=== PATIENT | male | born 1980 | race Caucasian/White ===

== ENCOUNTER → 2016-06-30 | Outpatient (CLI) | payer OTHER ==
[2016-06-30 11:12] LABS: Bilirubin, Delta 0.2 mg/dL (0.0-0.2); Total Bilirubin 0.3 mg/dL (0.2-1.3); Total Protein 7.2 g/dL (6.3-8.2)
[2016-06-30 13:58] LABS: Hemoglobin A1C 5.4 % (4.2-6.1)
== END | disposition home or self-care (01) ==
LOC: LABWHC1 07:50
PROVIDERS: ATTEND Psychiatry & Neurology Psychiatry
DX: Z51.81 Encounter for therapeutic drug level monitoring (principal); Z79.899 Other long term (current) drug therapy
CPT/HCPCS: 36415; 80061; 80076; 80164; 82947; 83036; 84439; 84443

== ENCOUNTER → 2016-09-11 | Outpatient (CLI) | payer OTHER ==
--- NOTE | 2016-09-11 20:09 | MR ---
EXAMINATION TYPE: MR lumbar spine wo con DATE OF EXAM: 09/11/2016 7:48 PM COMPARISON: NONE HISTORY: Back pain, BLE radic Multiplanar, MultiSpin echo imaging of the lumbar spine was performed. T11-12: Severe disc desiccation. Suspect right paracentral disc herniation. Consider dedicated MRI of the thoracic spine. T12-L1: Mild disc desiccation. Left paracentral disc protrusion effaces the ventral thecal sac and re sults in mild left foraminal encroachment. Further evaluation with dedicated MRI of the thoracic spin e is advised. L1-L2: There is moderate disc desiccation. Extruded left paracentral disc herniation results in effac ement of the ventral thecal sac and mild central stenosis. There is left lateral recess stenosis and left foraminal encroachment. L2-L3: Normal disc appearance without desiccation. No herniation, protrusion or disc bulging. No ca nal stenosis is present. Foramina are patent bilaterally. L3-L4: Normal disc appearance without desiccation. No herniation, protrusion or disc bulging. No ca nal stenosis is present. Foramina are patent bilaterally. L4-L5: Moderate disc desiccation. Circumferential disc bulge greatest posterior centrally where I radha pect a small right paracentral disc protrusion. Mild effacement ventral thecal sac. No central stenos is. Mild right-sided foraminal encroachment. L5-S1: Normal disc appearance without desiccation. No herniation, protrusion or disc bulging. No ca nal stenosis is present. Foramina are patent bilaterally. Lumbar segments are intact. No paraspinal masses are identified. Conus medullaris has a normal appe arance. IMPRESSION: 1. Extruded disc herniation paracentrally and to the left at L1-2 with associated central stenosis. 2. Additional I herniations at T11-T12 and T12-L1. Dedicated MRI thoracic spine advised. 3 small disc protrusion at L4-5 as noted.
== END | disposition home or self-care (01) ==
LOC: RADMRIMAIN 19:19
PROVIDERS: ATTEND Family Medicine
DX: M51.26 Other intervertebral disc displacement, lumbar region (principal); M48.06 Spinal stenosis, lumbar region; M51.24 Other intervertebral disc displacement, thoracic region
CPT/HCPCS: 72148

== ENCOUNTER 2016-10-31 11:31 | Emergency (ER) | payer OTHER ==
[2016-10-31 11:44] VITALS: RESP 18
--- NOTE | 2016-10-31 11:51 | ED ---
General Adult HPI - General Chief complaint: Chest Pain Stated complaint: Chest Pain Time Seen by Provider: 10/31/16 11:33 Source: patient, RN notes reviewed, old records reviewed Mode of arrival: ambulatory - History of Present Illness Initial comments: This is a 36-year-old male here for evaluation of chest pain chest pain epigastric bowel pain. Patient has significant cardiac risk factors, patient does continue to smoke. Patient has history of stent placement. Patient coming in for just been today he really started off as his family doctor's offices and was sent here for further evaluation. Patient denies fever cough or congestion, denies travel history, denies known sick contacts. - Related Data Home Medications Medication Instructions Recorded Confirmed Metoprolol Tartrate [Lopressor] 50 mg PO AC-BID 10/26/15 10/31/16 hydrALAZINE HCL [Apresoline] 50 mg PO AC-BID 10/26/15 10/31/16 Aspirin [Adult Low Dose Aspirin EC] 81 mg PO DAILY 10/31/16 10/31/16 Lurasidone HCl [Latuda] 60 mg PO HS 10/31/16 10/31/16 lamoTRIgine [LaMICtal] 200 mg PO HS 10/31/16 10/31/16 Previous Rx's Medication Instructions Recorded Atorvastatin [Lipitor] 40 mg PO DAILY #30 tab 02/26/15 amLODIPine [Norvasc] 10 mg PO HS #30 tab 04/07/15 cloNIDine HCL [Catapres] 0.1 mg PO TID #90 tab 04/07/15 Isosorbide Mononitrate ER [Imdur] 30 mg PO DAILY #60 tab.er.24h 12/03/15 Allergies Allergy/AdvReac Type Severity Reaction Status Date / Time No Known Allergies Allergy Verified 10/31/16 11:52 Review of Systems ROS Statement: Those systems with pertinent positive or pertinent negative responses have been documented in the HPI. ROS Other: All systems not noted in ROS Statement are negative. Past Medical History Past Medical History: Coronary Artery Disease (CAD), COPD, Hypertension, Myocardial Infarction ([place]) Additional Past Medical History / Comment(s): 09/17/14 Pt presented to [facility] ER thinking he is God and his son's spirit sent him here. He is here to save the world. Other HX: [place] in 2008, asthma, stress test Last Myocardial Infarction Date:: 2008 History of Any Multi-Drug Resistant Organisms: None Reported Past Surgical History: Heart Catheterization With Stent Past Anesthesia/Blood Transfusion Reactions: No Reported Reaction Date of Last Stent Placement:: 2008 Past Psychological History: Bipolar Smoking Status: Current every day smoker - Past Family History Father Family Medical History: CVA/TIA, Myocardial Infarction ([place]) Additional Family Medical History / Comment(s): Father had a [place] at age 29yrs. at age 38 after open heart Mother Family Medical History: No Reported History Additional Family Medical History / Comment(s): Mother is healthy General Exam General appearance: alert, in no apparent distress Head exam: Present: atraumatic, normocephalic, normal inspection Eye exam: Present: normal appearance, PERRL, EOMI. Absent: scleral icterus, conjunctival injection, periorbital swelling ENT exam: Present: normal exam, mucous membranes moist Neck exam: Present: normal inspection. Absent: tenderness, meningismus, lymphadenopathy Respiratory exam: Present: normal lung sounds bilaterally. Absent: respiratory distress, wheezes, rales, rhonchi, stridor Cardiovascular Exam: Present: regular rate, normal rhythm, normal heart sounds. Absent: systolic murmur, diastolic murmur, rubs, gallop, clicks GI/Abdominal exam: Present: soft, normal bowel sounds. Absent: distended, tenderness, guarding, rebound, rigid Extremities exam: Present: normal inspection, full ROM, normal capillary refill. Absent: tenderness, pedal edema, joint swelling, calf tenderness Back exam: Present: normal inspection Neurological exam: Present: alert, oriented X3, CN II-XII intact Psychiatric exam: Present: normal affect, normal mood Skin exam: Present: warm, dry, intact, normal color. Absent: rash Course Vital Signs 10/31/16 11:39 Temperature 97.8 F Pulse Rate 63 Respiratory 18 Rate Blood Pressure 126/81 O2 Sat by Pulse 98 Oximetry - Reevaluation(s) Reevaluation #1: 10/31/16 13:04 The patient still has substernal and epigastric chest pain at this time EKG Findings - EKG Comments: EKG Findings:: EKG shows normal sinus rhythm rate of 61, [place] 182, QRS 106, QTC 448 Medical Decision Making - Medical Decision Making 36 LDF for evaluation of chest pain and epigastric of bowel pain. Different from prior history of heart attacks the patient does have history of heart disease. Nonspecific the elevated troponin, patient will be admitted for telemetry, anticoagulation, and cardiac observation - Lab Data Result diagrams: 10/31/16 11:54 10/31/16 11:54 Lab Results 10/31/16 10/31/16 10/31/16 Range/Units 11:54 11:54 11:54 WBC 9.4 (3.8-10.6) k/uL RBC 4.87 (4.30-5.90) m/uL Hgb 14.0 (13.0-17.5) gm/dL Hct 43.7 (39.0-53.0) % MCV 89.6 (80.0-100.0) fL MCH 28.7 (25.0-35.0) pg MCHC 32.1 (31.0-37.0) g/dL RDW 14.0 (11.5-15.5) % Plt Count 335 (150-450) k/uL Neutrophils % 63 % Lymphocytes % 21 % Monocytes % 6 % Eosinophils % 7 % Basophils % 1 % Neutrophils # 5.9 (1.3-7.7) k/uL Lymphocytes # 1.9 (1.0-4.8) k/uL Monocytes # 0.6 (0-1.0) k/uL Eosinophils # 0.7 (0-0.7) k/uL Basophils # 0.1 (0-0.2) k/uL PT (9.0-12.0) sec INR (<1.1) APTT (22.0-30.0) sec Sodium 143 (137-145) mmol/L Potassium 4.7 (3.5-5.1) mmol/L Chloride 106 (98-107) mmol/L Carbon Dioxide 27 (22-30) mmol/L Anion Gap 10 mmol/L BUN 12 (9-20) mg/dL Creatinine 1.24 (0.66-1.25) mg/dL Est GFR (MDRD) Af Amer >60 (>60 ml/min/1.73 sqM) Est GFR (MDRD) Non-Af >60 (>60 ml/min/1.73 sqM) Glucose 90 (74-99) mg/dL Calcium 9.4 (8.4-10.2) mg/dL Magnesium 2.1 (1.6-2.3) mg/dL Total Bilirubin 0.4 (0.2-1.3) mg/dL AST 24 (17-59) U/L ALT 43 (21-72) U/L Alkaline Phosphatase 93 (38-126) U/L Total Creatine Kinase 90 (55-170) U/L CK-MB (CK-2) 0.6 (0.0-2.4) ng/mL CK-MB (CK-2) Rel Index 0.7 Troponin I 0.018 (0.000-0.034) ng/mL Total Protein 7.1 (6.3-8.2) g/dL Albumin 4.0 (3.5-5.0) g/dL 10/31/16 Range/Units 11:54 WBC (3.8-10.6) k/uL RBC (4.30-5.90) m/uL Hgb (13.0-17.5) gm/dL Hct (39.0-53.0) % MCV (80.0-100.0) fL MCH (25.0-35.0) pg MCHC (31.0-37.0) g/dL RDW (11.5-15.5) % Plt Count (150-450) k/uL Neutrophils % % Lymphocytes % % Monocytes % % Eosinophils % % Basophils % % Neutrophils # (1.3-7.7) k/uL Lymphocytes # (1.0-4.8) k/uL Monocytes # (0-1.0) k/uL Eosinophils # (0-0.7) k/uL Basophils # (0-0.2) k/uL PT 9.8 (9.0-12.0) sec INR 1.0 (<1.1) APTT 23.3 (22.0-30.0) sec Sodium (137-145) mmol/L Potassium (3.5-5.1) mmol/L Chloride (98-107) mmol/L Carbon Dioxide (22-30) mmol/L Anion Gap mmol/L BUN (9-20) mg/dL Creatinine (0.66-1.25) mg/dL Est GFR (MDRD) Af Amer (>60 ml/min/1.73 sqM) Est GFR (MDRD) Non-Af (>60 ml/min/1.73 sqM) Glucose (74-99) mg/dL Calcium (8.4-10.2) mg/dL Magnesium (1.6-2.3) mg/dL Total Bilirubin (0.2-1.3) mg/dL AST (17-59) U/L ALT (21-72) U/L Alkaline Phosphatase (38-126) U/L Total Creatine Kinase (55-170) U/L CK-MB (CK-2) (0.0-2.4) ng/mL CK-MB (CK-2) Rel Index Troponin I (0.000-0.034) ng/mL Total Protein (6.3-8.2) g/dL Albumin (3.5-5.0) g/dL - Radiology Data Radiology results: report reviewed (Chest x-ray is negative for acute disease), image reviewed Critical Care Time Critical Care Time: Yes Total Critical Care Time: 31 Disposition Clinical Impression: Chest pain Disposition: ADMITTED IP TO THIS HOSP Condition: Undetermined Instructions: Chest Pain (ED) Referrals: Mohini Uribe MD [Primary Care Provider] - 1-2 days
[2016-10-31 12:07] LABS: Basophils # (A) 0.1 k/uL (0-0.2); Basophils % (A) 1 %; CH 29.1; CHCM 32.6; Eosinophils # (A) 0.7 k/uL (0-0.7); Eosinophils % (A) 7 %; HCT 43.7 % (39.0-53.0); HDW 2.43; Luc # (Auto) 0.22; Luc % (Auto) 2; Lymphocytes # (A) 1.9 k/uL (1.0-4.8); Lymphocytes % (A) 21 %; MCH 28.7 pg (25.0-35.0); MCHC 32.1 g/dL (31.0-37.0); MCV 89.6 fL (80.0-100.0); Mean Platelet Volume 6.6; Monocytes # (A) 0.6 k/uL (0-1.0); Monocytes % (A) 6 %; Neutrophils # (A) 5.9 k/uL (1.3-7.7); Neutrophils % (A) 63 %; RBC 4.87 m/uL (4.30-5.90); WBC 9.4 k/uL (3.8-10.6); WBC (Perox) 9.18
[2016-10-31 12:13] LABS: Partial Thromboplastin Time 23.3 sec (22.0-30.0); Prothrombin Time 9.8 sec (9.0-12.0)
[2016-10-31 12:14] LABS: ALT 43 U/L (21-72); AST 24 U/L (17-59); Alkaline Phosphatase 93 U/L (38-126); Anion Gap 10 mmol/L; Blood Urea Nitrogen 12 mg/dL (9-20); Calcium 9.4 mg/dL (8.4-10.2); Carbon Dioxide 27 mmol/L (22-30); Chloride 106 mmol/L (98-107); Glucose 90 mg/dL (74-99); Magnesium 2.1 mg/dL (1.6-2.3); Non-African American GFR(MDRD) >60 (>60 ml/min/1.73 sqM); Potassium 4.7 mmol/L (3.5-5.1); Sodium 143 mmol/L (137-145); Total Bilirubin 0.4 mg/dL (0.2-1.3); Total Protein 7.1 g/dL (6.3-8.2)
--- NOTE | 2016-10-31 12:21 | XR ---
EXAMINATION TYPE: XR chest 2V DATE OF EXAM: 10/31/2016 HISTORY: Chest Pain. REFERENCE: Previous study dated 04/27/2016. FINDINGS: The lungs are clear. Pleural spaces are clear. Heart size is upper limits of normal. IMPRESSION: BORDERLINE CARDIOMEGALY.
[2016-10-31 12:38] LABS: Creatine Kinase MB 0.6 ng/mL (0.0-2.4); Troponin I 0.018 ng/mL (0.000-0.034)
[2016-10-31] MEDS ORDERED: HEPARIN SODIUM,PORCINE 5,000 UNIT/ML 1 ML VIAL IV PRN (13:02)
[2016-10-31] MEDS ORDERED: NITROGLYCERIN SL TABS 0.4 MG TAB SUBLINGUAL PRN (13:02)
[2016-10-31] MEDS ORDERED: HEPARIN SODIUM,PORCINE 5,000 UNIT/ML 1 ML VIAL IV ONE (13:02)
[2016-10-31] MEDS ORDERED: ASPIRIN 81 MG CHEW PO STA (13:02)
[2016-10-31] MEDS ORDERED: HEPARIN SODIUM,PORCINE/D5W PMX 25,000 UNIT in DEXTROSE/WATER 1 500ML.BAG IV SCH (13:15)
[2016-10-31 13:32] VITALS: BP 119/82
[2016-10-31 13:51] VITALS: PULSE 53; TEMP 98.5
[2016-11-01] MEDS ORDERED: ASPIRIN 325 MG TAB PO SCH (09:00)
[2016-11-01] MEDS ORDERED: ATORVASTATIN 80 MG TAB PO SCH (09:00)
== END 2016-10-31 13:51 | disposition other institution (70) ==
LOC: EC 11:31 → UNDOADMOB 13:02 → 3OBS 13:02 → EC 13:51
DX: R07.9 Chest pain, unspecified (principal); R10.13 Epigastric pain; R79.89 Other specified abnormal findings of blood chemistry; I25.10 Atherosclerotic heart disease of native coronary artery without angina pectoris; I25.2 Old myocardial infarction; I10 Essential (primary) hypertension; F31.9 Bipolar disorder, unspecified; F17.200 Nicotine dependence, unspecified, uncomplicated; Z79.82 Long term (current) use of aspirin; Z79.899 Other long term (current) drug therapy; Z95.5 Presence of coronary angioplasty implant and graft; Z82.49 Family history of ischemic heart disease and other diseases of the circulatory system
CPT/HCPCS: 36415; 71020; 80053; 82550; 82553; 83735; 84484; 85025; 85610; 85730; 93005; 99285

== ENCOUNTER → 2016-11-29 | Outpatient (CLI) | payer OTHER ==
--- NOTE | 2016-11-30 09:09 | MR ---
EXAMINATION TYPE: MR thoracic spine wo con DATE OF EXAM: 11/29/2016 COMPARISON: NONE HISTORY: Mid back pain, Injury at work x 3 weeks Standard multiplanar, multisequence MRI departmental protocol Multiplanar, multisequence images of the thoracic spine were acquired. Diffusion weighted imaging was performed. FINDINGS: At T5-T6 there is a focal central disc herniation which results in mild anterior compression of the s osmar cord. No definite intrinsic signal within the spinal cord. Neural foramina patent. At T6-T7 there is a central disc tiny protrusion. No spinal cord contact or foraminal encroachment. At T7-T8 there is left paracentral disc protrusion, canal stenosis or foraminal encroachment. There i s a very minimal left paracentral thecal sac impression. At T8-T9 there is a central and right paracentral small disc herniation which abuts the anterior taylor in the spinal cord results in AP canal stenosis. Neural foramina are patent. At T11-T12 there is a right paracentral and lateral disc herniation with mild right-sided foraminal encroachment. No spinal cord contact. There is effacement of thecal sac At T12-L1 there is a focal left paracentral disc herniation which does result in distortion of the an terolateral left thecal sac. Left-sided foraminal encroachment seen. Remaining levels demonstrate no definite disc herniation, canal stenosis, or foraminal encroachment. Loss of disc signal seen at levels T5-T12 compatible with degenerative disc disease. Scoliotic curvat ure noted. No abnormal signal the visualized paraspinal soft tissues or spinal cord. IMPRESSION: 1. Multilevel degenerative disc disease with multilevel disc herniation or protrusions as discussed a sondra with thecal sac impression and spinal cord compression at T5-T6. See above.
== END | disposition home or self-care (01) ==
LOC: RADMRIMAIN 18:48
PROVIDERS: ATTEND Family Medicine
DX: M51.34 Other intervertebral disc degeneration, thoracic region (principal)
CPT/HCPCS: 72146

== ENCOUNTER → 2018-04-16 | Outpatient (CLI) | payer OTHER ==
--- NOTE | 2018-04-16 13:08 | XR ---
EXAMINATION TYPE: XR chest 2V DATE OF EXAM: 04/16/2018 COMPARISON: Prior chest x-ray 10/31/2016 HISTORY: TECHNIQUE: Frontal and lateral views of the chest are obtained. FINDINGS: There is no focal air space opacity, pleural effusion, or pneumothorax seen. The cardiac silhouette size is within normal limits. There is a spinal curvature. The osseous structures are in tact. IMPRESSION: No acute cardiopulmonary process.
== END | disposition home or self-care (01) ==
LOC: RADXRMAIN 12:40
PROVIDERS: ATTEND Family Medicine
DX: R05 Cough (principal); R06.2 Wheezing; J01.00 Acute maxillary sinusitis, unspecified; Z72.0 Tobacco use
CPT/HCPCS: 71046; 87502

== ENCOUNTER 2018-04-22 09:29 | Emergency (ER) | payer OTHER ==
[2018-04-22 09:36] VITALS: TEMP 98.3
[2018-04-22] MEDS ORDERED: methylPREDNISolone SOD SUCCI 125 MG/2 ML VIAL IV STA (10:29)
[2018-04-22] MEDS ORDERED: ONDANSETRON 4 MG/2 ML VIAL IVP STA (10:29)
[2018-04-22] MEDS ORDERED: HYDROmorphone 1 MG/ML 1 ML SYRINGE IVP STA (10:29)
[2018-04-22] MEDS ORDERED: IPRATROPIUM-ALBUTEROL 3 ML NEB INHALATION STA (10:29)
[2018-04-22 11:52] LABS: Anisocytosis Slight; Basophils % (A) 0 %; Eosinophils # (A) 0.3 k/uL (0-0.7); Eosinophils % (A) 3 %; HCT 44.6 % (39.0-53.0); HGB 14.2 gm/dL (13.0-17.5); Lymphocytes % (A) 15 %; MCH 25.4 pg (25.0-35.0); MCHC 31.8 g/dL (31.0-37.0); MCV 79.9 fL (80.0-100.0); Mean Platelet Volume 6.5; Microcytosis Slight; Monocytes # (A) 0.7 k/uL (0-1.0); Monocytes % (A) 5 %; Neutrophils # (A) 9.8 k/uL (1.3-7.7); Neutrophils % (A) 75 %; Platelet Count 466 k/uL (150-450); RBC 5.58 m/uL (4.30-5.90); RDW 17.5 % (11.5-15.5)
[2018-04-22 12:00] LABS: ALT 42 U/L (21-72); AST 29 U/L (17-59); Albumin 3.9 g/dL (3.5-5.0); Alkaline Phosphatase 101 U/L (38-126); Anion Gap 11 mmol/L; Blood Urea Nitrogen 18 mg/dL (9-20); Calcium 9.4 mg/dL (8.4-10.2); Carbon Dioxide 27 mmol/L (22-30); Chloride 104 mmol/L (98-107); Glucose 93 mg/dL (74-99); Magnesium 2.2 mg/dL (1.6-2.3); Potassium 4.3 mmol/L (3.5-5.1); Sodium 142 mmol/L (137-145); Total Bilirubin 0.4 mg/dL (0.2-1.3); Total Protein 7.2 g/dL (6.3-8.2)
--- NOTE | 2018-04-22 12:42 | ED ---
URI HPI - General Chief Complaint: Upper Respiratory Infection Stated Complaint: rt sided abd pain Time Seen by Provider: 04/22/18 09:44 Source: patient, RN notes reviewed Mode of arrival: ambulatory Limitations: no limitations - History of Present Illness Initial Comments: 37-year-old male present emergency from chief complaint of right-sided rib pain. Patient states she's been sick for last 2 months he does have a history asthma and prior cardiac disease. Patient states that he felt a pop in his ribs and states that severe pain. Patient states she's having trouble breathing at this time also movement makes it worse. Patient states when he doesn't updraft he does help for short period time but still feels short of breath. Patient is currently on steroids. Patient reported fever but no fever today. Patient admits of sinus congestion, sore throat, cough. - Related Data Home Medications Medication Instructions Recorded Confirmed Metoprolol Tartrate [Lopressor] 50 mg PO AC-BID 10/26/15 04/22/18 Lurasidone HCl [Latuda] 60 mg PO HS 10/31/16 04/22/18 lamoTRIgine [LaMICtal] 200 mg PO HS 10/31/16 04/22/18 Albuterol Inhaler [Ventolin Hfa 2 puff INHALATION RT-Q6H PRN 04/22/18 04/22/18 Inhaler] Amoxic-Pot Clav 875-125Mg 1 tab PO Q12HR 04/22/18 04/22/18 [Augmentin 875-125] Ipratropium-Albuterol Nebulize 3 ml INHALATION RT-Q6H PRN 04/22/18 04/22/18 [Duoneb 0.5 mg-3 mg/3 ml Soln] Omeprazole 20 mg PO HS 04/22/18 04/22/18 amLODIPine [Norvasc] 10 mg PO DAILY 04/22/18 04/22/18 predniSONE See Taper PO DIRECTED 04/22/18 04/22/18 Previous Rx's Medication Instructions Recorded Atorvastatin [Lipitor] 40 mg PO DAILY #30 tab 02/26/15 Allergies Allergy/AdvReac Type Severity Reaction Status Date / Time No Known Allergies Allergy Verified 04/22/18 09:56 Review of Systems ROS Statement: Those systems with pertinent positive or pertinent negative responses have been documented in the HPI. ROS Other: All systems not noted in ROS Statement are negative. Past Medical History Past Medical History: Coronary Artery Disease (CAD), COPD, Hypertension, Myocardial Infarction ([place]) Additional Past Medical History / Comment(s): 09/17/14 Pt presented to [facility] ER thinking he is God and his son's spirit sent him here. He is here to save the world. Other HX: [place] in 2008, asthma, stress test Last Myocardial Infarction Date:: 2008 History of Any Multi-Drug Resistant Organisms: None Reported Past Surgical History: Heart Catheterization With Stent Past Anesthesia/Blood Transfusion Reactions: No Reported Reaction Date of Last Stent Placement:: 2008 Past Psychological History: Bipolar Smoking Status: Current every day smoker Past Alcohol Use History: Occasional Past Drug Use History: Marijuana - Past Family History Father Family Medical History: CVA/TIA, Myocardial Infarction ([place]) Additional Family Medical History / Comment(s): Father had a [place] at age 29yrs. at age 38 after open heart Mother Family Medical History: No Reported History Additional Family Medical History / Comment(s): Mother is healthy General Exam Limitations: no limitations General appearance: alert, in no apparent distress Head exam: Present: atraumatic, normocephalic, normal inspection Eye exam: Present: normal appearance, PERRL, EOMI. Absent: scleral icterus, conjunctival injection, periorbital swelling ENT exam: Present: normal exam, mucous membranes moist Neck exam: Present: normal inspection, full ROM. Absent: tenderness, meningismus, lymphadenopathy Respiratory exam: Present: wheezes, chest wall tenderness (Right anterior lateral). Absent: normal lung sounds bilaterally, respiratory distress, rales, rhonchi, stridor Cardiovascular Exam: Present: normal rhythm, tachycardia, normal heart sounds. Absent: systolic murmur, diastolic murmur, rubs, gallop, clicks GI/Abdominal exam: Present: soft, normal bowel sounds. Absent: distended, tenderness, guarding, rebound, rigid Course Vital Signs 04/22/18 04/22/18 04/22/18 09:33 11:00 11:04 Temperature 98.3 F Pulse Rate 101 H 88 84 Respiratory 18 17 Rate Blood Pressure 161/100 180/121 O2 Sat by Pulse 95 95 Oximetry 04/22/18 04/22/18 04/22/18 11:13 11:18 11:30 Temperature Pulse Rate 88 88 Respiratory 26 H 13 Rate Blood Pressure 174/108 O2 Sat by Pulse Oximetry 04/22/18 04/22/18 04/22/18 12:00 12:30 13:00 Temperature Pulse Rate 87 87 98 Respiratory 20 20 17 Rate Blood Pressure 172/108 147/100 139/100 O2 Sat by Pulse 92 L 91 L 85 L Oximetry 04/22/18 04/22/18 13:30 14:30 Temperature Pulse Rate 90 90 Respiratory 21 14 Rate Blood Pressure 155/104 155/103 O2 Sat by Pulse 92 L 93 L Oximetry Medical Decision Making - Medical Decision Making 29-year-old male presented for right-sided rib pain. Patient did have notable wheezing was given DuoNeb treatment which has helped. Patient has mild asthma exacerbation currently on steroids. Patient did have elevated d-dimer CT was obtained negative for acute PE, pneumothorax or evidence of pneumonia. Patient will continue on his steroids, albuterol treatment will be given pain medication for rib injury. Return parameters were discussed. - Lab Data Result diagrams: 04/22/18 11:00 04/22/18 11:00 Lab Results 04/22/18 04/22/18 04/22/18 Range/Units 11:00 11:00 11:00 WBC 13.0 H (3.8-10.6) k/uL RBC 5.58 (4.30-5.90) m/uL Hgb 14.2 (13.0-17.5) gm/dL Hct 44.6 (39.0-53.0) % MCV 79.9 L (80.0-100.0) fL MCH 25.4 (25.0-35.0) pg MCHC 31.8 (31.0-37.0) g/dL RDW 17.5 H (11.5-15.5) % Plt Count 466 H (150-450) k/uL Neutrophils % 75 % Lymphocytes % 15 % Monocytes % 5 % Eosinophils % 3 % Basophils % 0 % Neutrophils # 9.8 H (1.3-7.7) k/uL Lymphocytes # 2.0 (1.0-4.8) k/uL Monocytes # 0.7 (0-1.0) k/uL Eosinophils # 0.3 (0-0.7) k/uL Basophils # 0.0 (0-0.2) k/uL Anisocytosis Slight Microcytosis Slight D-Dimer (<0.60) mg/L FEU Sodium 142 (137-145) mmol/L Potassium 4.3 (3.5-5.1) mmol/L Chloride 104 (98-107) mmol/L Carbon Dioxide 27 (22-30) mmol/L Anion Gap 11 mmol/L BUN 18 (9-20) mg/dL Creatinine 1.14 (0.66-1.25) mg/dL Est GFR (CKD-EPI)AfAm >90 (>60 ml/min/1.73 sqM) Est GFR (CKD-EPI)NonAf 82 (>60 ml/min/1.73 sqM) Glucose 93 (74-99) mg/dL Plasma Lactic Acid Bryan (0.7-2.0) mmol/L Calcium 9.4 (8.4-10.2) mg/dL Magnesium 2.2 (1.6-2.3) mg/dL Total Bilirubin 0.4 (0.2-1.3) mg/dL AST 29 (17-59) U/L ALT 42 (21-72) U/L Alkaline Phosphatase 101 (38-126) U/L Troponin I 0.020 (0.000-0.034) ng/mL NT-Pro-B Natriuret Pep pg/mL Total Protein 7.2 (6.3-8.2) g/dL Albumin 3.9 (3.5-5.0) g/dL Influenza Type A RNA (Not Detectd) Influenza Type B (PCR) (Not Detectd) 04/22/18 04/22/18 04/22/18 Range/Units 11:00 11:00 11:00 WBC (3.8-10.6) k/uL RBC (4.30-5.90) m/uL Hgb (13.0-17.5) gm/dL Hct (39.0-53.0) % MCV (80.0-100.0) fL MCH (25.0-35.0) pg MCHC (31.0-37.0) g/dL RDW (11.5-15.5) % Plt Count (150-450) k/uL Neutrophils % % Lymphocytes % % Monocytes % % Eosinophils % % Basophils % % Neutrophils # (1.3-7.7) k/uL Lymphocytes # (1.0-4.8) k/uL Monocytes # (0-1.0) k/uL Eosinophils # (0-0.7) k/uL Basophils # (0-0.2) k/uL Anisocytosis Microcytosis D-Dimer (<0.60) mg/L FEU Sodium (137-145) mmol/L Potassium (3.5-5.1) mmol/L Chloride (98-107) mmol/L Carbon Dioxide (22-30) mmol/L Anion Gap mmol/L BUN (9-20) mg/dL Creatinine (0.66-1.25) mg/dL Est GFR (CKD-EPI)AfAm (>60 ml/min/1.73 sqM) Est GFR (CKD-EPI)NonAf (>60 ml/min/1.73 sqM) Glucose (74-99) mg/dL Plasma Lactic Acid Bryan 1.2 (0.7-2.0) mmol/L Calcium (8.4-10.2) mg/dL Magnesium (1.6-2.3) mg/dL Total Bilirubin (0.2-1.3) mg/dL AST (17-59) U/L ALT (21-72) U/L Alkaline Phosphatase (38-126) U/L Troponin I (0.000-0.034) ng/mL NT-Pro-B Natriuret Pep 70 pg/mL Total Protein (6.3-8.2) g/dL Albumin (3.5-5.0) g/dL Influenza Type A RNA Not Detected (Not Detectd) Influenza Type B (PCR) Not Detected (Not Detectd) 04/22/18 Range/Units 11:00 WBC (3.8-10.6) k/uL RBC (4.30-5.90) m/uL Hgb (13.0-17.5) gm/dL Hct (39.0-53.0) % MCV (80.0-100.0) fL MCH (25.0-35.0) pg MCHC (31.0-37.0) g/dL RDW (11.5-15.5) % Plt Count (150-450) k/uL Neutrophils % % Lymphocytes % % Monocytes % % Eosinophils % % Basophils % % Neutrophils # (1.3-7.7) k/uL Lymphocytes # (1.0-4.8) k/uL Monocytes # (0-1.0) k/uL Eosinophils # (0-0.7) k/uL Basophils # (0-0.2) k/uL Anisocytosis Microcytosis D-Dimer 0.82 H (<0.60) mg/L FEU Sodium (137-145) mmol/L Potassium (3.5-5.1) mmol/L Chloride (98-107) mmol/L Carbon Dioxide (22-30) mmol/L Anion Gap mmol/L BUN (9-20) mg/dL Creatinine (0.66-1.25) mg/dL Est GFR (CKD-EPI)AfAm (>60 ml/min/1.73 sqM) Est GFR (CKD-EPI)NonAf (>60 ml/min/1.73 sqM) Glucose (74-99) mg/dL Plasma Lactic Acid Bryan (0.7-2.0) mmol/L Calcium (8.4-10.2) mg/dL Magnesium (1.6-2.3) mg/dL Total Bilirubin (0.2-1.3) mg/dL AST (17-59) U/L ALT (21-72) U/L Alkaline Phosphatase (38-126) U/L Troponin I (0.000-0.034) ng/mL NT-Pro-B Natriuret Pep pg/mL Total Protein (6.3-8.2) g/dL Albumin (3.5-5.0) g/dL Influenza Type A RNA (Not Detectd) Influenza Type B (PCR) (Not Detectd) 04/22/18 14:35 EKG performed at 10:47 normal sinus rhythm with a prolonged QT rate of 86 UT 174 QRS 104 QT/QTC/488 Disposition Clinical Impression: Mild asthma exacerbation, Costochondritis, Rib pain on right side Disposition: HOME SELF-CARE Condition: Stable Instructions: Costochondritis (ED) Additional Instructions: Please return to the Emergency Department if symptoms worsen or any other concerns. Continue steroids as directed. Is patient prescribed a controlled substance at d/c from ED?: Yes When asked, does pt state using other controlled substances?: No If prescribed controlled substance>3 days was MAPS reviewed?: Prescribed <3 Days If opioid is for acute pain is fill amount 7 days or less?: Yes If Rx opioid, was Start Talking consent form obtained?: Yes Referrals: Mohini Uribe MD [Primary Care Provider] - 1-2 days Time of Disposition: 14:36
--- NOTE | 2018-04-22 12:44 | XR ---
EXAMINATION TYPE: XR chest 2V DATE OF EXAM: 04/22/2018 COMPARISON: 04/16/2018 INDICATION: Difficulty breathing, right mid rib pain TECHNIQUE: Frontal and lateral views of the chest are obtained. FINDINGS: The heart size is normal. The pulmonary vasculature is normal. The lungs are clear. No displaced rib fractures are identified. No pneumothorax is evident. IMPRESSION: 1. No acute pulmonary process.
[2018-04-22] MEDS ORDERED: DIAZEPAM 5 MG/ML 2 ML INJ IVP STA (12:49)
[2018-04-22 13:52] VITALS: PULSE 90
--- NOTE | 2018-04-22 14:31 | CT ---
EXAMINATION TYPE: CT chest angio for PE DATE OF EXAM: 04/22/2018 COMPARISON: Chest x-ray same date and prior CT chest 12/02/2015 HISTORY: Pain CT DLP: 630.2 mGycm Automated exposure control for dose reduction was used. CONTRAST: CT Chest for pulmonary embolism performed with with IV Contrast, patient injected with 75 mL of Isovu e 370. FINDINGS: Suspect a small hiatal hernia is present. LUNGS: There is a small right pleural effusion and associated atelectasis. MEDIASTINUM: There is satisfactory enhancement of the pulmonary artery and its branches, there is no CT evidence for pulmonary embolism. There are no greater than 1 cm hilar or mediastinal lymph nodes. No pericardial effusion is seen. Coronary artery calcifications are present. AORTA: No additional significant abnormality is seen. OTHER: No additional significant abnormality is seen. IMPRESSION: No evident pulmonary embolism. Coronary artery calcifications. Small right pleural effusion and minimal associated atelectasis.
[2018-04-22 14:34] VITALS: BP 155/103; RESP 14
== END 2018-04-22 14:45 | disposition home or self-care (01) ==
LOC: EC 09:29
DX: J45.901 Unspecified asthma with (acute) exacerbation (principal); M94.0 Chondrocostal junction syndrome [Tietze]; R10.9 Unspecified abdominal pain; I25.10 Atherosclerotic heart disease of native coronary artery without angina pectoris; I11.9 Hypertensive heart disease without heart failure; I25.2 Old myocardial infarction; F31.9 Bipolar disorder, unspecified; F17.200 Nicotine dependence, unspecified, uncomplicated; Z95.5 Presence of coronary angioplasty implant and graft; Z79.52 Long term (current) use of systemic steroids; Z82.49 Family history of ischemic heart disease and other diseases of the circulatory system; Z79.899 Other long term (current) drug therapy
CPT/HCPCS: 36415; 94640; 93005; 85379; 83880; 80053; 83605; 83735; 84484; 85025; 87040; 87502; 71046; 71275; 99284; 96374; 96375 ×3; J2930; J3360; J2405; J1170; Q9967

== ENCOUNTER 2018-04-27 17:12 | Inpatient (IN) | payer OTHER ==
[2018-04-27] MEDS ORDERED: IPRATROPIUM-ALBUTEROL 3 ML NEB INHALATION STA (17:52)
[2018-04-27] MEDS ORDERED: SODIUM CHLORIDE 0.9% 1,000 ML IV STA (17:52)
[2018-04-27 19:20] LABS: Appearance,Urine Clear (Clear); Bilirubin,Urine Negative (Negative); Blood,Urine Negative (Negative); Color,Urine Yellow; Glucose,Urine (UA) Negative (Negative); Ketones,Urine Negative (Negative); Leukocyte Esterase,Urine Negative (Negative); Nitrite,Urine Negative (Negative); Protein,Urine Negative (Negative); Specific Gravity,Urine 1.015 (1.001-1.035); Urobilinogen,Urine <2.0 mg/dL (<2.0)
[2018-04-27 19:20] LABS: Anisocytosis Slight; Basophils % (A) 0 %; Eosinophils # (A) 0.5 k/uL (0-0.7); Eosinophils % (A) 3 %; HCT 41.2 % (39.0-53.0); HGB 13.1 gm/dL (13.0-17.5); Lymphocytes % (A) 14 %; MCH 26.1 pg (25.0-35.0); MCHC 31.8 g/dL (31.0-37.0); MCV 81.9 fL (80.0-100.0); Mean Platelet Volume 7.1; Microcytosis Slight; Monocytes # (A) 0.9 k/uL (0-1.0); Monocytes % (A) 6 %; Neutrophils # (A) 10.9 k/uL (1.3-7.7); Neutrophils % (A) 75 %; Platelet Count 407 k/uL (150-450); RBC 5.03 m/uL (4.30-5.90); RDW 17.3 % (11.5-15.5); WBC 14.5 k/uL (3.8-10.6)
[2018-04-27 19:29] LABS: Cocaine Screen,Urine Not Detected (NotDetected); Opiate Screen,Urine Detected (NotDetected); Phencyclidine Screen,Urine Not Detected (NotDetected); Urn Cannabinoid Scrn Detected (NotDetected)
--- NOTE | 2018-04-27 19:29 | ED ---
General Adult HPI - General Source: patient, RN notes reviewed Mode of arrival: ambulatory Limitations: no limitations <Raza Musa - Last Filed: 04/27/18 20:00> <Elliot Stone - Last Filed: 04/27/18 20:11> - General Chief complaint: Recheck/Abnormal Lab/Rx Stated complaint: rib pain/always tired Time Seen by Provider: 04/27/18 17:46 - History of Present Illness Initial comments: Patient's a 37-year-old male significant past medical history for COPD, presenting to the emergency room today with a chief complaint of increased cough congestion over the last 2 weeks. States cough has been dry. Does admit that he was seen here in the emergency room and diagnosed with a bronchitis. Has Been on amoxicillin for the past week and a half. States that symptoms have not improved. Patient front as at bedside stating that it's been more confused over the last week. States sleeping more. States he didn't follow-up the family doctor 2 days ago and were advised coming here to emergency room for admission. States that she couldn't get him to come to the hospital. Patient denies any recent shortness of breath, chest pain, back pain, abdominal pain, nausea or vomiting, numbness or tingling, headaches or visual changes, or any other complaints. (Raza Musa) - Related Data Home Medications Medication Instructions Recorded Confirmed Metoprolol Tartrate [Lopressor] 50 mg PO AC-BID 10/26/15 04/22/18 Lurasidone HCl [Latuda] 60 mg PO HS 10/31/16 04/22/18 lamoTRIgine [LaMICtal] 200 mg PO HS 10/31/16 04/22/18 Albuterol Inhaler [Ventolin Hfa 2 puff INHALATION RT-Q6H PRN 04/22/18 04/22/18 Inhaler] Amoxic-Pot Clav 875-125Mg 1 tab PO Q12HR 04/22/18 04/22/18 [Augmentin 875-125] Ipratropium-Albuterol Nebulize 3 ml INHALATION RT-Q6H PRN 04/22/18 04/22/18 [Duoneb 0.5 mg-3 mg/3 ml Soln] Omeprazole 20 mg PO HS 04/22/18 04/22/18 amLODIPine [Norvasc] 10 mg PO DAILY 04/22/18 04/22/18 predniSONE See Taper PO DIRECTED 04/22/18 04/22/18 Previous Rx's Medication Instructions Recorded Atorvastatin [Lipitor] 40 mg PO DAILY #30 tab 02/26/15 Hydrocodone/Acetaminophen [Gwynn 1 tab PO Q6HR PRN #12 tab 04/22/18 5-325] predniSONE 50 mg PO DAILY #5 tab 04/22/18 Allergies Allergy/AdvReac Type Severity Reaction Status Date / Time No Known Allergies Allergy Verified 04/27/18 17:38 Review of Systems ROS Other: All systems not noted in ROS Statement are negative. <Raza Musa - Last Filed: 04/27/18 20:00> ROS Other: All systems not noted in ROS Statement are negative. <Elliot Stone - Last Filed: 04/27/18 20:11> ROS Statement: Those systems with pertinent positive or pertinent negative responses have been documented in the HPI. Past Medical History Past Medical History: Coronary Artery Disease (CAD), COPD, Hypertension, Myocardial Infarction ([place]) Additional Past Medical History / Comment(s): 09/17/14 Pt presented to [facility] ER thinking he is God and his son's spirit sent him here. He is here to save the world. Other HX: [place] in 2008, asthma, stress test Last Myocardial Infarction Date:: 2008 History of Any Multi-Drug Resistant Organisms: None Reported Past Surgical History: Heart Catheterization With Stent Past Anesthesia/Blood Transfusion Reactions: No Reported Reaction Date of Last Stent Placement:: 2008 Past Psychological History: Bipolar Smoking Status: Current every day smoker Past Alcohol Use History: Occasional Past Drug Use History: Marijuana - Past Family History Father Family Medical History: CVA/TIA, Myocardial Infarction ([place]) Additional Family Medical History / Comment(s): Father had a [place] at age 29yrs. at age 38 after open heart Mother Family Medical History: No Reported History Additional Family Medical History / Comment(s): Mother is healthy <Raza Musa - Last Filed: 04/27/18 20:00> General Exam Limitations: no limitations <Raza Musa - Last Filed: 04/27/18 20:00> <Elliot Stone - Last Filed: 04/27/18 20:11> - General Exam Comments Initial Comments: General: The patient is awake and alert, in no distress, and does not appear acutely ill. Eye: Pupils are equal, round and reactive to light, extra-ocular movements are intact. No nystagmus. There is normal conjunctiva bilaterally. No signs of icterus. Ears, nose, mouth and throat: There are moist mucous membranes and no oral lesions. Neck: The neck is supple, there is no tenderness or JVD. Cardiovascular: There is a regular rate and rhythm. No murmur, rub or gallop is appreciated. Respiratory: Lungs are clear to auscultation, respirations are non-labored, breath sounds are equal. No wheezes, stridor, rales, or rhonchi. Gastrointestinal: Soft, non-distended, non-tender abdomen without masses or organomegaly noted. Musculoskeletal: Normal ROM, no tenderness. Strength 5/5. Sensation intact. Pulses equal bilaterally 2+. Neurological: A&O x 3. CN II-XII intact, There are no obvious motor or sensory deficits. Coordination appears grossly intact. Speech is normal. Skin: Skin is warm and dry and no rashes or lesions are noted. Psychiatric: Cooperative, appropriate mood & affect, normal judgment. (Raza Musa) Course <Raza Musa - Last Filed: 04/27/18 20:00> <Elliot Stone - Last Filed: 04/27/18 20:11> Vital Signs 04/27/18 04/27/18 04/27/18 17:30 19:03 19:11 Temperature 98.2 F 97.6 F Pulse Rate 78 78 Respiratory 18 15 16 Rate Blood Pressure 154/100 152/87 O2 Sat by Pulse 98 97 Oximetry 04/27/18 04/27/18 19:40 19:48 Temperature Pulse Rate 83 88 Respiratory Rate Blood Pressure O2 Sat by Pulse Oximetry - Reevaluation(s) Reevaluation #1: 04/27/18 20:11 PA supervision: I proceeded [id number] evaluation the patient is been having nonproductive cough with diagnosis of bronchitis about antibiotics to see his doctor recently and was told to come the hospital 3 days ago for admission he is back tonight he does have elevated troponin. I did discuss the case with the admitting service she will be admitted for evaluation by cardiology. (Elliot Stone) Medical Decision Making - Lab Data Result diagrams: 04/27/18 18:35 04/27/18 18:35 <Raza Musa - Last Filed: 04/27/18 20:00> - Lab Data Result diagrams: 04/27/18 18:35 04/27/18 18:35 <Elliot Stone - Last Filed: 04/27/18 20:11> - Medical Decision Making Patient's labs been reviewed does show 14,000 white count. Chest x-rays negative for any acute abnormality. Patient was seen here earlier in the week had a CT of the chest which was negative for PE and did show evidence of a pleural effusion. Patient's was negative for influenza earlier. He still had cough congestion over this last week denies chest pain. EKG showing no acute changes. His troponin was elevated at 0.070. Patient will be admitted to the hospital with consult cardiology and serial cardiac enzymes. (Raza Musa) - Lab Data Lab Results 04/27/18 04/27/18 04/27/18 Range/Units 18:30 18:35 18:35 WBC 14.5 H (3.8-10.6) k/uL RBC 5.03 (4.30-5.90) m/uL Hgb 13.1 (13.0-17.5) gm/dL Hct 41.2 (39.0-53.0) % MCV 81.9 (80.0-100.0) fL MCH 26.1 (25.0-35.0) pg MCHC 31.8 (31.0-37.0) g/dL RDW 17.3 H (11.5-15.5) % Plt Count 407 (150-450) k/uL Neutrophils % 75 % Lymphocytes % 14 % Monocytes % 6 % Eosinophils % 3 % Basophils % 0 % Neutrophils # 10.9 H (1.3-7.7) k/uL Lymphocytes # 2.0 (1.0-4.8) k/uL Monocytes # 0.9 (0-1.0) k/uL Eosinophils # 0.5 (0-0.7) k/uL Basophils # 0.0 (0-0.2) k/uL Anisocytosis Slight Microcytosis Slight PT (9.0-12.0) sec INR (<1.2) APTT (22.0-30.0) sec Sodium 139 (137-145) mmol/L Potassium 4.7 (3.5-5.1) mmol/L Chloride 104 (98-107) mmol/L Carbon Dioxide 32 H (22-30) mmol/L Anion Gap 3 mmol/L BUN 22 H (9-20) mg/dL Creatinine 1.13 (0.66-1.25) mg/dL Est GFR (CKD-EPI)AfAm >90 (>60 ml/min/1.73 sqM) Est GFR (CKD-EPI)NonAf 82 (>60 ml/min/1.73 sqM) Glucose 73 L (74-99) mg/dL Plasma Lactic Acid Bryan (0.7-2.0) mmol/L Calcium 8.6 (8.4-10.2) mg/dL Total Bilirubin 0.4 (0.2-1.3) mg/dL AST 25 (17-59) U/L ALT 37 (21-72) U/L Alkaline Phosphatase 88 (38-126) U/L Troponin I (0.000-0.034) ng/mL Total Protein 5.9 L (6.3-8.2) g/dL Albumin 3.2 L (3.5-5.0) g/dL Amylase 49 (30-110) U/L Lipase 54 (23-300) U/L Urine Color Yellow Urine Appearance Clear (Clear) Urine pH 6.0 (5.0-8.0) Ur Specific Laurel 1.015 (1.001-1.035) Urine Protein Negative (Negative) Urine Glucose (UA) Negative (Negative) Urine Ketones Negative (Negative) Urine Blood Negative (Negative) Urine Nitrite Negative (Negative) Urine Bilirubin Negative (Negative) Urine Urobilinogen <2.0 (<2.0) mg/dL Ur Leukocyte Esterase Negative (Negative) Urine Opiates Screen Detected H (NotDetected) Ur Oxycodone Screen Not Detected (NotDetected) Urine Methadone Screen Not Detected (NotDetected) Ur Propoxyphene Screen Not Detected (NotDetected) Ur Barbiturates Screen Not Detected (NotDetected) U Tricyclic Antidepress Not Detected (NotDetected) Ur Phencyclidine Scrn Not Detected (NotDetected) Ur Amphetamines Screen Not Detected (NotDetected) U Methamphetamines Scrn Not Detected (NotDetected) U Benzodiazepines Scrn Detected H (NotDetected) Urine Cocaine Screen Not Detected (NotDetected) U Marijuana (THC) Screen Detected H (NotDetected) 04/27/18 04/27/18 04/27/18 Range/Units 18:35 18:35 18:35 WBC (3.8-10.6) k/uL RBC (4.30-5.90) m/uL Hgb (13.0-17.5) gm/dL Hct (39.0-53.0) % MCV (80.0-100.0) fL MCH (25.0-35.0) pg MCHC (31.0-37.0) g/dL RDW (11.5-15.5) % Plt Count (150-450) k/uL Neutrophils % % Lymphocytes % % Monocytes % % Eosinophils % % Basophils % % Neutrophils # (1.3-7.7) k/uL Lymphocytes # (1.0-4.8) k/uL Monocytes # (0-1.0) k/uL Eosinophils # (0-0.7) k/uL Basophils # (0-0.2) k/uL Anisocytosis Microcytosis PT 9.5 (9.0-12.0) sec INR 0.9 (<1.2) APTT 21.8 L (22.0-30.0) sec Sodium (137-145) mmol/L Potassium (3.5-5.1) mmol/L Chloride (98-107) mmol/L Carbon Dioxide (22-30) mmol/L Anion Gap mmol/L BUN (9-20) mg/dL Creatinine (0.66-1.25) mg/dL Est GFR (CKD-EPI)AfAm (>60 ml/min/1.73 sqM) Est GFR (CKD-EPI)NonAf (>60 ml/min/1.73 sqM) Glucose (74-99) mg/dL Plasma Lactic Acid Bryan 0.9 (0.7-2.0) mmol/L Calcium (8.4-10.2) mg/dL Total Bilirubin (0.2-1.3) mg/dL AST (17-59) U/L ALT (21-72) U/L Alkaline Phosphatase (38-126) U/L Troponin I 0.070 H* (0.000-0.034) ng/mL Total Protein (6.3-8.2) g/dL Albumin (3.5-5.0) g/dL Amylase (30-110) U/L Lipase (23-300) U/L Urine Color Urine Appearance (Clear) Urine pH (5.0-8.0) Ur Specific Laurel (1.001-1.035) Urine Protein (Negative) Urine Glucose (UA) (Negative) Urine Ketones (Negative) Urine Blood (Negative) Urine Nitrite (Negative) Urine Bilirubin (Negative) Urine Urobilinogen (<2.0) mg/dL Ur Leukocyte Esterase (Negative) Urine Opiates Screen (NotDetected) Ur Oxycodone Screen (NotDetected) Urine Methadone Screen (NotDetected) Ur Propoxyphene Screen (NotDetected) Ur Barbiturates Screen (NotDetected) U Tricyclic Antidepress (NotDetected) Ur Phencyclidine Scrn (NotDetected) Ur Amphetamines Screen (NotDetected) U Methamphetamines Scrn (NotDetected) U Benzodiazepines Scrn (NotDetected) Urine Cocaine Screen (NotDetected) U Marijuana (THC) Screen (NotDetected) Disposition Is patient prescribed a controlled substance at d/c from ED?: No Time of Disposition: 20:01 <Raza Musa - Last Filed: 04/27/18 20:00> <Elliot Stone - Last Filed: 04/27/18 20:11> Clinical Impression: Elevated troponin, Bronchitis Disposition: ADMITTED IP TO THIS HOSP Condition: Stable Referrals: Mohini Uribe MD [Primary Care Provider] - 1-2 days Addendum entered and electronically signed by Raza Musa PA-C 04/27/18 20: 03: EKG performed at 1919: Shows normal sinus rhythm at 76 bpm. MN interval 176. QRS 112. QT/QTc 406/456. No acute ST change. Compared to EKG on 04/22/2018.
[2018-04-27 19:30] LABS: Amphetamine Screen,Urine Not Detected (NotDetected); Barbiturate Screen,Urine Not Detected (NotDetected); Benzodiazepines Screen,Urine Detected (NotDetected); Methadone Screen, Urine Not Detected (NotDetected); Oxycodone Screen, Urine Not Detected (NotDetected); Tricyclic Antidepressant,Urine Not Detected (NotDetected)
[2018-04-27 19:31] LABS: ALT 37 U/L (21-72); AST 25 U/L (17-59); Albumin 3.2 g/dL (3.5-5.0); Alkaline Phosphatase 88 U/L (38-126); Amylase 49 U/L (30-110); Anion Gap 3 mmol/L; Blood Urea Nitrogen 22 mg/dL (9-20); Calcium 8.6 mg/dL (8.4-10.2); Carbon Dioxide 32 mmol/L (22-30); Chloride 104 mmol/L (98-107); Glucose 73 mg/dL (74-99); Lipase 54 U/L (23-300); Potassium 4.7 mmol/L (3.5-5.1); Sodium 139 mmol/L (137-145); Total Bilirubin 0.4 mg/dL (0.2-1.3); Total Protein 5.9 g/dL (6.3-8.2)
--- NOTE | 2018-04-27 19:34 | XR ---
EXAMINATION TYPE: XR chest 2V DATE OF EXAM: 04/27/2018 COMPARISON: 04/22/2018 HISTORY: Cough and congestion TECHNIQUE: Frontal and lateral views of the chest are obtained. FINDINGS: Heart and mediastinum are normal. Lungs are clear. Diaphragm is normal. There are chest le ads. Bony thorax is intact. IMPRESSION: Normal chest. No change.
[2018-04-27 19:42] LABS: INR 0.9 (<1.2); Prothrombin Time 9.5 sec (9.0-12.0)
[2018-04-27 19:51] LABS: Partial Thromboplastin Time 21.8 sec (22.0-30.0)
[2018-04-27] MEDS ORDERED: NITROGLYCERIN SL TABS 0.4 MG TAB SUBLINGUAL PRN (20:01)
[2018-04-27] MEDS ORDERED: ASPIRIN 81 MG PO STA (20:01)
[2018-04-27] MEDS: SODIUM CHLORIDE 0.9% 1,000 ML IV ONE (20:14)
[2018-04-27] MEDS ORDERED: IPRATROPIUM-ALBUTEROL 3 ML NEB INHALATION PRN (20:58)
[2018-04-27] MEDS: LURASIDONE HCL 60 MG PO SCH (21:07)
[2018-04-27] MEDS: lamoTRIgine 100 MG TAB PO SCH (21:07)
[2018-04-27] MEDS: ATORVASTATIN 40 MG TAB PO SCH (21:17)
[2018-04-27] MEDS: PANTOPRAZOLE 40 MG TABLET PO SCH (21:17)
[2018-04-27] MEDS: amLODIPine 10 MG TAB PO SCH (21:17)
[2018-04-27] MEDS: cloNIDine HCL 0.1 MG TAB PO SCH (21:17)
[2018-04-27] MEDS: METOPROLOL TARTRATE 50 MG TAB PO SCH (21:17)
[2018-04-27 21:22] VITALS: BMI 48.8
[2018-04-28] MEDS: IPRATROPIUM-ALBUTEROL 3 ML NEB INHALATION SCH ×6 (00:26→19:31)
[2018-04-28 00:56] LABS: Creatine Kinase MB 2.7 ng/mL (0.0-2.4)
[2018-04-28 01:04] LABS: Troponin I 0.081 ng/mL (0.000-0.034)
[2018-04-28] MEDS: METOPROLOL TARTRATE 50 MG TAB PO SCH ×2 (06:42→17:37)
[2018-04-28 07:17] LABS: Cholesterol 149 mg/dL (<200); HDL Cholesterol 57 mg/dL (40-60); LDL Cholesterol,Calculated 70 mg/dL (0-99); Triglycerides 112 mg/dL (<150)
[2018-04-28] MEDS: cloNIDine HCL 0.1 MG TAB PO SCH ×2 (07:57→20:41)
[2018-04-28] MEDS: PANTOPRAZOLE 40 MG TABLET PO SCH (07:57)
[2018-04-28 07:59] VITALS: RESP 16; TEMP 98
[2018-04-28 08:05] LABS: Creatine Kinase MB 3.2 ng/mL (0.0-2.4)
[2018-04-28 08:13] LABS: Troponin I 0.102 ng/mL (0.000-0.034)
[2018-04-28] MEDS ORDERED: ASPIRIN 325 MG TAB PO SCH (09:00)
[2018-04-28] MEDS ORDERED: guaiFENesin SYRUP 100MG/5ML 200 MG/10 ML CUP PO PRN (11:54)
--- NOTE | 2018-04-28 12:21 | P.CRDCN ---
History of Present Illness History of present illness: This is a pleasant 37-year-old male past medical history significant for coronary artery disease status post stenting of the LAD 2008, hypertension, dyslipidemia, chronic nicotine dependence and morbid obesity. He follows with Dr. Srinviasan in the office. We have been asked to see him in consultation secondary to elevated troponin. He states for the previous 2 weeks he has been having cough, generalized weakness and fevers at home. He presented to the hospital for further evaluation. This is his third time coming to the hospital for these symptoms in the previous 2 weeks. He has undergone a CT angios of his chest on a prior ED evaluation which was negative for PE. Chest x-ray on this admission negative for an acute cardiopulmonary process. He states he has been feeling a pain in the right thoracic region every time he coughs. He is requesting cough suppressant. He denies ever having symptoms of precordial chest discomfort, dizziness, palpitations, nausea, vomiting or shortness of breath. EKG reveals sinus mechanism with no acute ST or T wave abnormalities noted. Laboratory data reviewed, WBC 14.5, hgb 13.1, plt 407, sodium 139, potassium 4.7 , creatinine 1.13, troponin 0.07, 0.081 and 0.102. LDL 70, HDL 57. Current cardiac medications include clonidine 0.1 mg BID, amlodipine 10 mg daily , lopressor 50 mg BID and atorvastatin 40 mg daily. Most recent echo performed 2016 reveals preserved LV systolic function with EF 50-55%. Most recent stress test 2016 dobutamine was negative for stress induced ischemia. At the time of my exam: CONSTITUTIONAL: Denies fever. Denies chills. EYES: Denies blurred vision. Denies vision changes. Denies eye pain. EARS, NOSE, MOUTH & THROAT: Denies headache. Denies sore throat. Denies ear pain. CARDIOVASCULAR: Denies chest pain. Denies shortness of breath. Denies orthopnea. Denies PND. Denies palpitations. RESPIRATORY: Denies cough. GASTROINTESTINAL: Denies abdominal pain. Denies diarrhea. Denies constipation. Denies nausea. Denies vomiting. MUSCULOSKELETAL: Denies myalgias. INTEGUMENTARY: Denies pruitis. Denies rash. NEUROLOGIC: Denies numbness. Denies tingling. Denies weakness. PSYCHIATRIC: Denies anxiety. Denies depression. ENDOCRINE: Denies fatigue. Denies weight change. Denies polydipsia. Denies polyurina. GENITOURINARY: Denies burning, hematuria or urgency with micturation. HEMATOLOGIC: Denies history of anemia. Denies bleeding. Blood [id number] heart rate76 afebrile maintaining oxygen saturation on nasal cannula GENERAL: This is a 37-year-old male in no apparent distress at the time of my examination. HEENT: Head is atraumatic, normocephalic. Pupils are equal, round. Sclerae anicteric. Conjunctivae are clear. Mucous membranes of the mouth are moist. Neck is supple. There is no jugular venous distention. No carotid bruit is heard. LUNGS: Clear to auscultation no wheezes, rales or rhonchi. No chest wall tenderness is noted on palpation or with deep breathing. Diminished bilaterally. HEART: Regular rate and rhythm without murmurs, rubs or gallops. S1 and S2 heard. ABDOMEN: Soft, nontender. Bowel sounds are heard. No organomegaly noted. EXTREMITIES: No evidence of peripheral edema and no calf tenderness noted. VASCULAR: Radial and dorsalis pedis pulses palpated, no evidence of clubbing. NEUROLOGIC: Patient is awake, alert and oriented x3. ASSESSMENT Bronchitis Pleuritic right thoracic pain Mild troponin elevation of unclear etiology. No EKG abnormalities, no anginal type chest pain. Hypertension Dyslipidemia History of coronary artery disease s/p stenting to LAD 2008 Chronic nicotine dependence Morbid obesity, BMI 48 PLAN Obtain tropnin stat now to evaluate the trend. Obtain 2D echocardiogram and doppler study to assess cardiac structure and function. Give him tessalon pearles for cough. Check NTproBNP. Medications have been reviewed and resumed appropriately. Recommend he take aspirin 81 mg daily. Smoking cessation and lifestyle modifications recommended. Further recommendations to follow based on clinical course. Thank you kindly for this consultation. Nurse Practitioner note has been reviewed, I agree with a documented findings and plan of care. Patient was seen and examined. Past Medical History Past Medical History: Coronary Artery Disease (CAD), COPD, Hypertension, Myocardial Infarction ([place]) Additional Past Medical History / Comment(s): 09/17/14 Pt presented to [facility] ER thinking he is God and his son's spirit sent him here. He is here to save the world. Other HX: [place] in 2008, asthma, stress test Last Myocardial Infarction Date:: 2008 History of Any Multi-Drug Resistant Organisms: None Reported Past Surgical History: Heart Catheterization With Stent Past Anesthesia/Blood Transfusion Reactions: No Reported Reaction Date of Last Stent Placement:: 2008 Past Psychological History: Bipolar Additional Psychological History / Comment(s): AT TIME OF ADMIT ASKED IF HE HAD ANY HX OF psychological illnesses, HE STATED NO, IT WAS PREVIOUSLY CHARTED HE HAS BIPOLAR.. He lives in a home with his MOM He is independent. He drives a car.works in a [employer] Smoking Status: Current every day smoker Past Alcohol Use History: Occasional Additional Past Alcohol Use History / Comment(s): Pt started smoking in 1994 and smokes about 1/2 ppd. Past Drug Use History: Marijuana Additional Drug Use History / Comment(s): denies current use of marijana - Past Family History Father Family Medical History: CVA/TIA, Myocardial Infarction ([place]) Additional Family Medical History / Comment(s): Father had a [place] at age 29yrs. at age 38 after open heart Mother Family Medical History: No Reported History Additional Family Medical History / Comment(s): Mother is healthy Medications and Allergies Home Medications Medication Instructions Recorded Confirmed Type Atorvastatin [Lipitor] 40 mg PO DAILY #30 tab 02/26/15 04/27/18 Rx Metoprolol Tartrate [Lopressor] 50 mg PO AC-BID 10/26/15 04/27/18 History Lurasidone HCl [Latuda] 60 mg PO HS 10/31/16 04/27/18 History lamoTRIgine [LaMICtal] 200 mg PO HS 10/31/16 04/27/18 History Albuterol Inhaler [Ventolin Hfa 2 puff INHALATION RT-Q6H PRN 04/22/18 04/22/18 History Inhaler] Omeprazole 20 mg PO DAILY 04/22/18 04/27/18 History amLODIPine [Norvasc] 10 mg PO HS 04/22/18 04/27/18 History cloNIDine HCL [Catapres] 0.1 mg PO BID 04/27/18 04/27/18 History Allergies Allergy/AdvReac Type Severity Reaction Status Date / Time No Known Allergies Allergy Verified 04/27/18 20:44 Physical Exam Vitals: Vital Signs Temp Pulse Pulse Resp BP BP Pulse Ox 04/28/18 11:41 76 04/28/18 11:30 80 04/28/18 10:43 16 04/28/18 09:21 78 04/28/18 09:07 76 04/28/18 08:00 16 04/28/18 07:58 98 F 72 16 134/79 91 L 04/28/18 06:37 77 20 148/90 95 04/28/18 04:03 78 04/28/18 04:00 98.4 F 97 22 138/88 98 04/28/18 03:49 73 04/28/18 00:37 76 04/28/18 00:31 94 L 04/28/18 00:27 75 04/28/18 00:00 97.9 F 87 20 138/86 98 04/27/18 20:43 72 18 161/107 95 04/27/18 20:32 97.9 F 84 18 142/100 100 04/27/18 20:20 78 18 148/100 96 04/27/18 19:48 88 04/27/18 19:40 83 04/27/18 19:11 16 04/27/18 19:03 97.6 F 78 15 152/87 97 04/27/18 17:30 98.2 F 78 18 154/100 98 Intake and Output 04/27/18 04/28/18 04/28/18 22:59 06:59 14:59 Intake Total 2960 222 Balance 2960 222 Intake: Intake, IV Titration 2000 Amount Sodium Chloride 0.9% 1, 1000 000 ml @ 100 mls/hr IV . Q10H ONE Rx#:[id number] Sodium Chloride 0.9% 1, 1000 000 ml @ 999 mls/hr IV . Q1H1M STA Rx#:[id number] Oral 960 222 Other: Voiding Method Urinal Urinal # Voids 2 Weight 158.757 kg 158.75 kg Results 04/27/18 18:35 04/27/18 18:35 Cardiac Enzymes 04/27/18 04/27/18 04/28/18 Range/Units 18:35 18:35 00:02 AST 25 (17-59) U/L CK-MB (CK-2) 2.7 H (0.0-2.4) ng/mL Troponin I 0.070 H* 0.081 H* (0.000-0.034) ng/mL 04/28/18 Range/Units 06:27 AST (17-59) U/L CK-MB (CK-2) 3.2 H (0.0-2.4) ng/mL Troponin I 0.102 H* (0.000-0.034) ng/mL Coagulation 04/27/18 Range/Units 18:35 PT 9.5 (9.0-12.0) sec APTT 21.8 L (22.0-30.0) sec Lipids 04/28/18 Range/Units 06:27 Triglycerides 112 (<150) mg/dL Cholesterol 149 (<200) mg/dL HDL Cholesterol 57 (40-60) mg/dL CBC 04/27/18 Range/Units 18:35 WBC 14.5 H (3.8-10.6) k/uL RBC 5.03 (4.30-5.90) m/uL Hgb 13.1 (13.0-17.5) gm/dL Hct 41.2 (39.0-53.0) % Plt Count 407 (150-450) k/uL Comprehensive Metabolic Panel 04/27/18 Range/Units 18:35 Sodium 139 (137-145) mmol/L Potassium 4.7 (3.5-5.1) mmol/L Chloride 104 (98-107) mmol/L Carbon Dioxide 32 H (22-30) mmol/L BUN 22 H (9-20) mg/dL Creatinine 1.13 (0.66-1.25) mg/dL Glucose 73 L (74-99) mg/dL Calcium 8.6 (8.4-10.2) mg/dL AST 25 (17-59) U/L ALT 37 (21-72) U/L Alkaline Phosphatase 88 (38-126) U/L Total Protein 5.9 L (6.3-8.2) g/dL Albumin 3.2 L (3.5-5.0) g/dL Current Medications Generic Name Dose Route Start Last Admin Trade Name Freq PRN Reason Stop Dose Admin Albuterol/Ipratropium 3 ml 04/28/18 00:00 04/28/18 11:51 Duoneb 0.5 Mg-3 Mg/3 Ml Soln INHALATION Not Given RT-Q4H MELBA Albuterol/Ipratropium 3 ml 04/27/18 20:58 12/16/18 11:30 Duoneb 0.5 Mg-3 Mg/3 Ml Soln INHALATION 3 ml RT-Q2H PRN Administration Shortness Of Breath Or Wheezing Amlodipine Besylate 10 mg 04/27/18 21:00 04/27/18 21:17 Norvasc PO 10 mg HS MELBA Administration Aspirin 81 mg 04/29/18 09:00 Aspirin PO DAILY MELBA Atorvastatin Calcium 40 mg 04/27/18 21:00 04/27/18 21:17 Lipitor PO 40 mg DAILY@2100 MELBA Administration Clonidine 0.1 mg 04/27/18 21:00 04/28/18 07:57 Catapres PO 0.1 mg BID MELBA Administration Lamotrigine 200 mg 04/27/18 21:00 04/27/18 21:07 Lamictal PO Not Given HS [facility] Metoprolol Tartrate 50 mg 04/27/18 21:00 04/28/18 06:42 Lopressor PO 50 mg AC-BID MELBA Administration Nitroglycerin 0.4 mg 04/27/18 20:01 Nitrostat SUBLINGUAL Q5M PRN Chest Pain Non-Formulary Medication 60 mg 04/27/18 21:00 04/27/18 21:07 Lurasidone Hcl [Latuda] PO Not Given HS [facility] Pantoprazole Sodium 40 mg 04/27/18 21:00 04/28/18 07:57 Protonix PO 40 mg DAILY MELBA Administration Intake and Output 04/27/18 04/28/18 04/28/18 22:59 06:59 14:59 Intake Total 2960 222 Balance 2960 222 Intake: Intake, IV Titration 2000 Amount Sodium Chloride 0.9% 1, 1000 000 ml @ 100 mls/hr IV . Q10H ONE Rx#:[id number] Sodium Chloride 0.9% 1, 1000 000 ml @ 999 mls/hr IV . Q1H1M STA Rx#:[id number] Oral 960 222 Other: Voiding Method Urinal Urinal # Voids 2 Weight 158.757 kg 158.75 kg 04/27/18 18:35 04/27/18 18:35
[2018-04-28] MEDS: BENZONATATE 100 MG CAP PO PRN ×2 (13:40→20:41)
--- NOTE | 2018-04-28 14:38 | P.HPIM ---
History of Present Illness This is a pleasant 67 years old male with past medical history of coronary artery disease, COPD, hypertension, obesity and bipolar, presents because of and fell and went for 2 weeks, where he was complaining of cough with nausea vomiting about 6-7 times with no blood in it associated with some dyspnea and right lower lateral chest pain for more than week, severe 8-9/10 in severity radiating sometimes old way around to the back felt like stabbing increase with movement and associated with tenderness. As per girlfriend at bedside patient had fever for about the first week, but they didn't check her temperature. Patient came to the emergency room where he found to have elevated troponin 0.07 , up to 0.10, coming down to 0.06. [employer] already evaluated the patient and they recommended aspirin, check an echo and proBNP and follow-up. Vital signs admission looks stable with oxygen saturation 92% on room air. No fever detected. Labs reviewed showing mild leukocytosis of 14.5 K. INR 0.9. Electrolytes within normal creatinine at 1.13. Urinalysis is negative and urine toxic screen is positive for opioids, benzodiazepines and marijuana. Review of Systems CONSTITUTIONAL: No fever, no malaise, no fatigue. HEENT: No recent visual problems or hearing problems. Denied any sore throat. CARDIOVASCULAR: No orthopnea, PND, no palpitations, no syncope. PULMONARY: No shortness of breath, no cough, no hemoptysis. GASTROINTESTINAL: No diarrhea, no nausea, no vomiting, no abdominal pain. Normoactive bowel sounds. NEUROLOGICAL: No headaches, no weakness, no numbness. HEMATOLOGICAL: Denies any bleeding or petechiae. GENITOURINARY: Denies any burning micturition, frequency, or urgency. MUSCULOSKELETAL/RHEUMATOLOGICAL: Denies any joint pain, swelling, or any muscle pain. ENDOCRINE: Denies any polyuria or polydipsia. Past Medical History Past Medical History: Coronary Artery Disease (CAD), COPD, Hypertension, Myocardial Infarction ([place]) Additional Past Medical History / Comment(s): 09/17/14 Pt presented to [facility] ER thinking he is God and his son's spirit sent him here. He is here to save the world. Other HX: [place] in 2008, asthma, stress test Last Myocardial Infarction Date:: 2008 History of Any Multi-Drug Resistant Organisms: None Reported Past Surgical History: Heart Catheterization With Stent Past Anesthesia/Blood Transfusion Reactions: No Reported Reaction Date of Last Stent Placement:: 2008 Past Psychological History: Bipolar Additional Psychological History / Comment(s): AT TIME OF ADMIT ASKED IF HE HAD ANY HX OF psychological illnesses, HE STATED NO, IT WAS PREVIOUSLY CHARTED HE HAS BIPOLAR.. He lives in a home with his MOM He is independent. He drives a car.works in a [employer] and [employer] Smoking Status: Current every day smoker Past Alcohol Use History: Occasional Additional Past Alcohol Use History / Comment(s): Pt started smoking in 1994 and smokes about 1/2 ppd. Past Drug Use History: Marijuana Additional Drug Use History / Comment(s): denies current use of marijana - Past Family History Father Family Medical History: CVA/TIA, Myocardial Infarction ([place]) Additional Family Medical History / Comment(s): Father had a [place] at age 29yrs. at age 38 after open heart Mother Family Medical History: No Reported History Additional Family Medical History / Comment(s): Mother is healthy Medications and Allergies Home Medications Medication Instructions Recorded Confirmed Type Atorvastatin [Lipitor] 40 mg PO DAILY #30 tab 02/26/15 04/27/18 Rx Metoprolol Tartrate [Lopressor] 50 mg PO AC-BID 10/26/15 04/27/18 History Lurasidone HCl [Latuda] 60 mg PO HS 10/31/16 04/27/18 History lamoTRIgine [LaMICtal] 200 mg PO HS 10/31/16 04/27/18 History Albuterol Inhaler [Ventolin Hfa 2 puff INHALATION RT-Q6H PRN 04/22/18 04/22/18 History Inhaler] Omeprazole 20 mg PO DAILY 04/22/18 04/27/18 History amLODIPine [Norvasc] 10 mg PO HS 04/22/18 04/27/18 History cloNIDine HCL [Catapres] 0.1 mg PO BID 04/27/18 04/27/18 History Allergies Allergy/AdvReac Type Severity Reaction Status Date / Time No Known Allergies Allergy Verified 04/27/18 20:44 Physical Exam Vitals: Vital Signs Temp Pulse Pulse Resp BP BP Pulse Ox 04/28/18 11:41 76 04/28/18 11:30 80 04/28/18 10:43 16 04/28/18 09:21 78 04/28/18 09:07 76 04/28/18 08:00 16 04/28/18 07:58 98 F 72 16 134/79 91 L 04/28/18 06:37 77 20 148/90 95 04/28/18 04:03 78 04/28/18 04:00 98.4 F 97 22 138/88 98 04/28/18 03:49 73 04/28/18 00:37 76 04/28/18 00:31 94 L 04/28/18 00:27 75 04/28/18 00:00 97.9 F 87 20 138/86 98 04/27/18 20:43 72 18 161/107 95 04/27/18 20:32 97.9 F 84 18 142/100 100 04/27/18 20:20 78 18 148/100 96 04/27/18 19:48 88 04/27/18 19:40 83 04/27/18 19:11 16 04/27/18 19:03 97.6 F 78 15 152/87 97 04/27/18 17:30 98.2 F 78 18 154/100 98 Intake and Output 04/27/18 04/28/18 04/28/18 22:59 06:59 14:59 Intake Total 2960 222 Balance 2960 222 Intake: Intake, IV Titration 2000 Amount Sodium Chloride 0.9% 1, 1000 000 ml @ 100 mls/hr IV . Q10H ONE Rx#:[id number] Sodium Chloride 0.9% 1, 1000 000 ml @ 999 mls/hr IV . Q1H1M STA Rx#:[id number] Oral 960 222 Other: Voiding Method Urinal Urinal # Voids 2 Weight 158.757 kg 158.75 kg GENERAL: The patient is alert and oriented x3, not in any acute distress. Well developed, well nourished. HEENT: Pupils are round and equally reacting to light. EOMI. No scleral icterus. No conjunctival pallor. Normocephalic, atraumatic. No pharyngeal erythema. No thyromegaly. CARDIOVASCULAR: S1 and S2 present. No murmurs, rubs, or gallops. PULMONARY: Chest is clear to auscultation, no wheezing or crackles. ABDOMEN: Soft, nontender, nondistended, normoactive bowel sounds. No palpable organomegaly. MUSCULOSKELETAL: No joint swelling or deformity. EXTREMITIES: No cyanosis, clubbing, or pedal edema. NEUROLOGICAL: Gross neurological examination did not reveal any focal deficits. SKIN: No rashes. Results CBC & Chem 7: 04/27/18 18:35 04/27/18 18:35 Labs: Abnormal Lab Results - Last 24 Hours (Table) 04/27/18 04/27/18 04/27/18 Range/Units 18:30 18:35 18:35 WBC 14.5 H (3.8-10.6) k/uL RDW 17.3 H (11.5-15.5) % Neutrophils # 10.9 H (1.3-7.7) k/uL APTT (22.0-30.0) sec Carbon Dioxide 32 H (22-30) mmol/L BUN 22 H (9-20) mg/dL Glucose 73 L (74-99) mg/dL CK-MB (CK-2) (0.0-2.4) ng/mL Troponin I (0.000-0.034) ng/mL Total Protein 5.9 L (6.3-8.2) g/dL Albumin 3.2 L (3.5-5.0) g/dL Urine Opiates Screen Detected H (NotDetected) U Benzodiazepines Scrn Detected H (NotDetected) U Marijuana (THC) Screen Detected H (NotDetected) 04/27/18 04/27/18 04/28/18 Range/Units 18:35 18:35 00:02 WBC (3.8-10.6) k/uL RDW (11.5-15.5) % Neutrophils # (1.3-7.7) k/uL APTT 21.8 L (22.0-30.0) sec Carbon Dioxide (22-30) mmol/L BUN (9-20) mg/dL Glucose (74-99) mg/dL CK-MB (CK-2) 2.7 H (0.0-2.4) ng/mL Troponin I 0.070 H* 0.081 H* (0.000-0.034) ng/mL Total Protein (6.3-8.2) g/dL Albumin (3.5-5.0) g/dL Urine Opiates Screen (NotDetected) U Benzodiazepines Scrn (NotDetected) U Marijuana (THC) Screen (NotDetected) 04/28/18 Range/Units 06:27 WBC (3.8-10.6) k/uL RDW (11.5-15.5) % Neutrophils # (1.3-7.7) k/uL APTT (22.0-30.0) sec Carbon Dioxide (22-30) mmol/L BUN (9-20) mg/dL Glucose (74-99) mg/dL CK-MB (CK-2) 3.2 H (0.0-2.4) ng/mL Troponin I 0.102 H* (0.000-0.034) ng/mL Total Protein (6.3-8.2) g/dL Albumin (3.5-5.0) g/dL Urine Opiates Screen (NotDetected) U Benzodiazepines Scrn (NotDetected) U Marijuana (THC) Screen (NotDetected) Thrombosis Risk Factor Assmnt - Choose All That Apply Any of the Below Risk Factors Present?: Yes Each Factor Represents 1 point: Abnormal pulmonary function (COPD) Thrombosis Risk Factor Assessment Total Risk Factor Score: 1 Thrombosis Risk Factor Assessment Level: Low Risk Assessment and Plan Assessment: Elevated troponin, rule out acute coronary syndrome as per cardiology team which are following the patient. Possible tracheobronchitis Leukocytosis History of coronary artery disease History of essential hypertension History of bipolar disorder History of COPD, does not look in acute exacerbation. Plan: This is a pleasant 37 years old male who presents with signs symptoms of bronchitis and elevated troponins. Cardiology are following the patient. Echocardiogram. Serial troponins. Antibiotics. Encourage oral hydration. Check influenza virus Labs and medication were reviewed.. Continue same treatment. Continue with symptomatic treatment. Resume home medication. Monitor lytes and vitals. DVT and GI prophylaxis. Further recommendations of the clinical course of the patient DVT prophylaxis: Subcutaneous heparin GI Prophylaxis: Pepcid Prognosis is guarded
[2018-04-28] MEDS: SODIUM CHLORIDE 0.9% 1,000 ML IV ONE (17:37)
[2018-04-28 20:24] VITALS: BP 125/71; PULSE 75
[2018-04-28] MEDS: lamoTRIgine 100 MG TAB PO SCH (20:41)
[2018-04-28] MEDS: amLODIPine 10 MG TAB PO SCH (20:41)
[2018-04-28] MEDS: ATORVASTATIN 40 MG TAB PO SCH (20:41)
[2018-04-28] MEDS: LURASIDONE HCL 60 MG PO SCH (20:42)
[2018-04-28] MEDS ORDERED: AMOXIC-POT CLAV 875-125MG 1 EACH TAB PO SCH (21:00)
[2018-04-29] MEDS ORDERED: ASPIRIN 81 MG PO SCH (09:00)
--- NOTE | 2018-04-29 09:54 | CDI ---
Documentation Clarification Form Date: 04/29/2018 9:43:34 AM From: Lizzie Posadas Phone: If you have a question about this query, please contact Nubia Murillo Washing Machine Installer at [phone] between 8am and 5pm. Admit Date: 04/27/2018 8:10:00 PM Patient Name: Bharat Reich Visit Number: [id number] Discharge Date: 04/28/2018 9:30:00 PM ATTENTION: The Clinical Documentation Specialists (CDI) and [facility] Coding Staff appreciate your assistance in clarifying documentation. Please respond to the clarification below the line at the bottom and electronically sign. The CDI & [facility] Coding staff will review the response and follow-up if needed. Please note: Queries are made part of the Legal Health Record. If you have any questions, please contact the author of this message via ITS. Dr. Martinez Sellers Patient presents with symtoms of bronchitis, H and P documents possible tracheobronchitis. Patient history/Risk Factors: smoker, COPD, leukocytosis Clinical Indicators: WBC's 14.5 Treatment: antibiotics In your professional opinion, can you please specify the acuity of the tracheobronchitis. Acute tracheobronchitis Chronic tracheobronchitis Other, please specify Unable to Determine (Last Revision: February 2017) unable to determine MTDD
--- NOTE | 2018-05-03 07:58 | P.DS ---
Providers Date of admission: 04/27/18 20:10 Attending physician: Daniel Walter Consults: 04/27/18 20:01 Consult Physician Stat Consulting Provider: [facility] Consult Reason/Comments: Elevated troponin Do you want consulting provider notified?: Yes Primary care physician: Mohini Uribe Hospital Course: "Please note this is not a discharge note , because pt was not discharge but he left AMA" diagnoses: Elevated troponin, rule out acute coronary syndrome as per cardiology team who were following the patient. Possible acute tracheobronchitis Leukocytosis, mostly secondary to above History of coronary artery disease History of essential hypertension History of bipolar disorder History of COPD, does not look in acute exacerbation. hospital course: This is a pleasant 37 years old male who presents with signs symptoms of acute bronchitis and elevated troponins. when i saw the pt he was sitting in bed and family of his girlfriend and parents were at bed side upon pt request. pt stated to me he was improving already. Cardiology were following the patient. work up was in progress however later on I knew pt has already left AMA as per staff , before I have a chance to see the pt or talk to him on follow up. I did not know about the pt at the time of his leaving but when i saw him earlier pt had capacity to make medical decision based upon my evaluation. Patient Condition at Discharge: Stable Plan - Discharge Summary Discharge Rx Participant: No New Discharge Prescriptions: No Action Atorvastatin [Lipitor] 40 mg PO DAILY #30 tab Metoprolol Tartrate [Lopressor] 50 mg PO AC-BID lamoTRIgine [LaMICtal] 200 mg PO HS Lurasidone HCl [Latuda] 60 mg PO HS amLODIPine [Norvasc] 10 mg PO HS Omeprazole 20 mg PO DAILY Albuterol Inhaler [Ventolin Hfa Inhaler] 2 puff INHALATION RT-Q6H PRN PRN Reason: Shortness Of Breath cloNIDine HCL [Catapres] 0.1 mg PO BID Discharge Medication List Atorvastatin [Lipitor] 40 mg PO DAILY #30 tab 02/26/15 [Rx] Metoprolol Tartrate [Lopressor] 50 mg PO AC-BID 10/26/15 [History] Lurasidone HCl [Latuda] 60 mg PO HS 10/31/16 [History] lamoTRIgine [LaMICtal] 200 mg PO HS 10/31/16 [History] Albuterol Inhaler [Ventolin Hfa Inhaler] 2 puff INHALATION RT-Q6H PRN 04/22/18 [ History] Omeprazole 20 mg PO DAILY 04/22/18 [History] amLODIPine [Norvasc] 10 mg PO HS 04/22/18 [History] cloNIDine HCL [Catapres] 0.1 mg PO BID 04/27/18 [History] Follow up Appointment(s)/Referral(s): Mohini Uribe MD [Primary Care Provider] - 1-2 days Discharge Disposition: Left Against Medical Advice
== END 2018-04-28 21:30 | disposition left against medical advice (07) | DRG 191 ==
LOC: EC 17:12 → 3SCARD 20:10
PROVIDERS: ADMIT Hospitalist; ATTEND Hospitalist
DX: J44.0 Chronic obstructive pulmonary disease with (acute) lower respiratory infection (principal); J90 Pleural effusion, not elsewhere classified; Z68.42 Body mass index [BMI] 45.0-49.9, adult; J20.9 Acute bronchitis, unspecified; F17.210 Nicotine dependence, cigarettes, uncomplicated; D72.829 Elevated white blood cell count, unspecified; E66.01 Morbid (severe) obesity due to excess calories; E78.5 Hyperlipidemia, unspecified; F31.9 Bipolar disorder, unspecified; I10 Essential (primary) hypertension; I25.10 Atherosclerotic heart disease of native coronary artery without angina pectoris; I25.2 Old myocardial infarction; Z79.899 Other long term (current) drug therapy; Z82.49 Family history of ischemic heart disease and other diseases of the circulatory system; Z95.5 Presence of coronary angioplasty implant and graft; Z82.3 Family history of stroke; R74.8 Abnormal levels of other serum enzymes
CPT/HCPCS: 36415; 71046; 80053; 80061; 80306; 81003; 82150; 82550; 82553; 83605; 83690; 83880; 84484; 85025; 85610; 85730; 87040; 87502; 93005; 94640; 94760; 96360; 96361; 99285

== ENCOUNTER 2018-12-29 17:57 | Inpatient (IN) | payer MEDICAID, OTHER ==
--- NOTE | 2018-12-29 18:25 | ED ---
General Adult HPI - General Source: patient, family, RN notes reviewed Mode of arrival: ambulatory Limitations: no limitations <Ganga Guy - Last Filed: 12/29/18 18:29> <Elliot Stone - Last Filed: 12/30/18 15:03> - General Chief complaint: Psychiatric Symptoms Stated complaint: mental health, off meds for 1 month Time Seen by Provider: 12/29/18 18:01 - History of Present Illness Initial comments: Patient is a 38-year-old male presenting to the emergency Department with mother for mental health reasons. Patient states he feels fine and has no complaints. Patient denies hallucinations. Patient denies suicidal or homicidal thoughts. Patient denies any physical complaints. Patient denies alcohol use. Patient occasionally smokes marijuana otherwise no other drugs. Mother adds that patient has been off his medication for the past one month. When questioned about it patient becomes aggressive and hyper latter-day. Mother also states the patient has not been taking his blood pressure medication. Patient requests that I wash his feet for him. Patient states other people have a difficult time understanding him. Patient denies having racing thoughts however mother feels that he does have racing thoughts. When she states that she becomes angry at her and yells at her for "lying." (Ganga Guy) - Related Data Home Medications Medication Instructions Recorded Confirmed Metoprolol Tartrate [Lopressor] 50 mg PO BID 10/26/15 12/29/18 Lurasidone HCl [Latuda] 60 mg PO HS 10/31/16 12/29/18 lamoTRIgine [LaMICtal] 200 mg PO HS 10/31/16 12/29/18 amLODIPine [Norvasc] 10 mg PO DAILY 04/22/18 12/29/18 cloNIDine HCL [Catapres] 0.1 mg PO TID 04/27/18 12/29/18 Previous Rx's Medication Instructions Recorded Atorvastatin [Lipitor] 40 mg PO DAILY #30 tab 02/26/15 Allergies Allergy/AdvReac Type Severity Reaction Status Date / Time No Known Allergies Allergy Verified 12/29/18 18:54 Review of Systems ROS Other: All systems not noted in ROS Statement are negative. Constitutional: Denies: fever Eyes: Denies: eye pain ENT: Denies: ear pain Respiratory: Denies: cough, dyspnea Cardiovascular: Denies: chest pain Endocrine: Denies: fatigue Gastrointestinal: Denies: abdominal pain Genitourinary: Denies: dysuria Musculoskeletal: Denies: back pain Skin: Denies: rash Neurological: Denies: headache Psychiatric: Denies: homicidal thoughts, suicidal thoughts <Ganga Guy - Last Filed: 12/29/18 18:29> ROS Other: All systems not noted in ROS Statement are negative. <Elliot Stone - Last Filed: 12/30/18 15:03> ROS Statement: Those systems with pertinent positive or pertinent negative responses have been documented in the HPI. Past Medical History Past Medical History: Coronary Artery Disease (CAD), COPD, Hypertension, Myocardial Infarction ([place]) Additional Past Medical History / Comment(s): 09/17/14 Pt presented to [facility] ER thinking he is God and his son's spirit sent him here. He is here to save the world. Other HX: [place] in 2008, asthma, stress test Last Myocardial Infarction Date:: 2008 History of Any Multi-Drug Resistant Organisms: None Reported Past Surgical History: Heart Catheterization With Stent Past Anesthesia/Blood Transfusion Reactions: No Reported Reaction Date of Last Stent Placement:: 2008 Past Psychological History: Bipolar Smoking Status: Current every day smoker Past Alcohol Use History: Occasional Past Drug Use History: Marijuana - Past Family History Father Family Medical History: CVA/TIA, Myocardial Infarction ([place]) Additional Family Medical History / Comment(s): Father had a [place] at age 29yrs. at age 38 after open heart Mother Family Medical History: No Reported History Additional Family Medical History / Comment(s): Mother is healthy <Ganga Guy - Last Filed: 12/29/18 18:29> General Exam Limitations: no limitations General appearance: alert, in no apparent distress, other (Poor hygiene) Head exam: Present: atraumatic Eye exam: Present: normal appearance Neck exam: Present: normal inspection Respiratory exam: Present: normal lung sounds bilaterally Cardiovascular Exam: Present: regular rate, normal rhythm GI/Abdominal exam: Present: soft. Absent: tenderness Extremities exam: Present: normal inspection Neurological exam: Present: alert Psychiatric exam: Present: agitated Skin exam: Present: normal color <Ganga Guy - Last Filed: 12/29/18 18:29> Course Vital Signs 12/29/18 12/29/18 12/29/18 18:05 18:44 19:40 Temperature 98.9 F Pulse Rate 110 H 109 H Respiratory 20 18 Rate Blood Pressure 260/143 195/142 218/146 O2 Sat by Pulse 96 95 Oximetry 12/29/18 12/29/18 12/29/18 19:54 20:28 21:02 Temperature Pulse Rate 84 75 Respiratory 17 17 Rate Blood Pressure 187/130 190/127 154/106 O2 Sat by Pulse 99 Oximetry 12/29/18 12/30/18 12/30/18 21:30 04:00 05:38 Temperature 98 F Pulse Rate 70 71 71 Respiratory 18 18 18 Rate Blood Pressure 144/97 143/98 145/99 O2 Sat by Pulse 95 95 96 Oximetry 12/30/18 12/30/18 10:51 11:20 Temperature Pulse Rate 81 76 Respiratory 16 16 Rate Blood Pressure 163/107 126/77 O2 Sat by Pulse 99 100 Oximetry Medical Decision Making - Lab Data Result diagrams: 12/29/18 21:07 12/29/18 21:07 <Elliot Stone - Last Filed: 12/30/18 15:03> - Lab Data Lab Results 12/29/18 12/29/18 12/30/18 Range/Units 21:07 21:07 07:14 WBC 11.4 H (3.8-10.6) k/uL RBC 6.22 H (4.30-5.90) m/uL Hgb 15.2 (13.0-17.5) gm/dL Hct 47.3 (39.0-53.0) % MCV 76.2 L (80.0-100.0) fL MCH 24.4 L (25.0-35.0) pg MCHC 32.0 (31.0-37.0) g/dL RDW 18.2 H (11.5-15.5) % Plt Count 312 (150-450) k/uL Neutrophils % 71 % Lymphocytes % 19 % Monocytes % 5 % Eosinophils % 4 % Basophils % 1 % Neutrophils # 8.1 H (1.3-7.7) k/uL Lymphocytes # 2.1 (1.0-4.8) k/uL Monocytes # 0.5 (0-1.0) k/uL Eosinophils # 0.5 (0-0.7) k/uL Basophils # 0.1 (0-0.2) k/uL Anisocytosis Slight Microcytosis Moderate Sodium 138 (137-145) mmol/L Potassium 3.6 (3.5-5.1) mmol/L Chloride 98 (98-107) mmol/L Carbon Dioxide 31 H (22-30) mmol/L Anion Gap 9 mmol/L BUN 14 (9-20) mg/dL Creatinine 1.56 H (0.66-1.25) mg/dL Est GFR (CKD-EPI)AfAm 64 (>60 ml/min/1.73 sqM) Est GFR (CKD-EPI)NonAf 55 (>60 ml/min/1.73 sqM) Glucose 106 H (74-99) mg/dL Calcium 9.7 (8.4-10.2) mg/dL Total Bilirubin 0.6 (0.2-1.3) mg/dL AST 78 H (17-59) U/L ALT 65 (21-72) U/L Alkaline Phosphatase 100 (38-126) U/L Total Protein 7.7 (6.3-8.2) g/dL Albumin 4.4 (3.5-5.0) g/dL Urine Color Yellow Urine Appearance Clear (Clear) Urine pH 5.5 (5.0-8.0) Ur Specific [place] 1.026 (1.001-1.035) Urine Protein 2+ H (Negative) Urine Glucose (UA) Negative (Negative) Urine Ketones Negative (Negative) Urine Blood Negative (Negative) Urine Nitrite Negative (Negative) Urine Bilirubin Negative (Negative) Urine Urobilinogen 2.0 (<2.0) mg/dL Ur Leukocyte Esterase Negative (Negative) Urine RBC 7 H (0-5) /hpf Urine WBC 5 (0-5) /hpf Ur Squamous Epith Cells 1 (0-4) /hpf Urine Bacteria Rare H (None) /hpf Hyaline Casts 45 H (0-2) /lpf Urine Mucus Many H (None) /hpf Urine Opiates Screen Not Detected (NotDetected) Ur Oxycodone Screen Not Detected (NotDetected) Urine Methadone Screen Not Detected (NotDetected) Ur Propoxyphene Screen Not Detected (NotDetected) Ur Barbiturates Screen Not Detected (NotDetected) U Tricyclic Antidepress Not Detected (NotDetected) Ur Phencyclidine Scrn Not Detected (NotDetected) Ur Amphetamines Screen Not Detected (NotDetected) U Methamphetamines Scrn Not Detected (NotDetected) U Benzodiazepines Scrn Detected H (NotDetected) Urine Cocaine Screen Not Detected (NotDetected) U Marijuana (THC) Screen Detected H (NotDetected) Disposition <Ganga Guy - Last Filed: 12/29/18 18:29> <Elliot Stone - Last Filed: 12/30/18 15:03> Clinical Impression: Bipolar 1 disorder, Acute psychosis Disposition: TRANSFER TO PSYCH HOSP/UNIT Condition: Stable Referrals: Mohini Uribe MD [Primary Care Provider] - 1-2 days
[2018-12-29] MEDS ORDERED: METOPROLOL TARTRATE 50 MG TAB PO STA (18:44)
[2018-12-29] MEDS ORDERED: amLODIPine 10 MG TAB PO STA (18:44)
[2018-12-29] MEDS ORDERED: cloNIDine HCL 0.1 MG TAB PO STA ×2 (18:44→20:28)
[2018-12-29] MEDS ORDERED: LORazepam 1 MG TAB PO STA ×2 (19:59→20:28)
[2018-12-29] MEDS ORDERED: lamoTRIgine 100 MG TAB PO SCH (21:00)
[2018-12-29 21:32] LABS: Anisocytosis Slight; Basophils # (A) 0.1 k/uL (0-0.2); Basophils % (A) 1 %; Eosinophils # (A) 0.5 k/uL (0-0.7); Eosinophils % (A) 4 %; HCT 47.3 % (39.0-53.0); HGB 15.2 gm/dL (13.0-17.5); Lymphocytes # (A) 2.1 k/uL (1.0-4.8); Lymphocytes % (A) 19 %; MCH 24.4 pg (25.0-35.0); MCV 76.2 fL (80.0-100.0); Mean Platelet Volume 6.7; Microcytosis Moderate; Monocytes # (A) 0.5 k/uL (0-1.0); Monocytes % (A) 5 %; Neutrophils # (A) 8.1 k/uL (1.3-7.7); Neutrophils % (A) 71 %; Platelet Count 312 k/uL (150-450); RBC 6.22 m/uL (4.30-5.90); RDW 18.2 % (11.5-15.5); WBC 11.4 k/uL (3.8-10.6)
[2018-12-29 21:41] LABS: Potassium 3.6 mmol/L (3.5-5.1)
[2018-12-29 21:42] LABS: Albumin 4.4 g/dL (3.5-5.0); Calcium 9.7 mg/dL (8.4-10.2); Total Bilirubin 0.6 mg/dL (0.2-1.3); Total Protein 7.7 g/dL (6.3-8.2)
[2018-12-29] MEDS: LURASIDONE 20 MG TAB PO SCH (22:24)
[2018-12-30 07:32] LABS: Appearance,Urine Clear (Clear); Bacteria,Urine Rare /hpf; Bilirubin,Urine Negative (Negative); Blood,Urine Negative (Negative); Color,Urine Yellow; Glucose,Urine (UA) Negative (Negative); Hyaline Casts,Urine 45 /lpf (0-2); Ketones,Urine Negative (Negative); Leukocyte Esterase,Urine Negative (Negative); Mucus,Urine Many /hpf; Nitrite,Urine Negative (Negative); PH, Urine 5.5 (5.0-8.0); Protein,Urine 2+ (Negative); RBC,Urine 7 /hpf (0-5); Specific Gravity,Urine 1.026 (1.001-1.035); Squamous Epithelial Cell,Urine 1 /hpf (0-4); WBC,Urine 5 /hpf (0-5)
[2018-12-30 07:40] LABS: Amphetamine Screen,Urine Not Detected (NotDetected); Barbiturate Screen,Urine Not Detected (NotDetected); Benzodiazepines Screen,Urine Detected (NotDetected); Cocaine Screen,Urine Not Detected (NotDetected); Methadone Screen, Urine Not Detected (NotDetected); Opiate Screen,Urine Not Detected (NotDetected); Oxycodone Screen, Urine Not Detected (NotDetected); Phencyclidine Screen,Urine Not Detected (NotDetected); Tricyclic Antidepressant,Urine Not Detected (NotDetected); Urn Cannabinoid Scrn Detected (NotDetected)
[2018-12-30] MEDS ORDERED: LORazepam 2 MG/ML INJ IM STA (09:37)
[2018-12-30] MEDS ORDERED: ZIPRASIDONE 20 MG VIAL IM PRN (15:52)
[2018-12-30] MEDS ORDERED: MAG HYDROX/AL HYDROX/SIMETH 30 ML CUP PO PRN (15:52)
[2018-12-30] MEDS ORDERED: ACETAMINOPHEN TAB 325 MG TAB PO PRN (15:52)
[2018-12-30] MEDS ORDERED: MAGNESIUM HYDROXIDE 2,400 MG/10 ML CUP PO PRN (15:52)
[2018-12-30] MEDS ORDERED: LORazepam 2 MG/ML INJ IM PRN (15:55)
[2018-12-30] MEDS: cloNIDine HCL 0.1 MG TAB PO SCH ×2 (16:43→19:38)
[2018-12-30] MEDS: NICOTINE 14MG/24HR PATCH TRANSDERM SCH (16:43)
[2018-12-30 16:50] VITALS: BMI 41.9
[2018-12-30] MEDS ORDERED: HALOPERIDOL 1 MG TAB PO PRN (17:36)
[2018-12-30] MEDS: METOPROLOL TARTRATE 50 MG TAB PO SCH (19:38)
[2018-12-30] MEDS ORDERED: NITROGLYCERIN SL TABS 0.4 MG TAB SUBLINGUAL PRN (21:07)
[2018-12-30] MEDS: NITROGLYCERIN SL TABS 0.4 MG TAB SUBLINGUAL PRN ×3 (21:07→21:18)
[2018-12-30] MEDS ORDERED: cloNIDine HCL 0.1 MG TAB PO STA (21:54)
[2018-12-30] MEDS: LURASIDONE 20 MG TAB PO SCH (21:55)
[2018-12-30] MEDS: LORazepam 1 MG TAB PO PRN (23:50)
[2018-12-31] MEDS: METOPROLOL TARTRATE 50 MG TAB PO SCH ×2 (07:42→22:15)
[2018-12-31] MEDS: amLODIPine 10 MG TAB PO SCH (07:42)
[2018-12-31] MEDS: NICOTINE 14MG/24HR PATCH TRANSDERM SCH (07:42)
[2018-12-31] MEDS: ATORVASTATIN 40 MG TAB PO SCH (07:42)
[2018-12-31] MEDS: LORazepam 1 MG TAB PO PRN (07:43)
[2018-12-31] MEDS: cloNIDine 0.2 MG/24HR PATCH TRANSDERM SCH (11:52)
--- NOTE | 2018-12-31 15:12 | P.HP ---
Psychiatric H&P - . H&P Date: 12/31/18 History & Physical: Allergies Allergy/AdvReac Type Severity Reaction Status Date / Time No Known Allergies Allergy Verified 12/30/18 16:51 Vital Signs Temp 97.7 F 12/31/18 06:44 Pulse 76 12/31/18 13:37 Resp 16 12/31/18 11:09 BP 138/89 12/31/18 13:37 Pulse Ox 98 12/30/18 16:00 Laboratory Last Values WBC 11.4 k/uL (3.8-10.6) H 12/29/18 21:07 RBC 6.22 m/uL (4.30-5.90) H 12/29/18 21:07 Hgb 15.2 gm/dL (13.0-17.5) 12/29/18 21:07 Hct 47.3 % (39.0-53.0) 12/29/18 21:07 MCV 76.2 fL (80.0-100.0) L 12/29/18 21:07 MCH 24.4 pg (25.0-35.0) L 12/29/18 21:07 MCHC 32.0 g/dL (31.0-37.0) 12/29/18 21:07 RDW 18.2 % (11.5-15.5) H 12/29/18 21:07 Plt Count 312 k/uL (150-450) 12/29/18 21:07 Neutrophils % 71 % 12/29/18 21:07 Lymphocytes % 19 % 12/29/18 21:07 Monocytes % 5 % 12/29/18 21:07 Eosinophils % 4 % 12/29/18 21:07 Basophils % 1 % 12/29/18 21:07 Neutrophils # 8.1 k/uL (1.3-7.7) H 12/29/18 21:07 Lymphocytes # 2.1 k/uL (1.0-4.8) 12/29/18 21:07 Monocytes # 0.5 k/uL (0-1.0) 12/29/18 21:07 Eosinophils # 0.5 k/uL (0-0.7) 12/29/18 21:07 Basophils # 0.1 k/uL (0-0.2) 12/29/18 21:07 Anisocytosis Slight 12/29/18 21:07 Microcytosis Moderate 12/29/18 21:07 Sodium 138 mmol/L (137-145) 12/29/18 21:07 Potassium 3.6 mmol/L (3.5-5.1) 12/29/18 21:07 Chloride 98 mmol/L (98-107) 12/29/18 21:07 Carbon Dioxide 31 mmol/L (22-30) H 12/29/18 21:07 Anion Gap 9 mmol/L 12/29/18 21:07 BUN 14 mg/dL (9-20) 12/29/18 21:07 Creatinine 1.56 mg/dL (0.66-1.25) H 12/29/18 21:07 Est GFR (CKD-EPI)AfAm 64 (>60 ml/min/1.73 sqM) 12/29/18 21:07 Est GFR (CKD-EPI)NonAf 55 (>60 ml/min/1.73 sqM) 12/29/18 21:07 Glucose 106 mg/dL (74-99) H 12/29/18 21:07 Calcium 9.7 mg/dL (8.4-10.2) 12/29/18 21:07 Total Bilirubin 0.6 mg/dL (0.2-1.3) 12/29/18 21:07 AST 78 U/L (17-59) H 12/29/18 21:07 ALT 65 U/L (21-72) 12/29/18 21:07 Alkaline Phosphatase 100 U/L (38-126) 12/29/18 21:07 Total Protein 7.7 g/dL (6.3-8.2) 12/29/18 21:07 Albumin 4.4 g/dL (3.5-5.0) 12/29/18 21:07 Triglycerides 127 mg/dL (<150) 12/31/18 07:42 Cholesterol 208 mg/dL (<200) H 12/31/18 07:42 LDL Cholesterol, Calc 146 mg/dL (0-99) H 12/31/18 07:42 HDL Cholesterol 37 mg/dL (40-60) L 12/31/18 07:42 TSH 1.060 mIU/L (0.465-4.680) 12/31/18 07:42 Urine Color Yellow 12/30/18 07:14 Urine Appearance Clear (Clear) 12/30/18 07:14 Urine pH 5.5 (5.0-8.0) 12/30/18 07:14 Ur Specific Odin 1.026 (1.001-1.035) 12/30/18 07:14 Urine Protein 2+ (Negative) H 12/30/18 07:14 Urine Glucose (UA) Negative (Negative) 12/30/18 07:14 Urine Ketones Negative (Negative) 12/30/18 07:14 Urine Blood Negative (Negative) 12/30/18 07:14 Urine Nitrite Negative (Negative) 12/30/18 07:14 Urine Bilirubin Negative (Negative) 12/30/18 07:14 Urine Urobilinogen 2.0 mg/dL (<2.0) 12/30/18 07:14 Ur Leukocyte Esterase Negative (Negative) 12/30/18 07:14 Urine RBC 7 /hpf (0-5) H 12/30/18 07:14 Urine WBC 5 /hpf (0-5) 12/30/18 07:14 Ur Squamous Epith Cells 1 /hpf (0-4) 12/30/18 07:14 Urine Bacteria Rare /hpf (None) H 12/30/18 07:14 Hyaline Casts 45 /lpf (0-2) H 12/30/18 07:14 Urine Mucus Many /hpf (None) H 12/30/18 07:14 Urine Opiates Screen Not Detected (NotDetected) 12/30/18 07:14 Ur Oxycodone Screen Not Detected (NotDetected) 12/30/18 07:14 Urine Methadone Screen Not Detected (NotDetected) 12/30/18 07:14 Ur Propoxyphene Screen Not Detected (NotDetected) 12/30/18 07:14 Ur Barbiturates Screen Not Detected (NotDetected) 12/30/18 07:14 U Tricyclic Antidepress Not Detected (NotDetected) 12/30/18 07:14 Ur Phencyclidine Scrn Not Detected (NotDetected) 12/30/18 07:14 Ur Amphetamines Screen Not Detected (NotDetected) 12/30/18 07:14 U Methamphetamines Scrn Not Detected (NotDetected) 12/30/18 07:14 U Benzodiazepines Scrn Detected (NotDetected) H 12/30/18 07:14 Urine Cocaine Screen Not Detected (NotDetected) 12/30/18 07:14 U Marijuana (THC) Screen Detected (NotDetected) H 12/30/18 07:14 12/31/18 15:00 IDENTIFYING DATA: Patient is a 38-year-old male with history of bipolar disorder who currently lives with his mother is and has 2 kids. HPI: Patient presented to the hospital on a petition by the mother states that the patient has been delusional and is currently a danger of self-harm and not taking his medications at home. Patient was seen this afternoon in his room and was agreeable to speak to lyric writer in the office. Patient was initially cooperative however begin to be confrontational/aggressive to lyric writer at times. Patient was delusional and grandiose throughout the interview. He was stating that he was working really hard to establish a "foundation" in the community. 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 Patient claims that he believes other people around him think he is "crazy" however states that at times he has racing thoughts and stays up night studying and reading about history politics amongst other things. Patient claims to be noncompliant with his medications and when asked more about his psych history patient became more hostile with the lyric writer. Patient has flight of ideas howeve r nonpressured speech. He states that the medications in the past have "stifle the spirit in me". He states that he is having poor sleep lately and poor energy. Patient denies any suicidal or homicidal ideations intent or plan. At this time patient denies any auditory or visual hallucinations. Patient admits to using cannabis recreationally one to 2 joints per week. He also states that he drinks 1-2 beers a day. Patient claims that he smokes cigarettes half a pack a day. Patient's UDS was positive for benzodiazepines and when confronted about this patient denies using them PAST PSYCHIATRIC HISTORY: Bipolar disorder and is being treated by Dr. Tamayo at [facility]. Patient was previously on Lamictal 200 mg at night and look to address 60 mg at night. Patient denies any previous suicidal attempts. She does not know when his previous admission was. PMH: Hypertension, HLP and morbid obesity. ALLERGIES: [NKDA] CHEMICAL DEPENDENCY HISTORY: As per HPI FAMILY PSYCHIATRIC/SUBSTANCE USE HISTORY: Denies SOCIAL HISTORY: Patient claims he was born and raised in [facility] and claimed to be kicked out of school in the ninth grade. He states that he worked many different jobs in the past. Patient claims to be with 2 kids and lives with his mother at home. MENTAL STATUS EXAM: General Appearance: Patient appears to be stated age is alert, hostile at times however directable. Patient is morbidly obese with poor hygiene and grooming. Behavior: [Patient is calmly seated without any agitated behavior.] Confrontational and hostile at times. Speech: Patient's speech is fluent and nonpressured however hyperverbal Mood/Affect: Patient reports their mood is "fine", affect is congruent and constricted Suicidality/Homicidality: Patient denies having any suicidal or homicidal ideation intent or plan. Perceptions: Patient denies any auditory or visual hallucinations. Though content/process: Multiple delusions and grandiosity. Patient is hyper verbal and tangential yet logical. Memory and concentration: AOX3, grossly intact for the purposes of this session. Can spell "WORLD" backwards Judgment and insight: Poor STRENGTHS/WEAKNESSES: Good family support, poor coping skills and poor insight. INTELLECT: Below Average IMPRESSIONS: Bipolar disorder, currently in a manic episode. Cannabis use disorder Benzodiazepine use disorder Nicotine use disorder PLAN: -Patient is admitted under [voluntary] status to [facility]HU for stabilization of psychiatric symptoms and safety. Patient signed adult voluntary form and medication consent and is placed in patient's chart. -Will start patient on Abilify 2 mg daily for mood stabilization/psychosis. When will be to titrate up to therapeutic dose. 1 mg of Ativan daily at bedtime for sleep. We'll be looked out to titrate off. -Ativan PRN for agitation/aggression -Patient was counselled on substance abuse and patient had no desire or insight to cut back on substance use. -Patient was informed of the risks, benefits and side effects of the medication and patient verbally consented to taking the medications. Patient signed med consent form and was placed in chart. -NRT was offered and patient accepted, ordered nicotine patch -UDS was positive for benzodiazepines and cannabis on admission -SW on board for discharge planning. Patient will be following up with [facility] upon discharge. 12/31/18 15:07
[2018-12-31] MEDS: ARIPiprazole 2 MG TAB PO SCH (16:29)
[2018-12-31 19:06] LABS: Hemoglobin A1C 5.6 % (4.0-6.0)
[2018-12-31] MEDS ORDERED: IPRATROPIUM-ALBUTEROL 3 ML NEB INHALATION PRN (21:51)
--- NOTE | 2018-12-31 21:56 | P.MDCNMH ---
History of Present Illness H&P Date: 12/31/18 Chief Complaint: Psychosis Patient is a 38-year-old male with a known history of hypertension, COPD, coronary artery disease with history of stent placement, history of WA and bipolar disorder, nicotine addiction and marijuana use was brought to the hospital ER by his mother. Patient apparently has been more aggressive and hyper sikh for the past 1 month. Patient has not been taking his medications and also using marijuana. Patient has not been taking his blood p ressure medications. Patient has been having racing thoughts as per his mother and milligrams angry at her and yells at her for lying. patient currently denied any complaints of chest pain or shortness of breath. Denied any issues at this time. Patient says that he feels very good and does not need any treatment. Patient's blood pressure is elevated while in the hospital. He does take Norvas c, metoprolol and Catapres at home. EKG showed normal sinus rhythm. Laboratory data showed creatinine 1.56 Review of Systems Constitutional: Patient denies any fever or chills . No generalized weakness or weight loss. Abdomen: Patient denied nausea vomiting and diarrhea and abdominal pain. Cardiovascular: Patient denies any chest pain or short of breath no palpitations. Respiratory: patient denied any cough is from production. No shortness of breath Neurologic: Patient denied any numbness or tingling headache. Musculoskeletal: Patient denies any complaints of joint swelling or deformity. Skin: Negative Psychiatric: Denied any depression also S[place] history. Endocrine: No heat or cold intolerance. No recent weight gain. Genitourinary: No dysuria or hematuria. All other 14 point ROS negative except the above Past Medical History Past Medical History: Coronary Artery Disease (CAD), COPD, Hypertension, Myocardial Infarction (WA) Additional Past Medical History / Comment(s): 09/17/[address] [facility] ER thinking he is God and his son's spirit sent him here. He is here to save the world. Other HX: WA in 2008, asthma, stress test Last Myocardial Infarction Date:: 2008 History of Any Multi-Drug Resistant Organisms: None Reported Past Surgical History: Heart Catheterization With Stent Past Anesthesia/Blood Transfusion Reactions: No Reported Reaction Date of Last Stent Placement:: 2008 Past Psychological History: Bipolar Additional Psychological History / Comment(s): AT TIME OF ADMIT ASKED IF HE HAD ANY HX OF psychological illnesses, HE STATED NO, IT WAS PREVIOUSLY CHARTED HE HAS BIPOLAR.. He lives in a home with his MOM He is independent. 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 Past Drug Use History: Marijuana Additional Drug Use History / Comment(s): denies current use of marijana - Past Family History Father Family Medical History: CVA/TIA, Myocardial Infarction (WA) Additional Family Medical History / Comment(s): Father had a WA at age 29yrs. at age 38 after open heart Mother Family Medical History: No Reported History Additional Family Medical History / Comment(s): Mother is healthy Medications and Allergies Home Medications Medication Instructions Recorded Confirmed Type Atorvastatin [Lipitor] 40 mg PO DAILY #30 tab 02/26/15 12/29/18 Rx Metoprolol Tartrate [Lopressor] 50 mg PO BID 10/26/15 12/29/18 History Lurasidone HCl [Latuda] 60 mg PO HS 10/31/16 12/29/18 History lamoTRIgine [LaMICtal] 200 mg PO HS 10/31/16 12/29/18 History amLODIPine [Norvasc] 10 mg PO DAILY 04/22/18 12/29/18 History cloNIDine HCL [Catapres] 0.1 mg PO TID 04/27/18 12/29/18 History Allergies Allergy/AdvReac Type Severity Reaction Status Date / Time No Known Allergies Allergy Verified 12/30/18 16:51 Physical Exam Vitals: Vital Signs Temp Pulse Pulse Pulse Resp BP BP 12/31/18 13:37 76 138/89 12/31/18 11:09 70 16 180/120 12/31/18 08:44 71 166/93 12/31/18 07:30 80 191/108 12/31/18 06:44 97.7 F 77 83 20 219/108 12/31/18 01:05 72 146/87 12/30/18 23:55 75 165/90 12/30/18 22:51 75 18 137/92 12/30/18 21:35 84 172/105 12/30/18 21:24 78 155/102 12/30/18 21:13 82 177/109 08/19/19 21:05 208/126 12/30/18 19:33 191 H 18 12/30/18 16:46 103 H 18 180/119 12/30/18 16:39 97.8 F 84 20 12/30/18 16:00 98.3 F 81 20 168/90 BP Pulse Ox 12/31/18 13:37 12/31/18 11:09 12/31/18 08:44 12/31/18 07:30 12/31/18 06:44 202/139 12/31/18 01:05 12/30/18 23:55 12/30/18 22:51 12/30/18 21:35 12/30/18 21:24 12/30/18 21:13 12/30/18 21:05 12/30/18 19:33 191/115 12/30/18 16:46 12/30/18 16:39 189/128 12/30/18 16:00 98 PHYSICAL EXAMINATION: Patient is lying in the bed comfortably, no acute distress, awake alert and or iented.. HEENT: Normocephalic. Neck is supple. Pupils reactive. Nostrils clear. Oral cavity is moist. Ears reveal no drainage. Neck reveals no JVD, carotid bruits, or thyromegaly. CHEST EXAMINATION: Trachea is central. Symmetrical expansion. Mild expiratory wheeze otherwise Lung brennan clear to auscultation and percussion. CARDIAC: Normal S1, S2 with no gallops. No murmurs ABDOMEN: Soft. Bowel sounds normal. No organomegaly. No abdominal bruits. Extremities: reveal no edema. No clubbing or cyanosis Neurologically awake, alert, oriented x3 with well-coordinated movements. No focal deficits noted Skin: No rash or skin lesions. Psychiatric: Coperative. Patient does have flight of ideas and maniac features. Musculoskeletal: No joint swelling or deformity. Normal range of motion. Cranial Nerve Examination - Cranial Nerves Cranial Nerve I- Olfactory: Intact Cranial Nerve II- Optic: Intact Cranial Nerve III- Oculomotor: Intact Cranial Nerve IV- Trochlear: Intact Cranial Nerve V- Trigeminal: Intact Cranial Nerve - Abducens: Intact Cranial Nerve VII- Facial: Intact Cranial Nerve VIII- Auditory: Intact Cranial Nerve IX- Glossopharyngeal: Intact Cranial Nerve X- Vagus: Intact Cranial Nerve XI- Accessory: Intact Cranial Nerve XII- Hypoglossal: Intact Results CBC & Chem 7: 12/29/18 21:07 12/29/18 21:07 Labs: Abnormal Lab Results - Last 24 Hours (Table) 12/31/18 Range/Units 07:42 Cholesterol 208 H (<200) mg/dL LDL Cholesterol, Calc 146 H (0-99) mg/dL HDL Cholesterol 37 L (40-60) mg/dL Assessment and Plan Assessment: Bipolar disorder with heriberto features Uncontrolled hypertension. Acute kidney injury. Follow-up creatinine level Hyperlipidemia with LDL 146 Microcytic anemia rule out iron deficiency.. Coronary artery disease with history of stent placement COPD Nicotine addiction Marijuana use History of WA Coronary artery disease history of stent placement DVT prophylaxis with early ambulation Plan: Patient will be continued on blood pressure medications in the form of Norvasc, metoprolol and Catapres patch will be added. Titrate blood pressure medications as needed. Patient be started on DuoNeb's when necessary for wheezing. Otherwise continue the current management and will follow up closely. Patient was counseled for smoking cigarettes and marijuana use. Further recommendations based on the clinical course. Thank you for your consult. Time with Patient: Greater than 30
[2018-12-31] MEDS: LORazepam 1 MG TAB PO SCH (22:15)
[2019-01-01 08:09] LABS: Anisocytosis Slight; Basophils # (A) 0.1 k/uL (0-0.2); Basophils % (A) 1 %; Eosinophils # (A) 0.6 k/uL (0-0.7); Eosinophils % (A) 6 %; HCT 47.8 % (39.0-53.0); HGB 15.2 gm/dL (13.0-17.5); Lymphocytes # (A) 2.4 k/uL (1.0-4.8); Lymphocytes % (A) 26 %; MCH 25.1 pg (25.0-35.0); MCHC 31.7 g/dL (31.0-37.0); MCV 79.1 fL (80.0-100.0); Mean Platelet Volume 6.8; Microcytosis Slight; Monocytes # (A) 0.5 k/uL (0-1.0); Monocytes % (A) 5 %; Neutrophils # (A) 5.7 k/uL (1.3-7.7); Neutrophils % (A) 60 %; Platelet Count 375 k/uL (150-450); RBC 6.05 m/uL (4.30-5.90); RDW 18.4 % (11.5-15.5); WBC 9.4 k/uL (3.8-10.6)
[2019-01-01 08:26] LABS: Calcium 9.2 mg/dL (8.4-10.2); Potassium 4.3 mmol/L (3.5-5.1)
[2019-01-01] MEDS: ARIPiprazole 2 MG TAB PO SCH (08:41)
[2019-01-01] MEDS: ATORVASTATIN 40 MG TAB PO SCH (08:41)
[2019-01-01] MEDS: amLODIPine 10 MG TAB PO SCH (08:41)
[2019-01-01] MEDS: METOPROLOL TARTRATE 50 MG TAB PO SCH ×2 (08:41→21:52)
[2019-01-01] MEDS: NICOTINE 14MG/24HR PATCH TRANSDERM SCH (08:41)
--- NOTE | 2019-01-01 10:35 | P.PN ---
Progress Note - Text Progress Note Date: 01/01/19 Interval History: Patient was seen in group this morning and was agreeable to speak to principal technical writer in the office. Patient states that he is feeling "good" and appears to be more calmer and directable today. Patient continues to have poor insight and judgment when asked why he is in the hospital several times. Patient continues to be delusional and have some flight of ideas. Patient claims that he has taken the medication Abilify however states that it may be causing him to feel sleepy. Patient also claims that he spoke with his mother yesterday who dropped candy offer him which he gave out to other patients. He states that he slept well last night and has a fair appetite. At this time patient denies any suicidal or homicidal ideations, intent or plan. Patient denies any auditory, visual hallucinations. Patient has been compliant with meds. Mental Status Exam: General Appearance: Patient appears to be stated age, is alert cooperative somewhat directable. Patient is obese has marginal hygiene and grooming. Behavior: Patient is calmly seated without any agitated behavior. Speech: Patient's speech is fluent and nonpressured. Less hyperverbal today Mood/Affect: Mood is improving, affect is congruent and constricted. Suicidality/Homicidality: Patient denies having any suicidal or homicidal ideation intent or plan. Perceptions: Patient denies any auditory or visual hallucinations. Though content/process: There is a decrease in delusional thought content and thought process is linear and goal-directed. Memory and concentration: AOX3, grossly intact for the purposes of this session Judgment and insight: Poor Assessment Bipolar disorder, currently in a manic episode. Cannabis use disorder Benzodiazepine use disorder Nicotine use disorder PLAN: -Patient continues to meet inpatient psychiatric criteria for stabilization of psychiatric symptoms and safety. Patient signed adult voluntary form and medication consent and is placed in patient's chart. -Medications : Will increase Abilify to 5 mg daily for mood stabilization/psychosis. We'll plan on giving WOOD prior to discharge. Plan will be to titrate up to therapeutic dose. 1 mg of Ativan daily at bedtime for sleep. -Ativan PRN for agitation/aggression -NRT - nicotine patch -Patient was encouraged to continue attending groups and participating in xiao milieu - on board for discharge planning. Patient will be following up with [facility] upon discharge.
[2019-01-01] MEDS: LORazepam 1 MG TAB PO SCH (21:52)
[2019-01-02] MEDS ORDERED: ARIPiprazole 5 MG TAB PO SCH (09:00)
[2019-01-02] MEDS: NICOTINE 14MG/24HR PATCH TRANSDERM SCH (09:20)
[2019-01-02] MEDS: METOPROLOL TARTRATE 50 MG TAB PO SCH ×2 (09:21→21:09)
[2019-01-02] MEDS: ATORVASTATIN 40 MG TAB PO SCH (09:21)
[2019-01-02] MEDS: amLODIPine 10 MG TAB PO SCH (09:21)
--- NOTE | 2019-01-02 12:49 | P.PN ---
Progress Note - Text Progress Note Date: 01/02/19 Interval History: Patient was seen in the hallway this morning was agreeable to speak to keno writer in the office. Patient's vital signs continued to show an increase in his blood pressure with normal pulse. Patient states that he is doing "fine". Patient answers questions appropriately however does not elaborate on his responses. Patient does state that he is been cooperative with other patients has been attending groups. He states that he is not getting much out of the groups however is listening to other people. Patient states that he did have his mother, to see him yesterday however does not elaborate much on their conversation and states that "it went well". Patient claims his appetite and energy level are good. Patient claims that he does not have any depression at this time. Patient is not exhibiting racing thoughts or flight of ideas. Patient states that he is sleeping throughout the night. At this time patient denies any suicidal or homical ideations, intent or plan. Patient denies any auditory, visual hallucinations and denies any paranoia or delusions. Patient de nies any side effects from the medications and has been compliant with meds. Mental Status Exam: General Appearance: Patient appears to be stated age, is alert cooperative somewhat directable. Patient is obese has marginal hygiene and grooming. Behavior: Patient is calmly seated without any agitated behavior. Speech: Patient's speech is fluent and nonpressured. Less hyperverbal today Mood/Affect: Mood is improving, affect is congruent and constricted. Suicidality/Homicidality: Patient denies having any suicidal or homicidal ideation intent or plan. Perceptions: Patient denies any auditory or visual hallucinations. Though content/process: There is a decrease in delusional thought content and thought process is linear and goal-directed. Memory and concentration: AOX3, grossly intact for the purposes of this session Judgment and insight: Poor mildly improving Assessment Bipolar disorder, currently in a manic episode. Cannabis use disorder Benzodiazepine use disorder Nicotine use disorder PLAN: -Patient continues to meet inpatient psychiatric criteria for stabilization of psychiatric symptoms and safety. Is currently admitted under voluntary status. -Medications : Will increase Abilify to 7 mg daily for mood stabilization/psychosis. We'll plan on giving WOOD prior to discharge. Plan will be to titrate up to therapeutic dose. 1 mg of Ativan daily at bedtime for sleep. -Blood pressure still not under control with amlodipine, clonidine & metoprolol at current dose. Ordered 5 mg of lisinopril, will continue monitoring blood pressure. -Ativan PRN for agitation/aggression -NRT - nicotine patch -Patient was encouraged to continue attending groups and participating in xiao milieu - on board for discharge planning. Patient will be following up with [facility] upon discharge.
[2019-01-02] MEDS: LISINOPRIL 5 MG TAB PO SCH (14:42)
[2019-01-02] MEDS: LORazepam 1 MG TAB PO SCH (21:09)
[2019-01-03] MEDS: amLODIPine 10 MG TAB PO SCH (06:11)
[2019-01-03] MEDS: NICOTINE 14MG/24HR PATCH TRANSDERM SCH (08:37)
[2019-01-03] MEDS: ATORVASTATIN 40 MG TAB PO SCH (08:38)
[2019-01-03] MEDS: LISINOPRIL 5 MG TAB PO SCH (08:38)
[2019-01-03] MEDS: METOPROLOL TARTRATE 50 MG TAB PO SCH ×2 (08:38→21:14)
[2019-01-03] MEDS ORDERED: ARIPiprazole 5 MG TAB PO SCH (09:00)
[2019-01-03] MEDS ORDERED: ARIPiprazole 2 MG TAB PO SCH (09:00)
--- NOTE | 2019-01-03 15:17 | P.PN ---
Progress Note - Text Progress Note Date: 01/03/19 Interval History: Patient was seen in the day room and was playing games with other patients and was agreeable to speak to instructional writer. Patient was calm and directable and answered questions. Patient appeared to be hesitant at times however was logical and goal oriented. Patient appeared to be somewhat frustrated with not being discharged and asked several questions about his medications and when he could leave the hospital. Patient states that he will be calling his mother to come up and visit him over the weekend or Sunday. He states that he is attempting to go to groups however is not finding the very interesting. He states that he is sleeping well at night with no problems. Patient denies any problems with other patients or staff on the unit. He claims his energy level is fair. At this time patient denies any suicidal or homical ideations, intent or plan. Patient denies any auditory, visual hallucinations and denies any paranoia or delusions. Patient denies any side effects from the medications and has been compliant with meds. Mental Status Exam: General Appearance: Patient appears to be stated age, is alert cooperative somewhat directable. Patient is obese has marginal hygiene and grooming. Behavior: Patient is calmly seated without any agitated behavior. Speech: Patient's speech is fluent and nonpressured. Mood/Affect: Mood is improving, affect is congruent and constricted. Suicidality/Homicidality: Patient denies having any suicidal or homicidal ideation intent or plan. Perceptions: Patient denies any auditory or visual hallucinations. Though content/process: There is a decrease in delusional thought content and thought process is linear and goal-directed. Appears to be has a 10 and frustrated at times. Memory and concentration: AOX3, grossly intact for the purposes of this session Judgment and insight: Poor mildly improving Assessment Bipolar disorder, currently in a manic episode. Cannabis use disorder Benzodiazepine use disorder Nicotine use disorder PLAN: -Patient continues to meet inpatient psychiatric criteria for stabilization of psychiatric symptoms and safety. Is currently admitted under voluntary status. -Medications : Will increase Abilify to 12 mg daily for mood stabilization/psychosis. We'll plan on offering WOOD prior to discharge. 1 mg of Ativan daily at bedtime for sleep, will attempt to taper off. -Blood pressure continues to be high in the morning early according to nursing staff. Will switch lisinopril to bedtime dosing to help with morning high blood pressure. We'll continue to monitor. -Ativan PRN for agitation/aggression -NRT - nicotine patch -Patient was encouraged to continue attending groups and participating in xiao milieu - on board for discharge planning. Patient will be following up with [facility] upon discharge.
[2019-01-03] MEDS ORDERED: LISINOPRIL 5 MG TAB PO SCH (21:00)
[2019-01-03] MEDS: LORazepam 1 MG TAB PO SCH (21:15)
[2019-01-04] MEDS: amLODIPine 10 MG TAB PO SCH (06:57)
[2019-01-04] MEDS: ARIPiprazole 2 MG TAB PO SCH (09:11)
[2019-01-04] MEDS: ARIPiprazole 10 MG TAB PO SCH (09:11)
[2019-01-04] MEDS: ATORVASTATIN 40 MG TAB PO SCH (09:11)
[2019-01-04] MEDS: METOPROLOL TARTRATE 50 MG TAB PO SCH ×2 (09:11→21:26)
[2019-01-04] MEDS: NICOTINE 14MG/24HR PATCH TRANSDERM SCH (09:13)
--- NOTE | 2019-01-04 10:38 | P.PN ---
Progress Note - Text Progress Note Date: 01/04/19 Interval history: Patient was seen coming out of group and was agreeable to speak to commercial insurance underwriter. Patient continues to have no overnight complaints and states that he is feeling better on the medication. He denies any side effects from the medications and claims that he is going to groups and trying to participate. Patient continues to appear frustrated and hesitant. He asked several times about discharge during conversation. Patient claims that he is sleeping well at night and is going to attempt to ask his mother to come for a visit this weekend. At this time patient denies any suicidal or homicidal ideations intent or plan. Denies any Auditory or visual hallucinations. Patient denies any side effects from the medications and has been compliant with meds. Mental status exam: General Appearance: Patient appears to be stated age is alert, pleasant, and cooperative. Behavior: No agitated behavior. Patient is directable Speech: Patient's speech is fluent and nonpressured. Mood/Affect: Mood is improving, affect is congruent and constricted. Suicidality/Homicidality: Patient denies having any suicidal or homicidal ideation intent or plan. Perceptions: Patient denies any auditory or visual hallucinations. Though content/process: Patient is preoccupied less with delusional thought content and thought process is linear and goal-directed. Memory and concentration: AOX3, grossly intact for the purposes of this session Judgment and insight: improving, mildly Assessment/Plan: Continue with current diagnosis. Patient continues to meet criteria for inpatient psychiatric admission for symptom stabilization and safety.Patient will be maintained on current psychotropic medication regimen. We'll consider increasing Abilify tomorrow, with goal to stabilize patient on a long-acting injection. Blood pressure continues to be fluctuating. Will increase lisinopril to 10 mg daily at bedtime and continue to monitor. Monitor for medication compliance and for any psychotropic medication side effects. Will continue to monitor ongoing response to treatment.
[2019-01-04] MEDS: LORazepam 1 MG TAB PO SCH (21:26)
[2019-01-04] MEDS: LISINOPRIL 10 MG TAB PO SCH (21:26)
[2019-01-05] MEDS: NICOTINE 14MG/24HR PATCH TRANSDERM SCH (08:31)
[2019-01-05] MEDS: ARIPiprazole 10 MG TAB PO SCH (08:32)
[2019-01-05] MEDS: METOPROLOL TARTRATE 50 MG TAB PO SCH ×2 (08:32→21:05)
[2019-01-05] MEDS: ATORVASTATIN 40 MG TAB PO SCH (08:32)
[2019-01-05] MEDS: amLODIPine 10 MG TAB PO SCH (08:32)
[2019-01-05] MEDS: ARIPiprazole 2 MG TAB PO SCH (08:32)
[2019-01-05] MEDS ORDERED: LORazepam 0.5 MG TAB PO PRN (10:56)
--- NOTE | 2019-01-05 11:02 | P.PN ---
Progress Note - Text Progress Note Date: 01/05/19 Interval history: Patient was seen in his room today was agreeable to speak to medical underwriter. Patient continues to have no overnight complaints and states that he is feeling better on the medication and continues to be preoccupied with discharge. He denies any side effects from the medications and claims that he is going to groups and trying to participate. Patient has multiple questions about his medications and what the plan will be when he is discharged. Patient continues to appear frustrated and hesitant at times. Patient claims that he is sleeping well at night and is going to have his mother to come for a visit this weekend. At this time patient denies any suicidal or homicidal ideations intent or plan. Denies any Auditory or visual hallucinations. Patient denies any side effects from the medications and has been compliant with meds. Mental status exam: General Appearance: Patient appears to be stated age is alert, pleasant, and cooperative. Hygiene and grooming improving. Behavior: No agitated behavior. Patient is directable Speech: Patient's speech is fluent and nonpressured. Mood/Affect: Mood is improving, affect is congruent and constricted. Suicidality/Homicidality: Patient denies having any suicidal or homicidal ideation intent or plan. Perceptions: Patient denies any auditory or visual hallucinations. Though content/process: Patient is preoccupied less with delusional thought content and thought process is linear and goal-directed. Memory and concentration: AOX3, grossly intact for the purposes of this session Judgment and insight: improving, mildly Assessment/Plan: Continue with current diagnosis. Patient continues to meet criteria for inpatient psychiatric admission for symptom stabilization and safety. Increasing Abilify today to 15 mg daily. Will commence titrating down the Ativan to 0.5 mg daily at bedtime when necessary for insomnia. Added in 3 mg melatonin daily at bedtime for sleep Blood pressure improving, we'll continue to monitor. Monitor for medication compliance and for any psychotropic medication side effects. Will continue to monitor ongoing response to treatment.
[2019-01-05] MEDS: MELATONIN 3 MG TABLET PO SCH (21:05)
[2019-01-05] MEDS: LISINOPRIL 10 MG TAB PO SCH (21:05)
[2019-01-06] MEDS ORDERED: ARIPiprazole 15 MG TAB PO SCH (09:00)
[2019-01-06] MEDS: amLODIPine 10 MG TAB PO SCH (09:18)
[2019-01-06] MEDS: METOPROLOL TARTRATE 50 MG TAB PO SCH ×2 (09:18→20:22)
[2019-01-06] MEDS: ATORVASTATIN 40 MG TAB PO SCH (09:18)
[2019-01-06] MEDS: NICOTINE 14MG/24HR PATCH TRANSDERM SCH (09:36)
--- NOTE | 2019-01-06 10:40 | P.PN ---
Progress Note - Text Progress Note Date: 01/06/19 Interval History: Patient was seen in the day room attending group and was agreeable to speak to database report writer. Patient was calmer and directable and answered questions. Patient continues to be somewhat frustrated and concerned with discharge. Patient insight and judgment are gradually improving along with frustration tolerance. Patient claims that his mother is going to come up and visit him today. He states that he is attempting to go to groups and is now attempting to participate. 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 He states that he is sleeping well at night with no problems. Patient denies any problems with other patients or staff on the unit. He claims his energy level is fair. At this time patient denies any suicidal or homical ideations, intent or plan. Patient denies any auditory, visual hallucinations and denies any paranoia or delusions. Patient denies any side effects from the medications and has been compliant with meds. Mental Status Exam: General Appearance: Patient appears to be stated age, is alert cooperative somewhat directable. Patient is obese has marginal hygiene and grooming. Behavior: Patient is calmly seated without any agitated behavior. Speech: Patient's speech is fluent and nonpressured. Mood/Affect: Mood is improving, affect is congruent and constricted. Suicidality/Homicidality: Patient denies having any suicidal or homicidal ideation intent or plan. Perceptions: Patient denies any auditory or visual hallucinations. Though content/process: There is a decrease in delusional thought content and thought process is linear and goal-directed. Appears to be focused on discharge and frustrated at times. Memory and concentration: AOX3, grossly intact for the purposes of this session Judgment and insight: Poor, mildly improving Assessment Bipolar disorder, currently in a manic episode. Cannabis use disorder Benzodiazepine use disorder Nicotine use disorder PLAN: -Patient continues to meet inpatient psychiatric criteria for stabilization of psychiatric symptoms and safety. Is currently admitted under voluntary status. -Medications : Will increase Abilify to 20 mg daily for mood stabilization/psychosis. Patient has accepted to be on Abilify Maintenna. Decreased Ativan to 0.5 mg daily at bedtime when necessary for sleep. -Blood pressure continues to be elevated Will increase lisinopril to 15 mg nightly. Continue to monitor blood pressure and vitals daily. -Ativan PRN for agitation/aggression -NRT - nicotine patch -Patient was encouraged to continue attending groups and participating in xiao milieu - on board for discharge planning. Patient will be following up with [facility] upon discharge. expeller worker to reach out to mother tomorrow for follow-up and discharge planning.
[2019-01-06] MEDS: MELATONIN 3 MG TABLET PO SCH (20:22)
[2019-01-06] MEDS: LISINOPRIL 5 MG TAB PO SCH (20:22)
[2019-01-07] MEDS: amLODIPine 10 MG TAB PO SCH (09:50)
--- NOTE | 2019-01-07 09:50 | P.PN ---
Progress Note - Text Progress Note Date: 01/07/19 Interval History: Patient was seen this morning in his room and was agreeable to speak the marketing underwriter. Patient was calmer and directable and answered questions. Patient was less focused on discharge this morning and were agreeable to the plan to prop for discharge on if he is doing better. Patient insight and judgment are gradually improving along with frustration tolerance. He claims that he is attempting to go to groups and is starting to have more positive outlook on the group stating that "I can share more my problems there". He states that he is sleeping well at night with no problems. Patient denies any problems with other patients or staff on the unit. He claims his energy level is fair. At this time patient denies any suicidal or homical ideations, intent or plan. Patient denies any auditory, visual hallucinations and denies any paranoia or delusions. Patient denies any side effects from the medications and has been compliant with meds. Mental Status Exam: General Appearance: Patient appears to be stated age, is alert cooperative somewhat directable. Patient is obese has marginal hygiene and grooming. Behavior: Patient is calmly seated without any agitated behavior. Speech: Patient's speech is fluent and nonpressured. Mood/Affect: Mood is improving, affect is congruent and constricted. Suicidality/Homicidality: Patient denies having any suicidal or homicidal ideation intent or plan. Perceptions: Patient denies any auditory or visual hallucinations. Though content/process: There is a decrease in delusional thought content and thought process is linear and goal-directed. Memory and concentration: AOX3, grossly intact for the purposes of this session Judgment and insight: Fair, mildly improving Assessment Bipolar disorder, currently in a manic episode. Cannabis use disorder Benzodiazepine use disorder Nicotine use disorder PLAN: -Patient continues to meet inpatient psychiatric criteria for stabilization of psychiatric symptoms and safety. Is currently admitted under voluntary status. -Medications : Will continue with Abilify 20 mg daily for mood stabilization/psychosis. Patient has accepted to be on Abilify Maintenna, will likely be given 400 mg IM dose tomorrow. Continue with Ativan to 0.5 mg daily at bedtime when necessary for sleep. -Blood pressure continues to be elevated in the morning however has gradually improved. Will continue with current blood pressure medication regimen. Continue to monitor blood pressure and vitals daily. -Ativan PRN for agitation/aggression -NRT - nicotine patch -Patient was encouraged to continue attending groups and participating in xiao milieu - on board for discharge planning. Patient will be following up with [facility] upon discharge. warehouse assembly worker to reach out to mother today for follow-up and discharge planning.
[2019-01-07] MEDS: METOPROLOL TARTRATE 50 MG TAB PO SCH ×2 (09:51→21:41)
[2019-01-07] MEDS: ATORVASTATIN 40 MG TAB PO SCH (09:51)
[2019-01-07] MEDS: NICOTINE 14MG/24HR PATCH TRANSDERM SCH (09:55)
[2019-01-07] MEDS: cloNIDine 0.2 MG/24HR PATCH TRANSDERM SCH (14:12)
[2019-01-07] MEDS: LISINOPRIL 5 MG TAB PO SCH (21:41)
[2019-01-07] MEDS: MELATONIN 3 MG TABLET PO SCH (21:41)
[2019-01-08] MEDS: NICOTINE 14MG/24HR PATCH TRANSDERM SCH (08:50)
[2019-01-08] MEDS: amLODIPine 10 MG TAB PO SCH (08:50)
[2019-01-08] MEDS: ATORVASTATIN 40 MG TAB PO SCH (08:50)
[2019-01-08] MEDS: METOPROLOL TARTRATE 50 MG TAB PO SCH ×2 (08:51→21:06)
[2019-01-08 08:53] VITALS: RESP 18
[2019-01-08] MEDS ORDERED: ARIPiprazole IM 400 MG VIAL (NO COST) IM ONE (13:29)
[2019-01-08] MEDS ORDERED: ARIPiprazole IM SYRINGE 400 MG (NO CHARGE) IM ONE (13:45)
--- NOTE | 2019-01-08 14:40 | P.PN ---
Progress Note - Text Progress Note Date: 01/08/19 Interval History: Patient appeared to be awaking from a nap and was agreeable to speak to clinical writer. Patient was cooperative and more directable today and was speaking about discharge and his plans to go to his friend's house. Patients insight and judgment are gradually improving along with frustration tolerance. Patient claims he is continuing to go to groups and states that he is learning to interact with others more and learn more coping skills. He states that he is sleeping well at night with no problems. Patient denies any problems with other patients or staff on the unit claims his medications are helping him stay "calmer". He claims his energy level is fair. At this time patient denies any suicidal or homical ideations, intent or plan. Patient denies any auditory, visual hallucinations and denies any paranoia or delusions. Patient denies any side effects from the medications and has been compliant with meds. Mental Status Exam: General Appearance: Patient appears to be stated age, is alert cooperative somewhat directable. Patient is obese has improving hygiene and grooming. Behavior: Patient is calmly seated without any agitated behavior. Speech: Patient's speech is fluent and nonpressured. Mood/Affect: Mood is improving, affect is congruent and constricted. Suicidality/Homicidality: Patient denies having any suicidal or homicidal ideation intent or plan. Perceptions: Patient denies any auditory or visual hallucinations. Though content/process: There is a decrease in delusional thought content and thought process is linear and goal-directed. Memory and concentration: AOX3, grossly intact for the purposes of this session Judgment and insight: Fair, mildly improving Assessment Bipolar disorder, currently in a manic episode. Cannabis use disorder Benzodiazepine use disorder Nicotine use disorder PLAN: -Patient continues to meet inpatient psychiatric criteria for stabilization of psychiatric symptoms and safety. Is currently admitted under voluntary status. -Medications : Will continue with Abilify 20 mg PO daily for mood stabilization/psychosis. Orders Abilify Maintenna 400 mg IM dose to be given today. Will be due for second long-acting injection dose on 02/05/2019. Continue with Ativan to 0.5 mg daily at bedtime when necessary for sleep. -Blood pressure continues to be elevated in the morning however has gradually improved. Will continue with current blood pressure medication regimen, continue to monitor blood pressure and vitals daily. -Ativan PRN for agitation/aggression -NRT - nicotine patch -Patient was encouraged to continue attending groups and participating in xiao milieu. - on board for discharge planning. Patient will be following up with [facility] upon discharge. Likely discharge tomorrow.
[2019-01-08] MEDS: LISINOPRIL 5 MG TAB PO SCH (21:06)
[2019-01-08] MEDS: MELATONIN 3 MG TABLET PO SCH (21:06)
[2019-01-09 01:28] VITALS: TEMP 97.8
[2019-01-09] MEDS: NICOTINE 14MG/24HR PATCH TRANSDERM SCH (09:47)
[2019-01-09] MEDS: ATORVASTATIN 40 MG TAB PO SCH (09:48)
[2019-01-09] MEDS: amLODIPine 10 MG TAB PO SCH (09:48)
--- NOTE | 2019-01-09 09:48 | P.DS ---
Providers Date of admission: 12/30/18 15:49 Expected date of discharge: 01/09/19 Attending physician: Bharat Harris MD Consults: 12/30/18 15:52 Consult Physician Routine Consulting Provider: Daniel Walter Consult Reason/Comments: H&P and medical Do you want consulting provider notified?: Yes Primary care physician: Mohini Uribe - Discharge Diagnosis(es) (1) Schizoaffective disorder, bipolar type Current Visit: Yes Status: Acute (2) Cannabis abuse Current Visit: Yes Status: Acute (3) Benzodiazepine abuse Current Visit: Yes Status: Acute (4) Nicotine dependence Current Visit: No Status: Acute Hospital Course: Admission HPI: Patient is a 38-year-old male with history of bipolar disorder who currently lives with his mother is and has 2 kids. Patient presented to the hospital on a petition by the mother states that the patient has been delusional and is currently a danger of self-harm and not taking his medications at home. Patient was seen this afternoon in his room and was agreeable to speak to narrative writer in the office. Patient was initially cooperative however begin to be confrontational/aggressive to narrative writer at times. Patient was delusional and grandiose throughout the interview. He was stating that he was working really hard to establish a "foundation" in the community. 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 Patient claims that he believes other people around him think he is "crazy" however states that at times he has racing thoughts and stays up night studying and reading about history politics amongst other things. Patient claims to be noncompliant with his medications and when asked more about his psych history patient became more hostile with the narrative writer. Patient has flight of ideas however nonpressured speech. He states jose martin t the medications in the past have "stifle the spirit in me". He states that he is having poor sleep lately and poor energy. Patient denies any suicidal or homicidal ideations intent or plan. At this time patient denies any auditory or visual hallucinations. Patient admits to using cannabis recreationally one to 2 joints per week. He also states that he drinks 1-2 beers a day. Patient claims that he smokes cigarettes half a pack a day. Patient's UDS was positive for benzodiazepines and when confronted about this patient denies using them. Hospital course: Upon admission to the unit patient was initially grandiose, had racing thoughts and multiple delusions. Patient was initially reluctant/hesitant to participate and engage in treatment however patient gradually began treatment on the unit. Patient got along well with other patients on the unit and followed unit protocol. Patient was compliant with the medications and denied any side effects throughout hospital course. Patient was started on Abilify and was titrated up to 20 mg daily for mood and psychosis. On 01/09/2019 patient was agreeable to receive Abilify maintenna 400 mg IM injection which he tolerated well. Patient was informed that he must remain on the oral Abilify for 2 weeks and he will be due for his next IM injection on 02/05/2019. Patient spoke of his stressors and engaged in therapy both group and individual. Patient was also seen by medical team for history and physical exam. Throughout the course of the hospitalization patient gradually improved with regards to mood, sleep and psychotic symptoms including delusions and grandiosity. Patient's mother came in for a visit on to the unit and had a family meeting with attending psychiatrist and discussed plan for treatment, answered questions along with assessment of patient's baseline of functioning. Patient became more future oriented with improved insight and judgment into his condition and his need for treatment. On the day of discharge patient denied any suicidal or homicidal ideations intent or plan denied any auditory or visual hallucinations. The patient denied any access to guns or weapons. Patient denied any paranoia and did not endorse any delusions. Patient does have a significant history of substance abuse and was counseled on abstaining from all substances including alcohol and marijuana. Patient was also counseled on the medications and need for regular compliance and was encouraged to follow-up with their outpatient appointment for mental health and also for primary care. Mental status exam: General Appearance: Patient appears to be older than stated age, overweight and is alert, pleasant, and cooperative. Patient is in no acute distress and has fair hygiene and grooming Behavior: Patient is calmly seated without any agitated behavior. Speech: Patient's speech is fluent and nonpressured. Mood/Affect: Patient reports their mood is "alright", affect is congruent and constricted Suicidality/Homicidality: Patient denies having any suicidal or homicidal ideation intent or plan. Perceptions: Patient denies any auditory or visual hallucinations. Though content/process: There is no evidence of any delusional thought content and thought process is linear and goal-directed. Memory and concentration: AOX3, grossly intact for the purposes of this session. Can spell "WORLD" backwards correctly. Judgment and insight: fair, improved Impression: Schizoaffective disorder, bipolar type Cannabis use disorder Benzodiazepine abuse Nicotine dependence Plan: -Continue with discharge today as patient has improved and stabilized psychiatrically and is not currently an imminent threat to himself and/or others. -Continue medications: Patient is to continue Abilify by mouth 20 mg daily for psychosis and mood stabilization for 14 days and then discontinue. Patient received Abilify Maintenna 400mg IM on 01/08/2019 and will be due for next injection on 02/05/2019. Continue with melatonin 3 mg daily at bedtime for sleep. -Patient was counseled on the need for medication compliance and appropriate follow-up at mental health and also primary care for medical issues. Patient verbalized understanding and agreed. -Social work to connect patient with [facility] for follow-up psychiatric care. garnett room worker also to reach out to patient's friend who will be picking patient up from the hospital and allowing him to stay at his house. -Patient counseled on abstaining from recreational drugs and marijuana and alcohol. Was informed/educated on the adverse effects on their physical and mental health. Patient was offered substance abuse treatment and stated that he will consider it when he follows up with [facility]. -Patient did have fluctuating and increased blood pressure throughout admission, mainly seen in the mornings. Patient was restarted on his home regimen of antihypertensives and added on lisinopril titrated up to 15 mg daily with moderate improvement. Patient was encouraged to follow-up with his primary care physician with regards to this and possibly to undergo a sleep study which could be an underlying cause of his elevated blood pressure and poor sleep. Patient verbally understood and agreed. -Patient was instructed to return to the hospital or seek immediate medical care if their psychiatric or medical systems do worsen or reoccur. Allergies Allergy/AdvReac Type Severity Reaction Status Date / Time No Known Allergies Allergy Verified 12/30/18 16:51 Laboratory Results WBC 9.4 k/uL (3.8-10.6) 01/01/19 07:40 RBC 6.05 m/uL (4.30-5.90) H 01/01/19 07:40 Hgb 15.2 gm/dL (13.0-17.5) 01/01/19 07:40 Hct 47.8 % (39.0-53.0) 01/01/19 07:40 MCV 79.1 fL (80.0-100.0) L 01/01/19 07:40 MCH 25.1 pg (25.0-35.0) 01/01/19 07:40 MCHC 31.7 g/dL (31.0-37.0) 01/01/19 07:40 RDW 18.4 % (11.5-15.5) H 01/01/19 07:40 Plt Count 375 k/uL (150-450) 01/01/19 07:40 Neutrophils % 60 % 01/01/19 07:40 Lymphocytes % 26 % 01/01/19 07:40 Monocytes % 5 % 01/01/19 07:40 Eosinophils % 6 % 01/01/19 07:40 Basophils % 1 % 01/01/19 07:40 Neutrophils # 5.7 k/uL (1.3-7.7) 01/01/19 07:40 Lymphocytes # 2.4 k/uL (1.0-4.8) 01/01/19 07:40 Monocytes # 0.5 k/uL (0-1.0) 01/01/19 07:40 Eosinophils # 0.6 k/uL (0-0.7) 01/01/19 07:40 Basophils # 0.1 k/uL (0-0.2) 01/01/19 07:40 Anisocytosis Slight 01/01/19 07:40 Microcytosis Slight 01/01/19 07:40 Sodium 140 mmol/L (137-145) 01/01/19 07:40 Potassium 4.3 mmol/L (3.5-5.1) 01/01/19 07:40 Chloride 103 mmol/L (98-107) 01/01/19 07:40 Carbon Dioxide 30 mmol/L (22-30) 01/01/19 07:40 Anion Gap 7 mmol/L 01/01/19 07:40 BUN 19 mg/dL (9-20) 01/01/19 07:40 Creatinine 1.25 mg/dL (0.66-1.25) 01/01/19 07:40 Est GFR (CKD-EPI)AfAm 84 (>60 ml/min/1.73 sqM) 01/01/19 07:40 Est GFR (CKD-EPI)NonAf 73 (>60 ml/min/1.73 sqM) 01/01/19 07:40 Glucose 96 mg/dL (74-99) 01/01/19 07:[address] Glu mg/dL 114 12/31/18 07:42 Hemoglobin A1c 5.6 % (4.0-6.0) 12/31/18 07:42 Calcium 9.2 mg/dL (8.4-10.2) 01/01/19 07:40 Total Bilirubin 0.6 mg/dL (0.2-1.3) 12/29/18 21:07 AST 78 U/L (17-59) H 12/29/18 21:07 ALT 65 U/L (21-72) 12/29/18 21:07 Alkaline Phosphatase 100 U/L (38-126) 12/29/18 21:07 Total Protein 7.7 g/dL (6.3-8.2) 12/29/18 21:07 Albumin 4.4 g/dL (3.5-5.0) 12/29/18 21:07 Triglycerides 127 mg/dL (<150) 12/31/18 07:42 Cholesterol 208 mg/dL (<200) H 12/31/18 07:42 LDL Cholesterol, Calc 146 mg/dL (0-99) H 12/31/18 07:42 HDL Cholesterol 37 mg/dL (40-60) L 12/31/18 07:42 TSH 1.060 mIU/L (0.465-4.680) 12/31/18 07:42 Urine Color Yellow 12/30/18 07:14 Urine Appearance Clear (Clear) 12/30/18 07:14 Urine pH 5.5 (5.0-8.0) 12/30/18 07:14 Ur Specific [place] 1.026 (1.001-1.035) 12/30/18 07:14 Urine Protein 2+ (Negative) H 12/30/18 07:14 Urine Glucose (UA) Negative (Negative) 12/30/18 07:14 Urine Ketones Negative (Negative) 12/30/18 07:14 Urine Blood Negative (Negative) 12/30/18 07:14 Urine Nitrite Negative (Negative) 12/30/18 07:14 Urine Bilirubin Negative (Negative) 12/30/18 07:14 Urine Urobilinogen 2.0 mg/dL (<2.0) 12/30/18 07:14 Ur Leukocyte Esterase Negative (Negative) 12/30/18 07:14 Urine RBC 7 /hpf (0-5) H 12/30/18 07:14 Urine WBC 5 /hpf (0-5) 12/30/18 07:14 Ur Squamous Epith Cells 1 /hpf (0-4) 12/30/18 07:14 Urine Bacteria Rare /hpf (None) H 12/30/18 07:14 Hyaline Casts 45 /lpf (0-2) H 12/30/18 07:14 Urine Mucus Many /hpf (None) H 12/30/18 07:14 Urine Opiates Screen Not Detected (NotDetected) 12/30/18 07:14 Ur Oxycodone Screen Not Detected (NotDetected) 12/30/18 07:14 Urine Methadone Screen Not Detected (NotDetected) 12/30/18 07:14 Ur Propoxyphene Screen Not Detected (NotDetected) 12/30/18 07:14 Ur Barbiturates Screen Not Detected (NotDetected) 12/30/18 07:14 U Tricyclic Antidepress Not Detected (NotDetected) 12/30/18 07:14 Ur Phencyclidine Scrn Not Detected (NotDetected) 12/30/18 07:14 Ur Amphetamines Screen Not Detected (NotDetected) 12/30/18 07:14 U Methamphetamines Scrn Not Detected (NotDetected) 12/30/18 07:14 U Benzodiazepines Scrn Detected (NotDetected) H 12/30/18 07:14 Urine Cocaine Screen Not Detected (NotDetected) 12/30/18 07:14 U Marijuana (THC) Screen Detected (NotDetected) H 12/30/18 07:14 Vital Signs Temp 97.8 F 01/09/19 01:14 Pulse 72 01/09/19 01:14 Resp 18 01/09/19 01:14 BP 169/93 01/09/19 01:14 Pulse Ox 98 12/30/18 16:00 Patient Condition at Discharge: Stable Plan - Discharge Summary Discharge Rx Participant: No New Discharge Prescriptions: New ARIPiprazole [Abilify] 20 mg PO DAILY #14 tab ARIPiprazole IM [Abilify Maintena] 400 mg IM QMONTH #1 vial Ipratropium-Albuterol Nebulize [Duoneb 0.5 mg-3 mg/3 ml Soln] 3 ml INHALATION RT-QID PRN ampul.neb PRN Reason: Shortness Of Breath Or Wheezing Nicotine 14Mg/24Hr Patch [Habitrol] 1 patch TRANSDERM DAILY #7 patch Melatonin 3 mg PO HS #14 tablet Lisinopril [Zestril] 15 mg PO HS #28 tab Continue Atorvastatin [Lipitor] 40 mg PO DAILY #30 tab Metoprolol Tartrate [Lopressor] 50 mg PO BID amLODIPine [Norvasc] 10 mg PO DAILY Discontinued lamoTRIgine [LaMICtal] 200 mg PO HS Lurasidone HCl [Latuda] 60 mg PO HS cloNIDine HCL [Catapres] 0.1 mg PO TID Discharge Medication List Atorvastatin [Lipitor] 40 mg PO DAILY #30 tab 02/26/15 [Rx] Metoprolol Tartrate [Lopressor] 50 mg PO BID 10/26/15 [History] amLODIPine [Norvasc] 10 mg PO DAILY 04/22/18 [History] ARIPiprazole IM [Abilify Maintena] 400 mg IM QMONTH #1 vial 01/09/19 [Rx] ARIPiprazole [Abilify] 20 mg PO DAILY #14 tab 01/09/19 [Rx] Ipratropium-Albuterol Nebulize [Duoneb 0.5 mg-3 mg/3 ml Soln] 3 ml INHALATION RT-QID PRN ampul.neb 01/09/19 [Rx] Lisinopril [Zestril] 15 mg PO HS #28 tab 01/09/19 [Rx] Melatonin 3 mg PO HS #14 tablet 01/09/19 [Rx] Nicotine 14Mg/24Hr Patch [Habitrol] 1 patch TRANSDERM DAILY #7 patch 01/09/19 [Rx] Follow up Appointment(s)/Referral(s): [facility] [Outside] - 01/16/19 2:00 pm (01-16-19 @ 2:[address] Jay 01-20-19 @ 10:00 with Mirlande Julio) Mohini Uribe MD [Primary Care Provider] - 1-2 days Activity/Diet/Wound Care/Special Instructions: Activity and diet as tolerated. No guns or weapons in the home. Refrain from alcohol and street drugs not prescribed by your physicians. Take all your medications as prescribed, and attend all your follow up appointments as scheduled. If in need of medication refills, please go to your primary care physicians, or your out patient psychiatrist. If in crisis, please call or go to your nearest ER for an evaluation. Discharge Disposition: HOME SELF-CARE
[2019-01-09] MEDS: METOPROLOL TARTRATE 50 MG TAB PO SCH (09:49)
[2019-01-09 09:53] VITALS: BP 158/100; PULSE 79
== END 2019-01-09 11:50 | disposition home or self-care (01) | DRG 885 ==
LOC: EC 17:57 → 3MHU 12-30 15:49
PROVIDERS: ADMIT Psychiatry & Neurology Psychiatry; ATTEND Psychiatry & Neurology Psychiatry
DX: F25.0 Schizoaffective disorder, bipolar type (principal); Z68.41 Body mass index [BMI] 40.0-44.9, adult; E66.01 Morbid (severe) obesity due to excess calories; F12.10 Cannabis abuse, uncomplicated; T46.5X6A Underdosing of other antihypertensive drugs, initial encounter; T42.6X6A Underdosing of other antiepileptic and sedative-hypnotic drugs, initial encounter; F13.10 Sedative, hypnotic or anxiolytic abuse, uncomplicated; G47.00 Insomnia, unspecified; E78.5 Hyperlipidemia, unspecified; Z91.128 Patient's intentional underdosing of medication regimen for other reason; I25.10 Atherosclerotic heart disease of native coronary artery without angina pectoris; J44.9 Chronic obstructive pulmonary disease, unspecified; I10 Essential (primary) hypertension; I25.2 Old myocardial infarction; F17.210 Nicotine dependence, cigarettes, uncomplicated; Z71.6 Tobacco abuse counseling; Z95.5 Presence of coronary angioplasty implant and graft; Z79.899 Other long term (current) drug therapy; Z82.49 Family history of ischemic heart disease and other diseases of the circulatory system; Z82.3 Family history of stroke
CPT/HCPCS: 36415; 80048; 80053; 80061; 80306; 81001; 82075; 83036; 84443; 85025; 93005; 99285

== ENCOUNTER 2019-11-19 16:37 | Inpatient (IN) | payer MEDICAID, OTHER ==
--- NOTE | 2019-11-19 17:14 | ED ---
Psych HPI - General Source: patient Mode of arrival: ambulatory <Mg Cortés - Last Filed: 11/19/19 23:05> <Sarah Munguia - Last Filed: 11/20/19 03:03> - General Chief Complaint: Psychiatric Symptoms Stated Complaint: mental health Time Seen by Provider: 11/19/19 17:09 - History of Present Illness Initial Comments: Patient is a 39-year-old male with history of schizophrenia and bipolar disorder presented to emergency department for psychiatric evaluation. Patient was brought in by the mother who states the patient had threatened somebody at the house. States over the last few days he ran out and was found by the police and unknown apartment. Patient states somebody told him that he lives there. Denies any homicidal thoughts or ideations. Patient is scheduled to take his psychiatric medication. Patient states he has not taken his medication in the last 2 months because he does not need them. He has not other complaints at this time. (Mg Cortés) - Related Data Home Medications Medication Instructions Recorded Confirmed Metoprolol Tartrate [Lopressor] 50 mg PO BID 10/26/15 12/29/18 amLODIPine [Norvasc] 10 mg PO DAILY 04/22/18 12/29/18 Previous Rx's Medication Instructions Recorded Atorvastatin [Lipitor] 40 mg PO DAILY #30 tab 02/26/15 ARIPiprazole IM [Abilify Maintena] 400 mg IM QMONTH #1 vial 01/09/19 ARIPiprazole [Abilify] 20 mg PO DAILY #14 tab 01/09/19 Ipratropium-Albuterol Nebulize 3 ml INHALATION RT-QID PRN 01/09/19 [Duoneb 0.5 mg-3 mg/3 ml Soln] ampul.neb Lisinopril [Zestril] 15 mg PO HS #28 tab 01/09/19 Melatonin 3 mg PO HS #14 tablet 01/09/19 Nicotine 14Mg/24Hr Patch [Habitrol] 1 patch TRANSDERM DAILY #7 patch 01/09/19 Allergies Allergy/AdvReac Type Severity Reaction Status Date / Time No Known Allergies Allergy Verified 12/30/18 16:51 Review of Systems ROS Other: All systems not noted in ROS Statement are negative. <Mg Cortés - Last Filed: 11/19/19 23:05> ROS Other: All systems not noted in ROS Statement are negative. <Sarah Munguia Jenn - Last Filed: 11/20/19 03:03> ROS Statement: Those systems with pertinent positive or pertinent negative responses have been documented in the HPI. Past Medical History Past Medical History: Coronary Artery Disease (CAD), COPD, Hypertension, Myocardial Infarction (IN) Additional Past Medical History / Comment(s): 09/17/14 Pt presented to [facility] ER thinking he is God and his son's spirit sent him here. He is here to save the world. Other HX: IN in 2008, asthma, stress test Last Myocardial Infarction Date:: 2008 History of Any Multi-Drug Resistant Organisms: None Reported Past Surgical History: Heart Catheterization With Stent Past Anesthesia/Blood Transfusion Reactions: No Reported Reaction Date of Last Stent Placement:: 2008 Past Psychological History: Bipolar Smoking Status: Current every day smoker Past Alcohol Use History: Occasional Past Drug Use History: Marijuana - Past Family History Father Family Medical History: CVA/TIA, Myocardial Infarction (IN) Additional Family Medical History / Comment(s): Father had a IN at age 29yrs. at age 38 after open heart Mother Family Medical History: No Reported History Additional Family Medical History / Comment(s): Mother is healthy <Mg Cortés - Last Filed: 11/19/19 23:05> General Exam Limitations: no limitations General appearance: alert, in no apparent distress, obese Head exam: Present: atraumatic, normocephalic, normal inspection Eye exam: Present: normal appearance, PERRL, EOMI Pupils: Present: normal accommodation ENT exam: Present: normal exam, normal oropharynx, mucous membranes moist Neck exam: Present: normal inspection, full ROM Respiratory exam: Present: normal lung sounds bilaterally. Absent: respiratory distress, wheezes Cardiovascular Exam: Present: regular rate, normal rhythm, normal heart sounds Extremities exam: Present: normal inspection, full ROM. Absent: tenderness Back exam: Present: normal inspection, full ROM. Absent: tenderness Neurological exam: Present: alert, oriented X3 Psychiatric exam: Present: normal affect, agitated Skin exam: Present: warm, dry, intact, normal color <Mg Cortés Last Filed: 11/19/19 23:05> Course Vital Signs 11/19/19 11/19/19 11/19/19 16:38 18:00 19:06 Temperature 98.7 F Pulse Rate 120 H Respiratory 18 18 18 Rate Blood Pressure 195/90 O2 Sat by Pulse 96 Oximetry 11/20/19 11/20/19 01:00 02:20 Temperature Pulse Rate Respiratory Rate Blood Pressure 213/111 141/70 O2 Sat by Pulse Oximetry Procedures - Restraint - Face to Face Restraint Occurrence 1 Patient's Immediate Situation: Endangers self safety, Endangers others' safety, Endangers staff safety Patient's Reaction to the Intervention: Hostile Patient's Medical & Behavioral Condition: Awake Need to Continue or Terminate Restraint or Seclusion: Continue Face to Face Eval of Restraint Date: 11/20/19 Face to Face Eval of Restraint Time: 00:46 <Sarah Munguia - Last Filed: 11/20/19 03:03> Medical Decision Making <Mg Cortés - Last Filed: 11/19/19 23:05> - Lab Data Result diagrams: 11/20/19 00:27 11/20/19 00:27 <Sarah Munguia - Last Filed: 11/20/19 03:03> - Medical Decision Making patient is a 39-year-old male with history of bipolar schizophrenic disorder presenting for psychiatric medication. Patient brought to the ED by his mother. Physical examination is unremarkable. No suicidal or homicidal thoughts or ideations. Patient has not taken his psychiatric medication about 2 months. He was given Ativan, Lopressor and lisinopril in the ED. At this time patient care transferred to Dr. Munguia (Mg Cortés) 00:40 patient was found to be in the nutrition room pouring himself a pop, he was advised to go back to his room, as he was walking back to his room he grabbe d a bottle of activity therapy teacher imported in his drink and then attempted to drink it. The drink was knocked out of his hand the patient became very agitated with staff. Decision was made to place the patient in restraints. Patient was given anxiolysis the IM medications and placed in 4. restraints. Patient became calm and cooperative restraints were removed, blood pressure improved once patient was resting without further medications Medically cleared for transfer to psychiatric facility now the blood pressure is improved, certification was completed. Patient be admitted to the psychiatric unit. (Sarah Munguia) - Lab Data Lab Results 11/19/19 11/20/19 11/20/19 Range/Units 20:25 00:27 00:27 WBC 14.8 H (3.8-10.6) k/uL RBC 5.96 H (4.30-5.90) m/uL Hgb 17.1 (13.0-17.5) gm/dL Hct 52.0 (39.0-53.0) % MCV 87.2 (80.0-100.0) fL MCH 28.6 (25.0-35.0) pg MCHC 32.8 (31.0-37.0) g/dL RDW 14.5 (11.5-15.5) % Plt Count 234 (150-450) k/uL Neutrophils % 73 % Lymphocytes % 16 % Monocytes % 6 % Eosinophils % 3 % Basophils % 0 % Neutrophils # 10.8 H (1.3-7.7) k/uL Lymphocytes # 2.4 (1.0-4.8) k/uL Monocytes # 0.9 (0-1.0) k/uL Eosinophils # 0.5 (0-0.7) k/uL Basophils # 0.1 (0-0.2) k/uL Sodium 135 L (137-145) mmol/L Potassium 3.6 (3.5-5.1) mmol/L Chloride 102 (98-107) mmol/L Carbon Dioxide 22 (22-30) mmol/L Anion Gap 11 mmol/L BUN 17 (9-20) mg/dL Creatinine 1.34 H (0.66-1.25) mg/dL Est GFR (CKD-EPI)AfAm 77 (>60 ml/min/1.73 sqM) Est GFR (CKD-EPI)NonAf 66 (>60 ml/min/1.73 sqM) Glucose 115 H (74-99) mg/dL Calcium 9.3 (8.4-10.2) mg/dL Total Bilirubin 0.7 (0.2-1.3) mg/dL AST 53 (17-59) U/L ALT 32 (4-49) U/L Alkaline Phosphatase 101 (38-126) U/L Total Protein 7.3 (6.3-8.2) g/dL Albumin 4.2 (3.5-5.0) g/dL Salicylates <1.0 mg/dL Urine Opiates Screen Not Detected (NotDetected) Ur Oxycodone Screen Not Detected (NotDetected) Urine Methadone Screen Not Detected (NotDetected) Ur Propoxyphene Screen Not Detected (NotDetected) Acetaminophen <10.0 ug/mL Ur Barbiturates Screen Not Detected (NotDetected) U Tricyclic Antidepress Not Detected (NotDetected) Ur Phencyclidine Scrn Not Detected (NotDetected) Ur Amphetamines Screen Not Detected (NotDetected) U Methamphetamines Scrn Not Detected (NotDetected) U Benzodiazepines Scrn Not Detected (NotDetected) Urine Cocaine Screen Not Detected (NotDetected) U Marijuana (THC) Screen Detected H (NotDetected) Disposition Is patient prescribed a controlled substance at d/c from ED?: No Time of Disposition: 23:08 <Mg Cortés - Last Filed: 11/19/19 23:05> <Sarah Munguia - Last Filed: 11/20/19 03:03> Clinical Impression: Adjustment reaction of adult life Disposition: ADMITTED IP TO THIS HOSP Condition: Stable Additional Instructions: Patient admitted Referrals: Mohini Uribe MD [Primary Care Provider] - 1-2 days
[2019-11-19] MEDS ORDERED: LORazepam 1 MG TAB PO STA (20:56)
[2019-11-19 21:05] LABS: Amphetamine Screen,Urine Not Detected (NotDetected); Barbiturate Screen,Urine Not Detected (NotDetected); Benzodiazepines Screen,Urine Not Detected (NotDetected); Cocaine Screen,Urine Not Detected (NotDetected); Methadone Screen, Urine Not Detected (NotDetected); Opiate Screen,Urine Not Detected (NotDetected); Oxycodone Screen, Urine Not Detected (NotDetected); Phencyclidine Screen,Urine Not Detected (NotDetected); Tricyclic Antidepressant,Urine Not Detected (NotDetected); Urn Cannabinoid Scrn Detected (NotDetected)
[2019-11-19] MEDS ORDERED: cloNIDine HCL 0.1 MG TAB PO STA (23:13)
[2019-11-20] MEDS ORDERED: diphenhydrAMINE 50 MG/ML 1 ML VIAL IM STA (00:41)
[2019-11-20] MEDS ORDERED: HALOPERIDOL LACTATE 5 MG/ML 1 ML VIAL IM STA (00:41)
[2019-11-20] MEDS ORDERED: LORazepam 2 MG/ML INJ IM STA (00:41)
[2019-11-20 00:52] LABS: Basophils # (A) 0.1 k/uL (0-0.2); Basophils % (A) 0 %; Eosinophils # (A) 0.5 k/uL (0-0.7); Eosinophils % (A) 3 %; HGB 17.1 gm/dL (13.0-17.5); Lymphocytes # (A) 2.4 k/uL (1.0-4.8); Lymphocytes % (A) 16 %; MCH 28.6 pg (25.0-35.0); MCHC 32.8 g/dL (31.0-37.0); MCV 87.2 fL (80.0-100.0); Mean Platelet Volume 7.4; Monocytes # (A) 0.9 k/uL (0-1.0); Monocytes % (A) 6 %; Neutrophils # (A) 10.8 k/uL (1.3-7.7); Neutrophils % (A) 73 %; Platelet Count 234 k/uL (150-450); RBC 5.96 m/uL (4.30-5.90); RDW 14.5 % (11.5-15.5); WBC 14.8 k/uL (3.8-10.6)
[2019-11-20 01:17] LABS: ALT 32 U/L (4-49); AST 53 U/L (17-59); Acetaminophen <10.0 ug/mL; African American GFR (CKD) 77 (>60 ml/min/1.73 sqM); Albumin 4.2 g/dL (3.5-5.0); Alkaline Phosphatase 101 U/L (38-126); Anion Gap 11 mmol/L; Blood Urea Nitrogen 17 mg/dL (9-20); Calcium 9.3 mg/dL (8.4-10.2); Carbon Dioxide 22 mmol/L (22-30); Chloride 102 mmol/L (98-107); Glucose 115 mg/dL (74-99); Non-African American GFR(CKD) 66 (>60 ml/min/1.73 sqM); Potassium 3.6 mmol/L (3.5-5.1); Salicylate <1.0 mg/dL; Sodium 135 mmol/L (137-145); Total Bilirubin 0.7 mg/dL (0.2-1.3); Total Protein 7.3 g/dL (6.3-8.2)
[2019-11-20] MEDS ORDERED: SODIUM CHLORIDE 0.9% 500 ML 500 ML IV ONE (01:59)
[2019-11-20] MEDS ORDERED: hydrALAZINE HCL 20 MG/ML 1 ML VIAL IVP STA (01:59)
[2019-11-20] MEDS ORDERED: MAG HYDROX/AL HYDROX/SIMETH 30 ML CUP PO PRN (03:40)
[2019-11-20] MEDS ORDERED: MAGNESIUM HYDROXIDE 2,400 MG/10 ML CUP PO PRN (03:40)
[2019-11-20] MEDS: NICOTINE 14MG/24HR PATCH TRANSDERM SCH (09:13)
[2019-11-20 12:50] LABS: Bilirubin, Delta 0.2 mg/dL (0.0-0.2); Bilirubin,Unconjugated 0.5 mg/dL (0.0-1.1); Cholesterol 255 mg/dL (<200); HDL Cholesterol 42 mg/dL (40-60); LDL Cholesterol,Calculated 177 mg/dL (0-99); Triglycerides 179 mg/dL (<150)
--- NOTE | 2019-11-20 13:04 | P.HP ---
Psychiatric H&P - . H&P Date: 11/20/19 History & Physical: IDENTIFYING DATA: He is a 39-year-old male who has a history of a chronic and persistent mental illness. He presented to the psychiatric unit involuntarily. His mother completed the petition stating that he was arre sted for trespassing in a building and refusing to take his prescribed medications. HISTORY OF PRESENT ILLNESS: I reviewed the medical records and attempted to interview the patient. He was guarded, paranoid and suspicious. She refused to answer many questions. He questioned my motives and told me his history was not my business. He acknowledged that he had been arrested for entering a building. However, he said that God told him that he owns the building. He proceeds to talk about having a special relationship with God. God speaks to him and directs his actions. 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 He gave a disjointed and incoherent explanation about entering the dark side. He would not answer questions about psychotic symptoms since such as hallucinations, ideas reference, thought insertion etc. He denied feeling depressed or having thoughts of or suicide. He denied the need for this hospitalization, denied that he is mental illness and denied that he requires treatment with psychotropic medications. PAST PSYCHIATRIC HISTORY: This is approximately the seventh admission to this psychiatric unit. His last discharge was December 2018 when he was again admitted involuntarily with a petition completed by his mother. His discharge diagnosis was schizoaffective disorder bipolar type, cannabis abuse, benzodiazepine abuse and nicotine dependence. His discharge plan included Abilify 20 mg daily for 14 days and Abilify maintaining a 400 mg IM monthly. He was to follow-up with [facility] mental health. According to the [facility] liaison he is currently a resident at the [facility]. He last met with the [facility] psychiatrist in August 2019. He was prescribed Risperdal Consta but is currently prescribed only risperidone oral. PAST MEDICAL HISTORY: He told me that his medical history isn't my business. According to medical record he has history of coronary artery disease, COPD and hypertension. ALLERGIES: NO KNOWN DRUG ALLERGIES SUBSTANCE USE HISTORY: He would not answer questions about his substance abuse history. His UDS was positive only for marijuana. His breath alcohol level was 0. According to record he has a history of cannabis and alcohol use. He smokes about one half pack of cigarettes per day. FAMILY PSYCHIATRIC/SUBSTANCE USE HISTORY: "None of your business." LEGAL HISTORY: He denied that he is on probation, parole or has pending charges. SOCIAL HISTORY: His born and raised in [facility]. His expelled from school in the ninth grade. Is currently unemployed and receives Social Security disability. He alleged that he is and has 2 children who live with her mother. MENTAL STATUS EXAM: He presented as a tall mildly obese male dressed in a hospital gown. He made eye contact and appeared to attend to the interview. He had no prominent physical abnormalities. He had a defiant facial expression. He was alert and oriented to person, place and time. He showed no abnormality of psychomotor activity. His speech was spontaneous with normal rate and rhythm. He was guarded, suspicious and paranoid. His paranoia was at times inappropriate and interfered with the interview. He denied suicidal ideation or wishes. He denied homicidal ideation. He did not express dep ressive cognitions such as hopelessness, helplessness or worthlessness. He described ideas reference, paranoid ideation and delusional beliefs as described above. He also described auditory hallucinations but did not appear to be responding to internal stimuli during the interview. Global impression of intellect is average. He has limited awareness or understanding of his illness and need for treatment. STRENGTHS: Stable housing, stable income, engagement with community mental health services, supportive family WEAKNESSES: Chronic and persistent mental illness, poor compliance with psych iatric treatment IMPRESSION:. He is a 39-year-old male with history of a chronic and persistent psychiatric illness diagnosed as a schizoaffective disorder. He presents unit involuntarily. He described auditory hallucinations as well as grandiose and paranoid delusional beliefs. He is markedly paranoid, guarded and suspicious. There is no evidence of substance abuse issues causing the presenting psychosis. He should be treated on an inpatient basis with combination of psychopharmacology and multimodal therapy. PRINCIPLE DIAGNOSIS: Schizoaffective disorder bipolar type, poor compliance with treatment, cannabis use disorder, alcohol use disorder, tobacco use disorder RECOMMENDATION: Admitted to the psychiatric unit. Proceed with involuntary hospitalization. Safety precautions. Consult medicine financial physical exam and medical history. 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 Begin risperidone 2 mg by mouth twice a day and transition to Risperdal Consta. If he refuses oral medication administered IM medications after the probate order. Encourage participation in therapeutic groups and activities. Obtain collateral information from family. Evaluate clinical status response to treatment daily basis. Allergies Allergy/AdvReac Type Severity Reaction Status Date / Time No Known Allergies Allergy Verified 12/30/18 16:51 Vital Signs Temp 97.0 F L 11/20/19 03:46 Pulse 76 11/20/19 03:46 Resp 18 11/20/19 03:46 BP 148/98 11/20/19 03:46 Pulse Ox 97 11/20/19 03:46 Intake & Output 11/19/19 11/20/19 11/20/19 18:59 06:59 18:59 Weight 125.01 kg 126.1 kg Laboratory Last Values WBC 14.8 k/uL (3.8-10.6) H 11/20/19 00:27 RBC 5.96 m/uL (4.30-5.90) H 11/20/19 00:27 Hgb 17.1 gm/dL (13.0-17.5) 11/20/19 00:27 Hct 52.0 % (39.0-53.0) 11/20/19 00:27 MCV 87.2 fL (80.0-100.0) 11/20/19 00:27 MCH 28.6 pg (25.0-35.0) 11/20/19 00:27 MCHC 32.8 g/dL (31.0-37.0) 11/20/19 00:27 RDW 14.5 % (11.5-15.5) 11/20/19 00:27 Plt Count 234 k/uL (150-450) 11/20/19 00:27 Neutrophils % 73 % 11/20/19 00:27 Lymphocytes % 16 % 11/20/19 00:27 Monocytes % 6 % 11/20/19 00:27 Eosinophils % 3 % 11/20/19 00:27 Basophils % 0 % 11/20/19 00:27 Neutrophils # 10.8 k/uL (1.3-7.7) H 11/20/19 00:27 Lymphocytes # 2.4 k/uL (1.0-4.8) 11/20/19 00:27 Monocytes # 0.9 k/uL (0-1.0) 11/20/19 00:27 Eosinophils # 0.5 k/uL (0-0.7) 11/20/19 00:27 Basophils # 0.1 k/uL (0-0.2) 11/20/19 00:27 Sodium 135 mmol/L (137-145) L 11/20/19 00:27 Potassium 3.6 mmol/L (3.5-5.1) 11/20/19 00:27 Chloride 102 mmol/L (98-107) 11/20/19 00: Carbon Dioxide 22 mmol/L (22-30) 11/20/19 00: Anion Gap 11 mmol/L 11/20/19 00:27 BUN 17 mg/dL (9-20) 11/20/19 00:27 Creatinine 1.34 mg/dL (0.66-1.25) H 11/20/19 00:27 Est GFR (CKD-EPI)AfAm 77 (>60 ml/min/1.73 sqM) 11/20/19 00: Est GFR (CKD-EPI)NonAf 66 (>60 ml/min/1.73 sqM) 11/20/19 00:27 Glucose 115 mg/dL (74-99) H 11/20/19 00:27 Calcium 9.3 mg/dL (8.4-10.2) 11/20/19 00:27 Total Bilirubin 0.7 mg/dL (0.2-1.3) 11/20/19 00:27 AST 53 U/L (17-59) 11/20/19 00:27 ALT 32 U/L (4-49) 11/20/19 00:27 Alkaline Phosphatase 101 U/L (38-126) 11/20/19 00:27 Total Protein 7.3 g/dL (6.3-8.2) 11/20/19 00: Albumin 4.2 g/dL (3.5-5.0) 11/20/19 00: TSH 0.760 mIU/L (0.465-4.680) 11/20/19 00: Salicylates <1.0 mg/dL 07/09/20 00:27 Urine Opiates Screen Not Detected (NotDetected) 11/19/19 20:25 Ur Oxycodone Screen Not Detected (NotDetected) 11/19/19 20:25 Urine Methadone Screen Not Detected (NotDetected) 11/19/19 20:25 Ur Propoxyphene Screen Not Detected (NotDetected) 11/19/19 20:25 Acetaminophen <10.0 ug/mL 11/20/19 00:27 Ur Barbiturates Screen Not Detected (NotDetected) 11/19/19 20:25 U Tricyclic Antidepress Not Detected (NotDetected) 11/19/19 20:25 Ur Phencyclidine Scrn Not Detected (NotDetected) 11/19/19 20:25 Ur Amphetamines Screen Not Detected (NotDetected) 11/19/19 20:25 U Methamphetamines Scrn Not Detected (NotDetected) 11/19/19 20:25 U Benzodiazepines Scrn Not Detected (NotDetected) 11/19/19 20:25 Urine Cocaine Screen Not Detected (NotDetected) 11/19/19 20:25 U Marijuana (THC) Screen Detected (NotDetected) H 11/19/19 20:25 11/20/19 11:32
--- NOTE | 2019-11-20 18:05 | P.CONS ---
History of Present Illness - Reason for Consult Leukocytosis, hyperlipidemia, renal failure - History of Present Illness 39-year-old male was admitted the secondary to acute psychosis patient has schizoaffective disorder. Patient denied any fever chills nausea vomiting abdominal pain dysuria. Patient denied any complaints patient serum creatinine is 1.34 patient to her baseline appears to be around 1.20 patient does have history of COPD could not disease and previous stent and NM. Patient can use to smoke he says he smokes 1-2 cigarettes per day and admits to using marijuana patient of believes moderation of marijuana and smoking is okay but patient admits drinking alcohol on occasional basis but it appears like he does drink alcohol on regular basis. Patient denies having any medical problems with upon chart review patient does have history of could not disease with stents in the past and COPD in the past Review of Systems REVIEW OF SYSTEMS: CONSTITUTIONAL: No fever, no malaise, no fatigue. HEENT: No recent visual problems or hearing problems. Denied any sore throat. CARDIOVASCULAR: No chest pain, orthopnea, PND, no palpitations, no syncope. PULMONARY: No shortness of breath, no cough, no hemoptysis. GASTROINTESTINAL: No diarrhea, no nausea, no vomiting, no abdominal pain. NEUROLOGICAL: No headaches, no weakness, no numbness. HEMATOLOGICAL: Denies any bleeding or petechiae. GENITOURINARY: Denies any burning micturition, frequency, or urgency. MUSCULOSKELETAL/RHEUMATOLOGICAL: Denies any joint pain, swelling, or any muscle pain. ENDOCRINE: Denies any polyuria or polydipsia. The rest of the 14-point review of systems is negative. Past Medical History Past Medical History: Coronary Artery Disease (CAD), COPD, Hypertension, Myocardial Infarction (NM) Additional Past Medical History / Comment(s): 09/17/14 Pt presented to [facility] ER thinking he is God and his son's spirit sent him here. He is here to save the world. Other HX: NM in 2008, asthma, stress test Last Myocardial Infarction Date:: 2008 History of Any Multi-Drug Resistant Organisms: None Reported Past Surgical History: Heart Catheterization With Stent Past Anesthesia/Blood Transfusion Reactions: No Reported Reaction Date of Last Stent Placement:: 2008 Past Psychological History: Bipolar Smoking Status: Current every day smoker Past Alcohol Use History: Occasional Past Drug Use History: Marijuana - Past Family History Father Family Medical History: CVA/TIA, Myocardial Infarction (NM) Additional Family Medical History / Comment(s): Father had a NM at age 29yrs. at age 38 after open heart Mother Family Medical History: No Reported History Additional Family Medical History / Comment(s): Mother is healthy Medications and Allergies Home Medications Medication Instructions Recorded Confirmed Type Atorvastatin [Lipitor] 40 mg PO DAILY #30 tab 02/26/15 12/29/18 Rx Metoprolol Tartrate [Lopressor] 50 mg PO BID 10/26/15 12/29/18 History amLODIPine [Norvasc] 10 mg PO DAILY 04/22/18 12/29/18 History ARIPiprazole IM [Abilify Maintena] 400 mg IM QMONTH #1 vial 01/09/19 Rx ARIPiprazole [Abilify] 20 mg PO DAILY #14 tab 01/09/19 Rx Ipratropium-Albuterol Nebulize 3 ml INHALATION RT-QID PRN 01/09/19 Rx [Duoneb 0.5 mg-3 mg/3 ml Soln] ampul.neb Lisinopril [Zestril] 15 mg PO HS #28 tab 01/09/19 Rx Melatonin 3 mg PO HS #14 tablet 01/09/19 Rx Nicotine 14Mg/24Hr Patch [Habitrol] 1 patch TRANSDERM DAILY #7 patch 01/09/19 Rx Allergies Allergy/AdvReac Type Severity Reaction Status Date / Time No Known Allergies Allergy Verified 12/30/18 16:51 Physical Exam Vitals: Vital Signs Temp Pulse Pulse Resp BP BP Pulse Ox 11/20/19 03:46 97.0 F L 76 18 148/98 97 11/20/19 03:20 71 94 L 11/20/19 02:20 141/70 11/20/19 01:00 213/111 11/19/19 19:06 18 11/19/19 18:00 18 Intake and Output 11/20/19 11/20/19 11/20/19 06:59 14:59 22:59 Other: Weight 126.1 kg PHYSICAL EXAMINATION: GENERAL: The patient is alert and oriented x3, not in any acute distress. Well developed, well nourished. HEENT: Pupils are round and equally reacting to light. EOMI. No scleral icterus. No conjunctival pallor. Normocephalic, atraumatic. No pharyngeal erythema. No thyromegaly. CARDIOVASCULAR: S1 and S2 present. No murmurs, rubs, or gallops. PULMONARY: Chest is clear to auscultation, no wheezing or crackles. ABDOMEN: Soft, nontender, nondistended, normoactive bowel sounds. No palpable organomegaly. MUSCULOSKELETAL: No joint swelling or deformity. EXTREMITIES: No cyanosis, clubbing, or pedal edema. NEUROLOGICAL: Gross neurological examination did not reveal any focal deficits. SKIN: No rashes. Results CBC & Chem 7: 11/20/19 00:27 11/20/19 00:27 Labs: Abnormal Lab Results - Last 24 Hours (Table) 11/19/19 11/20/19 11/20/19 Range/Units 20:25 00: 00:27 WBC 14.8 H (3.8-10.6) k/uL RBC 5.96 H (4.30-5.90) m/uL Neutrophils # 10.8 H (1.3-7.7) k/uL Sodium 135 L (137-145) mmol/L Creatinine 1.34 H (0.66-1.25) mg/dL Glucose 115 H (74-99) mg/dL Triglycerides 179 H (<150) mg/dL Cholesterol 255 H (<200) mg/dL LDL Cholesterol, Calc 177 H (0-99) mg/dL U Marijuana (THC) Screen Detected H (NotDetected) Assessment and Plan Plan: -Hyperlipidemia patient appears to be noncompliant with medications patient will restart back on statin. -History of coronary disease with previous stents patient will be resumed on metoprolol patient will also be started on lisinopril as a patient appears to have chronic kidney disease rather than acute kidney injury and aspirin as well. -Leukocytosis without any evidence of infection no further testing is necessary at this time -Chronic kidney disease stage II to 3 all obtain urinalysis to assess for any proteinuria problems patient appears to have hypertensive nephrosclerosis -Nicotine abuse marijuana use and alcohol abuse counseling was provided regardi ng this. Patient is not in a position to take it in a positive manner. -Psychosis and other psychiatric issues management as per primary service -COPD without any acute exacerbation
[2019-11-20 20:30] LABS: Hemoglobin A1C 5.7 % (4.0-6.0)
[2019-11-20] MEDS ORDERED: lisinopriL 10 MG TAB PO SCH (21:00)
[2019-11-20] MEDS ORDERED: ATORVASTATIN 20 MG TAB PO SCH (21:00)
[2019-11-20] MEDS: ATORVASTATIN 40 MG TAB PO SCH (21:04)
[2019-11-20] MEDS: METOPROLOL TARTRATE 50 MG TAB PO SCH (21:04)
[2019-11-20] MEDS: risperiDONE 2 MG TAB PO SCH (21:04)
[2019-11-20] MEDS: LORazepam 2 MG/ML INJ IM PRN (22:49)
[2019-11-20] MEDS: ZIPRASIDONE 20 MG VIAL IM PRN (22:49)
[2019-11-21] MEDS ORDERED: ATORVASTATIN 40 MG TAB PO SCH (09:00)
[2019-11-21 09:32] LABS: HCT 50.9 % (39.0-53.0); HGB 16.5 gm/dL (13.0-17.5); MCH 28.6 pg (25.0-35.0); MCHC 32.4 g/dL (31.0-37.0); MCV 88.2 fL (80.0-100.0); Mean Platelet Volume 7.5; Platelet Count 223 k/uL (150-450); RBC 5.77 m/uL (4.30-5.90); RDW 14.4 % (11.5-15.5); WBC 9.5 k/uL (3.8-10.6)
[2019-11-21 09:41] LABS: Calcium 9.1 mg/dL (8.4-10.2); Potassium 4.4 mmol/L (3.5-5.1)
[2019-11-21] MEDS: METOPROLOL TARTRATE 50 MG TAB PO SCH ×2 (11:11→21:39)
[2019-11-21] MEDS: NICOTINE 14MG/24HR PATCH TRANSDERM SCH (11:11)
[2019-11-21] MEDS: risperiDONE 2 MG TAB PO SCH ×2 (11:12→21:39)
[2019-11-21] MEDS: ASPIRIN 81 MG PO SCH (11:13)
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
--- NOTE | 2019-11-21 16:48 | P.PN ---
Subjective Reevaluate the patient today patient still has acute psychosis didn't take his blood pressure medication because of which his blood pressure went to a higher. Although his white blood cell count and renal failure improved. Constitutional: Denied any fatigue denied any fever. Cardio vascular: denied any chest pain, palpitations Gastrointestinal denied any nausea vomiting Pulmonary: Denied any shortness of breath cough Neurologic denied any new focal deficits All inpatient medications were reviewed and appropriate changes in these medications as dictated in the interval history and assessment and plan. Objective - Vital Signs Vital signs: Vital Signs Temp 98.2 F 11/21/19 11:06 Pulse 94 11/21/19 13:00 Resp 20 11/21/19 11:50 BP 208/122 11/21/19 13:00 Pulse Ox 97 11/20/19 03:46 - Exam PHYSICAL EXAMINATION: GENERAL: The patient is alert and oriented x3, not in any acute distress. Well developed, well nourished. HEENT: Pupils are round and equally reacting to light. EOMI. No scleral icterus. No conjunctival pallor. Normocephalic, atraumatic. No pharyngeal erythema. No thyromegaly. CARDIOVASCULAR: S1 and S2 present. No murmurs, rubs, or gallops. PULMONARY: Chest is clear to auscultation, no wheezing or crackles. ABDOMEN: Soft, nontender, nondistended, normoactive bowel sounds. No palpable organomegaly. MUSCULOSKELETAL: No joint swelling or deformity. EXTREMITIES: No cyanosis, clubbing, or pedal edema. NEUROLOGICAL: Gross neurological examination did not reveal any focal deficits. SKIN: No rashes. - Labs CBC & Chem 7: 11/21/19 08:44 11/21/19 08:44 Labs: Abnormal Lab Results - Last 24 Hours (Table) 11/21/19 Range/Units 08:44 Glucose 107 H (74-99) mg/dL Assessment and Plan Plan: -Hyperlipidemia patient appears to be noncompliant with medications patient will restart back on statin. -History of coronary disease with previous stents patient will be resumed on metoprolol patient and lisinopril dose of which I'm increasing today. Patient the blood pressure went up as high as 200s and patient didn't take her decline to take his blood pressure medications. 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 Patient is not in a position to take it in a positive manner. -Psychosis and other psychiatric issues management as per primary service -COPD without any acute exacerbation
[2019-11-21] MEDS: lisinopriL 20 MG TAB PO SCH (21:39)
[2019-11-21] MEDS: ATORVASTATIN 40 MG TAB PO SCH (21:39)
[2019-11-22] MEDS: METOPROLOL TARTRATE 50 MG TAB PO SCH ×2 (07:54→21:57)
[2019-11-22] MEDS: ASPIRIN 81 MG PO SCH (07:54)
[2019-11-22] MEDS: risperiDONE 2 MG TAB PO SCH ×2 (07:55→21:55)
[2019-11-22] MEDS: NICOTINE 14MG/24HR PATCH TRANSDERM SCH (07:55)
[2019-11-22] MEDS: LORazepam 2 MG/ML INJ IM PRN (10:44)
[2019-11-22] MEDS: ZIPRASIDONE 20 MG VIAL IM PRN (10:44)
--- NOTE | 2019-11-22 17:17 | P.PN ---
Progress Note - Text Progress Note Date: 11/22/19 Subjective: Patient was seen today as a cross coverage for Dr. Glynn. The patient was evaluated, chart reviewed, case discussed with the treatment team. Patient reported good sleep last night. Appetite was reported as "fair ". Patient has not been going to any groups and other unit activities. The patient is not fully compliant with his medications and denies any adverse reactions. Patient has been inconsistent taking the risperidone and some other non-psychiatric medic ations (Lipitor). He was very superficial and evasive in his answers and very angry and argumentative about his hospital stay. He denies feeling depressed, hopeless or suicidal. Denies any hallucinations, paranoid ideation or delusions. Patient was religiously preoccupied and generally fixated on discharge. He has very limited insight about his psychiatric illness and need for treatment. Objective: Vitals has been reviewed. Mental status examination; Appearance: The patient appears stated age, adequately groomed and dressed, no specific features. Gait/posture: Normal gait, Normal arm swinging: No abnormal movements. Attitude and behavior: Not cooperative, intermittent eye contact. Motor activity: Normal psychomotor activity Speech: Normal rate, tone. Mood: Anxious, irritable Affect: Constricted Thought form: goal-directed, linear, coherent. Thought content: Non-delusional, denies suicidal thoughts, denies homicidal thoughts, denies intentions or plans. Perception: Denies any auditory or visual hallucinations Attention: No impairment. Orientation: Patient patient was fully oriented to time place person and situation. Insight and judgment: Patient has limited insight and judgment about his psychiatric disorder and the need for treatment. Assessment: Schizoaffective disorder, bipolar type. Cannabis use disorder. Alcohol use disorder. Nicotine use disorder. Plan: Continue inpatient level of care due to need for further monitoring and stabilization Precautions: Continue 15 minutes check for safety. Consider medical consultation if any acute medical issues arise. Provide the patient individual, group therapy, substance use disorder counseling to give better insight and learn coping skills. Continue follow-up with the patient daily to monitor progress of mood ins tability and psychotic symptoms. Medications: Continue risperidone for mood stabilization and psychotic symptoms, and encourage patient to take medication as prescribed Continue non-psychiatric medications including aspirin, lisinopril, metoprolol, and Lipitor. Discharge patient to OUTPATIENT services upon a stabilization
[2019-11-22] MEDS: lisinopriL 20 MG TAB PO SCH (21:57)
[2019-11-22] MEDS: ATORVASTATIN 40 MG TAB PO SCH (21:57)
[2019-11-23] MEDS: ASPIRIN 81 MG PO SCH (09:57)
[2019-11-23] MEDS: METOPROLOL TARTRATE 50 MG TAB PO SCH ×2 (09:57→21:14)
[2019-11-23] MEDS: risperiDONE 2 MG TAB PO SCH ×2 (09:58→21:14)
[2019-11-23] MEDS: NICOTINE 14MG/24HR PATCH TRANSDERM SCH (09:58)
--- NOTE | 2019-11-23 15:19 | P.PN ---
Progress Note - Text Progress Note Date: 11/23/19 Subjective: Patient was seen today as a cross coverage for Dr. Glynn. The patient was evaluated, chart reviewed, case discussed with the treatment team. Patient reports good sleep last night and he denies any appetite problems. Patient continues not to attend groups or other unit activities. He continues to refuse any psychiatric medications. Patient presents argumentative about his hospital stay and was very evasive, denies feeling depressed, hopeless, or suicidal. He denies any hallucinations, paranoid ideation or delusions. Patient is spending most of the time walking in the unit or talking to other peers. He refuses to discuss any psychiatric medications and he states "I don't need them". He denies any manic symptoms and none reported. Objectives: Mental status examination; Appearance: The patient appears stated age, adequately groomed and dressed, no specific features. Gait/posture: Normal gait, Normal arm swinging: No abnormal movements. Attitude and behavior: Not cooperative, intermittent eye contact. Motor activity: Normal psychomotor activity Speech: Normal rate, tone. Mood: Anxious, irritable Affect: Constricted Thought form: goal-directed, linear, coherent. Thought content: Non-delusional, denies suicidal thoughts, denies homicidal thoughts, denies intentions or plans. Perception: Denies any auditory or visual hallucinations Attention: No impairment. Orientation: Patient patient was fully oriented to time place person and situation. Insight and judgment: Patient has limited insight and judgment about his psychiatric disorder and the need for treatment. Assessment: Schizoaffective disorder, bipolar type. Cannabis use disorder. Alcohol use disorder. Nicotine use disorder. Plan: Continue inpatient level of care due to need for further monitoring and stabilization Precautions: Continue 15 minutes check for safety. Consider medical consultation if any acute medical issues arise. Provide the patient individual, group therapy, substance use disorder counseling to give better insight and learn coping skills. Continue follow-up with the patient daily to monitor progress of mood instability and psychotic symptoms. Medications: Continue risperidone for mood stabilization and psychotic symptoms, and encourage patient to take medication as prescribed Continue non-psychiatric medications including aspirin, lisinopril, metoprolol, and Lipitor. Discharge patient to OUTPATIENT services upon a stabilization
[2019-11-23 16:28] LABS: Appearance,Urine Clear (Clear); Bacteria,Urine Rare /hpf; Bilirubin,Urine Negative (Negative); Blood,Urine Trace (Negative); Color,Urine Colorless; Glucose,Urine (UA) Negative (Negative); Ketones,Urine Negative (Negative); Leukocyte Esterase,Urine Negative (Negative); Nitrite,Urine Negative (Negative); Protein,Urine Negative (Negative); Specific Gravity,Urine 1.001 (1.001-1.035); Urobilinogen,Urine <2.0 mg/dL (<2.0); WBC,Urine <1 /hpf (0-5)
[2019-11-23] MEDS: lisinopriL 20 MG TAB PO SCH (21:14)
[2019-11-23] MEDS: ATORVASTATIN 40 MG TAB PO SCH (21:14)
[2019-11-24] MEDS: LORazepam 1 MG TAB PO PRN ×3 (00:19→17:24)
[2019-11-24] MEDS ORDERED: LORazepam 1 MG TAB PO STA (00:40)
[2019-11-24] MEDS ORDERED: haloperidoL 5 MG TAB PO STA (00:43)
[2019-11-24] MEDS: ASPIRIN 81 MG PO SCH (10:25)
[2019-11-24] MEDS: risperiDONE 2 MG TAB PO SCH ×2 (10:25→22:28)
[2019-11-24] MEDS: NICOTINE 14MG/24HR PATCH TRANSDERM SCH (10:25)
[2019-11-24] MEDS: ACETAMINOPHEN TAB 325 MG TAB PO PRN (10:26)
[2019-11-24] MEDS: METOPROLOL TARTRATE 50 MG TAB PO SCH (10:28)
--- NOTE | 2019-11-24 14:11 | P.PN ---
Progress Note - Text Progress Note Date: 11/24/19 Clinical Problems: Schizoaffective disorder bipolar type, poor compliance with treatment, cannabis use disorder, alcohol use disorder, tobacco use disorder Interim history: I reviewed the medical record, interviewed the patient and discuss his treatment and treatment plan during team meeting. He denied problems or concerns. From his perspective he is "doing great". He denies that he has a mental illness and his need for psychiatric treatment. He demanded to be discharged. He finds no benefit and his interaction with staff because they are "not a my level." When I asked if he believes that he is more intelligent he replied that "yes" he is brilliant; much more intelligent than anyone who works here. On Sunday threatened one of the activity therapy students. I asked him about this situation and he denied that he had threatened a student. He alleged that staff "lied" when they told me and documented that he said "I am going to murder you." He met with his attorney general and initially deferred but then rescinded deferral. Mental status exam: He presented as an obese and restless 39-year-old male who was superficial and minimally cooperative. He made eye contact but did not appear to concentrate or attend to the interview. He often misinterpreted statements. For example, in response to her discussions about the reasons for medications, that he has schizoaffective illness, he replied that he is "effective" and "you can put schizo in front of anything." His speech was spontaneous with normal rate and rhythm. His affect was irritable and expansive. He did not express suicidal ideation or wishes. He grandiose and paranoid. He expressed grandiose delusional beliefs. He is internally preoccupied and appears to be is responding to internal stimuli. Assessment: He continues to demonstrate symptoms of psychosis and heriberto. He has no insight or understanding of his illness and will not consent to treatment of his psychiatric illness. Plan: Continue inpatient treatment. Continue safety precautions. Proceed with probate hearing. Encourage compliance with risperidone 2 mg by mouth twice a day. Ativan 1 mg IM 3 times a day and/or Geodon 20 mg IM twice a day when necessary for agitation acute psychosis. Encourage participation in therapeutic groups and activities as tolerated. Evaluate clinical status response to treatment daily basis.
[2019-11-24] MEDS: cloNIDine 0.2 MG/24HR PATCH TRANSDERM SCH (17:23)
[2019-11-24] MEDS: ATORVASTATIN 40 MG TAB PO SCH (22:28)
[2019-11-25] MEDS: ASPIRIN 81 MG PO SCH (09:51)
[2019-11-25] MEDS: risperiDONE 2 MG TAB PO SCH ×2 (10:21→21:24)
[2019-11-25] MEDS: NICOTINE 14MG/24HR PATCH TRANSDERM SCH (10:21)
--- NOTE | 2019-11-25 13:08 | P.PN ---
Progress Note - Text Progress Note Date: 11/25/19 Clinical Problems: Schizoaffective disorder bipolar type, poor compliance with treatment, cannabis use disorder, alcohol use disorder, tobacco use disorder Interim history: I reviewed the medical record, interviewed the patient and discuss his treatment and treatment plan during team meeting. He perseverated for the most she'll morning on having nursing return issues. I spoke to nursing staff and they took issues after he eloped from the unit. When I explained the situation to him he replied that he "runs this unit". He did not try to leave the unit but was assisting Dr. Hebert when Dr. Hebert was leaving the unit. He continues to refuse all medications including his antihypertensive. He will not take medications because he believes that God has cured him of all his diseases. He continues report but Speaks to him and he feels compelled to follow God's command. Mental status exam: He presented as an irritable and restless 39-year-old male who was superficial and minimally cooperative. He made eye contact and appeared to attend to the interview. Her speech was spontaneous and perseverative. He was irritable and expansive. He did not express suicidal ideation or wishes. He was grandiose and paranoid. He expressed grandiose delusional beliefs. He is internally preoccupied and appears to be is responding to internal stimuli. Assessment: He continues to demonstrate symptoms of psychosis and heriberto. He has no insight or understanding of his illness and will not consent to treatment of his psychiatric illness. Plan: Continue inpatient treatment. Continue safety precautions. Proceed with probate hearing. Encourage compliance with risperidone 2 mg by mouth twice a day. Ativan 1 mg IM 3 times a day and/or Geodon 20 mg IM twice a day when necessary for agitation acute psychosis. Encourage participation in therapeutic groups and activities as tolerated. Evaluate clinical status response to treatment daily basis.
[2019-11-25] MEDS: ATORVASTATIN 40 MG TAB PO SCH (21:24)
[2019-11-25] MEDS: LORazepam 2 MG/ML INJ IM PRN (22:51)
[2019-11-25] MEDS: ZIPRASIDONE 20 MG VIAL IM PRN (22:51)
[2019-11-26] MEDS: ASPIRIN 81 MG PO SCH (10:08)
[2019-11-26] MEDS: risperiDONE 2 MG TAB PO SCH ×2 (10:09→21:54)
[2019-11-26] MEDS: NICOTINE 14MG/24HR PATCH TRANSDERM SCH (10:09)
--- NOTE | 2019-11-26 11:55 | P.PN ---
Progress Note - Text Progress Note Date: 11/26/19 Clinical Problems: Schizoaffective disorder bipolar type, poor compliance with treatment, cannabis use disorder, alcohol use disorder, tobacco use disorder Interim history: I reviewed the medical record, interviewed the patient and discuss his treatment and treatment plan during team meeting. Nursing administered 1 mg of Ativan and 20 mg of Geodon yesterday evening. He was restless and provocative yesterday. In the evening He provoked the conflict with her new admission. Conflict with escalated to a physical confrontation if nursing had not intervened. He's been attending therapeutic groups and activities. This morning, he took the first dose of risperidone. Mental status exam: He presented as an irritable and restless 39-year-old male who was superficial and minimally cooperative. He made eye contact and appeared to attend to the interview. Her speech was spontaneous and perseverative. He was irritable and expansive. He did not express suicidal ideation or wishes. He was grandiose and paranoid. He expressed grandiose delusional beliefs. He is internally preoccupied and appears to be is responding to internal stimuli. Assessment: He continues to demonstrate symptoms of heriberto which recent prior's use of when necessary Ativan and Geodon. He has no insight or understanding of his illness but has restarted his outpatient treatment Plan: Continue inpatient treatment. Continue safety precautions. Probate hearing pending. Encourage compliance with risperidone 2 mg by mouth twice a day. Transition to risperidone constantly once he is on a stable dose of risperidone. Ativan 1 mg IM 3 times a day and/or Geodon 20 mg IM twice a day when necessary for agitation acute psychosis. Encourage participation in therapeutic groups and activities as tolerated. Evaluate clinical status response to treatment daily basis.
[2019-11-26] MEDS: ATORVASTATIN 40 MG TAB PO SCH (21:54)
[2019-11-26] MEDS: LORazepam 1 MG TAB PO PRN (23:50)
[2019-11-27] MEDS: NICOTINE 14MG/24HR PATCH TRANSDERM SCH (09:47)
[2019-11-27] MEDS: risperiDONE 2 MG TAB PO SCH (09:47)
[2019-11-27] MEDS: ASPIRIN 81 MG PO SCH (09:47)
--- NOTE | 2019-11-27 14:39 | P.PN ---
Progress Note - Text Progress Note Date: 11/27/19 Clinical Problems: Schizoaffective disorder bipolar type, poor compliance with treatment, cannabis use disorder, alcohol use disorder, tobacco use disorder Interim history: I reviewed the medical record, interviewed the patient and discuss his treatment and treatment plan during team meeting. She stated that his plans are to buy an empty [employer] building and converted to a "Kid's Zone." He plans to build playground and activities center for children. He would also buy a bus if the children have no means to get to the activities center. He believes that Johnathon Rachel and Luis Gracia have given him access to money to complete this project. He denied that he spoke personally with a personality assessment Luis Basil a message on Twitter. He also believes that another patient is his father. He believes that his mother misinformed him that his style father 15 years ago. He continues to receiving messages from God and is compelled to act SG[employer] commands. He alleged that God told him not to be angry and to start taking his medications. He's been attending therapeutic groups and activities. This morning, he took the first dose of risperidone. His last injection of Geodon for behavioral dyscontrol was 11/25/2019 Mental status exam: He presented calm and cooperative 39-year-old male. He made eye contact and attended to the interview. His speech was spontaneous with normal rate, rhythm and volume. His mood was expansive. He did not express suicidal ideation or wishes. He was grandiose and paranoid. He expressed grandiose delusional beliefs. He was not internally preoccupied and did not appear to be is responding to internal stimuli. Assessment: He is much less irritable but continues to maintain grandiose delusional beliefs and experience command auditory hallucinations. He has no insight or understanding of his illness but has restarted his outpatient treatment Plan: Continue inpatient treatment. Continue safety precautions. Probate hearing pending. Increase risperidone to 2 mg by mouth twice a day. Transition to risperidone constantly once he is on a stable dose of risperidone. Ativan 1 mg IM 3 times a day and/or Geodon 20 mg IM twice a day when necessary for agitation acute psychosis. Encourage participation in therapeutic groups and activities as tolerated. Evaluate clinical status response to treatment daily basis.
[2019-11-27] MEDS: ZIPRASIDONE 20 MG VIAL IM PRN (16:15)
[2019-11-27] MEDS: LORazepam 2 MG/ML INJ IM PRN (16:15)
[2019-11-27] MEDS: ATORVASTATIN 40 MG TAB PO SCH (21:21)
[2019-11-27] MEDS: risperiDONE 1 MG TAB PO SCH (21:21)
[2019-11-28] MEDS: LORazepam 2 MG/ML INJ IM PRN (00:27)
[2019-11-28] MEDS: ZIPRASIDONE 20 MG VIAL IM PRN (00:28)
[2019-11-28] MEDS: risperiDONE 1 MG TAB PO SCH ×2 (09:44→19:42)
[2019-11-28] MEDS: NICOTINE 14MG/24HR PATCH TRANSDERM SCH (09:44)
[2019-11-28] MEDS: ASPIRIN 81 MG PO SCH (09:49)
--- NOTE | 2019-11-28 14:33 | P.PN ---
Progress Note - Text Progress Note Date: 11/28/19 Clinical Problems: Schizoaffective disorder bipolar type, poor compliance with treatment, cannabis use disorder, alcohol use disorder, tobacco use disorder Interim history: I reviewed the medical record, interviewed the patient and discuss his treatment and treatment plan during team meeting. He requested to be discharged or have "a pass" so he can attend his daughter's graduation libertarian this weekend. He stated that God is talking to him and wants me to "write a pass". He was not accepted my explanation that he will remain in the hospital until his probate hearing. He also talked about having access to [employer] and [employer] money. He is again refusing Risperdal. I spoke with his mother on the telephone. She confirmed that the family is having a graduation libertarian for his daughter this weekend. Mental status exam: He presented calm and cooperative 39-year-old m ameena. He made eye contact and attended to the interview. His speech was spontaneous with normal rate, rhythm and volume. His mood was expansive. He did not express suicidal ideation or wishes. He was grandiose and paranoid. He expressed grandiose delusional beliefs. He was not internally preoccupied and did not appear to be is responding to internal stimuli. Assessment: He was not irritable remains psychotic and is again refusing antipsychotic medication Plan: Continue inpatient treatment. Continue safety precautions. Probate hearing pending. Continue risperidone to 2 mg by mouth twice a day. Transition to risperidone constantly once he is on a stable dose of risperidone. Ativan 1 mg IM 3 times a day and/or Geodon 20 mg IM twice a day when necessary for agitation acute psychosis. Encourage participation in therapeutic groups and activities as tolerated. Evaluate clinical status response to treatment daily basis.
[2019-11-28] MEDS: LORazepam 1 MG TAB PO PRN (17:03)
[2019-11-28] MEDS: cloNIDine 0.2 MG/24HR PATCH TRANSDERM SCH (18:43)
[2019-11-28] MEDS: ATORVASTATIN 40 MG TAB PO SCH (19:42)
[2019-11-29] MEDS: LORazepam 1 MG TAB PO PRN (01:28)
[2019-11-29] MEDS: ZIPRASIDONE 20 MG VIAL IM PRN ×2 (01:29→22:39)
[2019-11-29] MEDS: risperiDONE 1 MG TAB PO SCH ×2 (08:44→19:28)
[2019-11-29] MEDS: NICOTINE 14MG/24HR PATCH TRANSDERM SCH (08:44)
[2019-11-29] MEDS: ASPIRIN 81 MG PO SCH (08:45)
--- NOTE | 2019-11-29 13:25 | P.PN ---
Progress Note - Text Progress Note Date: 11/29/19 Interval history: Patient is seen in cross coverage today. He related that he was admitted because his mom thought his mood was too high. He seems to relay that his mood has been stable. He is very focused on wanting to be discharged today so that he can go to his daughter's graduation green party. He does not seem to verbalize any adverse psychotropic medication side effects. Mental status exam: He is alert and cooperative with the interview. He seems to describe that his mood is stable. He does not verbalize any thoughts of harm to self or others. He is very focused on wanting to be discharged today to go to his daughter's graduation green party. He does not display any significant agitation. Plan: He'll be maintained on current psychotropic medication regimen. Continue to monitor for any medication side effects and monitor his ongoing response to treatment.
[2019-11-29] MEDS: LABETALOL 200 MG TAB PO SCH (19:27)
[2019-11-29] MEDS: ATORVASTATIN 40 MG TAB PO SCH (19:28)
[2019-11-29] MEDS: LORazepam 2 MG/ML INJ IM PRN (22:39)
[2019-11-29] MEDS ORDERED: LORazepam 2 MG/ML INJ IM STA (23:24)
--- NOTE | 2019-11-30 00:31 | P.MHFACE ---
Face to Face Restrain/Seclus - Evaluation Patient's Immediate Situation: Endangers others' safety, Endangers staff safety Patient's Reaction to the Intervention: Appropriate, Calm Patient's Medical & Behavioral Condition: Awake, Alert, Manic Need to Continue or Terminate Restraint or Seclusion: Continue Need to Continue or Terminate Restraint/Seclusion - Comment: The mental health unit staff reports that the patient was not directable, was banging on hodge, ripping off posters, walking into a different patient's rooms, and waking them up, with some aggressive posturing. The patient had disorganized thought process at time of interview and noted that it is his time to "work". He wants to order pizza libertarian at the unit so that he can get things done that he has been meaning to. He reports that he does not wish to listen to the staff at this time. Continue with the restraints at this time due to erratic and aggressive behavior with plans to discontinue as soon as possible.
[2019-11-30] MEDS: risperiDONE 1 MG TAB PO SCH ×2 (09:30→21:21)
[2019-11-30] MEDS: ASPIRIN 81 MG PO SCH (09:30)
[2019-11-30] MEDS: LABETALOL 200 MG TAB PO SCH ×2 (09:30→21:53)
[2019-11-30] MEDS: NICOTINE 14MG/24HR PATCH TRANSDERM SCH (09:30)
--- NOTE | 2019-11-30 18:02 | P.PN ---
Progress Note - Text Progress Note Date: 11/30/19 Interval history: Patient is seen in cross coverage again today. Per history he had a episode last night were he was placed in restraints. He relates that he was in restraints for a short period of time. He does relay that he is not taking the Risperdal. He talks about an upcoming court hearing on Sunday. Mental status exam: He is alert and cooperative with coming to the interview room. His speech is fluent, not rapid or pressured. His he does not display any current agitation. He makes reference to walking with the spirit. He does not make any statements about thoughts of harm to self or others. Plan: Patient will be maintained on current treatment regimen. Continue to mon itor his ongoing status and monitor for any agitation. He has upcoming court hearing on Sunday.
[2019-11-30] MEDS: ATORVASTATIN 40 MG TAB PO SCH (21:21)
[2019-12-01] MEDS: LABETALOL 200 MG TAB PO SCH ×3 (10:35→23:47)
[2019-12-01] MEDS: risperiDONE 1 MG TAB PO SCH ×2 (10:35→21:58)
[2019-12-01] MEDS: ASPIRIN 81 MG PO SCH ×2 (10:35→17:11)
[2019-12-01] MEDS: NICOTINE 14MG/24HR PATCH TRANSDERM SCH (10:35)
--- NOTE | 2019-12-01 12:52 | P.PN ---
Progress Note - Text Progress Note Date: 12/01/19 Clinical Problems: Schizoaffective disorder bipolar type, poor compliance with treatment, cannabis use disorder, alcohol use disorder, tobacco use disorder Interim history: I reviewed the medical record, interviewed the patient and discuss his treatment and treatment plan during team meeting. He is restless, irritable and expansive. He continues to refuse to take all medications including his blood pressure medications. His systolic blood pressure recently was as high as 230 and his diastolic was high as 120. He was in restraints over the weekend and required administration of 1 mg of Ativan 20 mg of Geodon IM due to agitation and disruptive behavior. Mental status exam: He presented calm and cooperative 39-year-old male. He made eye contact and attended to the interview. His speech was spontaneous with with increased rate. His mood was expansive. He did not express suicidal ideation or wishes. He was grandiose and paranoid. He believes that he is "holy spirit goes" and receives messages from God. He expressed grandiose delusional beliefs. He was not internally preoccupied and did not appear to be is responding to internal stimuli. Assessment: He remains impulsive, grandios and psychotic and continues to refuse antipsychotic medication Plan: Continue inpatient treatment. Continue safety precautions. Probate hearing pending. Continue risperidone to 3 mg by mouth twice a day. Transition to risperidone constantly once he is on a stable dose of risperidone. Ativan 1 mg IM 3 times a day and/or Geodon 20 mg IM twice a day when necessary for agitation acute psychosis. Encourage participation in therapeutic groups and activities as tolerated. Evaluate clinical status response to treatment daily basis.
[2019-12-01] MEDS: ACETAMINOPHEN TAB 325 MG TAB PO PRN (17:12)
[2019-12-01] MEDS: ATORVASTATIN 40 MG TAB PO SCH (21:59)
[2019-12-02] MEDS: ASPIRIN 81 MG PO SCH (09:19)
[2019-12-02] MEDS: NICOTINE 14MG/24HR PATCH TRANSDERM SCH (09:19)
[2019-12-02] MEDS: LABETALOL 200 MG TAB PO SCH ×2 (09:20→21:05)
[2019-12-02] MEDS: risperiDONE 1 MG TAB PO SCH ×2 (09:24→21:05)
[2019-12-02] MEDS: ACETAMINOPHEN TAB 325 MG TAB PO PRN ×3 (11:49→21:05)
--- NOTE | 2019-12-02 13:17 | P.PN ---
Progress Note - Text Progress Note Date: 12/02/19 Clinical Problems: Schizoaffective disorder bipolar type, poor compliance with treatment, cannabis use disorder, alcohol use disorder, tobacco use disorder Interim history: I reviewed the medical record, interviewed the patient and discuss his treatment and treatment plan during team meeting. He remains restless and expansive. He continues precipitated that he communicates strictly from God, that he is the "holy spirit"and believing that he has access to unlimited wealth. Yesterday he was pacing calls, beating staff and making demands on the unit staff. He continues to refuse to take all medications including his blood pressure medications. His systolic blood pressure this morning was 226/132. Mental status exam: He presented calm and cooperative 39-year-old male. He made eye contact and attended to the interview. His speech was spontaneous with with increased rate. His mood was expansive. He did not express suicidal ideation or wishes. He was grandiose and paranoid. He believes that he is "holy spirit goes" and receives messages from God. He expressed grandiose delusional beliefs. He was not internally preoccupied and did not appear to be is responding to internal stimuli. Assessment: He remains impulsive, grandiose, delusional and continues to refuse antipsychotic medication Plan: Continue inpatient treatment. Continue safety precautions. Probate hearing pending. Encouraged to take risperidone to 3 mg by mouth twice a day. Transition to risperidone constantly once he is on a stable dose of risperidone. Ativan 1 mg IM 3 times a day and/or Geodon 20 mg IM twice a day when necessary for agitation acute psychosis. Encourage participation in therapeutic groups and activities as tolerated. Evaluate clinical status response to treatment daily basis.
[2019-12-02] MEDS: cloNIDine 0.2 MG/24HR PATCH TRANSDERM SCH (14:09)
[2019-12-02] MEDS: ATORVASTATIN 40 MG TAB PO SCH (21:04)
[2019-12-02] MEDS: NITROGLYCERIN OINT 1 INCH/GM PACKET TOPICAL SCH (22:00)
[2019-12-03] MEDS: NITROGLYCERIN OINT 1 INCH/GM PACKET TOPICAL SCH ×5 (00:04→18:31)
[2019-12-03] MEDS ORDERED: WATER FOR INJECTION, STERILE 10 ML IV ONE (00:56)
[2019-12-03] MEDS ORDERED: ZIPRASIDONE 20 MG VIAL IM ONE (00:56)
[2019-12-03] MEDS: LORazepam 2 MG/ML INJ IM PRN (01:00)
[2019-12-03] MEDS: ZIPRASIDONE 20 MG VIAL IM PRN (01:03)
[2019-12-03] MEDS: ASPIRIN 81 MG PO SCH (10:40)
[2019-12-03] MEDS: LABETALOL 200 MG TAB PO SCH ×2 (10:40→21:14)
[2019-12-03] MEDS: risperiDONE 1 MG TAB PO SCH ×2 (10:40→21:14)
[2019-12-03] MEDS: ACETAMINOPHEN TAB 325 MG TAB PO PRN ×2 (10:45→23:03)
[2019-12-03] MEDS: hydrALAZINE HCL 20 MG/ML 1 ML VIAL IM PRN (10:48)
--- NOTE | 2019-12-03 12:47 | P.PN ---
Progress Note - Text Progress Note Date: 12/03/19 Clinical Problems: Schizoaffective disorder bipolar type, poor compliance with treatment, cannabis use disorder, alcohol use disorder, tobacco use disorder Interim history: I reviewed the medical record, interviewed the patient and discuss his treatment and treatment plan during team meeting. He had his probate hearing the sporting and I recommended a 60/90 day combined treatment order. After hearing he came to my office and accused me of "lying ... I was there. I heard what she said. Why didn't you tell the truth?" He alleged that I did not tell the presiding judge the truth spoken by God. He received 1 mg of Ativan and 20 mg of Geodon this morning at 1 AM for agitation and intrusive behavior. According to nurses notes, he repeatedly attempted to enter a woman's room uninvited. He told the nurse that they were getting . He took his prescribed medications as morning. His systolic blood pressure this morning was 178/94. Mental status exam: He presented restless and irritable 39-year-old male. He made eye contact and appeared attended to the interview. His speech was spontaneous with with increased rate. His mood was irritable and expansive. He did not express suicidal ideation or wishes. He was grandiose and paranoid. He believes that god speak to him and directs his actions. He expressed grandiose delusional beliefs. He was not internally preoccupied and did not appear to be is responding to internal stimuli. Assessment: He remains impulsive, grandiose, intrusive but is begining to comply with treatment Plan: Continue inpatient treatment. Continue safety precautions. Probate hearing pending. Continue risperidone to 3 mg by mouth twice a day. Transition to risperidone CONSTA once he is on a stable dose of risperidone. Ativan 1 mg IM 3 times a day and/or Geodon 20 mg IM twice a day when necessary for agitation acute psychosis. Encourage participation in therapeutic groups and activities as tolerated. Evaluate clinical status response to treatment daily basis.
[2019-12-03] MEDS: ATORVASTATIN 40 MG TAB PO SCH (21:14)
[2019-12-04] MEDS: LORazepam 1 MG TAB PO PRN (00:44)
[2019-12-04] MEDS: NITROGLYCERIN OINT 1 INCH/GM PACKET TOPICAL SCH ×5 (02:00→19:00)
[2019-12-04] MEDS: ACETAMINOPHEN TAB 325 MG TAB PO PRN ×2 (02:40→13:48)
[2019-12-04] MEDS: hydrALAZINE HCL 20 MG/ML 1 ML VIAL IM PRN ×2 (02:47→15:05)
[2019-12-04] MEDS: ASPIRIN 81 MG PO SCH (10:10)
[2019-12-04] MEDS: LABETALOL 200 MG TAB PO SCH ×2 (10:11→21:03)
[2019-12-04] MEDS: risperiDONE 1 MG TAB PO SCH ×2 (10:11→21:03)
--- NOTE | 2019-12-04 13:39 | P.PN ---
Progress Note - Text Progress Note Date: 12/04/19 Clinical Problems: Schizoaffective disorder bipolar type, poor compliance with treatment, cannabis use disorder, alcohol use disorder, tobacco use disorder Interim history: I reviewed the medical record, interviewed the patient and discuss his treatment and treatment plan during team meeting. He resumed all his medications, the antihypertensives and his antipsychotics, on the day of his probate hearing. He alleged that he refused to take the risperidone because we would not prescribe him his "alpha beta medication." I presumed he was talking about the beta tho and reminded him that he had refused to take medication. He responded that "was not true." When he leaves the hospital [facility] His car was impounded before admission and he does not plan to pay the fine to get the car out of impound. Rather, he plans to buy an [employer] A8. When I commented on the cost of the car, he replied "you can always get money. This is Kimber. There is money everywhere." He continues to be restless and slept only 4 hours last night. He requested and received 1 mg Ativan early this morning for complaints of subjective anxiety. He has no episodes of behavioral dyscontrol since she restarted risperidone. His systolic blood pressure this morning was 184/96 with pulse of 125. Mental status exam: He presented restless and irritable 39-year-old male. He made eye contact and appeared attended to the interview. His speech was spontaneous. His mood was irritable and expansive. He did not express suicidal ideation or wishes. He was grandiose and paranoid. He believes that god speak to him and directs his actions. He expressed grandiose delusional beliefs. He was not internally preoccupied and did not appear to be is responding to internal stimuli. Assessment: He is less impulsive, and intrusive since he restarted risperidone. Plan: Continue inpatient treatment. Continue safety precautions. Continue risperidone to 3 mg by mouth twice a day. Transition to risperidone CONSTA once he is on a stable dose of risperidone. Ativan 1 mg IM 3 times a day and/or Geodon 20 mg IM twice a day when necessary for agitation acute psychosis. Encourage participation in therapeutic groups and activities as tolerated. Evaluate clinical status response to treatment daily basis.
[2019-12-04] MEDS: ATORVASTATIN 40 MG TAB PO SCH (21:03)
[2019-12-05] MEDS: NITROGLYCERIN OINT 1 INCH/GM PACKET TOPICAL SCH ×5 (00:24→23:36)
[2019-12-05] MEDS: ACETAMINOPHEN TAB 325 MG TAB PO PRN ×6 (00:43→23:36)
[2019-12-05] MEDS: LORazepam 1 MG TAB PO PRN ×2 (00:46→21:19)
[2019-12-05] MEDS: hydrALAZINE HCL 20 MG/ML 1 ML VIAL IM PRN ×2 (04:44→16:21)
[2019-12-05] MEDS: risperiDONE 1 MG TAB PO SCH ×2 (08:35→20:53)
[2019-12-05] MEDS: LABETALOL 200 MG TAB PO SCH ×2 (08:35→20:53)
[2019-12-05] MEDS: ASPIRIN 81 MG PO SCH (08:35)
--- NOTE | 2019-12-05 12:28 | P.PN ---
Progress Note - Text Progress Note Date: 12/05/19 Clinical Problems: Schizoaffective disorder bipolar type, poor compliance with treatment, cannabis use disorder, alcohol use disorder, tobacco use disorder Interim history: I reviewed the medical record, interviewed the patient and discuss his treatment and treatment plan during team meeting. He stated that he saw an advertisement on television on God told him that he needed the medication advertised. Apparently he was traumatized meant for COPD medications. He continues to talk to her home, advised him and gives him commands. I brought up he replied "No, no, no ... god doesn't want that." I replied that we would talk about this again. He slept 5 hours last night. His systolic blood pressure this morning was 160/91 with pulse of 114. Mental status exam: He presented calm and pleasant 39-year-old male. He made eye contact and appeared attended to the interview. His speech was spontaneous. His mood was expansive. He did not express suicidal ideation or wishes. He He did not express grandiose or paranoid beliefs. He believes that god speak to him and directs his actions. He was not internally preoccupied and did not appear to be is responding to internal stimuli. Assessment: He is less impulsive and intrusive since he restarted risperidone. His blood pressure is also starting to decrease and sees restarted his antihypertensive medications. Plan: Continue inpatient treatment. Continue safety precautions. Continue risperidone to 3 mg by mouth twice a day. Transition to risperidone CONSTA before discharge. Ativan 1 mg IM 3 times a day and/or Geodon 20 mg IM twice a day when necessary for agitation acute psychosis. Encourage participation in therapeutic groups and activities as tolerated. Evaluate clinical status response to treatment daily basis.
[2019-12-05] MEDS ORDERED: IPRATROPIUM-ALBUTEROL 3 ML NEB INHALATION PRN (14:17)
--- NOTE | 2019-12-05 15:02 | XR ---
EXAMINATION TYPE: XR chest 1V portable DATE OF EXAM: 12/05/2019 Comparison: 04/27/2018 Clinical History: 39-year-old male with shortness of breath Findings: Hazy densities and underpenetration due to patient large body habitus. Heart upper limits of normal i n size likely due to portable technique. No definite consolidation or pleural effusion. Impression: Limited due to patient size, portable technique, and underpenetration. No definite acute cardiopulmon chet process.
--- NOTE | 2019-12-05 15:19 | P.CNPUL ---
History of Present Illness Consult date: 12/05/19 Requesting physician: Herberth Guo Reason for consult: dyspnea Chief complaint: Shortness of breath History of present illness: This is a pleasant 39-year-old gentleman with a known history of coronary artery disease with previous stent placement, hypertension, bipolar disorder, chronic and ongoing tobacco dependence, marijuana use. He was admitted to the psychiatric unit on 11/19/2019 after an acute psychosis secondary to his schizoaffective disorder. He has been undergoing treatment. We were consulted today for complaints of increasing shortness of breath. He states he has mild shortness of breath with exertion. No cough or congestion. No chest tightness or wheezing. Maintaining O2 saturations in the 90s on room air. Chest x-ray reveals no acute cardiopulmonary process. Review of Systems REVIEW OF SYSTEMS: CONSTITUTIONAL: Denies any recent significant weight loss or weight gain. EYES: Denies change in vision. EARS, NOSE, MOUTH, THROAT: Denies headaches, denies sore throat. CARDIOVASCULAR: Denies chest pain, palpitations or syncopal episodes. RESPIRATORY: Occasional shortness of breath with exertion. No cough, congestion or hemoptysis. GASTROINTESTINAL: Denies change in appetite, denies abdominal pain GENITOURINARY: Denies hematuria, denies infections. MUSKULOSKELETAL: Denies pain, denies swelling. INTEGUMENTARY: Denies rash, denies eczema. NEUROLOGICAL: Denies recent memory loss, no recent seizure activity. PSYCHIATRIC: Positive acute psychosis secondary to schizoaffective disorder HEMATOLOGIC/LYMPHATIC: Denies anemia, denies enlarged lymph nodes. Past Medical History Past Medical History: Coronary Artery Disease (CAD), COPD, Hypertension, Myocardial Infarction (GA) Additional Past Medical History / Comment(s): 09/17/14 Pt presented to [facility] ER thinking he is God and his son's spirit sent him here. He is here to save the world. Other HX: GA in 2008, asthma, stress test Last Myocardial Infarction Date:: 2008 History of Any Multi-Drug Resistant Organisms: None Reported Past Surgical History: Heart Catheterization With Stent Past Anesthesia/Blood Transfusion Reactions: No Reported Reaction Date of Last Stent Placement:: 2008 Past Psychological History: Bipolar Past Alcohol Use History: Occasional Past Drug Use History: Marijuana - Past Family History Father Family Medical History: CVA/TIA, Myocardial Infarction (GA) Additional Family Medical History / Comment(s): Father had a GA at age 29yrs. at age 38 after open heart Mother Family Medical History: No Reported History Additional Family Medical History / Comment(s): Mother is healthy Medications and Allergies Home Medications Medication Instructions Recorded Confirmed Type Atorvastatin [Lipitor] 40 mg PO DAILY #30 tab 02/26/15 12/29/18 Rx Metoprolol Tartrate [Lopressor] 50 mg PO BID 10/26/15 12/29/18 History amLODIPine [Norvasc] 10 mg PO DAILY 04/22/18 12/29/18 History ARIPiprazole IM [Abilify Maintena] 400 mg IM QMONTH #1 vial 01/09/19 Rx ARIPiprazole [Abilify] 20 mg PO DAILY #14 tab 01/09/19 Rx Ipratropium-Albuterol Nebulize 3 ml INHALATION RT-QID PRN 01/09/19 Rx [Duoneb 0.5 mg-3 mg/3 ml Soln] ampul.neb Melatonin 3 mg PO HS #14 tablet 01/09/19 Rx Nicotine 14Mg/24Hr Patch [Habitrol] 1 patch TRANSDERM DAILY #7 patch 01/09/19 Rx lisinopriL [Zestril] 15 mg PO HS #28 tab 01/09/19 Rx Allergies Allergy/AdvReac Type Severity Reaction Status Date / Time No Known Allergies Allergy Verified 12/30/18 16:51 Physical Exam Vitals: Vital Signs Temp Pulse Resp BP BP 12/05/19 12:18 86 160/91 12/05/19 08:38 91 188/105 12/05/19 06:00 85 16 159/80 12/05/19 04:23 84 200/111 12/05/19 00:35 98.8 F 87 18 184/92 12/04/19 19:08 99.3 F 12/04/19 19:03 201/94 GENERAL EXAM: Alert, pleasant obese 39-year-old male patient, on room air, comfortable in no apparent distress. HEAD: Normocephalic. EYES: Normal reaction of pupils, equal size. NOSE: Clear with pink turbinates. THROAT: No erythema or exudates. NECK: No masses, no JVD. CHEST: No chest wall deformity. LUNGS: Equal air entry with no crackles, wheeze, rhonchi or dullness. CVS: S1 and S2 normal with no audible murmur, regular rhythm. ABDOMEN: No hepatosplenomegaly, normal bowel sounds, no guarding or rigidity. SPINE: No scoliosis or deformity SKIN: No rashes CENTRAL NERVOUS SYSTEM: No focal deficits, tone is normal in all 4 extremities. EXTREMITIES: There is no peripheral edema. No clubbing, no cyanosis. Peripheral pulses are intact. Results - Laboratory Findings CBC and BMP: 11/21/19 08:44 11/21/19 08:44 Abnormal lab findings: Abnormal Labs 11/19/19 11/20/19 11/20/19 20:25 00:27 00:27 WBC 14.8 H RBC 5.96 H Neutrophils # 10.8 H Sodium 135 L Creatinine 1.34 H Glucose 115 H Triglycerides 179 H Cholesterol 255 H LDL Cholesterol, Calc 177 H Urine Blood Urine Bacteria U Marijuana (THC) Screen Detected H 11/21/19 11/23/19 08:44 16:00 WBC RBC Neutrophils # Sodium Creatinine Glucose 107 H Triglycerides Cholesterol LDL Cholesterol, Calc Urine Blood Trace H Urine Bacteria Rare H U Marijuana (THC) Screen - Diagnostic Findings Chest x-ray: image reviewed (No acute cardiopulmonary process) Assessment and Plan Assessment: 1 Occasional dyspnea on exertion, suspect underlying COPD, currently not bronchospastic or wheezing. Chest x-ray reveals no acute process, on room air. 2 Acute psychosis secondary to schizoaffective disorder, bipolar type with poor compliance with treatment 3 Chronic and ongoing tobacco dependence 4 Chronic alcohol use 6 Chronic marijuana use Plan: The patient was seen and evaluated by Dr. Collins Chest x-ray reviewed, no acute pulmonary process Stable from the pulmonary standpoint On room air, not bronchospastic or wheezing Add albuterol HFA when necessary Would benefit from outpatient workup including full pulmonary function testing to evaluate the severity of his COPD He is educated regarding the importance of complete smoking cessation We will see on an as-needed basis I, the cosigning physician, performed a history & physical examination of the patient. Lungs sounds are clear, diminished. Maintaining good O2 saturations in the 90s on room air. I discussed the assessment and plan of care with my nurse practitioner, Maddy Ball. I attest to the above consultation as dictated by her. Time with Patient: Greater than 30
[2019-12-05] MEDS: ATORVASTATIN 40 MG TAB PO SCH (20:53)
[2019-12-06] MEDS: NITROGLYCERIN OINT 1 INCH/GM PACKET TOPICAL SCH ×3 (07:34→17:21)
[2019-12-06] MEDS: ALBUTEROL HFA INHALER INHALATION PRN ×2 (09:08→16:38)
[2019-12-06] MEDS: LABETALOL 200 MG TAB PO SCH ×2 (09:10→20:54)
[2019-12-06] MEDS: ASPIRIN 81 MG PO SCH (09:10)
[2019-12-06] MEDS: risperiDONE 1 MG TAB PO SCH ×2 (09:10→20:53)
[2019-12-06] MEDS: ACETAMINOPHEN TAB 325 MG TAB PO PRN ×2 (12:08→20:57)
[2019-12-06] MEDS: ATORVASTATIN 40 MG TAB PO SCH (20:53)
--- NOTE | 2019-12-06 20:59 | PN ---
KIM / IJN: [id number] / JORGE
[2019-12-06] MEDS: hydrALAZINE HCL 20 MG/ML 1 ML VIAL IM PRN (21:11)
[2019-12-06] MEDS: LORazepam 1 MG TAB PO PRN (21:14)
[2019-12-07] MEDS: NITROGLYCERIN OINT 1 INCH/GM PACKET TOPICAL SCH ×4 (01:24→18:33)
[2019-12-07] MEDS: hydrALAZINE HCL 20 MG/ML 1 ML VIAL IM PRN (06:03)
[2019-12-07] MEDS: ASPIRIN 81 MG PO SCH (09:20)
[2019-12-07] MEDS: ALBUTEROL HFA INHALER INHALATION PRN ×3 (09:20→22:00)
[2019-12-07] MEDS: risperiDONE 1 MG TAB PO SCH ×2 (09:20→21:57)
[2019-12-07] MEDS: LABETALOL 200 MG TAB PO SCH ×2 (09:20→21:57)
[2019-12-07] MEDS: ACETAMINOPHEN TAB 325 MG TAB PO PRN ×3 (10:19→18:31)
--- NOTE | 2019-12-07 17:42 | PN ---
PROGRESS NOTE DATE OF SERVICE: 12/06/2019. CHIEF COMPLAINT: The patient was admitted on an involuntary basis for disorganized behavior, delusions and paranoia. INTERVAL HISTORY: Patient has been doing fair. He had a quiet evening last night. Mostly he keeps to himself. He will come out in the day area. He does not interact too much with others. He continues to assert that he does not have any problems and he does not need to be in the hospital. He states that things that have been documented about him and his behavior are not all accurate. He has been cooperative with care. He slept fair. The patient has attended some groups. At times he may make some disconnected comments in group. He slept well last night. Today he has been up. He will come out and wander about the unit, though he does not interact much with others. He will respond appropriately when staff approach him. He pays attention to things going on around him. He has not had any immediate complaints or concerns today. He did ask questions about discharge planning. He has been taking his medications. He reports no problems or concerns with his medications. MENTAL STATUS: Patient gave good eye contact. He was somewhat restless. He answered questions appropriately. His thoughts were clear. He discounts much in of the information that is documented about some of the problems he has had. His affect was in a reasonable range. He smiled some. He had a relaxed manner. His mood was reserved though not clearly down or depressed. He presented himself as not being significantly distressed. He continues to make references that are delusional in nature. He voices no thoughts of harm to self or others. He is oriented and alert. ASSESSMENT: I will continue the current diagnosis and treatment plan. I will continue psychotropic medications the same. The patient will continue on Risperdal 3 mg twice a day. He also has p.r.n. medications as needed. I briefly reviewed medication issues with the patient. Given that he has been accepting medications, I kept the review somewhat straightforward and limited so as not to draw too much attention to medication issues in general. We will focus on stabilization and discharge planning. MMDOROTEOL / IJN: [id number] /
--- NOTE | 2019-12-07 17:42 | PN ---
PROGRESS NOTE DATE OF SERVICE: 12/07/2019 CHIEF COMPLAINT: The patient was admitted on petition for involuntary hospitalization for disorganized behavior, refusing medications and delusions. INTERVAL HISTORY: Patient has been doing fair. He had a quiet evening last night. He keeps to himself. Overall he generally has had a calm quiet manner. He has not had any significant issues in his behavior and function. He has been cooperative with care. He has been taking medications. He slept well last night. Today he has been up. He will come out in the day area. Mostly he keeps to himself. He has not attended groups today. He presents in a fairly calm pleasant manner. He continues to refute information that is documented in the chart about behaviors and symptoms he presented prior to coming into the hospital. When I asked about discharge planning, he said he would accept going to [facility] for his medications. He tolerates his medication well. MENTAL STATUS: Patient gave good eye contact. Psychomotor activity was a little restless. He answered questions appropriately. His thoughts were clear and coherent. He was spontaneous. He talked and made several references about following the will of God. He had a fair range of affect. He smiled. He had a friendly manner. His mood was even. He did appear to be distressed at all. He continues to show delusional thinking. He voices no thoughts of harm to self or others. Cognition is clear. ASSESSMENT: I will continue the current diagnosis and treatment plan. We will continue psychotropic medications the same. I reviewed discharge planning issues with the patient. We will focus on stabilization and discharge planning. KIM / RODY: [id number] /
[2019-12-07] MEDS: ATORVASTATIN 40 MG TAB PO SCH (21:57)
[2019-12-07] MEDS: LORazepam 1 MG TAB PO PRN (22:20)
[2019-12-08] MEDS: NITROGLYCERIN OINT 1 INCH/GM PACKET TOPICAL SCH ×4 (00:26→18:50)
[2019-12-08] MEDS: ACETAMINOPHEN TAB 325 MG TAB PO PRN ×2 (04:48→08:21)
[2019-12-08] MEDS: risperiDONE 1 MG TAB PO SCH ×2 (08:21→20:05)
[2019-12-08] MEDS: ASPIRIN 81 MG PO SCH (08:21)
[2019-12-08] MEDS: LABETALOL 200 MG TAB PO SCH ×2 (08:21→20:04)
[2019-12-08] MEDS ORDERED: LISINOPRIL-HCTZ 20-25 MG 1 EACH TAB PO SCH (09:45)
--- NOTE | 2019-12-08 15:06 | P.PN ---
Progress Note - Text Progress Note Date: 12/08/19 Clinical Problems: Schizoaffective disorder bipolar type, poor compliance with treatment, cannabis use disorder, alcohol use disorder, tobacco use disorder I reviewed the medical record, interviewed the patient and discuss his treatment and treatment plan during team meeting. He had no concerns other than wanting to be discharged. He would not consent to beginning CONSTA even though I explained that we will not discharge him until we began the long acting injectable. He complained that biweekly injection was too great a burden. He has been compliant with prescribed medications including prescribed antihypertensive. He is had no recent episodes of behavioral dyscontrol. He complained of headaches and requests an alternative to Nitro-Bid ointment. He slept 6 hours last night. His systolic blood pressure this morning was 142/71 with pulse of 94. Mental status exam: He presented calm and pleasant 39-year-old male. He made eye contact and appeared attended to the interview. His speech was spontaneous. His mood was expansive. He did not express suicidal ideation or wishes. He did not express grandiose or paranoid beliefs. He dis not perseverate about god speaking to him and directing his actions. He was not internally preoccupied and did not appear to be is responding to internal stimuli. Assessment: He is less impulsive and intrusive since he restarted risperidone. His blood pressure is also starting to decrease and sees restarted his antihype rtensive medications. Plan: Continue inpatient treatment. Continue safety precautions. Continue risperidone to 3 mg by mouth twice a day. Begin risperidone CONSTA 25mg IM. Ativan 1 mg IM 3 times a day and/or Geodon 20 mg IM twice a day when necessary for agitation acute psychosis. Encourage participation in therapeutic groups and activities as tolerated. Evaluate clinical status response to treatment daily basis.
[2019-12-08] MEDS: ATORVASTATIN 40 MG TAB PO SCH (20:04)
[2019-12-08] MEDS: LORazepam 1 MG TAB PO PRN (20:06)
[2019-12-08] MEDS: LISINOPRIL-HCTZ 20-25 MG 1 EACH TAB PO SCH (20:07)
[2019-12-09] MEDS: LISINOPRIL-HCTZ 20-25 MG 1 EACH TAB PO SCH ×2 (06:20→20:52)
[2019-12-09] MEDS: LABETALOL 200 MG TAB PO SCH ×2 (06:21→20:51)
[2019-12-09] MEDS: ASPIRIN 81 MG PO SCH (09:24)
[2019-12-09] MEDS: risperiDONE 1 MG TAB PO SCH ×2 (09:24→20:51)
[2019-12-09] MEDS: cloNIDine 0.2 MG/24HR PATCH TRANSDERM SCH (12:11)
--- NOTE | 2019-12-09 13:09 | P.PN ---
Progress Note - Text Progress Note Date: 12/09/19 Clinical Problems: Schizoaffective disorder bipolar type, poor compliance with treatment, cannabis use disorder, alcohol use disorder, tobacco use disorder I reviewed the medical record, interviewed the patient and discuss his treatment and treatment plan during team meeting. The medical director/head team physician discontinue the Nitropaste and ordered Zestoretic 20-25 twice a day. He accepted the CONSTA injection this morning. He feels that his mood is improved following the injection and is willing to continue with the medication after discharge. His only complaint was a burden of the biweekly like appointments. He did not talk about god, hearing the voice of God or feeling compelled to follow God's command. He slept 6 hours last night. His systolic blood pressure this morning was 173/96 with pulse of 80. Mental status exam: He presented calm and pleasant 39-year-old male. He made eye contact and appeared attended to the interview. His speech was spontaneous. His mood was stable and appropriate. He did not express suicidal ideation or wishes. He did not express grandiose or paranoid beliefs. He dis not perseverate about god speaking to him and directing his actions. He was not internally preoccupied and did not appear to be is responding to internal stimuli. Assessment: He is less impulsive and intrusive since he restarted risperidone. His blood pressure is also starting to decrease sense he restarted his antihypertensive medications. Plan: Plan for discharge on 12/10/2019. Continue safety precautions. Continue risperidone to 3 mg by mouth twice a day until the second injection cycle of risperidone CONSTA 25mg IM. Ativan 1 mg IM 3 times a day and/or Geodon 20 mg IM twice a day when necessary for agitation acute psychosis. Encourage participation in therapeutic groups and activities as tolerated. Evaluate clinical status response to treatment daily basis.
[2019-12-09] MEDS: LORazepam 1 MG TAB PO PRN ×2 (15:11→21:02)
[2019-12-09] MEDS: hydrALAZINE HCL 10 MG TAB PO SCH (17:53)
[2019-12-09] MEDS: ATORVASTATIN 40 MG TAB PO SCH (20:51)
[2019-12-10 06:52] VITALS: RESP 16; TEMP 97.9
[2019-12-10] MEDS: ASPIRIN 81 MG PO SCH (07:59)
[2019-12-10] MEDS: LISINOPRIL-HCTZ 20-25 MG 1 EACH TAB PO SCH (07:59)
[2019-12-10] MEDS: risperiDONE 1 MG TAB PO SCH (07:59)
[2019-12-10] MEDS: LABETALOL 200 MG TAB PO SCH (08:00)
[2019-12-10] MEDS: hydrALAZINE HCL 10 MG TAB PO SCH (08:00)
[2019-12-10 08:02] VITALS: BP 169/93; PULSE 78
--- NOTE | 2019-12-10 12:24 | P.DS ---
Providers Date of admission: 11/20/19 03:14 Attending physician: Miguelangel Glynn MD Consults: 11/20/19 03:40 Consult Physician Routine Consulting Provider: Daniel Walter Consult Reason/Comments: For H & P for Medical Follow Up Do you want consulting provider notified?: Yes, Notify in am 12/05/19 11:02 Consult Physician Routine Consulting Provider: Louie Collins Consult Reason/Comments: shortness of breath Do you want consulting provider notified?: Yes Primary care physician: Mohini Uribe - Discharge Diagnosis(es) (1) Schizoaffective disorder, bipolar type Current Visit: No Status: Chronic Priority: High (2) Involuntary commitment Current Visit: Yes Status: Acute Priority: High (3) Hypertensive urgency Current Visit: No Status: Resolved Priority: High (4) Hypertension Current Visit: Yes Status: Chronic Priority: High (5) Cannabis abuse Current Visit: No Status: Chronic Priority: Medium Hospital Course: HISTORY: He is a 39-year-old male with history of chronic and persistent mental illness. He presented to the psychiatric unit involuntarily. His mother completed a petition stating that he was arrested for trespassing a building and refusing to take his prescribed medications. He acknowledged that he arrested for entering the building. He believes that God told him that he owned a building. He talked about having a special relation with God and God speaking to him interacting his actions. See admission history dated 11/20/2019 HOSPITAL COURSE: We admitted him involuntarily to the psychiatric unit. We provided a comprehensive biopsychosocial assessment. The finance consultant chef head completed initial physical examination and manage his hypertension during this extended hospitalization. In addition to refusing his psychotropic medications he also refused to take his antihypertensive medications. The exception resulted in a hypertensive urgency situation with blood pressures is his a systolic of 224 and diastolic of 131. He was markedly restless, agitated impulsive and intrusive. He would not agree to defer the probate hearing and refused to take prescribed medications until the day of his probate hearing. He was behavior was so disruptive event required intramuscular injections of Geodon and Ativan. He had one episode of seclusion and restraint. After the probate hearing he receives a 30/90 day combined treatment order. He became compliant with all his medications. Once she restarted risperidone with titrated dose to 3 mg twice a day. He has a marked decrease in agitation, irritability, euphoria and restlessness. His sleep normalized and became less preoccupied with receiving messages from God. The finance consultant treated the hypertension urgency with nitroglycerin out and 1 each 4 times a day. The nitroglycerin was discontinued prior to admission and sister work Serena-25 was added to his antihypertensive regime that included Catapres 0.2 mg once per week, Apresoline 10 mg twice a day andTrandate 200 mg twice a day. MENTAL STATUS ON DISCHARGE: At time of discharge she presented as casually groomed moderately obese 3-year-old male who was pleasant on approach. He made eye contact and attended to interview. He had a blunted but bright facial expression. He is alert and oriented to person, place and time. He showed no abnormality of psychomotor activity. He had no abnormal involuntary movements. Her speech was spontaneous with normal rate, rhythm and volume. His affect was blunted but stable and appropriate. He denied suicidal ideation or wishes. He is not homicidal ideation he did not express ideas reference, paranoid ideation or delusional beliefs. His thinking was abstract and associa tions were coherent, logical and goal directed. He denied hallucinations and did not appear to be responding to internal stimuli. DISPOSITION: He will follow-up with [facility]. His discharge psychotropic medications included risperidone 2 mg by mouth twice a day and Risperdal Consta 25 mg IM every 14 days. We recommendations discontinue the oral risperidone after the second or third Risperdal Consta injection. He'll continue with his antihypertensive medications and follow-up with his primary care provider regarding management of the hypertension. We also discussed weight lost and exercise as additional means to control his blood pressure. Patient Condition at Discharge: Stable Plan - Discharge Summary New Discharge Prescriptions: New hydrALAZINE HCL [Apresoline] 10 mg PO BID #60 tab Aspirin 81 mg PO DAILY #30 chew cloNIDine 0.2 MG/24HR PATCH [Catapres-TTS] 1 patch TRANSDERM Q7D #4 patch risperiDONE [RisperDAL] 3 mg PO BID #60 tab risperiDONE MICROSPHERES [RisperDAL CONSTA] 25 mg IM [id number] #2 syringe Labetalol [Trandate] 200 mg PO BID #60 tab Lisinopril-Hctz 20-25 mg [Zestoretic 20-25] 1 each PO BID #60 tab Continue Atorvastatin [Lipitor] 40 mg PO DAILY #30 tab Ipratropium-Albuterol Nebulize [Duoneb 0.5 mg-3 mg/3 ml Soln] 3 ml INHALATION RT-QID PRN ampul.neb PRN Reason: Shortness Of Breath Or Wheezing Nicotine 14Mg/24Hr Patch [Habitrol] 1 patch TRANSDERM DAILY #7 patch Discontinued Metoprolol Tartrate [Lopressor] 50 mg PO BID amLODIPine [Norvasc] 10 mg PO DAILY ARIPiprazole [Abilify] 20 mg PO DAILY #14 tab ARIPiprazole IM [Abilify Maintena] 400 mg IM QMONTH #1 vial Melatonin 3 mg PO HS #14 tablet lisinopriL [Zestril] 15 mg PO HS #28 tab Discharge Medication List Atorvastatin [Lipitor] 40 mg PO DAILY #30 tab 02/26/15 [Rx] Ipratropium-Albuterol Nebulize [Duoneb 0.5 mg-3 mg/3 ml Soln] 3 ml INHALATION RT-QID PRN ampul.neb 01/09/19 [Rx] Nicotine 14Mg/24Hr Patch [Habitrol] 1 patch TRANSDERM DAILY #7 patch 01/09/19 [Rx] Aspirin 81 mg PO DAILY #30 chew 12/10/19 [Rx] Labetalol [Trandate] 200 mg PO BID #60 tab 12/10/19 [Rx] Lisinopril-Hctz 20-25 mg [Zestoretic 20-25] 1 each PO BID #60 tab 12/10/19 [Rx] cloNIDine 0.2 MG/24HR PATCH [Catapres-TTS] 1 patch TRANSDERM Q7D #4 patch 12/10/19 [Rx] hydrALAZINE HCL [Apresoline] 10 mg PO BID #60 tab 12/10/19 [Rx] risperiDONE MICROSPHERES [RisperDAL CONSTA] 25 mg IM [id number] #2 syringe 12/10/19 [Rx] risperiDONE [RisperDAL] 3 mg PO BID #60 tab 12/10/19 [Rx] Follow up Appointment(s)/Referral(s): Mohini Uribe MD [Primary Care Provider] - 1-2 days Activity/Diet/Wound Care/Special Instructions: Activity and diet as tolerated. Avoid the use of street drugs and alcohol. Take all medications as prescribed. When you are in need of refills on your medications please contact your medical provider and/or outpatient psychiatrist to have this done. Please go to scheduled outpatient appointment for aftercare treatment. If symptoms return or become worse, call the crisis line at and/or go to the nearest emergency room for evaluation Discharge Disposition: HOME SELF-CARE
[2019-12-10 14:05] VITALS: BMI 42.7
== END 2019-12-10 16:39 | disposition home or self-care (01) | DRG 885 ==
LOC: EC 16:37 → 3MHU 11-20 03:14
PROVIDERS: ADMIT Psychiatry & Neurology Psychiatry; ATTEND Psychiatry & Neurology Psychiatry
DX: F25.0 Schizoaffective disorder, bipolar type (principal); F23 Brief psychotic disorder; N19 Unspecified kidney failure; D72.829 Elevated white blood cell count, unspecified; E78.5 Hyperlipidemia, unspecified; F10.10 Alcohol abuse, uncomplicated; F12.10 Cannabis abuse, uncomplicated; F17.210 Nicotine dependence, cigarettes, uncomplicated; I10 Essential (primary) hypertension; I16.0 Hypertensive urgency; I25.10 Atherosclerotic heart disease of native coronary artery without angina pectoris; I25.2 Old myocardial infarction; J44.9 Chronic obstructive pulmonary disease, unspecified; Z56.0 Unemployment, unspecified; Z78.1 Physical restraint status; Z79.899 Other long term (current) drug therapy; Z95.5 Presence of coronary angioplasty implant and graft; T50.996A Underdosing of other drugs, medicaments and biological substances, initial encounter; Z82.49 Family history of ischemic heart disease and other diseases of the circulatory system; Z82.3 Family history of stroke
CPT/HCPCS: 36415; 71045; 80048; 80053; 80061; 80306; 80329; 81001; 82075; 82248; 83036; 83520; 84443; 85025; 85027; 96360; 96372; 99285

== ENCOUNTER 2019-12-15 10:01 | Emergency (ER) | payer OTHER ==
[2019-12-15 10:10] VITALS: TEMP 98.9
--- NOTE | 2019-12-15 10:21 | ED ---
Psych HPI - General Stated Complaint: mental health Time Seen by Provider: 12/15/19 10:07 Source: patient, RN notes reviewed Mode of arrival: ambulatory Limitations: no limitations - History of Present Illness Initial Comments: This a 39-year-old male presents emergency Department to emergency Department with police for psychiatric evaluation. Patient reportedly has been disruptive at [facility]. I did question patient why he was at emergency states he was working upon asking what he does for work he states he states lives. Patient was recently released from [facility]. Patient states he does not need medications does not take any current medications. Denies any physical complaints. He does admit to drug use states nothing recently. He states he uses marijuana, LSD, acid, mushrooms occasionally drinks alcohol. Denies any suicidal or homicidal. - Related Data Home Medications Medication Instructions Recorded Confirmed Lisinopril-Hctz 20-25 mg 1 tab PO BID 12/15/19 12/15/19 [Zestoretic 20-25] Previous Rx's Medication Instructions Recorded Atorvastatin [Lipitor] 40 mg PO DAILY #30 tab 02/26/15 Aspirin 81 mg PO DAILY #30 chew 12/10/19 Labetalol [Trandate] 200 mg PO BID #60 tab 12/10/19 hydrALAZINE HCL [Apresoline] 10 mg PO BID #60 tab 12/10/19 risperiDONE MICROSPHERES 25 mg IM [id number] #2 syringe 12/10/19 [RisperDAL CONSTA] risperiDONE [RisperDAL] 3 mg PO BID #60 tab 12/10/19 Allergies Allergy/AdvReac Type Severity Reaction Status Date / Time No Known Allergies Allergy Verified 12/15/19 11:02 Review of Systems ROS Statement: Those systems with pertinent positive or pertinent negative responses have been documented in the HPI. ROS Other: All systems not noted in ROS Statement are negative. Past Medical History Past Medical History: Coronary Artery Disease (CAD), COPD, Hypertension, Myocardial Infarction ([place]) Additional Past Medical History / Comment(s): CA in 2008, asthma, stress test Last Myocardial Infarction Date:: 2008 History of Any Multi-Drug Resistant Organisms: None Reported Past Surgical History: Heart Catheterization With Stent Past Anesthesia/Blood Transfusion Reactions: No Reported Reaction Date of Last Stent Placement:: 2008 Past Psychological History: Bipolar, Schizophrenia Smoking Status: Current every day smoker Past Alcohol Use History: Occasional Past Drug Use History: Marijuana - Past Family History Father Family Medical History: CVA/TIA, Myocardial Infarction (CA) Additional Family Medical History / Comment(s): Father had a CA at age 29yrs. at age 38 after open heart Mother Family Medical History: No Reported History Additional Family Medical History / Comment(s): Mother is healthy General Exam Limitations: no limitations General appearance: alert, in no apparent distress Head exam: Present: atraumatic, normocephalic, normal inspection Eye exam: Present: normal appearance, PERRL, EOMI. Absent: scleral icterus, conjunctival injection, periorbital swelling ENT exam: Present: normal exam, mucous membranes moist Neck exam: Present: normal inspection. Absent: tenderness, meningismus, lymphadenopathy Respiratory exam: Present: normal lung sounds bilaterally. Absent: respiratory distress, wheezes, rales, rhonchi, stridor Cardiovascular Exam: Present: normal rhythm, tachycardia, normal heart sounds. Absent: systolic murmur, diastolic murmur, rubs, gallop, clicks Neurological exam: Present: alert, oriented X3, CN II-XII intact Psychiatric exam: Present: anxious Skin exam: Present: warm, dry, intact, normal color. Absent: rash Course Vital Signs 12/15/19 12/15/19 12/15/19 10:03 10:23 11:35 Temperature 98.9 F Pulse Rate 105 H 98 Respiratory 18 16 Rate Blood Pressure 212/111 208/141 169/81 O2 Sat by Pulse 98 99 Oximetry Medical Decision Making - Medical Decision Making 3-year-old presented for psychiatric evaluation please. Patient was evaluated, safety plan in place. Patient has appointment with [facility]. Patient will be discharged in stable condition is not suicidal or homicidal. - Lab Data Lab Results 12/15/19 Range/Units 10:15 Urine Opiates Screen Not Detected (NotDetected) Ur Oxycodone Screen Not Detected (NotDetected) Urine Methadone Screen Not Detected (NotDetected) Ur Propoxyphene Screen Not Detected (NotDetected) Ur Barbiturates Screen Not Detected (NotDetected) U Tricyclic Antidepress Not Detected (NotDetected) Ur Phencyclidine Scrn Not Detected (NotDetected) Ur Amphetamines Screen Not Detected (NotDetected) U Methamphetamines Scrn Not Detected (NotDetected) U Benzodiazepines Scrn Not Detected (NotDetected) Urine Cocaine Screen Not Detected (NotDetected) U Marijuana (THC) Screen Detected H (NotDetected) Disposition Clinical Impression: Schizoaffective disorder, bipolar type Disposition: HOME SELF-CARE Condition: Stable Instructions (If sedation given, give patient instructions): Schizoaffective Disorder (ED) Additional Instructions: Please return to the Emergency Department if symptoms worsen or any other concerns. Is patient prescribed a controlled substance at d/c from ED?: No Referrals: Mohini Uribe MD [Primary Care Provider] - 1-2 days Time of Disposition: 12:26
[2019-12-15] MEDS ORDERED: LABETALOL 200 MG TAB PO STA (10:28)
[2019-12-15] MEDS ORDERED: LISINOPRIL-HCTZ 20-25 MG 1 EACH TAB PO STA (10:28)
[2019-12-15 10:39] LABS: Amphetamine Screen,Urine Not Detected (NotDetected); Barbiturate Screen,Urine Not Detected (NotDetected); Benzodiazepines Screen,Urine Not Detected (NotDetected); Cocaine Screen,Urine Not Detected (NotDetected); Methadone Screen, Urine Not Detected (NotDetected); Opiate Screen,Urine Not Detected (NotDetected); Oxycodone Screen, Urine Not Detected (NotDetected); Phencyclidine Screen,Urine Not Detected (NotDetected); Tricyclic Antidepressant,Urine Not Detected (NotDetected); Urn Cannabinoid Scrn Detected (NotDetected)
[2019-12-15 11:35] VITALS: BP 169/81; PULSE 98; RESP 16
== END 2019-12-15 12:39 | disposition home or self-care (01) ==
LOC: EC 10:01
DX: F25.0 Schizoaffective disorder, bipolar type (principal); I10 Essential (primary) hypertension; I25.2 Old myocardial infarction; Z79.899 Other long term (current) drug therapy; F17.200 Nicotine dependence, unspecified, uncomplicated; Z95.5 Presence of coronary angioplasty implant and graft
CPT/HCPCS: 80306; 82075; 99284

== ENCOUNTER 2019-12-16 11:30 | Inpatient (IN) | payer MEDICAID, OTHER ==
--- NOTE | 2019-12-16 12:10 | ED ---
Psych HPI - General Chief Complaint: Psychiatric Symptoms Stated Complaint: Mental Health Time Seen by Provider: 12/16/19 11:45 Source: patient, RN notes reviewed Mode of arrival: ambulatory Limitations: no limitations - History of Present Illness Initial Comments: 39-year-old male presents emergency Department for psychiatric evaluation. Patient was here yesterday for bizarre behavior. Patient is brought over by [facility] as he attempted to like to facility on fire, was aggressive towards staff. Patient denies any suicidal or homicidal. Patient did have recent stay on [facility]. Patient does not take his medications as directed. Denies any physical complaints. - Related Data Home Medications Medication Instructions Recorded Confirmed Lisinopril-Hctz 20-25 mg 1 tab PO BID 12/15/19 12/16/19 [Zestoretic 20-25] Previous Rx's Medication Instructions Recorded Atorvastatin [Lipitor] 40 mg PO DAILY #30 tab 02/26/15 Aspirin 81 mg PO DAILY #30 chew 12/10/19 Labetalol [Trandate] 200 mg PO BID #60 tab 12/10/19 hydrALAZINE HCL [Apresoline] 10 mg PO BID #60 tab 12/10/19 risperiDONE MICROSPHERES 25 mg IM [id number] #2 syringe 12/10/19 [RisperDAL CONSTA] risperiDONE [RisperDAL] 3 mg PO BID #60 tab 12/10/19 Allergies Allergy/AdvReac Type Severity Reaction Status Date / Time No Known Allergies Allergy Verified 12/16/19 12:21 Review of Systems ROS Statement: Those systems with pertinent positive or pertinent negative responses have been documented in the HPI. ROS Other: All systems not noted in ROS Statement are negative. Past Medical History Past Medical History: Coronary Artery Disease (CAD), COPD, Hypertension, Myocardial Infarction ([place]) Additional Past Medical History / Comment(s): [place] in 2008, asthma, stress test Last Myocardial Infarction Date:: 2008 History of Any Multi-Drug Resistant Organisms: None Reported Past Surgical History: Heart Catheterization With Stent Past Anesthesia/Blood Transfusion Reactions: No Reported Reaction Date of Last Stent Placement:: 2008 Past Psychological History: Bipolar, Schizophrenia Smoking Status: Current every day smoker Past Alcohol Use History: Occasional Past Drug Use History: Marijuana - Past Family History Father Family Medical History: CVA/TIA, Myocardial Infarction ([place]) Additional Family Medical History / Comment(s): Father had a [place] at age 29yrs. at age 38 after open heart Mother Family Medical History: No Reported History Additional Family Medical History / Comment(s): Mother is healthy General Exam Limitations: no limitations General appearance: alert, in no apparent distress Head exam: Present: atraumatic, normocephalic, normal inspection Eye exam: Present: normal appearance, PERRL, EOMI. Absent: scleral icterus, conjunctival injection, periorbital swelling Respiratory exam: Present: normal lung sounds bilaterally. Absent: respiratory distress, wheezes, rales, rhonchi, stridor Cardiovascular Exam: Present: regular rate, normal rhythm, normal heart sounds. Absent: systolic murmur, diastolic murmur, rubs, gallop, clicks GI/Abdominal exam: Present: soft, normal bowel sounds. Absent: distended, tenderness, guarding, rebound, rigid Psychiatric exam: Present: anxious, manic Skin exam: Present: warm, dry, intact, normal color. Absent: rash Course Vital Signs 12/16/19 11:33 Temperature 98.1 F Pulse Rate 83 Respiratory 19 Rate Blood Pressure 99/56 O2 Sat by Pulse 97 Oximetry Disposition Clinical Impression: Schizoaffective disorder, bipolar type Disposition: TRANSFER TO PSYCH HOSP/UNIT Condition: Fair Referrals: Mohini Uribe MD [Primary Care Provider] - 1-2 days
[2019-12-16] MEDS ORDERED: LORazepam 2 MG/ML INJ IM STA (12:54)
[2019-12-16] MEDS ORDERED: ZIPRASIDONE 20 MG VIAL IM PRN (13:38)
[2019-12-16] MEDS ORDERED: MAGNESIUM HYDROXIDE 2,400 MG/10 ML CUP PO PRN (13:38)
[2019-12-16] MEDS ORDERED: MAG HYDROX/AL HYDROX/SIMETH 30 ML CUP PO PRN (13:38)
[2019-12-16] MEDS ORDERED: LORazepam 2 MG/ML INJ IM PRN (13:39)
[2019-12-16] MEDS ORDERED: hydrALAZINE HCL 10 MG TAB PO SCH (21:00)
[2019-12-16] MEDS: NICOTINE 14MG/24HR PATCH TRANSDERM SCH (23:22)
[2019-12-16] MEDS: risperiDONE 1 MG TAB PO SCH (23:23)
[2019-12-16] MEDS: LISINOPRIL-HCTZ 20-25 MG 1 EACH TAB PO SCH (23:23)
[2019-12-16] MEDS: LABETALOL 200 MG TAB PO SCH (23:23)
[2019-12-17] MEDS: LABETALOL 200 MG TAB PO SCH ×2 (06:01→20:23)
[2019-12-17] MEDS: LISINOPRIL-HCTZ 20-25 MG 1 EACH TAB PO SCH ×2 (06:02→20:24)
[2019-12-17] MEDS: hydrALAZINE HCL 25 MG TAB PO SCH ×4 (06:02→20:24)
[2019-12-17 08:14] LABS: Basophils # (A) 0.1 k/uL (0-0.2); Basophils % (A) 1 %; Eosinophils # (A) 0.9 k/uL (0-0.7); Eosinophils % (A) 6 %; Lymphocytes # (A) 1.8 k/uL (1.0-4.8); Lymphocytes % (A) 12 %; MCH 29.3 pg (25.0-35.0); MCHC 32.1 g/dL (31.0-37.0); MCV 91.2 fL (80.0-100.0); Mean Platelet Volume 7.6; Monocytes # (A) 0.7 k/uL (0-1.0); Monocytes % (A) 5 %; Neutrophils # (A) 11.8 k/uL (1.3-7.7); Neutrophils % (A) 76 %; Platelet Count 308 k/uL (150-450); RBC 5.48 m/uL (4.30-5.90); WBC 15.5 k/uL (3.8-10.6)
[2019-12-17 08:31] LABS: Albumin 4.3 g/dL (3.5-5.0); Calcium 9.4 mg/dL (8.4-10.2); Potassium 4.9 mmol/L (3.5-5.1); Total Bilirubin 0.8 mg/dL (0.2-1.3); Total Protein 7.3 g/dL (6.3-8.2)
[2019-12-17] MEDS: ATORVASTATIN 40 MG TAB PO SCH (08:39)
[2019-12-17] MEDS: ASPIRIN 81 MG PO SCH ×2 (08:39→20:26)
[2019-12-17] MEDS: NICOTINE 14MG/24HR PATCH TRANSDERM SCH (08:39)
[2019-12-17] MEDS: risperiDONE 1 MG TAB PO SCH ×2 (08:39→20:23)
--- NOTE | 2019-12-17 14:42 | HP ---
HISTORY AND PHYSICAL ADMITTING DATE: December 16, 2019 IDENTIFYING DATA: The patient is 39 years, , male in who presented to the mental health unit from the emergency department. The patient is unemployed and he is on social security disability. Patient is on court order for treatment for 60 days. HISTORY OF PRESENT ILLNESS: Patient stated that he did ask his mother to take him to [facility] and she did not listen to him and when he did order he got the wrong order so he got very frustrated, agitated and aggressive towards her. So she decided to take him to [facility], however at [facility], he was more aggressive towards staff, so they did bring him to the emergency room. Patient was recently here at [facility] under Dr. Glynn from November 19 until December 09 and he was discharged on Risperdal oral and Risperdal Consta 25 mg every 2 weeks. When I did interview the patient, the patient is delusional. He stated that he is talking to God and he has good aeration was gone, even he was demanding me to discharge him because "I am the insurance examiner her and I don't need to be here at all. I am completely fine." Patient was hyperverbal, very labile, a lot of grandiose delusion and he says that he has 5 or 6 projects going on, including having close ship between [place] and [place]. He denied any need for any medication. When I did ask him about if he has any idea of reference, he said "I have a very good relationship with God and he is the one who told me to do these projects." Then he said "I don't need any medication and medication didn't help at all." When I asked him to explain the incident that happened with his mother at [facility], he said "I get very angry and agitated when someone does not listen to me or refused to do my order." He starts screaming that his mother is very confused and she is the one who is supposed to be in the hospital not him. Even he claims that he did have [facility] 2 years ago and was able to get better over the last couple of years. Then he starting talking about he needs to be discharged so he can go to [facility] to meet his bunch of free papers to do a certain project with them. He denied any current suicidal or homicidal ideation, but he does not have any insight to his mental illness or the need for treatment. He denied feeling depressed or having any anxiety. PAST PSYCHIATRIC HISTORY: There is extensive psychiatric history, this is the ninth admission to this psychiatric unit. Patient had different diagnoses bipolar disorder, schizoaffective disorder, bipolar type. Cannabis use disorder. Benzodiazepine use disorder. He did try different medication, even he was on Abilify Maintena once a month, then he was changed to Risperdal constant 25 mg every 2 weeks for, but he has a long history of poor compliance with medication. He has been living at [facility] for the last couple of years at least. MEDICAL PROBLEM: COPD, hypertension. ALLERGIC: There is no drug allergy. SUBSTANCE ABUSE HISTORY: The patient stated that he used to do cocaine, LSD, mushroom and cough medication a couple of years ago, but currently he does smoke marijuana "when it is available around me." When I did ask him if he has been in any substance abuse rehab, his answer "I don't need rehab because it is my choice to use this drug or not." Regarding alcohol use disorder, he stated that the last time he did drink a glass of wine, it was a couple of months ago. FAMILY PSYCHIATRIC AND SUBSTANCE ABUSE HISTORY: The patient stated that there is no mental illness in the family, but according to him." I do believe that my mother has issue." Legal history, he denied any current probation or any pending charge. FAMILY SOCIAL HISTORY: The patient was and ended by and he has 2 children, but he does not have any contact with them. Currently, he is living with his mother and receiving social security disability. The patient did have a behavior problem when he was in school and even he was expelled at ninth grade. MENTAL STATUS EXAMINATION: The patient presented as tall, obese, male who dressed casually. Fair grooming. He made good eye contact. He was hyperverbal, circumstantial with looseness of association. He is very paranoid, suspicious, report mixed delusion, cheondoism and grandiose delusion. He stated that he has been hearing God's voice. He denied any depressive symptoms as hopeless feeling or helpless feeling. He denied any suicidal ideation or homicidal ideation. His intellectual function is average. He has no insight of his mental illness and the need for treatment. STRENGTHS: Stable income and stable housing and supportive family. WEAKNESS: Poor compliance with psychiatric treatment and his chronic mental illness. IMPRESSION: The patient is 39 years, male with chronic mental illness, bipolar disorder versus schizoaffective disorder, bipolar type. He has extensive history of poor compliance with psychiatric treatment. He presented to the unit on court order. He was demanding to be discharged right away. He stated that he does not need any medication despite I explained to him that he is on court order. DIAGNOSES: Bipolar disorder, manic with psychotic features versus schizoaffective disorder, bipolar type. Cannabis use disorder. Tobacco use disorder. RECOMMENDATION: The patient will be admitted to the psychiatric unit. Will consult Medicine for his hypertension and Quantitative Associate to complete the initial psychosocial assessment and has collateral information from his mother. I will restart him back on Risperdal Consta but I will increase it from 25 mg to 50 mg IM every 2 weeks. Ativan done p.r.n. for agitation and aggressive behavior. He will participate in group therapy and activity as tolerated. Will see him on a daily basis to evaluate clinical status responding to treatment. Prognosis guarded due to poor compliance with treatment. MMODL / IJN: [id number] /
[2019-12-17] MEDS ORDERED: cloNIDine HCL 0.1 MG TAB PO PRN (16:07)
--- NOTE | 2019-12-17 21:36 | CONS ---
CONSULTATION REASON FOR CONSULTATION: Advice regarding history of COPD, hypertension, multiple medical issues requested by Psychiatry. HISTORY OF PRESENT ILLNESS: This 39-year-old gentleman with past history of CAD, COPD, hypertension, history of myocardial infarction, bipolar depression and CAD stent being followed by Dr. Marcos in the outpatient setting, apparently noncompliant with medications. The patient had hypertension. The patient admitted for bipolar disorder and possible psychotic features. There is no history of fever, rigors or chills. No history of headache, loss of consciousness, seizures. The blood pressure was elevated up to 180/110 this morning. There is no history of fever, rigors or chills. No chest pain, palpitations at this time. PAST MEDICAL HISTORY: History of COPD, hypertension, myocardial infarction, CAD, bipolar schizophrenia. MEDICATIONS: Home medications are: 1. Risperdal 3 mg p.o. b.i.d. and 25 mg q.14 days. 2. Apresoline 10 mg b.i.d. 3. Zestoretic 1 tablet p.o. b.i.d. 4. Trandate 200 mg p.o. b.i.d. 5. Lipitor 40 mg daily. 6. Aspirin 81 mg daily. ALLERGIES: None. FAMILY HISTORY: History of CVA and myocardial infarction in the family. SOCIAL HISTORY: History of smoking. No history of alcohol intake. REVIEW OF SYSTEMS: ENT: No diminished vision. No diminished hearing. CARDIOVASCULAR: No angina or palpitations. RESPIRATORY: As mentioned earlier. GI no nausea or vomiting. no dysuria. NERVOUS SYSTEM: No numbness or weakness. ALLERGY/IMMUNOLOGY: No asthma or hayfever. MUSCULOSKELETAL as mentioned earlier. HEMATOLOGY/ONCOLOGY: No history of anemia. ENDOCRINE: No history of diabetes or hypothyroidism. CONSTITUTIONAL: As mentioned earlier. DERMATOLOGY: Negative. RHEUMATOLOGY negative. PSYCHIATRY as mentioned earlier. PHYSICAL EXAMINATION: Alert and oriented times three. Pulse 83, blood pressure 172/97, respiration 18, temperature 98.2, pulse ox 97% on room air. HEENT: Conjunctivae normal. NECK: No JVD. CARDIOVASCULAR: S1, S2 muffled. RESPIRATORY: Breath sounds diminished in the bases. No rhonchi. No crackles. ABDOMEN: Soft, nontender. No mass palpable. LEGS no edema. No swelling. NERVOUS SYSTEM: Higher functions as mentioned earlier. Moves all 4 limbs. No focal motor or sensory deficits. LYMPHATICS: No lymph nodes palpable in the neck, axillae or groin. SKIN: No ulcer, no rash and no bleeding. JOINTS: No active deforming arthropathy. LABS: WBC 15.2, hemoglobin 16, sodium 137, potassium 4.2, creatinine is 1.38. ASSESSMENT: 1. Bipolar disorder with psychotic features. 2. Hypertension. 3. Chronic kidney disease stage III. 4. Coronary artery disease, stent. 5. Chronic obstructive pulmonary disease. 6. Hypertension. 7. Hyperlipidemia. 8. History of myocardial infarction. 9. History of asthma. 10.History of bipolar schizophrenia. 11.History of nicotine dependence. 12.FULL CODE. 13.Obesity with body mass index 41.5. RECOMMENDATIONS AND DISCUSSION: This 39-year-old gentleman who presented with multiple medical issues, at this time I recommend to continue current medications, symptomatic treatment. Otherwise, I would add clonidine p.r.n. I would also recommend close monitor the renal functions, especially in the outpatient setting with Dr. Marcos. Otherwise, we will follow the patient closely with you. Thank you thank you Dr. Jay for letting us participate in the care of this patient. I recommend BMP tomorrow. Otherwise a copy of this dictation being forwarded to Dr. Marcos, who is the primary physician. MMODL / IJN: [id number] /
[2019-12-17] MEDS: LORazepam 1 MG TAB PO PRN (22:33)
[2019-12-17] MEDS: ACETAMINOPHEN TAB 325 MG TAB PO PRN (22:58)
[2019-12-18] MEDS: ACETAMINOPHEN TAB 325 MG TAB PO PRN (02:59)
[2019-12-18 08:00] LABS: Calcium 9.3 mg/dL (8.4-10.2); Potassium 4.7 mmol/L (3.5-5.1)
[2019-12-18] MEDS: LABETALOL 200 MG TAB PO SCH ×2 (09:30→20:58)
[2019-12-18] MEDS: ATORVASTATIN 40 MG TAB PO SCH (09:30)
[2019-12-18] MEDS: risperiDONE 1 MG TAB PO SCH ×2 (09:30→20:57)
[2019-12-18] MEDS: hydrALAZINE HCL 25 MG TAB PO SCH ×3 (09:30→20:58)
[2019-12-18] MEDS: LISINOPRIL-HCTZ 20-25 MG 1 EACH TAB PO SCH ×3 (09:30→20:58)
[2019-12-18] MEDS: ASPIRIN 81 MG PO SCH (09:30)
--- NOTE | 2019-12-18 12:19 | P.PN ---
Progress Note - Text Progress Note Date: 12/18/19 I reviewed the medical record, I did interview the patient and discussed his treatment and treatment plan during team meeting I reviewed medical consult TODAY VITALS: Pulse:88,R:18,BP:150/87 No behavioral issue and has been participating in groups Interim history:. patient is still demanding to be discharged ,when I tried to explain to him that he is on court order ,he replied "I am the autocutter ,I have the right to leave" ,talked about his visit with his mother and brother last evening saying "my mom was not confused and did listen to me",denies any sleeping problem ,still endorsing grandiose and presybeterian delusions Mental status exam:patient was casually dressed ,fair grooming ,good eyes contact ,hyperverbal ,no psychomotor agitation ,loose of association ,endorses auditory hallucination "God voice",delusional thinking as above,denies any suicidal or homicidal ideation ,limited insight to need for treatment as he kept asking to be discharged Assessment: Schizoaffective ,bipolar ,poor compliance with treatment Plan: Continue inpatient. Patient received 37.5 mg Risperdal Constant IM on 12/15 ,I will order another 12.5 mg IM today ,so total 50 mg IM ,continue oral Risperdal 3 mg BID Monitor his blood pressure. stockroom worker to coordinate discharge and aftercare. Encourage participation in therapeutic groups and activities. Evaluate clinical status and response to treatment daily basis.
[2019-12-18] MEDS: LORazepam 1 MG TAB PO PRN (21:24)
[2019-12-19] MEDS: ACETAMINOPHEN TAB 325 MG TAB PO PRN ×2 (05:35→19:57)
[2019-12-19] MEDS: hydrALAZINE HCL 25 MG TAB PO SCH ×3 (08:16→19:58)
[2019-12-19] MEDS: LISINOPRIL-HCTZ 20-25 MG 1 EACH TAB PO SCH ×2 (08:16→19:58)
[2019-12-19] MEDS: LABETALOL 200 MG TAB PO SCH ×2 (08:16→19:58)
[2019-12-19] MEDS: ASPIRIN 81 MG PO SCH (08:18)
[2019-12-19] MEDS: risperiDONE 1 MG TAB PO SCH ×2 (08:18→19:59)
[2019-12-19] MEDS: ATORVASTATIN 40 MG TAB PO SCH (08:18)
--- NOTE | 2019-12-19 12:28 | P.PN ---
Progress Note - Text Progress Note Date: 12/19/19 I reviewed the medical record, I did interview the patient and discussed his treatment and treatment plan during team meeting TODAY VITALS: Pulse:87,P:18,BP:155/81 No behavioral issue and has been participating in groups Interim history:. patient was standing in front of nursing station then he followed me for interview,he kept demanding to be discharged home ,however according to SW ,patient mother visited him and she is still feeling that patient is manic ,patient was easy to be redirected,he has been participating in groups,some grandiose comments but not religiously preoccupied He stated that he has been asking for Ativan at bed time because "My mind is racing at night ",discussed addiction potential of Ativan and patient verbalized understanding Mental status exam:patient was casually dressed ,fair grooming ,good eyes contact ,hyperverbal ,no psychomotor agitation ,denies any hallucination,grandiose delusion "I need to be discharged to start my own project ,I need to change the world " ,denies any suicidal or homicidal ideation ,limited insight to need for treatment as he kept asking to be discharged Assessment: Schizoaffective ,bipolar ,poor compliance with treatment Plan: Continue inpatient. He received Risperdal Const.50 mg IM yesterday,continue oral Risperdal 3 mg BID Monitor his blood pressure. Discontinue Ativan ,start Vistaril 50 mg HS for anxiety and sleep rigging worker to coordinate discharge and aftercare. Encourage participation in therapeutic g roups and activities. Evaluate clinical status and response to treatment daily basis.
[2019-12-19] MEDS: hydrOXYzine pamoate 25 MG CAP PO SCH (23:20)
[2019-12-20] MEDS: ASPIRIN 81 MG PO SCH (07:28)
[2019-12-20] MEDS: LISINOPRIL-HCTZ 20-25 MG 1 EACH TAB PO SCH ×2 (07:28→21:56)
[2019-12-20] MEDS: hydrALAZINE HCL 25 MG TAB PO SCH ×3 (07:28→21:33)
[2019-12-20] MEDS: LABETALOL 200 MG TAB PO SCH ×2 (07:28→21:33)
[2019-12-20] MEDS: ATORVASTATIN 40 MG TAB PO SCH (07:28)
[2019-12-20] MEDS: risperiDONE 1 MG TAB PO SCH ×2 (07:28→21:32)
--- NOTE | 2019-12-20 10:48 | P.PN ---
Progress Note - Text Progress Note Date: 12/20/19 Interval history: Patient was seen sleeping in his bed this morning and was directable and agre eable to speak with repairer typewriter. And offered no overnight complaints and states that he is doing fine today. Patient was preoccupied with discharge and asked several times if he can be released from the hospital. Patient states that he has rights and he feels they're being violated. He states that he was able to sleep throughout the night fine. He claims that his mood is "okay" and denied in depression or anxiety today. He states that he did go to groups yesterday however does not feel like going today. At this time patient denies any suicidal or homicidal ideations intent or plan. Denies any Auditory or visual hallucinations. Patient denies any side effects from the medications and has been compliant with meds. Mental status exam: General Appearance: Patient appears to be overweight, stated age is alert, directable, and attempts to be cooperative. Demanding at times Behavior: No agitated behavior. Patient is calm and directable amending at times Speech: Patient's speech is fluent and nonpressured. Mood/Affect: Mood is "fine", affect is congruent and constricted. Suicidality/Homicidality: Patient denies having any suicidal or homicidal ideation intent or plan. Perceptions: Patient denies any auditory or visual hallucinations. Though content/process: [place], logical, demanding discharge and preoccupied with it. Memory and concentration: AOX3, grossly intact for the purposes of this session Judgment and insight: improving mildly Assessment/Plan: Continue with current diagnosis. Patient continues to meet criteria for inpatient psychiatric admission for symptom stabilization and safety.Patient will be maintained on current psychotropic medication regimen. Monitor for medication compliance and for any psychotropic medication side effects. Will continue to monitor ongoing response to treatment. Encouraged participation in milieu.
[2019-12-20] MEDS: ACETAMINOPHEN TAB 325 MG TAB PO PRN (19:58)
[2019-12-20] MEDS: hydrOXYzine pamoate 25 MG CAP PO SCH (21:35)
[2019-12-21 07:24] VITALS: RESP 24
[2019-12-21] MEDS: ASPIRIN 81 MG PO SCH (07:49)
[2019-12-21] MEDS: LABETALOL 200 MG TAB PO SCH ×2 (07:49→20:31)
[2019-12-21] MEDS: risperiDONE 1 MG TAB PO SCH ×2 (07:49→20:31)
[2019-12-21] MEDS: hydrALAZINE HCL 25 MG TAB PO SCH ×3 (07:49→20:31)
[2019-12-21] MEDS: ATORVASTATIN 40 MG TAB PO SCH (07:49)
[2019-12-21] MEDS: LISINOPRIL-HCTZ 20-25 MG 1 EACH TAB PO SCH ×2 (07:49→20:31)
--- NOTE | 2019-12-21 09:29 | P.PN ---
Progress Note - Text Progress Note Date: 12/21/19 Interval history: Patient was seen sleeping in his bed this morning and was directable and agre eable to speak with script writer. Patient appeared to be tired this morning and appeared to offer no overnight complaints. He states that he is getting along with other people on the unit and and denies any problems with his medications at this point. He states that he has been trying to go to some groups in the afternoon. Patient continues to ask script writer about a discharge and if he can leave the hospital today. He states that he was able to sleep throughout the night fine. He claims that his mood is "ok" and denied in depression or anxiety today. At this time patient denies any suicidal or homicidal ideations intent or plan. Denies any Auditory or visual hallucinations. Patient denies any side effects from the medications and has been compliant with meds. Mental status exam: General Appearance: Patient appears to be overweight, stated age is alert, directable, and attempts to be cooperative. Behavior: No agitated behavior. Patient is calm and directable demanding at times Speech: Patient's speech is fluent and nonpressured. Mood/Affect: Mood is "ok", affect is congruent and constricted. Suicidality/Homicidality: Patient denies having any suicidal or homicidal ideation intent or plan. Perceptions: Patient denies any auditory or visual hallucinations. Though content/process: [place], logical, demanding discharge and preoccupied with it. Memory and concentration: AOX3, grossly intact for the purposes of this session Judgment and insight: improving mildly Assessment/Plan: Continue with current diagnosis. Patient continues to meet criteria for inpatient psychiatric admission for symptom stabilization and safety.Patient will be maintained on current psychotropic medication regimen. Monitor for medication compliance and for any psychotropic medication side effects. Will continue to monitor ongoing response to treatment. Encouraged participation in milieu.
[2019-12-21] MEDS: ACETAMINOPHEN TAB 325 MG TAB PO PRN ×3 (10:27→20:34)
[2019-12-21] MEDS ORDERED: NAPROXEN 250 MG TAB PO PRN (17:59)
[2019-12-21] MEDS: hydrOXYzine pamoate 25 MG CAP PO SCH (20:31)
[2019-12-22 03:11] VITALS: BP 157/71; PULSE 86; TEMP 98
[2019-12-22] MEDS: risperiDONE 1 MG TAB PO SCH (07:54)
[2019-12-22] MEDS: ASPIRIN 81 MG PO SCH (07:54)
[2019-12-22] MEDS: hydrALAZINE HCL 25 MG TAB PO SCH (07:55)
[2019-12-22] MEDS: LABETALOL 200 MG TAB PO SCH (07:55)
[2019-12-22] MEDS: ATORVASTATIN 40 MG TAB PO SCH (07:55)
[2019-12-22] MEDS: LISINOPRIL-HCTZ 20-25 MG 1 EACH TAB PO SCH (07:55)
[2019-12-22] MEDS: ACETAMINOPHEN TAB 325 MG TAB PO PRN (10:44)
--- NOTE | 2019-12-22 16:27 | DS ---
DISCHARGE SUMMARY DATE OF ADMISSION: 12/16/2019 DATE OF DISCHARGE: 12/22/2019 CONSULTING PHYSICIAN: Dr. Walter for H and P and medical followup. DISCHARGE DIAGNOSES: 1. Schizoaffective disorder, bipolar type. 2. Cannabis use disorder. HISTORY OF PRESENT ILLNESS: I saw the patient for initial evaluation on December 16. The patient was on court order for treatment until added May 2020. He was recently discharged from our unit on December 09 to follow up with [facility]; however, he did have an episode of anger at [facility] he claimed that the reason was "they didn't give him the right order." So, his mother decided to pursue another admission. According to him, he was taking the oral medication as he is supposed to be on oral risperidone 3 mg twice a day for 2 weeks as he did receive Risperdal constat 25 mg t 1 week prior to his discharge on December [address] Glynn. Patient was very hyperverbal, very confused, not easy to redirect. For complete H and P, please refer to my psych evaluation. HOSPITAL COURSE: Patient was admitted to the mental health unit. He was very labile at time not easy to redirect and he was started back on her oral Risperidone 3 mg twice a day, and he was seen on a regular basis by the hospitalist for his high blood pressure. Patient was participating in group therapy; however, initially he was very intrusive, he was agitated and we did have to set a boundary on his behavior. The patient did not require any PRN Geodon or any restrain during this admission . However, he did require oral Ativan a couple of times for sleep On December 17, I did order Risperdal Consta 50 mg IM to control his hypomanic behavior and we did see marked decrease in his agitation and irritability and euphoria. He was much easier to redirect. He was able to sleep between 4-6 hours at night. His blood pressure has been stabilized. We did discuss his treatment and it seemed that _most of staffs did agree _that patient has underlying personality disorder in addition to his mental illness ,patient was attention seeking ,consist ent irresponsibility,impulsive and does not have remorse to his acting out behavior ; however, we did need to be consistent with setting boundaries on his behavior. Mental status examination at the time of discharge, he presented casually. Obese, male who is pleasant on approach. He made good eye contact. He has bright facial expression. He is oriented to person, place, and time. There is no psychomotor agitation. No abnormal involuntary movements. Speech is spontaneous. He states he has very limited insight to his mental illness, but he denied any hallucination. He denied suicidal ideation or wishes and he denies any homicidal ideation. He did not express any idea of reference. He does not appear to be responding to any internal stimuli. He stated he did not agree about that he is on court order for treatment until next year and asking me if he can go to the zigzag topstitcher to talk to the zigzag topstitcher to change this. DISPOSITION: The patient will follow up with [facility]. Get discharge psychotropic medication including Risperdal 3 mg twice a day and Risperdal Consta and 50 mg IM every 2 weeks. His next injection is due December 30. I did discuss with him that he can discontinue the oral Risperdal after December 30. RECOMMENDATION: He has to follow up with his primary care physician regarding his high blood pressure. The patient has to avoid alcohol and marijuana and to take his medications as prescribed. DISCHARGE DISPOSITION: Patient will be discharged to his mother with followup appointment to [facility]. KIM / RODY: [id number] / JORGE
== END 2019-12-22 13:45 | disposition home or self-care (01) | DRG 885 ==
LOC: EC 11:30 → 3MHU 13:26
PROVIDERS: ADMIT Psychiatry & Neurology Psychiatry; ATTEND Psychiatry & Neurology Psychiatry
DX: F25.0 Schizoaffective disorder, bipolar type (principal); Z68.41 Body mass index [BMI] 40.0-44.9, adult; E66.9 Obesity, unspecified; E78.5 Hyperlipidemia, unspecified; F12.10 Cannabis abuse, uncomplicated; F17.210 Nicotine dependence, cigarettes, uncomplicated; F60.9 Personality disorder, unspecified; I12.9 Hypertensive chronic kidney disease with stage 1 through stage 4 chronic kidney disease, or unspecified chronic kidney disease; I25.2 Old myocardial infarction; I25.10 Atherosclerotic heart disease of native coronary artery without angina pectoris; J44.9 Chronic obstructive pulmonary disease, unspecified; N18.3 Chronic kidney disease, stage 3 (moderate); Z79.82 Long term (current) use of aspirin; Z82.49 Family history of ischemic heart disease and other diseases of the circulatory system; Z91.14 Patient's other noncompliance with medication regimen; Z91.19 Patient's noncompliance with other medical treatment and regimen; Z82.3 Family history of stroke; R45.1 Restlessness and agitation; Z79.899 Other long term (current) drug therapy
CPT/HCPCS: 80048; 80053; 82075; 85025; 96372; 99284

== ENCOUNTER 2019-12-31 14:41 | Emergency (ER) | payer OTHER ==
[2019-12-31 14:49] VITALS: PULSE 88; RESP 20; TEMP 99
[2019-12-31 15:02] VITALS: BP 134/84
--- NOTE | 2019-12-31 15:10 | ED ---
Recheck HPI - General Chief Complaint: Recheck/Abnormal Lab/Rx Stated Complaint: High BP Time Seen by Provider: 12/31/19 15:03 Source: patient, RN notes reviewed, old records reviewed Mode of arrival: ambulatory Limitations: no limitations - History of Present Illness Initial Comments: Is a 39-year-old male DF for evaluation of possibly elevated blood pressure. Patient was at [facility] earlier in the day seen and evaluated found to have high blood pressure and sent DF for evaluation. He has no pain no complaints of shortness of breath placed in medications MD Complaint: other (Abnormal blood pressure) -: unknown Returns Today for: other (Abnormal blood pressure) Symptoms Since Prior Visit: no new symptoms Context: planned re-check Associated Symptoms: none - Related Data Home Medications Medication Instructions Recorded Confirmed Lisinopril-Hctz 20-25 mg 1 tab PO BID 12/15/19 12/16/19 [Zestoretic 20-25] Previous Rx's Medication Instructions Recorded Atorvastatin [Lipitor] 40 mg PO DAILY #30 tab 02/26/15 Aspirin 81 mg PO DAILY #30 chew 12/10/19 Labetalol [Trandate] 200 mg PO BID #60 tab 12/10/19 hydrALAZINE HCL [Apresoline] 10 mg PO BID #60 tab 12/10/19 risperiDONE [RisperDAL] 3 mg PO BID #60 tab 12/10/19 risperiDONE MICROSPHERES 50 mg IM [id number] 14 Days syringe 12/22/19 [RisperDAL CONSTA] Allergies Allergy/AdvReac Type Severity Reaction Status Date / Time No Known Allergies Allergy Verified 12/31/19 14:49 Review of Systems ROS Statement: Those systems with pertinent positive or pertinent negative responses have been documented in the HPI. ROS Other: All systems not noted in ROS Statement are negative. Past Medical History Past Medical History: Coronary Artery Disease (CAD), COPD, Hyperlipidemia, Hypertension, Myocardial Infarction (ME) Additional Past Medical History / Comment(s): ME in 2008, asthma, stress test Last Myocardial Infarction Date:: 2008 History of Any Multi-Drug Resistant Organisms: None Reported Past Surgical History: Heart Catheterization With Stent Past Anesthesia/Blood Transfusion Reactions: No Reported Reaction Date of Last Stent Placement:: 2008 Past Psychological History: Bipolar, Schizophrenia Smoking Status: Current every day smoker Past Alcohol Use History: Occasional Past Drug Use History: Marijuana - Past Family History Father Family Medical History: CVA/TIA, Myocardial Infarction (ME) Additional Family Medical History / Comment(s): Father had a ME at age 29yrs. at age 38 after open heart Mother Family Medical History: No Reported History Additional Family Medical History / Comment(s): Mother is healthy General Exam Limitations: no limitations General appearance: alert, in no apparent distress Head exam: Present: atraumatic, normocephalic, normal inspection Eye exam: Present: normal appearance, PERRL, EOMI. Absent: scleral icterus, conjunctival injection, periorbital swelling ENT exam: Present: normal exam, mucous membranes moist Neck exam: Present: normal inspection. Absent: tenderness, meningismus, lymphadenopathy Respiratory exam: Present: normal lung sounds bilaterally. Absent: respiratory distress, wheezes, rales, rhonchi, stridor Cardiovascular Exam: Present: regular rate, normal rhythm, normal heart sounds. Absent: systolic murmur, diastolic murmur, rubs, gallop, clicks GI/Abdominal exam: Present: soft, normal bowel sounds. Absent: distended, tenderness, guarding, rebound, rigid Extremities exam: Present: normal inspection, full ROM, normal capillary refill. Absent: tenderness, pedal edema, joint swelling, calf tenderness Back exam: Present: normal inspection Neurological exam: Present: alert, oriented X3, CN II-XII intact Psychiatric exam: Present: normal affect, normal mood Skin exam: Present: warm, dry, intact, normal color. Absent: rash Course Vital Signs 12/31/19 12/31/19 14:47 15:01 Temperature 99.0 F Pulse Rate 88 Respiratory 20 Rate Blood Pressure 156/97 134/84 O2 Sat by Pulse 99 Oximetry - Reevaluation(s) Reevaluation #1: Medical records reviewed Patient reevaluated with symptoms significantly improved Spoke with patient regarding results, questions answered Patient feels good for discharge home Medical Decision Making - Medical Decision Making 39 male to the ER for evaluation psychiatric illness patient seen in however psychiatry, patient will be discharged home blood pressure was not high Disposition Clinical Impression: Hypertension Disposition: HOME SELF-CARE Condition: Good Instructions (If sedation given, give patient instructions): Hypertension (ED) Is patient prescribed a controlled substance at d/c from ED?: No Referrals: Mohini Uribe MD [Primary Care Provider] - 1-2 days
== END 2019-12-31 15:10 | disposition home or self-care (01) ==
LOC: EC 14:41
DX: I10 Essential (primary) hypertension (principal); I25.2 Old myocardial infarction; I25.10 Atherosclerotic heart disease of native coronary artery without angina pectoris; F17.200 Nicotine dependence, unspecified, uncomplicated; Z79.899 Other long term (current) drug therapy; Z95.5 Presence of coronary angioplasty implant and graft
CPT/HCPCS: 99283

== ENCOUNTER 2020-01-02 17:39 | Inpatient (IN) | payer MEDICAID, OTHER ==
--- NOTE | 2020-01-02 18:20 | ED ---
General Adult HPI - General Chief complaint: Psychiatric Symptoms Stated complaint: pickup order Time Seen by Provider: 01/02/20 17:46 Source: patient, RN notes reviewed, old records reviewed Mode of arrival: ambulatory Limitations: no limitations - History of Present Illness Initial comments: 39 -year-old male presenting for psychiatric evaluation. Patient was brought in under court order police steel pickler. Stating he has not been on his medication and has been delusional. Patient is cooperative, no physical complaints, no suicidal or homicidal ideation. According to the petition the patient believes he will not . He believes that God is in control of his blood pressure. - Related Data Home Medications Medication Instructions Recorded Confirmed Lisinopril-Hctz 20-25 mg 25 tab PO BID 12/15/19 01/02/20 [Zestoretic 20-25] Previous Rx's Medication Instructions Recorded Atorvastatin [Lipitor] 40 mg PO DAILY #30 tab 02/26/15 Aspirin 81 mg PO DAILY #30 chew 12/10/19 Labetalol [Trandate] 200 mg PO BID #60 tab 12/10/19 hydrALAZINE HCL [Apresoline] 10 mg PO BID #60 tab 12/10/19 risperiDONE [RisperDAL] 3 mg PO BID #60 tab 12/10/19 risperiDONE MICROSPHERES 50 mg IM [id number] 14 Days syringe 12/22/19 [RisperDAL CONSTA] Allergies Allergy/AdvReac Type Severity Reaction Status Date / Time No Known Allergies Allergy Verified 01/02/20 17:51 Review of Systems ROS Statement: Those systems with pertinent positive or pertinent negative responses have been documented in the HPI. ROS Other: All systems not noted in ROS Statement are negative. Past Medical History Past Medical History: Coronary Artery Disease (CAD), COPD, Hyperlipidemia, Hypertension, Myocardial Infarction (MS) Additional Past Medical History / Comment(s): MS in 2008, asthma, stress test Last Myocardial Infarction Date:: 2008 History of Any Multi-Drug Resistant Organisms: None Reported Past Surgical History: Heart Catheterization With Stent Past Anesthesia/Blood Transfusion Reactions: No Reported Reaction Date of Last Stent Placement:: 2008 Past Psychological History: Bipolar, Schizophrenia Smoking Status: Current every day smoker Past Alcohol Use History: Occasional Past Drug Use History: Marijuana - Past Family History Father Family Medical History: CVA/TIA, Myocardial Infarction (MS) Additional Family Medical History / Comment(s): Father had a MS at age 29yrs. at age 38 after open heart Mother Family Medical History: No Reported History Additional Family Medical History / Comment(s): Mother is healthy General Exam Limitations: no limitations General appearance: alert Head exam: Present: atraumatic, normocephalic Eye exam: Present: normal appearance, PERRL ENT exam: Present: normal exam Neck exam: Present: normal inspection. Absent: tenderness, meningismus Respiratory exam: Present: normal lung sounds bilaterally. Absent: respiratory distress, wheezes Cardiovascular Exam: Present: regular rate, normal rhythm GI/Abdominal exam: Present: soft. Absent: distended, tenderness, guarding Extremities exam: Present: normal inspection, normal capillary refill. Absent: pedal edema, calf tenderness Neurological exam: Present: alert, oriented X3, CN II-XII intact. Absent: motor sensory deficit Psychiatric exam: Present: flat affect. Absent: suicidal ideation Skin exam: Present: warm, dry, intact Course Vital Signs 01/02/20 01/02/20 17:49 19:22 Temperature 98.5 F Pulse Rate 105 H Respiratory 20 Rate Blood Pressure 234/150 207/125 O2 Sat by Pulse 96 Oximetry Medical Decision Making - Medical Decision Making 39-year-old male who was brought in under police were pickup has been evaluated by EPS and will be admitted to this institution for medical noncompliance and for further psychiatric evaluation and treatment. - Lab Data Lab Results 01/02/20 Range/Units 18:14 Urine Opiates Screen Not Detected (NotDetected) Ur Oxycodone Screen Not Detected (NotDetected) Urine Methadone Screen Not Detected (NotDetected) Ur Propoxyphene Screen Not Detected (NotDetected) Ur Barbiturates Screen Not Detected (NotDetected) U Tricyclic Antidepress Not Detected (NotDetected) Ur Phencyclidine Scrn Not Detected (NotDetected) Ur Amphetamines Screen Not Detected (NotDetected) U Methamphetamines Scrn Not Detected (NotDetected) U Benzodiazepines Scrn Not Detected (NotDetected) Urine Cocaine Screen Not Detected (NotDetected) U Marijuana (THC) Screen Detected H (NotDetected) Disposition Clinical Impression: Hypertension, Schizoaffective disorder, bipolar type, Acute psychosis Disposition: ADMITTED IP TO THIS HOSP Condition: Stable Is patient prescribed a controlled substance at d/c from ED?: No Referrals: Mohini Uribe MD [Primary Care Provider] - 1-2 days Decision to Admit Reason: Admit from EC Decision Date: 01/02/20 Decision Time: 19:46
[2020-01-02 18:39] LABS: Amphetamine Screen,Urine Not Detected (NotDetected); Barbiturate Screen,Urine Not Detected (NotDetected); Benzodiazepines Screen,Urine Not Detected (NotDetected); Cocaine Screen,Urine Not Detected (NotDetected); Methadone Screen, Urine Not Detected (NotDetected); Opiate Screen,Urine Not Detected (NotDetected); Oxycodone Screen, Urine Not Detected (NotDetected); Phencyclidine Screen,Urine Not Detected (NotDetected); Tricyclic Antidepressant,Urine Not Detected (NotDetected); Urn Cannabinoid Scrn Detected (NotDetected)
[2020-01-02] MEDS ORDERED: LORazepam 1 MG TAB PO STA (20:08)
[2020-01-02] MEDS ORDERED: hydrALAZINE HCL 10 MG TAB PO SCH (21:00)
[2020-01-02] MEDS ORDERED: LABETALOL 200 MG TAB PO SCH (21:00)
[2020-01-02] MEDS: LISINOPRIL-HCTZ 20-25 MG 1 EACH TAB PO SCH (21:17)
[2020-01-02] MEDS: risperiDONE 1 MG TAB PO SCH (21:17)
[2020-01-02] MEDS ORDERED: LORazepam 1 MG TAB PO PRN (21:43)
[2020-01-02] MEDS ORDERED: LORazepam 2 MG/ML INJ IM PRN (21:48)
[2020-01-02] MEDS ORDERED: ZIPRASIDONE 20 MG VIAL IM PRN (23:00)
[2020-01-03] MEDS: hydrALAZINE HCL 10 MG TAB PO SCH ×2 (06:47→20:38)
[2020-01-03] MEDS: LISINOPRIL-HCTZ 20-25 MG 1 EACH TAB PO SCH ×2 (06:47→20:37)
[2020-01-03] MEDS: LABETALOL 200 MG TAB PO SCH ×2 (06:47→20:38)
[2020-01-03 08:25] LABS: Basophils # (A) 0.1 k/uL (0-0.2); Basophils % (A) 1 %; Eosinophils # (A) 0.9 k/uL (0-0.7); Eosinophils % (A) 7 %; HCT 48.2 % (39.0-53.0); HGB 15.5 gm/dL (13.0-17.5); Lymphocytes % (A) 15 %; MCH 28.9 pg (25.0-35.0); MCHC 32.2 g/dL (31.0-37.0); Monocytes # (A) 0.8 k/uL (0-1.0); Monocytes % (A) 6 %; Neutrophils # (A) 9.5 k/uL (1.3-7.7); Neutrophils % (A) 70 %; Platelet Count 319 k/uL (150-450); RBC 5.35 m/uL (4.30-5.90); RDW 14.7 % (11.5-15.5); WBC 13.5 k/uL (3.8-10.6)
[2020-01-03 08:36] LABS: Albumin 4.1 g/dL (3.5-5.0); Calcium 9.4 mg/dL (8.4-10.2); Potassium 4.7 mmol/L (3.5-5.1); Total Bilirubin 0.4 mg/dL (0.2-1.3); Total Protein 6.9 g/dL (6.3-8.2)
[2020-01-03] MEDS: ATORVASTATIN 40 MG TAB PO SCH (09:38)
[2020-01-03] MEDS: risperiDONE 1 MG TAB PO SCH ×3 (09:38→20:36)
[2020-01-03] MEDS: ASPIRIN 81 MG PO SCH (09:38)
--- NOTE | 2020-01-03 10:31 | P.HP ---
Psychiatric H&P - . H&P Date: 01/03/20 History & Physical: Allergies Allergy/AdvReac Type Severity Reaction Status Date / Time No Known Allergies Allergy Verified 01/03/20 00:17 Vital Signs Temp 97.9 F 01/02/20 22:10 Pulse 84 01/03/20 09:40 Resp 18 01/03/20 06:39 BP 145/75 01/03/20 09:40 Pulse Ox 97 01/02/20 22:10 Intake & Output 01/02/20 01/03/20 01/03/20 18:59 06:59 18:59 Weight 133.81 kg 135.31 kg Laboratory Last Values WBC 13.5 k/uL (3.8-10.6) H 01/03/20 07:56 RBC 5.35 m/uL (4.30-5.90) 01/03/20 07:56 Hgb 15.5 gm/dL (13.0-17.5) 01/03/20 07:56 Hct 48.2 % (39.0-53.0) 01/03/20 07:56 MCV 90.0 fL (80.0-100.0) 01/03/20 07:56 MCH 28.9 pg (25.0-35.0) 01/03/20 07:56 MCHC 32.2 g/dL (31.0-37.0) 01/03/20 07:56 RDW 14.7 % (11.5-15.5) 01/03/20 07:56 Plt Count 319 k/uL (150-450) 01/03/20 07:56 Neutrophils % 70 % 01/03/20 07:56 Lymphocytes % 15 % 01/03/20 07:56 Monocytes % 6 % 01/03/20 07:56 Eosinophils % 7 % 01/03/20 07:56 Basophils % 1 % 01/03/20 07:56 Neutrophils # 9.5 k/uL (1.3-7.7) H 01/03/20 07:56 Lymphocytes # 2.0 k/uL (1.0-4.8) 01/03/20 07:56 Monocytes # 0.8 k/uL (0-1.0) 01/03/20 07:56 Eosinophils # 0.9 k/uL (0-0.7) H 01/03/20 07:56 Basophils # 0.1 k/uL (0-0.2) 01/03/20 07:56 Sodium 138 mmol/L (137-145) 01/03/20 07:56 Potassium 4.7 mmol/L (3.5-5.1) 01/03/20 07:56 Chloride 101 mmol/L (98-107) 01/03/20 07:56 Carbon Dioxide 29 mmol/L (22-30) 01/03/20 07:56 Anion Gap 8 mmol/L 01/03/20 07:56 BUN 24 mg/dL (9-20) H 01/03/20 07:56 Creatinine 1.37 mg/dL (0.66-1.25) H 01/03/20 07:56 Est GFR (CKD-EPI)AfAm 74 (>60 ml/min/1.73 sqM) 01/03/20 07:56 Est GFR (CKD-EPI)NonAf 64 (>60 ml/min/1.73 sqM) 01/03/20 07:56 Glucose 103 mg/dL (74-99) H 01/03/20 07:56 Calcium 9.4 mg/dL (8.4-10.2) 01/03/20 07:56 Total Bilirubin 0.4 mg/dL (0.2-1.3) 01/03/20 07:56 AST 33 U/L (17-59) 01/03/20 07:56 ALT 29 U/L (4-49) 01/03/20 07:56 Alkaline Phosphatase 76 U/L (38-126) 01/03/20 07:56 Total Protein 6.9 g/dL (6.3-8.2) 01/03/20 07:56 Albumin 4.1 g/dL (3.5-5.0) 01/03/20 07:56 Triglycerides 109 mg/dL (<150) 01/03/20 07:56 Cholesterol 233 mg/dL (<200) H 01/03/20 07:56 LDL Cholesterol, Calc 167 mg/dL (0-99) H 01/03/20 07:56 HDL Cholesterol 44 mg/dL (40-60) 01/03/20 07:56 TSH 0.972 mIU/L (0.465-4.680) 01/03/20 07:56 Urine Opiates Screen Not Detected (NotDetected) 01/02/20 18:14 Ur Oxycodone Screen Not Detected (NotDetected) 01/02/20 18:14 Urine Methadone Screen Not Detected (NotDetected) 01/02/20 18:14 Ur Propoxyphene Screen Not Detected (NotDetected) 01/02/20 18:14 Ur Barbiturates Screen Not Detected (NotDetected) 01/02/20 18:14 U Tricyclic Antidepress Not Detected (NotDetected) 01/02/20 18:14 Ur Phencyclidine Scrn Not Detected (NotDetected) 01/02/20 18:14 Ur Amphetamines Screen Not Detected (NotDetected) 01/02/20 18:14 U Methamphetamines Scrn Not Detected (NotDetected) 01/02/20 18:14 U Benzodiazepines Scrn Not Detected (NotDetected) 01/02/20 18:14 Urine Cocaine Screen Not Detected (NotDetected) 01/02/20 18:14 U Marijuana (THC) Screen Detected (NotDetected) H 01/02/20 18:14 01/03/20 10:14 Psychiatric history and assessment: IDENTIFYING DATA: He is a 39-year-old male who has a history of a chronic of persistent mental illness. He presented to the psychiatric unit involuntarily because he is refusing to take his prescribed medications. HISTORY OF PRESENT ILLNESS: I reviewed the medical records and attempted to interview the patient. The patient was just discharged from the psychiatric unit on 12/21/2019 He was guarded, paranoid and suspicious. He refused to answer many questions. I felt somewhat anxious about being with him in a room because he gets angry so he seems few don't immediately agree that he is not d elusional and needs to be discharged. The patient says he is here because he is superior to everyone else and that is always been the reason for his admission. They don't understand his brilliance and what he is doing so they put him in the hospital. He says that he just 1 $650 million on [employer]. And that he wants to do good in the world with this money. He says he must release him immediately because he has people coming into town to help him create a [employer]. He is going to buy an abandoned [employer] and turn it into a youth Center. He is going to buy a titus for his son and get his friend new teeth. 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 When asked him a insurance producer of what he said everything. So I said what he mean everything's patient's he said yes in fact I have a power invert her coming from the [place] that I will attach to this patient they're making me. He says simple you just screw it on. He denied feeling depressed or having thoughts of or suicide. He denied the need for this hospitalization, denied that he is mental illness and denied that he requires treatment with psychotropic medications. PAST PSYCHIATRIC HISTORY: This is approximately the ninth admission to this psychiatric unit. His discharge diagnosis was schizoaffective disorder bipolar type, cannabis abuse, benzodiazepine abuse and nicotine dependence. Past medications included Abilify 20 mg daily for 14 days and Abilify maintaining a 400 mg IM monthly. He was also prescribed Risperdal Consta but only took risperidone oral. PAST MEDICAL HISTORY: He told me that his medical history isn't my business. According to medical record he has history of coronary artery disease, COPD and hypertension. "All lies they all lie" ALLERGIES: NO KNOWN DRUG ALLERGIES SUBSTANCE USE HISTORY: He would not answer questions about his substance abuse history. His UDS was positive only for marijuana. According to record he has a history of cannabis and alcohol use. He smokes about one half pack of cigarettes per day. FAMILY PSYCHIATRIC/SUBSTANCE USE HISTORY: "None of your business." LEGAL HISTORY: He denied that he is on probation, parole or has pending charges. SOCIAL HISTORY: His born and raised in [facility]. His expelled from school in the ninth grade. (He claims this is a lie that he made it into ninth grade, and does not want to tell me why he quit) he is the second of 3 children born to his parents as an older sister and a younger brother. He says his father when he was 19 of a heart attack but is alive again and fixes more cycles. He says he is for a long time can not tell me for how long and says he has 2 children a daughter 18 who just graduated from high school wants to become a nurse and a 16-year-old son. He denies any history says he lives in a house with his mother and brother. Is currently unemployed and receives Social Security disability. He alleged that he is and has 2 children who live with her mother. MENTAL STATUS EXAM: He presented as a tall mildly obese male dressed in a hospital gown. He made eye contact and appeared to attend to the interv iew. He had no prominent physical abnormalities. He had a defiant facial expression. He said, "they told me that you could let me about so let me out I'm fine I'm telling you". He seemed to be unable to understand that I would need to talk to them and observe him and not just take his word for it. He was alert and oriented to person, place and time. He showed no abnormality of psychomotor activity. His speech was spontaneous with normal rate and rhythm. He was guarded, suspicious and paranoid. "You're starting to piss me off" His paranoia was at times inappropriate and interfered with the interview. He denied suicidal ideation or wishes. He denied homicidal ideation. He did not express depressive cognitions such as hopelessness, helplessness or worthlessness. He also described auditory hallucinations but did not appear to be responding to internal stimuli during the interview. Global impression of intellect is average. He has limited awareness or understanding of his illness and need for treatment. He could remember 3 of 3 objects after 3 minutes he could name the presidents [place]carol[place] and Obama then said I'm just don't care, he can name all of the [place], cats and snakes have nothing in common than he thought for a while and said they have eyes in tongues but could think of nothing else, he could spell world backward, and he in subtracting 7 from 93 derived 85. But he thought all these questions were stupid why don't I just let him out. STRENGTHS: Stable housing, stable income, engagement with community mental health services, supportive family WEAKNESSES: Chronic and persistent mental illness, poor compliance with psychiatric treatment IMPRESSION:. He is a 39-year-old male with history of a chronic and persistent psychiatric illness diagnosed as a schizoaffective disorder. He presents unit involuntarily. He has a history of auditory hallucinations and currently evidences grandiose and paranoid delusional beliefs. He is markedly paranoid, guarded and suspicious. There is no evidence of substance abuse issues causing the presenting psychosis. He should be treated on an inpatient basis with combination of psychopharmacology and multimodal therapy. PRINCIPLE DIAGNOSIS: Schizoaffective disorder bipolar type, poor compliance with treatment, cannabis use disorder, alcohol use disorder, tobacco use disorder RECOMMENDATION: Admitted to the psychiatric unit. Proceed with involuntary hospitalization. Safety precautions. Consult medicine to perform a physical exam and medical history. Encourage participation in therapeutic groups and activities. Obtain collateral information from family. Evaluate clinical status response to treatment daily basis. 01/03/20 10:29
--- NOTE | 2020-01-03 17:52 | P.CONS ---
History of Present Illness - History of Present Illness This is a pleasant 39 years male with past medical history of hypertension, hyperlipidemia, COPD, coronary artery disease status post stent placement. Presents with signs symptoms of schizoaffective disorders with auditory hallucination and filling grandiose. He was admitted to the mental health unit. Medical consult was requested for medical management. Patient was seen lying in bed looks down and depressed, he is starting in the low voice, he denies any physical complaints, no chest pain or dyspnea, no abdominal pain, known nausea vomiting and is tolerating diet well. No change in urine or bowel habits. No fever. Vitas looks stable, however her blood pressure on the high side, His blood pressure was 146/89 and went up to 175/101, and then down to 145/75 He is currently on hydralazine 10 mg twice daily, labetalol 200 mg twice daily, he is on combination of lisinopril-hydrochlorothiazide 20-25 mg twice a day He smokes about half pack per day, denies alcohol or illicit drugs Review of Systems CONSTITUTIONAL: No fever, no malaise, no fatigue. HEENT: No recent visual problems or hearing problems. Denied any sore throat. CARDIOVASCULAR: No orthopnea, PND, no palpitations, no syncope. PULMONARY: No shortness of breath, no cough, no hemoptysis. GASTROINTESTINAL: No diarrhea, no nausea, no vomiting, no abdominal pain. Normoactive bowel sounds. NEUROLOGICAL: No headaches, no weakness, no numbness. HEMATOLOGICAL: Denies any bleeding or petechiae. GENITOURINARY: Denies any burning micturition, frequency, or urgency. MUSCULOSKELETAL/RHEUMATOLOGICAL: Denies any joint pain, swelling, or any muscle pain. ENDOCRINE: Denies any polyuria or polydipsia. Past Medical History Past Medical History: Coronary Artery Disease (CAD), COPD, Hyperlipidemia, Hypertension, Myocardial Infarction (WA) Additional Past Medical History / Comment(s): [place] in 2008, asthma, stress test Last Myocardial Infarction Date:: 2008 History of Any Multi-Drug Resistant Organisms: None Reported Past Surgical History: Heart Catheterization With Stent Past Anesthesia/Blood Transfusion Reactions: No Reported Reaction Date of Last Stent Placement:: 2008 Smoking Status: Current every day smoker - Past Family History Father Family Medical History: CVA/TIA, Myocardial Infarction (WA) Additional Family Medical History / Comment(s): Father had a [place] at age 29yrs. at age 38 after open heart Mother Family Medical History: No Reported History Additional Family Medical History / Comment(s): Mother is healthy Medications and Allergies Home Medications Medication Instructions Recorded Confirmed Type Aspirin 81 mg PO DAILY #30 chew 12/10/19 01/02/20 Rx Labetalol [Trandate] 200 mg PO BID #60 tab 12/10/19 01/02/20 Rx hydrALAZINE HCL [Apresoline] 10 mg PO BID #60 tab 12/10/19 01/02/20 Rx Lisinopril-Hctz 20-25 mg 25 tab PO BID 12/15/19 01/02/20 History [Zestoretic 20-25] risperiDONE MICROSPHERES 50 mg IM [id number] 14 Days syringe 12/22/19 01/02/20 Rx [RisperDAL CONSTA] risperiDONE 3 mg PO BID 01/02/20 01/02/20 History Allergies Allergy/AdvReac Type Severity Reaction Status Date / Time No Known Allergies Allergy Verified 01/03/20 00:17 Physical Exam Vitals: Vital Signs Temp Pulse Pulse Resp BP BP BP 01/03/20 09:40 84 145/75 01/03/20 06:39 92 18 179/101 01/02/20 22:10 97.9 F 80 18 146/89 01/02/20 22:02 83 16 144/100 01/02/20 21:14 83 18 149/77 01/02/20 20:47 85 18 168/108 01/02/20 20:00 94 16 186/109 01/02/20 19:22 207/125 01/02/20 17:49 98.5 F 105 H 20 234/150 Pulse Ox 01/03/20 09:40 01/03/20 06:39 01/02/20 22:10 97 01/02/20 22:02 97 01/02/20 21:14 96 01/02/20 20:47 97 01/02/20 20:00 96 01/02/20 19:22 01/02/20 17:49 96 Intake and Output 01/03/20 01/03/20 01/03/20 06:59 14:59 22:59 Other: Weight 135.31 kg GENERAL: The patient is alert and oriented x3, not in any acute distress. Well developed, well nourished. HEENT: Pupils are round and equally reacting to light. EOMI. No scleral icterus. No conjunctival pallor. Normocephalic, atraumatic. No pharyngeal erythema. No thyromegaly. CARDIOVASCULAR: S1 and S2 present. No murmurs, rubs, or gallops. PULMONARY: Chest is clear to auscultation, no wheezing or crackles. ABDOMEN: Soft, nontender, nondistended, normoactive bowel sounds. No palpable organomegaly. MUSCULOSKELETAL: No joint swelling or deformity. EXTREMITIES: No cyanosis, clubbing, or pedal edema. NEUROLOGICAL: Gross neurological examination did not reveal any focal deficits. SKIN: No rashes. No petechiae Results CBC & Chem 7: 01/03/20 07:56 01/03/20 07:56 Labs: Abnormal Lab Results - Last 24 Hours (Table) 01/02/20 01/03/20 01/03/20 Range/Units 18:14 07:56 07:56 WBC 13.5 H (3.8-10.6) k/uL Neutrophils # 9.5 H (1.3-7.7) k/uL Eosinophils # 0.9 H (0-0.7) k/uL BUN 24 H (9-20) mg/dL Creatinine 1.37 H (0.66-1.25) mg/dL Glucose 103 H (74-99) mg/dL Cholesterol 233 H (<200) mg/dL LDL Cholesterol, Calc 167 H (0-99) mg/dL U Marijuana (THC) Screen Detected H (NotDetected) Assessment and Plan Assessment: -Hypertension, continue with same medications -Hyperlipidemia: Continue with same medications -Leukocytosis: Mostly reactive -Chronic kidney disease, stage III, creatinine 1.3 close to baseline 1.2-1.3 -Schezoaffective disorder and other psychiatric's, management as per [facility] primary team -COPD, not in active tissue -Nicotine dependence, patient consult and he does not want to quit -History of coronary artery disease status post stent placement DVT prophylaxis: Not need We recommend patient follow up with his primary care doctor within 1 week after discharge, patient was instructed with the same Thank you for consulting us, we will see the patient on as needed basis, please feel free to contact us for any further question or clarification.
[2020-01-04] MEDS: LABETALOL 200 MG TAB PO SCH ×2 (06:05→21:56)
[2020-01-04] MEDS: hydrALAZINE HCL 10 MG TAB PO SCH ×2 (06:05→21:56)
[2020-01-04 08:05] LABS: Basophils # (A) 0.1 k/uL (0-0.2); Basophils % (A) 1 %; Eosinophils # (A) 0.9 k/uL (0-0.7); Eosinophils % (A) 6 %; HCT 49.2 % (39.0-53.0); HGB 15.9 gm/dL (13.0-17.5); Lymphocytes # (A) 2.1 k/uL (1.0-4.8); Lymphocytes % (A) 15 %; MCHC 32.3 g/dL (31.0-37.0); MCV 89.8 fL (80.0-100.0); Mean Platelet Volume 7.4; Monocytes # (A) 0.7 k/uL (0-1.0); Monocytes % (A) 5 %; Neutrophils % (A) 72 %; Platelet Count 334 k/uL (150-450); RBC 5.48 m/uL (4.30-5.90); RDW 14.6 % (11.5-15.5); WBC 13.9 k/uL (3.8-10.6)
[2020-01-04 08:07] LABS: Calcium 9.5 mg/dL (8.4-10.2); Potassium 4.6 mmol/L (3.5-5.1)
--- NOTE | 2020-01-04 08:48 | P.PN ---
Subjective Progress Note Date: 01/04/20 Principal diagnosis: Schizoaffective disorder bipolar type Cannabis abuse Alcohol use disorder Tobacco use disorder Subjective: "someone to the runaround again "there is nothing wrong with me, I do have $650 million and why should I tell people about it? Patient said he slept well appetite is well there is nothing wrong with him wide-awake just send him home? Objective: Patient did have a physical exam which noted his problems with high blood pressure hyperlipidemia leukocytosis considers to be mostly reactive chronic kidney disease stage III inactive COPD. Labs: Hematology White counts up a little bit as the neutrophils however he is not having any symptoms relevant to infection he is not coughing denies any discomfort with urination no diarrhea says he is breathing fine creatinine is up due to the kidney disease and his urine is positive for marijuana Patient does not think there is anything wrong with him a gets irritated easy so he is not going to groups Staff assessment of the patient is isolating in his room he will talk to staff on approach saying he is fine doesn't understand why he is here guarded and vague adequate hygiene wearing his street clothes denies any hallucinations or delusions or suicidality or homicidality Medications: The patient did not require when necessary's he takes 3 mg of risperidone orally twice a day and then he gets Risperdal Consta 50 mg every 2 weeks Assessment the patient has fixed delusions does not seem to be forming any new delusions about people in the hospital and swears he was taking his medication Plan he's got good medication if he wasn't taking it then he just needs to take it if he was taking we may need to consider increasing no changes at this time we do see how he does in the hospital on a regular regimen Objective - Vital Signs Vital signs: Vital Signs Temp 97.8 F 01/04/20 06:00 Pulse 80 01/04/20 07:00 Resp 14 01/04/20 06:00 BP 163/90 01/04/20 07:00 Pulse Ox 95 01/03/20 20:33 - Labs CBC & Chem 7: 01/04/20 07:32 01/04/20 07:32 Labs: Abnormal Lab Results - Last 24 Hours (Table) 01/04/20 01/04/20 Range/Units 07:32 07:32 WBC 13.9 H (3.8-10.6) k/uL Neutrophils # 10.0 H (1.3-7.7) k/uL Eosinophils # 0.9 H (0-0.7) k/uL BUN 22 H (9-20) mg/dL Creatinine 1.34 H (0.66-1.25) mg/dL Glucose 103 H (74-99) mg/dL
[2020-01-04] MEDS: ASPIRIN 81 MG PO SCH (09:12)
[2020-01-04] MEDS: ATORVASTATIN 40 MG TAB PO SCH (09:12)
[2020-01-04] MEDS: LISINOPRIL-HCTZ 20-25 MG 1 EACH TAB PO SCH ×2 (09:12→21:55)
[2020-01-04] MEDS: risperiDONE 1 MG TAB PO SCH ×2 (09:12→21:57)
[2020-01-05 06:19] VITALS: RESP 18; TEMP 97.8
[2020-01-05] MEDS: ASPIRIN 81 MG PO SCH (08:51)
[2020-01-05] MEDS: LISINOPRIL-HCTZ 20-25 MG 1 EACH TAB PO SCH (08:52)
[2020-01-05] MEDS: hydrALAZINE HCL 10 MG TAB PO SCH (08:52)
[2020-01-05] MEDS: risperiDONE 1 MG TAB PO SCH (08:52)
[2020-01-05] MEDS: LABETALOL 200 MG TAB PO SCH (08:52)
[2020-01-05] MEDS: ATORVASTATIN 40 MG TAB PO SCH (08:52)
[2020-01-05 08:55] VITALS: BP 134/79; PULSE 98
--- NOTE | 2020-01-05 16:51 | DS ---
DISCHARGE SUMMARY DATE OF ADMISSION: 01/02/2020 DATE OF DISCHARGE: 01/05/2020. VERIFYING SPECIALIST: Martinez Sellers M.D. for H&P and medical management. REASON FOR HOSPITALIZATION: Please refer to Dr. Dinero's psych evaluation. The patient was recently under my care until December 20, and he was discharged on Risperdal Consta 50 mg every 2 weeks. He just received his injection and his next injection is due on January 13. The patient stated that he was picked up by the police, as they assume that he does not take his blood pressure medication. However, he said, "I just forgot one day, but I have been taking all my medication every day since I left the hospital." The patient has underlying grandiose delusions, but it seems this is his basic level. HOSPITAL COURSE: The patient was admitted and he did have a complete history and physical examination. Abnormal lab: Urine drug screen was positive for marijuana. White blood cells 13.9, BUN 22, creatinine 1.34, cholesterol 233 with LDL 167. The patient was started on Lipitor and the family doctor did recommend to continue the rest of his medications the same. During his stay here, the patient was participating in every group. He did not need any assistance in activity group and he was very easy to redirect. His vital signs were stable prior to discharge. Vital signs on January 04 were pulse 98, blood pressure 134/79. We did discuss his case in the treatment team and we decided that the patient needs to be transitioned from the inpatient unit to [place] and housing prior to being discharged back home. The patient did not have any aggressive or violent behavior. He denied any auditory or visual hallucinations. He still has some grandiose delusions, talking about having a lot of projects coming, as he said, "Sometimes I do not sleep because I have to think about my next project." When I did ask him if he does agree to take lithium or Depakote, the patient was very resistant. As I mentioned before, he did refuse to add anything to his Risperdal injection. He stated that he is stable enough and it is his right to sleep or not. I tried to give him some options regarding mood stabilizer like lithium, Tegretol or valproic acid, but he was very resistant. During his 72 hours here, the patient was sleeping at night. He did not have any issue taking his oral Risperdal. MENTAL STATUS EXAMINATION AT THE TIME OF HIS DISCHARGE: The patient is an overweight male who is casually dressed with fair grooming. He is hyperverbal but easy to redirect. He denied any thoughts of harming himself or others. He denied having any auditory or visual hallucinations. He stated that he has a lot of projects on his mind. His speech was logical and coherent. His mood: "All right, I guess." His affect is constricted. His memory is grossly intact. It seems that this is his baseline. I did discuss with him the effect of cannabis on his mental status, but he did not have any insight for this. He did agree to be transferred to the [facility], [place] for 1 or 2 weeks. DISCHARGE DIAGNOSES: 1. Bipolar disorder, most recent episode mixed with psychotic features, in partial remission. Rule out schizoaffective disorder, bipolar type. 2. Cannabis use disorder, moderate to severe. 3. Alcohol use disorder, mild. 4. Hypertension. 5. Coronary artery disease. 6. Hyperlipidemia. 7. Nicotine dependence. DISCHARGE PLAN: The patient was discharged to the [facility] [place] with a 2-week supply of medication, including the medication for his hyperlipidemia and hypertension. DISCHARGE MEDICATIONS: 1. Aspirin 81 daily. 2. Lipitor 40 mg daily. 3. Lisinopril hydrochlorothiazide twice a day. 4. Hydralazine 10 mg twice a day. 5. Labetalol 200 mg twice a day. 6. Risperidone orally 3 mg twice a day until his second or third injection. 7. Risperdal Consta 50 mg IM every 2 weeks. His next injection is due January 13. MMODL / IJN: [id number] /
== END 2020-01-05 13:26 | disposition home or self-care (01) | DRG 885 ==
LOC: EC 17:39 → 3MHU 21:40
PROVIDERS: ADMIT Psychiatry & Neurology Psychiatry; ATTEND Psychiatry & Neurology Psychiatry
DX: F31.64 Bipolar disorder, current episode mixed, severe, with psychotic features (principal); Z68.41 Body mass index [BMI] 40.0-44.9, adult; Z91.19 Patient's noncompliance with other medical treatment and regimen; N18.3 Chronic kidney disease, stage 3 (moderate); F13.10 Sedative, hypnotic or anxiolytic abuse, uncomplicated; F12.20 Cannabis dependence, uncomplicated; J44.9 Chronic obstructive pulmonary disease, unspecified; I25.2 Old myocardial infarction; I25.10 Atherosclerotic heart disease of native coronary artery without angina pectoris; E66.9 Obesity, unspecified; I12.9 Hypertensive chronic kidney disease with stage 1 through stage 4 chronic kidney disease, or unspecified chronic kidney disease; E78.5 Hyperlipidemia, unspecified; F17.210 Nicotine dependence, cigarettes, uncomplicated; F10.10 Alcohol abuse, uncomplicated; D72.829 Elevated white blood cell count, unspecified; Z79.899 Other long term (current) drug therapy; Z79.82 Long term (current) use of aspirin; Z95.5 Presence of coronary angioplasty implant and graft; Z56.0 Unemployment, unspecified; Z82.3 Family history of stroke; Z82.49 Family history of ischemic heart disease and other diseases of the circulatory system
CPT/HCPCS: 80048; 80053; 80061; 80306; 82075; 83036; 84443; 85025; 99285

== ENCOUNTER → 2021-03-03 | Outpatient (CLI) | payer OTHER ==
[2021-03-03 23:29] LABS: HCT 45.8 % (39.6-50.0); HGB 14.9 g/dL (13.0-17.0); MCH 28.8 pg (27.0-32.0); MCHC 32.5 g/dL (32.0-37.0); MCV 88.4 fL (80.0-97.0); Mean Platelet Volume 10.7 fL (9.5-12.2); Platelet Count 308 X 10*3/uL (140-440); RBC 5.18 X 10*6/uL (4.40-5.60); RDW 17.7 % (11.5-14.5); WBC 22.89 X 10*3/uL (4.50-10.00)
[2021-03-04 01:34] LABS: Anisocytosis (M) 2+; Basophils # (A) 0.08 X 10*3/uL (0.00-0.10); Basophils % (A) 0.3 %; Eosinophils # (A) 0.15 X 10*3/uL (0.04-0.35); Eosinophils % (A) 0.7 %; Lymphocytes % (A) 17.5 %; Monocytes # (A) 1.72 X 10*3/uL (0.20-1.00); Monocytes % (A) 7.5 %; Neutrophils # (A) 16.52 X 10*3/uL (1.80-7.70); Neutrophils % (A) 72.2 %
[2021-03-04 02:19] LABS: African American GFR (CKD) 67.2 (60.0-200.0); Anion Gap 15.9 mmol/L (4.00-12.00); BUN/Creat Ratio 17.03 Ratio (12.00-20.00); Blood Urea Nitrogen 25.2 mg/dL (9.0-27.0); Calcium 9.3 mg/dL (8.7-10.3); Carbon Dioxide 27.4 mmol/L (21.6-31.8); Non-African American GFR(CKD) 57.9 (60.0-200.0); Potassium 4.3 mmol/L (3.5-5.5)
== END | disposition home or self-care (01) ==
LOC: LABWHC1 14:52
PROVIDERS: ATTEND General Practice
DX: I10 Essential (primary) hypertension (principal); N17.9 Acute kidney failure, unspecified
CPT/HCPCS: 36415; 80048; 85025

== ENCOUNTER 2021-03-10 04:13 | Observation (INO) | payer OTHER ==
--- NOTE | 2021-03-10 04:48 | XR ---
EXAMINATION TYPE: XR chest 1V portable DATE OF EXAM: 03/10/2021 COMPARISON: 12/05/2019 HISTORY: Short of breath TECHNIQUE: Single view FINDINGS: Heart and mediastinum are normal. Lungs are clear. Diaphragm is normal. Bony thorax appears normal. IMPRESSION: Normal chest. No change.
[2021-03-10 04:52] LABS: Anisocytosis Slight; Basophils % (A) 0 %; Eosinophils # (A) 0.2 k/uL (0-0.7); Eosinophils % (A) 2 %; HCT 46.9 % (39.0-53.0); HGB 15.3 gm/dL (13.0-17.5); Lymphocytes # (A) 2.4 k/uL (1.0-4.8); Lymphocytes % (A) 14 %; MCH 28.9 pg (25.0-35.0); MCHC 32.6 g/dL (31.0-37.0); MCV 88.7 fL (80.0-100.0); Mean Platelet Volume 7.7; Monocytes # (A) 0.5 k/uL (0-1.0); Monocytes % (A) 3 %; Neutrophils # (A) 13.3 k/uL (1.3-7.7); Neutrophils % (A) 80 %; Platelet Count 303 k/uL (150-450); RBC 5.29 m/uL (4.30-5.90); RDW 16.1 % (11.5-15.5); WBC 16.6 k/uL (3.8-10.6)
--- NOTE | 2021-03-10 04:52 | ED ---
Chest Pain HPI - General Chief Complaint: Chest Pain Stated Complaint: Chest Pain Time Seen by Provider: 03/10/21 04:28 Source: patient Mode of arrival: wheelchair Limitations: no limitations - History of Present Illness Initial Comments: This patient is a 40-year-old man who states that he had previous stent placement about 10 years ago, coming in for evaluation of chest pain that started less than hour ago. He indicates left sided and substernal pain that radiates back. He states that moderately severe, aching, and intermittent. Patient states he was at rest. There has been some associated nausea. MD Complaint: chest pain Onset/Timin -: minutes(s) Onset: during rest Pain Location: substernal Pain Radiation: back Severity: severe Quality: aching Consistency: constant Improves With: nothing Worsens With: nothing Anginal Symptoms: nausea Treatments Prior to Arrival: none - Related Data Home Medications Medication Instructions Recorded Confirmed Aspirin 81 mg PO W/SUPPER 03/10/21 03/10/21 Atorvastatin [Lipitor] 40 mg PO HS 03/10/21 03/10/21 Carvedilol [Coreg] 25 mg PO BID 03/10/21 03/10/21 Famotidine [Pepcid] 20 mg PO HS 03/10/21 03/10/21 amLODIPine [Norvasc] 10 mg PO DAILY@0700 03/10/21 03/10/21 cloNIDine HCL [Catapres] 0.2 mg PO Q8H 03/10/21 03/10/21 Previous Rx's Medication Instructions Recorded Apixaban [Eliquis] 5 mg PO BID 30 Days #60 tab 03/11/21 Nitroglycerin Sl Tabs [Nitrostat] 0.4 mg SUBLINGUAL Q5M PRN #30 tab 03/11/21 Allergies Allergy/AdvReac Type Severity Reaction Status Date / Time No Known Allergies Allergy Verified 03/10/21 04:17 Review of Systems ROS Statement: Those systems with pertinent positive or pertinent negative responses have been documented in the HPI. ROS Other: All systems not noted in ROS Statement are negative. Constitutional: Denies: fever, chills Respiratory: Denies: cough, dyspnea Cardiovascular: Reports: chest pain. Denies: palpitations, orthopnea, edema, syncope Gastrointestinal: Reports: nausea. Denies: abdominal pain, vomiting Genitourinary: Denies: dysuria, hematuria Musculoskeletal: Denies: back pain Skin: Denies: rash Neurological: Denies: headache, weakness, numbness EKG Findings - EKG Results: EKG: interpreted by KIARA, sinus rhythm, normal axis - UT, Pacemaker, Normal: Myocardial infarction: anterior UT (old age or indeterminate) Past Medical History Past Medical History: Coronary Artery Disease (CAD), COPD, Hyperlipidemia, Hypertension, Myocardial Infarction ([place]) Additional Past Medical History / Comment(s): [place] in 2008, asthma, stress test Last Myocardial Infarction Date:: 2008 History of Any Multi-Drug Resistant Organisms: None Reported Past Surgical History: Heart Catheterization With Stent Past Anesthesia/Blood Transfusion Reactions: No Reported Reaction Date of Last Stent Placement:: 2008 Past Psychological History: Bipolar, Schizophrenia Smoking Status: Current every day smoker Past Alcohol Use History: None Reported Past Drug Use History: Marijuana - Past Family History Father Family Medical History: CVA/TIA, Myocardial Infarction ([place]) Additional Family Medical History / Comment(s): Father had a [place] at age 29yrs. at age 38 after open heart Mother Family Medical History: No Reported History Additional Family Medical History / Comment(s): Mother is healthy General Exam Limitations: no limitations General appearance: alert, in no apparent distress Head exam: Present: atraumatic, normocephalic Eye exam: Present: normal appearance. Absent: scleral icterus, conjunctival injection Neck exam: Present: normal inspection Respiratory exam: Present: normal lung sounds bilaterally. Absent: respiratory distress, wheezes, rales, rhonchi, stridor Cardiovascular Exam: Present: regular rate, normal rhythm, normal heart sounds. Absent: systolic murmur, diastolic murmur, rubs, gallop GI/Abdominal exam: Present: soft. Absent: distended, tenderness, guarding, rebound, rigid, mass Extremities exam: Present: normal inspection, normal capillary refill. Absent: pedal edema, calf tenderness Back exam: Present: normal inspection. Absent: CVA tenderness (R), CVA tenderness (L) Neurological exam: Present: alert Skin exam: Present: warm, dry, intact, normal color. Absent: rash Course Vital Signs 03/10/21 03/10/21 03/10/21 04:14 04:25 05:00 Temperature 98.6 F Pulse Rate 65 65 64 Pulse Rate [ 64 [employer] ] Respiratory 24 18 18 Rate Blood Pressure 133/89 112/83 125/93 O2 Sat by Pulse 97 98 97 Oximetry 03/10/21 03/10/21 03/10/21 05:12 05:55 07:00 Temperature Pulse Rate 66 61 61 Pulse Rate [ [employer] ] Respiratory 18 18 22 Rate Blood Pressure 118/59 111/81 104/71 O2 Sat by Pulse 97 98 97 Oximetry 03/10/21 03/10/21 09:51 10:55 Temperature Pulse Rate 62 64 Pulse Rate [ Process[employer] Solid [employer] ] Respiratory 18 18 Rate Blood Pressure 137/86 127/90 O2 Sat by Pulse 96 96 Oximetry Disposition Clinical Impression: Chest pain, Elevated troponin I level Disposition: ADMITTED IP TO THIS HOSP Condition: Stable
[2021-03-10] MEDS ORDERED: NITROGLYCERIN SL TABS 0.4 MG TAB SUBLINGUAL STA (04:58)
[2021-03-10] MEDS ORDERED: MORPHINE SULFATE 4 MG/ML SYRINGE IV STA ×2 (04:58→05:42)
[2021-03-10] MEDS ORDERED: ONDANSETRON 4 MG/2 ML VIAL IVP STA (05:01)
[2021-03-10 05:06] LABS: Albumin 3.6 g/dL (3.5-5.0); Calcium 9.4 mg/dL (8.4-10.2); Magnesium 1.7 mg/dL (1.6-2.3); Potassium 3.7 mmol/L (3.5-5.1); Total Bilirubin 0.4 mg/dL (0.2-1.3); Total Protein 6.5 g/dL (6.3-8.2)
[2021-03-10 05:08] LABS: INR 0.9 (<1.2); Partial Thromboplastin Time 23.4 sec (22.0-30.0); Prothrombin Time 10.2 sec (9.0-12.0)
[2021-03-10] MEDS ORDERED: HEPARIN SODIUM 1,000 UN/ML (10ML VL) IV PRN (05:39)
[2021-03-10] MEDS ORDERED: HEPARIN SODIUM 1,000 UN/ML (10ML VL) IV ONE ×2 (05:39→11:37)
[2021-03-10] MEDS: HEPARIN SOD,PORK IN 0.45% NACL 25,000 UNIT in 0.45% NACL 1 250ML.BAG IV SCH (05:54)
[2021-03-10] MEDS ORDERED: NITROGLYCERIN SL TABS 0.4 MG TAB SUBLINGUAL PRN ×2 (05:57→08:20)
[2021-03-10] MEDS ORDERED: LORazepam 2 MG/ML INJ IV STA (06:22)
[2021-03-10] MEDS ORDERED: HYDROmorphone 1 MG/ML 1 ML SYRINGE IVP STA (07:27)
[2021-03-10] MEDS ORDERED: ATORVASTATIN 80 MG TAB PO STA (08:20)
[2021-03-10] MEDS ORDERED: ALPRAZolam 0.25 MG TAB PO PRN (08:20)
[2021-03-10] MEDS ORDERED: ASPIRIN 325 MG TAB PO STA (08:20)
[2021-03-10] MEDS ORDERED: ALPRAZolam 0.5 MG TAB PO PRN (08:20)
--- NOTE | 2021-03-10 08:36 | P.CRDCN ---
History of Present Illness History of present illness: HISTORY OF PRESENTING ILLNESS This is a pleasant 40-year-old male past medical history significant for coronary artery disease status post PCI to the mid LAD and major diagonal branch of LAD in 2009, hypertension, hyperlipidemia, former smoker, schizophrenia, bipolar, family history of coronary disease, recent diagnosis of pulmonary embolism at [facility] (2 weeks ago per patient) started on Eliquis. He used to follow in the office with Dr. Srinivasan, and 2019. However saw Dr. Bailey in the office yesterday 03/09. We have been asked to see in consultation for chest pain. Patient presents normocephalic acute onset left-sided chest pain that started at 3 AM. He describes as a pressure. It radiates to his back and to his trauma. He does not endorse any aggravating factors. She has received 80 mg of IV morphine and 1 mg of IV Dilaudid with some relief. He had associated diaphoresis, nausea. He denies any shortness of breath, orthopnea, palpitations, lightheadedness, dizziness, syncope or near syncope. He states he quit smoking cigarettes about 3 months ago (used to smoke 1PPD), stopped smoking cigars 3 weeks ago. Occasionally uses marijuana. He denies alcohol use. Of note, patient presented to the office and saw Dr. Bailey, at that time he had no chest pain. Lexiscan stress test was ordered for the patient. DIAGNOSTICS EKG reveals sinus rhythm, heart rate 66, ST depression in leads I, avL Prior EKG appears similar findings Last Cardiac Catheterization 2011. patent stents in the LAD Echocardiogram in 07/2018 revealed EF of 55%, trace mitral regurgitation. Telemetry tracings indicate sinus mechanism HR 50s-60s Chest xray no acute cardiopulmonary process. Laboratory reviewed, WBC 6.6, hemoglobin 15.3, blood 03, d-dimer negative, sodium 135, potassium 3.7, BUN 27, simvastatin 1.35, troponin 0.04, 0.03. COVID-19 PCR negative. Current home cardiac medications include Hydrocort size at 25 mg daily, clonidine 0.3 mg every 8 hours, aspirin lactone 20 mg daily, amlodipine 10 mg daily, carvedilol 25 mg twice a day, atorvastatin 40 mg nightly, aspirin 1 mg daily, Eliquis 5 mg REVIEW OF SYSTEMS At the time of my exam: CONSTITUTIONAL: Denies fever or chills. +diaphoresis CARDIOVASCULAR: Positive chest pain Denies shortness of breath, orthopnea, PND or palpitations. RESPIRATORY: Denies cough. GASTROINTESTINAL: +nausea Denies abdominal pain, diarrhea, constipation, vomiting. MUSCULOSKELETAL: Denies myalgias. NEUROLOGIC: Denies numbness, tingling, headache or weakness. ENDOCRINE: Denies fatigue, weight change, polydipsia or polyurina. GENITOURINARY: Denies burning, hematuria or urgency with micturation. HEMATOLOGIC: Denies history of anemia or bleeding. PHYSICAL EXAMINATION Blood pressure BP 104/71 HR 61, afebrile, 97% on 2L nasal cannula CONSTITUTIONAL: Appears uncomfortable in pain. HEENT: Head is normocephalic. Pupils are equal, round. Sclerae anicteric. Mucous membranes of the mouth are moist. No JVD. No carotid bruit. CHEST EXAMINATION: Lungs are clear to auscultation. No chest wall tenderness is noted on palpation or with deep breathing. HEART EXAMINATION: Regular rate and rhythm. S1, S2 heard. No murmurs, gallops or rub. ABDOMEN: Soft, nontender. Positive bowel sounds. EXTREMITIES: 2+ peripheral pulses, no lower extremity edema and no calf tenderness. SKIN: warm, slightly moist NEUROLOGIC EXAMINATION: Patient is awake, alert and oriented x3. ASSESSMENT NSTEMI Coronary artery disease status post PCI to the mid LAD and major diagonal branch of LAD in 2009 Hypertension Hyperlipidemia Former smoker History of schizophrenia History of Bipolar disorder Family history of coronary disease Recent diagnosis of pulmonary embolism at [facility] (2 weeks ago per patient) started on Eliquis. PLAN -IV heparin drip, hold Eliquis -Continue carvedilol -We recommend cardiac catheterization. -Obtain 2D echocardiogram and doppler study to assess cardiac structure and function. -Obtain records from [facility] -I have discussed the risks, benefits and alternative therapies for the above- mentioned procedure and for both sedation/analgesia as well as necessary blood product administration, if indicated, as they pertain to this patient. The patient has indicated understanding and acceptance of the risks and procedures discussed. Questions have been answered appropriately and he is agreeable to move forward with the above-stated procedure. -Plan for cardiac catheterization with Dr. Bailey today -Further recommendations based on clinical course. Nurse Practitioner note has been reviewed, I agree with a documented findings and plan of care. Patient was seen and examined. Past Medical History Past Medical History: Coronary Artery Disease (CAD), COPD, Hyperlipidemia, Hypertension, Myocardial Infarction ([place]) Additional Past Medical History / Comment(s): [place] in 2008, asthma, stress test Last Myocardial Infarction Date:: 2008 History of Any Multi-Drug Resistant Organisms: None Reported Past Surgical History: Heart Catheterization With Stent Past Anesthesia/Blood Transfusion Reactions: No Reported Reaction Date of Last Stent Placement:: 2008 Past Psychological History: Bipolar, Schizophrenia Smoking Status: Current every day smoker Past Alcohol Use History: None Reported Past Drug Use History: Marijuana - Past Family History Father Family Medical History: CVA/TIA, Myocardial Infarction ([place]) Additional Family Medical History / Comment(s): Father had a [place] at age 29yrs. at age 38 after open heart Mother Family Medical History: No Reported History Additional Family Medical History / Comment(s): Mother is healthy Medications and Allergies Home Medications Medication Instructions Recorded Confirmed Type Apixaban [Eliquis Starter Pack See Taper PO DIRECTED 03/10/21 03/10/21 History (for VTE)] Aspirin 81 mg PO W/SUPPER 03/10/21 03/10/21 History Atorvastatin [Lipitor] 40 mg PO HS 03/10/21 03/10/21 History Carvedilol [Coreg] 25 mg PO BID 03/10/21 03/10/21 History Famotidine [Pepcid] 20 mg PO HS 03/10/21 03/10/21 History Spironolactone [Aldactone] 25 mg PO DAILY@0700 03/10/21 03/10/21 History amLODIPine [Norvasc] 10 mg PO DAILY@0700 03/10/21 03/10/21 History cloNIDine HCL [Catapres] 0.2 mg PO Q8H 03/10/21 03/10/21 History hydroCHLOROthiazide [Hydrodiuril] 25 mg PO DAILY@0700 03/10/21 03/10/21 History predniSONE See Taper PO DAILY@1500 03/10/21 03/10/21 History Allergies Allergy/AdvReac Type Severity Reaction Status Date / Time No Known Allergies Allergy Verified 03/10/21 04:17 Physical Exam Vitals: Vital Signs Temp Pulse Pulse Resp BP Pulse Ox 03/10/21 05:55 61 18 111/81 98 03/10/21 05:12 66 18 118/59 97 03/10/21 05:00 64 18 125/93 97 03/10/21 04:25 65 64 18 112/83 98 03/10/21 04:14 98.6 F 65 24 133/89 97 Intake and Output 03/09/21 03/10/21 03/10/21 22:59 06:59 14:59 Other: Weight 142.882 kg Results 03/10/21 04:40 03/10/21 04:40 Cardiac Enzymes 03/10/21 03/10/21 Range/Units 04:40 04:40 AST 24 (17-59) U/L Troponin I 0.042 H* (0.000-0.034) ng/mL Coagulation 03/10/21 Range/Units 04:40 PT 10.2 (9.0-12.0) sec APTT 23.4 (22.0-30.0) sec CBC 03/10/21 Range/Units 04:40 WBC 16.6 H (3.8-10.6) k/uL RBC 5.29 (4.30-5.90) m/uL Hgb 15.3 (13.0-17.5) gm/dL Hct 46.9 (39.0-53.0) % Plt Count 303 (150-450) k/uL Comprehensive Metabolic Panel 03/10/21 Range/Units 04:40 Sodium 135 L (137-145) mmol/L Potassium 3.7 (3.5-5.1) mmol/L Chloride 99 (98-107) mmol/L Carbon Dioxide 27 (22-30) mmol/L BUN 27 H (9-20) mg/dL Creatinine 1.35 H (0.66-1.25) mg/dL Glucose 166 H (74-99) mg/dL Calcium 9.4 (8.4-10.2) mg/dL AST 24 (17-59) U/L ALT 33 (4-49) U/L Alkaline Phosphatase 87 (38-126) U/L Total Protein 6.5 (6.3-8.2) g/dL Albumin 3.6 (3.5-5.0) g/dL Current Medications Generic Name Dose Route Start Last Admin Trade Name Freq PRN Reason Stop Dose Admin Aspirin 325 mg 03/11/21 09:00 Aspirin 325 Mg Tab PO DAILY MELBA Heparin Sodium (Porcine) 0 unit 03/10/21 05:39 Heparin Sodium 1,000 Un/Ml (10ml Vl) IV PER PROTOCOL PRN Low PTT Protocol Heparin Sodium/Sodium Chloride 250 mls @ 10.002 mls/hr 03/10/21 05:45 03/10/21 05:54 25,000 unit/ Sodium Chloride IV Not Given .Q24H [facility] Protocol 7 UNITS/KG/HR Nitroglycerin 0.4 mg 03/10/21 05:57 Nitroglycerin Sl Tabs 0.4 Mg Tab SUBLINGUAL Q5M PRN Chest Pain Intake and Output 03/09/21 03/10/21 03/10/21 22:59 06:59 14:59 Other: Weight 142.882 kg 03/10/21 04:40 03/10/21 04:40
[2021-03-10] MEDS: NITROGLYCERIN OINT 1 INCH/GM PACKET TOPICAL SCH ×4 (09:52→23:52)
[2021-03-10] MEDS: carvediloL 12.5 MG TAB PO SCH ×2 (09:52→17:29)
[2021-03-10] MEDS: SODIUM CHLORIDE 0.9% 1,000 ML in EMPTY BAG 1 BAG IV SCH ×3 (09:53→20:06)
--- NOTE | 2021-03-10 11:00 | ECHOF ---
Referral Reason:chest pain, elevated troponin, LV function MEASUREMENTS -------- HEIGHT: 182.9 cm WEIGHT: 142.9 kg BP: 111/81 RVIDd: 3.5 cm (< 3.3) IVSd: 1.8 cm (0.6 - 1.1) LVIDd: 5.0 cm (3.9 - 5.3) LVPWd: 1.8 cm (0.6 - 1.1) IVSs: 2.4 cm LVIDs: 3.7 cm LVPWs: 2.3 cm LA Diam: 3.9 cm (2.7 - 3.8) LAESV Index (A-L): 19.90 ml/m Ao Diam: 3.4 cm (2.0 - 3.7) AV Cusp: 2.4 cm (1.5 - 2.6) MV EXCURSION: 19.544 mm (> 18.000) MV EF SLOPE: 83 mm/s (70 - 150) EPSS: 0.9 cm MV E Rubens: 0.91 m/s MV DecT: 232 ms MV A Rubens: 0.70 m/s MV E/A Ratio: 1.30 FINDINGS -------- Resting bradycardia (HR<60bpm). This was a technically adequate study. The left ventricular size is normal. There is severe concentric left ventricular hypertrophy. Ove rall left ventricular systolic function is normal with, an EF between 55 - 60 %. The right ventricle is mildly enlarged. Normal LA size by volume 22+/-6 ml/m2. The right atrium is normal in size. Interatrial and interventricular septum intact. The aortic valve is trileaflet, and appears structurally normal. No aortic stenosis or regurgitation. There is trace mitral regurgitation. The tricuspid valve appears structurally normal. Unable to estimate RVSP due to inadequate TR jet s pectral doppler profile. Trace/mild (physiologic) pulmonic regurgitation. The aortic root size is normal. IVC Not well visulized. There is no pericardial effusion. CONCLUSIONS -------- 1. The left ventricular size is normal. 2. There is severe concentric left ventricular hypertrophy. 3. Overall left ventricular systolic function is normal with, an EF between 55 - 60 %. 4. The right ventricle is mildly enlarged. 5. The aortic valve is trileaflet, and appears structurally normal. No aortic stenosis or regurgitati on. 6. There is trace mitral regurgitation. 7. Trace/mild (physiologic) pulmonic regurgitation. 8. There is no pericardial effusion. RESEARCH CHIEF ENGINEER: Vianey Rader RDCS
--- NOTE | 2021-03-10 11:10 | P.HPIM ---
History of Present Illness H&P Date: 03/10/21 This is a 40-year-old male who was brought by the ambulance to the emergency department with chest pain that he states started around 4 AM with some heaviness and sharp in nature. Patient states he had not gone to sleep yet and was lying there in bed when this started. The pain persisted and patient called the EMS to come to the hospital for further evaluation. Patient does have a past medical history of coronary artery disease, COPD, hyperlipidemia, hypertension, myocardial infarction in 2008 and underwent catheterization at that point with stent placement, asthma, recent diagnosis of a pulmonary embolism per the patient at [facility] 2 weeks ago as he was hospitalized there for shortness of breath and left side rib pain. Patient also has a past medical history of bipolar and schizophrenia. Chest x-ray on admission to the ER shows a normal chest with no change in lungs are clear. EKG showed normal sinus rhythm with possible left atrial enlargement anterior infarct with a ventricular rate of 66 and QT/QTC was [id number]. Initial lab shows 16.6 white blood count, hemoglobin is 15.3, platelets are 303, d-dimer 0.31, INR 0.9, sodium 135, potassium 3.7, BUN elevated at 27, Lindsey 1.35, magnesium 1.7, amylase and lipase within normal limits, troponin mildly elevated at 0.04 to and repeat second and third troponin 0.036. Patient was placed on IV heparin and aspirin and cardiology has been consulted. 2-D echo is ordered. Review of Systems Constitutional: Denies chills, Denies fever Ears, nose, mouth and throat: Denies headache, Denies sore throat Cardiovascular: Reports chest pain, Reports lightheadedness, Reports shortness of breath Respiratory: Reports dyspnea Gastrointestinal: Reports nausea Musculoskeletal: Denies myalgias Integumentary: Denies pruritus, Denies rash Neurological: Denies numbness, Denies weakness Psychiatric: Denies anxiety, Denies depression Endocrine: Denies fatigue, Denies weight change Past Medical History Past Medical History: Coronary Artery Disease (CAD), COPD, Hyperlipidemia, Hypertension, Myocardial Infarction (IA) Additional Past Medical History / Comment(s): IA in 2008, asthma, stress test Last Myocardial Infarction Date:: 2008 History of Any Multi-Drug Resistant Organisms: None Reported Past Surgical History: Heart Catheterization With Stent Past Anesthesia/Blood Transfusion Reactions: No Reported Reaction Date of Last Stent Placement:: 2008 Past Psychological History: Bipolar, Schizophrenia Smoking Status: Current every day smoker Past Alcohol Use History: None Reported Past Drug Use History: Marijuana - Past Family History Father Family Medical History: CVA/TIA, Myocardial Infarction (IA) Additional Family Medical History / Comment(s): Father had a IA at age 29yrs. at age 38 after open heart Mother Family Medical History: No Reported History Additional Family Medical History / Comment(s): Mother is healthy Medications and Allergies Home Medications Medication Instructions Recorded Confirmed Type Apixaban [Eliquis Starter Pack See Taper PO DIRECTED 03/10/21 03/10/21 History (for VTE)] Aspirin 81 mg PO W/SUPPER 03/10/21 03/10/21 History Atorvastatin [Lipitor] 40 mg PO HS 03/10/21 03/10/21 History Carvedilol [Coreg] 25 mg PO BID 03/10/21 03/10/21 History Famotidine [Pepcid] 20 mg PO HS 03/10/21 03/10/21 History Spironolactone [Aldactone] 25 mg PO DAILY@0700 03/10/21 03/10/21 History amLODIPine [Norvasc] 10 mg PO DAILY@0700 03/10/21 03/10/21 History cloNIDine HCL [Catapres] 0.2 mg PO Q8H 03/10/21 03/10/21 History hydroCHLOROthiazide [Hydrodiuril] 25 mg PO DAILY@0700 03/10/21 03/10/21 History predniSONE See Taper PO DAILY@1500 03/10/21 03/10/21 History Allergies Allergy/AdvReac Type Severity Reaction Status Date / Time No Known Allergies Allergy Verified 03/10/21 04:17 Physical Exam Vitals: Vital Signs Temp Pulse Pulse Resp BP Pulse Ox 03/10/21 07:00 61 22 104/71 97 03/10/21 05:55 61 18 111/81 98 03/10/21 05:12 66 18 118/59 97 03/10/21 05:00 64 18 125/93 97 03/10/21 04:25 65 64 18 112/83 98 03/10/21 04:14 98.6 F 65 24 133/89 97 Intake and Output 03/09/21 03/10/21 03/10/21 22:59 06:59 14:59 Other: Weight 142.882 kg Gen: This is a 40-year-old male lying in bed, no acute distress, well-developed, well-nourished, morbidly obese HEENT: Head is atraumatic, normocephalic. Pupils equal, round. Sclerae is anicteric. NECK: Supple. No JVD. No lymphadenopathy. No thyromegaly. LUNGS: Clear to auscultation. No wheezes or rhonchi. No intercostal retractions. HEART: Regular rate and rhythm. No murmur. ABDOMEN: Soft. Obese. Bowel sounds are present. No masses. No tenderness. EXTREMITIES: No pedal edema. No calf tenderness. NEUROLOGICAL: Patient is awake, alert and oriented x3. Cranial nerves 2 through 12 are grossly intact. Results CBC & Chem 7: 03/10/21 04:40 03/10/21 04:40 Labs: Abnormal Lab Results - Last 24 Hours (Table) 03/10/21 03/10/21 03/10/21 Range/Units 04:40 04:40 04:40 WBC 16.6 H (3.8-10.6) k/uL RDW 16.1 H (11.5-15.5) % Neutrophils # 13.3 H (1.3-7.7) k/uL Sodium 135 L (137-145) mmol/L BUN 27 H (9-20) mg/dL Creatinine 1.35 H (0.66-1.25) mg/dL Glucose 166 H (74-99) mg/dL Troponin I 0.042 H* (0.000-0.034) ng/mL 03/10/21 Range/Units 06:38 WBC (3.8-10.6) k/uL RDW (11.5-15.5) % Neutrophils # (1.3-7.7) k/uL Sodium (137-145) mmol/L BUN (9-20) mg/dL Creatinine (0.66-1.25) mg/dL Glucose (74-99) mg/dL Troponin I 0.036 H* (0.000-0.034) ng/mL Thrombosis Risk Factor Assmnt - DVT/VTE Prophylaxis DVT/VTE Prophylaxis: Pharmacologic Prophylaxis ordered Assessment and Plan Assessment: Chest pain, rule out ACS Non-ST elevated myocardial infarction with elevated troponins Leukocytosis, possibly reactive with no fevers and denies any recent illness Acute kidney injury most likely prerenal and possible component of diuretics and will continue gentle IV hydration and hold hydrochlorothiazide and Aldactone and repeat labs. History of coronary artery disease with cardiac catheterization status post [place] with stenting to the LAD in 2008 Hypertension Hyperlipidemia Asthma, not in acute exacerbation Recent diagnosis of pulmonary embolism per patient at [facility] 2 weeks ago and was started on oral anticoagulant Remote history of nicotine dependence, quit 1 month ago Strong familial history of coronary artery disease with father having a heart attack at 29 and expiring at the age of 38 after open heart surgery THC use Morbid obesity with a BMI of 42.7 History of bipolar/schizophrenia GI prophylaxis DVT prophylaxis Full code Plan: Patient was started on IV heparin and cardiology consulted and evaluated the patient this morning. 2-D echo was ordered and plan is for cardiac catheterization with Dr. Bailey this afternoon. Troponins mildly elevated and patient is currently nothing by mouth for the procedure. Patient states he was recently admitted at [facility] approximately 2 weeks ago and was diagnosed with pulmonary embolism and started on Eliquis and will need to obtain medical records for evaluation. White blood count mildly elevated at 16.6 most likely reactive. Will repeat labs and monitor closely. Patient is afebrile. COVID-19 was negative. The patient states he was not vaccinated for this. Patient also has a history of smoking and states he recently quit approximately one month ago as he was smoking 3 cigars daily with a past medical history of smoking tobacco 6 months ago and quit then. Patient admits to smoking marijuana and states he does not do this on a daily basis. Will continue gentle IV fluids as BUN and creatinine are mildly elevated. Will await cardiac catheterization report. Time with Patient: Greater than 30
[2021-03-10] MEDS ORDERED: HEPARIN SODIUM 1,000 UN/ML (10ML VL) ONE (11:25)
[2021-03-10] MEDS ORDERED: fentaNYL (PF) 50 MCG/ML 2 ML AMP ONE (11:25)
[2021-03-10] MEDS ORDERED: VERAPAMIL 2.5 MG/ML 2 ML AMP ONE (11:25)
[2021-03-10] MEDS ORDERED: LIDOCAINE 1% INJ 10MG/ML (20 ML MDV) ONE (11:25)
[2021-03-10] MEDS: fentaNYL (PF) 50 MCG/ML 2 ML AMP IV ONE ×2 (11:30→11:42)
[2021-03-10] MEDS ORDERED: MIDAZOLAM 2 MG/2 ML VIAL IVP ONE (11:30)
[2021-03-10] MEDS ORDERED: LIDOCAINE 1% INJ 10MG/ML (20 ML MDV) SQ ONE (11:31)
[2021-03-10] MEDS ORDERED: VERAPAMIL SYRINGE (5 MG/10 ML) INTRAARTER ONE (11:33)
[2021-03-10] MEDS ORDERED: IV FLUID CONTINUATION 500 ML IV ONE (11:37)
[2021-03-10] MEDS ORDERED: MIDAZOLAM 2 MG/2 ML VIAL IV ONE (11:41)
[2021-03-10] MEDS ORDERED: IOPAMIDOL-370 125ML BTL INJ ONE (11:46)
[2021-03-10] MEDS ORDERED: RX INFO: IV CONTRAST WAS GIVEN 1 EACH MISC MISCELLANE PRN (11:51)
[2021-03-10] MEDS ORDERED: SODIUM CHLORIDE 0.9% 1,000 ML IV SCH (12:00)
[2021-03-10] MEDS ORDERED: SODIUM CHLORIDE 0.9% 1,000 ML IV ONE (13:45)
--- NOTE | 2021-03-10 14:34 | P.CARDCATH ---
Description of Procedure: PROCEDURES PERFORMED: Left heart catheterization, bilateral coronary angiography INDICATION: Chest pain, elevated troponins HISTORY: Patient is a pleasant 40-year-old male with history of prior stenting to the LAD, CKD, who had stopped taking his medications and initially was seen at [facility] 3-4 weeks previously and was placed back on medications. He had sudden onset of chest pain overnight which felt somewhat similar to prior stenting and therefore came to ER and was noted to have minimally elevated troponins. Therefore heart catheterization was recommended. CONSENT:I have discussed the risks, benefits and alternative therapies for the above-mentioned procedure and for both sedation/analgesia as well as necessary blood product administration, if indicated, as they pertain to this patient. The patient has indicated understanding and acceptance of the risks and procedures discussed. PROCEDURE: After the risks, benefits and alternatives of the above mentioned procedure explained in detail with the patient, informed consent was obtained. Patient was taken to the catheterization lab and prepped and draped in usual fashion. 1% lidocaine was used to anesthetize the right radial artery. A 6- German sheath was placed in the right radial artery using modified Seldinger technique. Left coronary angiography was performed with a 5-German JL 3.5 catheter and right coronary angiography was performed with a 5-German JR5 catheter in various views. A 5-German FR5 catheter was inserted into the left ventricle and pressure measurements were obtained. The right radial sheath was removed and a TR band was placed with hemostasis achieved. The patient tolerated the procedure well. Patient was transported back to the post catheterization holding area in stable condition. Conscious Sedation: Patient was monitored under the direct supervision of vision of myself for conscious sedation using Versed and fentanyl for a total duration of 17 minutes HEMODYNAMICS: Aorta: 145/97 LV: 143/4, LVEDP 15 SELECTIVE CORONARY ARTERIOGRAPHY: LEFT MAIN: The left main is a large caliber vessel which bifurcates into the LAD and circumflex. There is no significant stenosis. LEFT ANTERIOR DESCENDING CORONARY ARTERY: LAD is a large caliber vessel which wraps around to the apex. There is mild disease of the proximal and mid LAD of 10-20% with a patent mid LAD stent. LEFT CIRCUMFLEX CORONARY ARTERY: Left circumflex is a moderate caliber vessel with mild luminal irregularities. RIGHT CORONARY ARTERY: The right coronary artery is a large caliber vessel which gives off a PDA and PLV branch and is the dominant vessel. There is no significant stenosis. FINAL IMPRESSION: 1. Mild CAD as described above with patent LAD stent 2. Normal left sided filling pressures PLAN: 1. Aggressive risk factor modification per most recent ACC/AHA guidelines. 2. Follow-up in the office in 1-2 weeks.
[2021-03-10] MEDS ORDERED: ACETAMINOPHEN TAB 500 MG TAB PO ONE (15:28)
[2021-03-10] MEDS ORDERED: ACETAMINOPHEN TAB 500 MG TAB PO PRN (15:29)
[2021-03-10] MEDS: cloNIDine HCL 0.2 MG TAB PO SCH (17:29)
[2021-03-10] MEDS ORDERED: ASPIRIN 81 MG PO SCH (17:30)
[2021-03-10] MEDS ORDERED: FAMOTIDINE 20 MG TAB PO SCH (21:00)
[2021-03-11] MEDS: cloNIDine HCL 0.2 MG TAB PO SCH ×2 (00:19→08:02)
[2021-03-11] MEDS: SODIUM CHLORIDE 0.9% 1,000 ML in EMPTY BAG 1 BAG IV SCH (03:05)
[2021-03-11] MEDS: HEPARIN SOD,PORK IN 0.45% NACL 25,000 UNIT in 0.45% NACL 1 250ML.BAG IV SCH (03:06)
[2021-03-11 03:15] VITALS: RESP 18
[2021-03-11 05:57] LABS: African American GFR (CKD) 55 (>60 ml/min/1.73 sqM); Anion Gap 6 mmol/L; Blood Urea Nitrogen 30 mg/dL (9-20); Calcium 8.7 mg/dL (8.4-10.2); Carbon Dioxide 30 mmol/L (22-30); Chloride 100 mmol/L (98-107); Glucose 88 mg/dL (74-99); Non-African American GFR(CKD) 47 (>60 ml/min/1.73 sqM); Potassium 4.1 mmol/L (3.5-5.1); Sodium 136 mmol/L (137-145)
[2021-03-11 05:59] LABS: INR 0.9 (<1.2); Prothrombin Time 9.7 sec (9.0-12.0)
[2021-03-11] MEDS ORDERED: SPIRONOLACTONE 25 MG TAB PO SCH (07:00)
[2021-03-11] MEDS ORDERED: HEPARIN SODIUM,PORCINE 2,500 UNIT in SODIUM CHLORIDE 0.9% 250 ML IRRIGATION PRN (07:00)
[2021-03-11] MEDS ORDERED: HEPARIN SODIUM,PORCINE 10,000 UNIT in SODIUM CHLORIDE 0.9% 1,000 ML IRRIGATION PRN (07:00)
[2021-03-11] MEDS ORDERED: amLODIPine 10 MG TAB PO SCH (07:00)
[2021-03-11] MEDS ORDERED: hydroCHLOROthiazide 25 MG TAB PO SCH (07:00)
[2021-03-11 07:45] VITALS: BP 147/92; PULSE 66; TEMP 98.5
[2021-03-11] MEDS: carvediloL 12.5 MG TAB PO SCH (08:02)
[2021-03-11] MEDS: NITROGLYCERIN OINT 1 INCH/GM PACKET TOPICAL SCH (08:05)
--- NOTE | 2021-03-11 08:47 | P.PN ---
Subjective Progress Note Date: 03/11/21 HISTORY OF PRESENT ILLNESS: This is a pleasant 40-year-old male past medical history significant for coronary artery disease status post PCI to the mid LAD and major diagonal branch of LAD in 2009, hypertension, hyperlipidemia, former smoker, schizophrenia, bipolar, family history of coronary disease, recent diagnosis of pulmonary embolism at [facility] (2 weeks ago per patient) started on Eliquis. He used to follow in the office with Dr. Srinivasan, and 2019. However saw Dr. Bailey in the office yesterday 03/09. We have been asked to see in consultation for chest pain. Patient presents normocephalic acute onset left-sided chest pain that started at 3 AM. He describes as a pressure. It radiates to his back and to his trauma. He does not endorse any aggravating factors. She has received 80 mg of IV morphine and 1 mg of IV Dilaudid with some relief. He had associated diaphoresis, nausea. He denies any shortness of breath, orthopnea, palpitations, lightheadedness, dizziness, syncope or near syncope. He states he quit smoking cigarettes about 3 months ago (used to smoke 1PPD), stopped smoking cigars 3 weeks ago. Occasionally uses marijuana. He denies alcohol use. Of note, patient presented to the office and saw Dr. Bailey, at that time he had no chest pain. Lexiscan stress test was ordered for the patient. DIAGNOSTICS EKG reveals sinus rhythm, heart rate 66, ST depression in leads I, avL Prior EKG appears similar findings Last Cardiac Catheterization 2011. patent stents in the LAD Echocardiogram in 07/2018 revealed EF of 55%, trace mitral regurgitation. Telemetry tracings indicate sinus mechanism HR 50s-60s Chest xray no acute cardiopulmonary process. Laboratory reviewed, WBC 6.6, hemoglobin 15.3, blood 03, d-dimer negative, sodium 135, potassium 3.7, BUN 27, simvastatin 1.35, troponin 0.04, 0.03. COVID-19 PCR negative. Current home cardiac medications include Hydrocort size at 25 mg daily, clonidine 0.3 mg every 8 hours, aspirin lactone 20 mg daily, amlodipine 10 mg daily, carvedilol 25 mg twice a day, atorvastatin 40 mg nightly, aspirin 1 mg daily, Eliquis 5 mg 03/11/2021 Patient examined this morning at the bedside. Patient is status post cardiac catheterization yesterday with Dr. Bailey revealing mild coronary artery disease with a patent stent in the LAD. Patient denies chest pain or pressure. He denies shortness of breath. His vital signs are stable. PHYSICAL EXAM: VITAL SIGNS: Reviewed. GENERAL: Well-developed in no acute distress. NECK: Supple. No JVD or thyromegaly LUNGS: Respirations even and unlabored. Lungs essentially clear to auscultation bilaterally. HEART: Regular rate and rhythm. S1 and S2 heard. EXTREMITIES: Normal range of motion. No clubbing or cyanosis. Peripheral pulses intact. No lower extremity edema. Right radial cath site with pulses present ASSESSMENT: Non-STEMI Coronary artery disease with previous PCI to LAD Recent diagnosis of pulmonary embolism Hypertension Hyperlipidemia Former nicotine dependence History of schizophrenia History of bipolar disorder Family history of coronary artery disease PLAN: Continue current cardiac medications Resume Eliquis Patient is stable for discharge home today He is to follow up on an outpatient basis Nurse practitioner note has been reviewed by physician. Signing provider agrees with the documented findings, assessment, and plan of care. Objective - Vital Signs Vital signs: Vital Signs Temp 98.5 F 03/11/21 07:44 Pulse 66 03/11/21 07:44 Resp 18 03/11/21 07:44 BP 147/92 03/11/21 07:44 Pulse Ox 98 03/11/21 07:44 Intake & Output 03/10/21 03/11/21 03/11/21 18:59 06:59 18:59 Intake Total 880 Balance 880 Weight 142.882 kg 143.6 kg Intake: IV 400 Intake, IV Titration 0 Amount Sodium Chloride 0.9% 1, 0 000 ml @ 75 mls/hr IV . [id number] [facility] Rx#:[id number] Oral 480 Other: # Voids 1 3 - Labs CBC & Chem 7: 03/10/21 04:40 03/11/21 05:22 Labs: Abnormal Lab Results - Last 24 Hours (Table) 03/10/21 03/11/21 Range/Units 08:51 05:22 Sodium 136 L (137-145) mmol/L BUN 30 H (9-20) mg/dL Creatinine 1.75 H (0.66-1.25) mg/dL Troponin I 0.036 H* (0.000-0.034) ng/mL
[2021-03-11] MEDS ORDERED: ASPIRIN 81 MG PO SCH (09:00)
[2021-03-11] MEDS ORDERED: ASPIRIN 325 MG TAB PO SCH (09:00)
[2021-03-11] MEDS ORDERED: APIXABAN 5 MG TAB PO SCH (09:00)
[2021-03-11 09:42] LABS: Basophils # (A) 0.04 X 10*3/uL (0.00-0.10); Basophils % (A) 0.3 %; Eosinophils # (A) 0.38 X 10*3/uL (0.04-0.35); Eosinophils % (A) 2.8 %; HCT 43.8 % (39.6-50.0); HGB 14.1 g/dL (13.0-17.0); Lymphocytes # (A) 2.24 X 10*3/uL (0.90-5.00); Lymphocytes % (A) 16.7 %; MCH 29.4 pg (27.0-32.0); MCHC 32.2 g/dL (32.0-37.0); MCV 91.4 fL (80.0-97.0); Mean Platelet Volume 10.7 fL (9.5-12.2); Monocytes # (A) 1.08 X 10*3/uL (0.20-1.00); Monocytes % (A) 8.1 %; Neutrophils # (A) 9.58 X 10*3/uL (1.80-7.70); Neutrophils % (A) 71.5 %; Platelet Count 260 X 10*3/uL (140-440); RBC 4.79 X 10*6/uL (4.40-5.60); RDW 17.5 % (11.5-14.5)
[2021-03-11 12:09] LABS: Chol/HDL Ratio 3.24 Ratio; LDL Cholesterol,Calculated 81.3 mg/dL (0.0-131.0); Triglycerides 98.5 mg/dL (0.00-149.00); VLDL Calculation 19.7 mg/dL (5.00-40.00)
[2021-03-11] MEDS ORDERED: ATORVASTATIN 40 MG TAB PO SCH (21:00)
--- NOTE | 2021-03-18 02:42 | P.DS ---
Providers Date of admission: 03/10/21 05:57 Expected date of discharge: 03/11/21 Attending physician: Martinez Sellers MD Consults: 03/10/21 05:57 Consult Physician Urgent Consulting Provider: Milana Escobedo Consult Reason/Comments: Acute coronary syndrome Do you want consulting provider notified?: Yes Primary care physician: Mohini Andersonlaradames [facility] Course: Final Diagnosis Chest pain, ruled out ACS Non-ST elevated myocardial infarction with elevated troponins Leukocytosis, possibly reactive with no fevers and denies any recent illness, improved Acute kidney injury most likely prerenal and possible component of diuretics History of coronary artery disease with cardiac catheterization status post [place] with stenting to the LAD in 2008 Hypertension Hyperlipidemia Asthma, not in acute exacerbation Recent diagnosis of pulmonary embolism per patient at [facility] 2 weeks ago and was started on oral anticoagulant Remote history of nicotine dependence, quit 1 month ago Strong familial history of coronary artery disease with father having a heart attack at 29 and expiring at the age of 38 after open heart surgery THC use Morbid obesity with a BMI of 42.7 History of bipolar/schizophrenia GI prophylaxis DVT prophylaxis Full code Discharge disposition Patient is being discharged in a stable condition with guarded prognosis to Home. Patient will follow-up with Dr. Uribe in the outpatient setting upon discharge. Patient is to continue to hold aldactone and diuretic until repeat labs done and follow up with pcp to monitor kidney functions. Prescriptions provided. Patient to follow up with cardiology as scheduled. Total time taken is greater than 35 minutes. Hospital course This is a 40-year-old male who was brought by the ambulance to the emergency department with chest pain that he states started around 4 AM with some heaviness and sharp in nature. Patient states he had not gone to sleep yet and was lying there in bed when this started. The pain persisted and patient called the EMS to come to the hospital for further evaluation. Patient does have a past medical history of coronary artery disease, COPD, hyperlipidemia, hypertension, myocardial infarction in 2008 and underwent catheterization at that point with stent placement, asthma, recent diagnosis of a pulmonary embolism per the patient at [facility] 2 weeks ago as he was hospitalized there for shortness of breath and left side rib pain. Patient also has a past medical history of bipolar and schizophrenia. Chest x-ray on admission to the ER shows a normal chest with no change in lungs are clear. EKG showed normal sinus rhythm with possible left atrial enlargement anterior infarct with a ventricular rate of 66 and QT/QTC was [id number]. Initial lab shows 16.6 white blood count, hemoglobin is 15.3, platelets are 303, d-dimer 0.31, INR 0.9, sodium 135, potassium 3.7, BUN elevated at 27, creatinine 1.35, magnesium 1.7, amylase and lipase within normal limits, troponin mildly elevated at 0.04 to and repeat second and third troponin 0.036. Patient was placed on IV heparin and aspirin and cardiology has been consulted. 2-D echo is ordered. 03/11/2021 Patient is seen in follow-up this morning and states he is feeling better and would like to go home. Patient had clear cardiac catheterization and cardiology recommending risk factor modifications and close outpatient follow up. Patient to follow up with pulmonary as well for recent diagnosis of PE at [facility]. Creatinine mildly elevated and recommend to hold diuretic and follow up with repeat labs in 2-3 days along with following up with Dr. Uribe this week. Patient has a scheduled appointment with cardiology as well. Currently no reports of chest pain, shortness of breath, or palpitations. Patient is afebrile. No reports of nausea or vomiting and patient is tolerating diet. Patient will be discharged home today. Guarded prognosis. GENERAL: The patient is alert and oriented x3, not in any acute distress. Well developed, well nourished. HEENT: Pupils are round and equally reacting to light. EOMI. No scleral icterus. No conjunctival pallor. Normocephalic, atraumatic. No pharyngeal erythema. No thyromegaly. CARDIOVASCULAR: S1 and S2 present. No murmurs, rubs, or gallops. PULMONARY: Chest is clear to auscultation, no wheezing or crackles. ABDOMEN: Soft, nontender, nondistended, normoactive bowel sounds. No palpable organomegaly. MUSCULOSKELETAL: No joint swelling or deformity. EXTREMITIES: No cyanosis, clubbing, or pedal edema. NEUROLOGICAL: Gross neurological examination did not reveal any focal deficits. diffusely weak SKIN: No rashes. Please refer to medication reconciliation sheet for a list of medications. Patient Condition at Discharge: Stable Plan - Discharge Summary New Discharge Prescriptions: New Apixaban [Eliquis] 5 mg PO BID 30 Days #60 tab Nitroglycerin Sl Tabs [Nitrostat] 0.4 mg SUBLINGUAL Q5M PRN #30 tab PRN Reason: Chest Pain Continue Famotidine [Pepcid] 20 mg PO HS cloNIDine HCL [Catapres] 0.2 mg PO Q8H Carvedilol [Coreg] 25 mg PO BID Aspirin 81 mg PO W/SUPPER Atorvastatin [Lipitor] 40 mg PO HS amLODIPine [Norvasc] 10 mg PO DAILY@0700 Discontinued predniSONE See Taper PO DAILY@1500 Spironolactone [Aldactone] 25 mg PO DAILY@0700 Apixaban [Eliquis Starter Pack (for VTE)] See Taper PO DIRECTED hydroCHLOROthiazide [Hydrodiuril] 25 mg PO DAILY@0700 Discharge Medication List Aspirin 81 mg PO W/SUPPER 03/10/21 [History] Atorvastatin [Lipitor] 40 mg PO HS 03/10/21 [History] Carvedilol [Coreg] 25 mg PO BID 03/10/21 [History] Famotidine [Pepcid] 20 mg PO HS 03/10/21 [History] amLODIPine [Norvasc] 10 mg PO DAILY@0700 03/10/21 [History] cloNIDine HCL [Catapres] 0.2 mg PO Q8H 03/10/21 [History] Apixaban [Eliquis] 5 mg PO BID 30 Days #60 tab 03/11/21 [Rx] Nitroglycerin Sl Tabs [Nitrostat] 0.4 mg SUBLINGUAL Q5M PRN #30 tab 03/11/21 [Rx] Follow up Appointment(s)/Referral(s): Manoj Bailey DO [STAFF PHYSICIAN] - 03/22/21 1:30 pm Mohini Uribe MD [Primary Care Provider] - 1-2 days Ambulatory/Diagnostic Orders: Basic Metabolic Panel [LAB.AMB] Time Frame: 3 Days, Location: None Selected Patient Instructions/Handouts: *Surgery [facility] - After Heart Catheterization - Vp Strategic Planning Instructions, Heart Attack (DC) Activity/Diet/Wound Care/Special Instructions: Activity Limited until follow-up Follow-up with primary care provider on discharge Continue heart healthy diet Follow-up with cardiology in one week Continue taking medications as prescribed Hold Hydrodiuril and Aldactone for 2-3 days and get repeat labs to monitor kidney functions Follow-up primary care provider on discharge and follow-up with repeat labs Avoid all smoking and tobacco and marijuana use Discharge Disposition: HOME SELF-CARE
== END 2021-03-11 13:24 | disposition home or self-care (01) ==
LOC: EC 04:13 → 3SCARD 05:57 → INTOOBSV 05:57 → 6NMEDSUR 14:51 → UNDODISIN 03-11 13:24
PROVIDERS: ADMIT Internal Medicine; ATTEND Internal Medicine
PROC: B2111ZZ Fluoroscopy of Multiple Coronary Arteries using Low Osmolar Contrast (ICD-10-PCS; principal; 2021-03-10 07:30)
PROC: 4A023N7 Measurement of Cardiac Sampling and Pressure, Left Heart, Percutaneous Approach (ICD-10-PCS; principal; 2021-03-10 07:30)
DX: I21.4 Non-ST elevation (NSTEMI) myocardial infarction (principal); D72.829 Elevated white blood cell count, unspecified; N17.9 Acute kidney failure, unspecified; I25.10 Atherosclerotic heart disease of native coronary artery without angina pectoris; Z20.822 Contact with and (suspected) exposure to COVID-19; I10 Essential (primary) hypertension; E78.5 Hyperlipidemia, unspecified; F17.290 Nicotine dependence, other tobacco product, uncomplicated; F12.90 Cannabis use, unspecified, uncomplicated; E66.01 Morbid (severe) obesity due to excess calories; Z68.41 Body mass index [BMI] 40.0-44.9, adult; J44.9 Chronic obstructive pulmonary disease, unspecified; I25.2 Old myocardial infarction; T50.2X5A Adverse effect of carbonic-anhydrase inhibitors, benzothiadiazides and other diuretics, initial encounter; F20.9 Schizophrenia, unspecified; F31.9 Bipolar disorder, unspecified; Z79.899 Other long term (current) drug therapy; Z79.01 Long term (current) use of anticoagulants; Z71.6 Tobacco abuse counseling; Z95.5 Presence of coronary angioplasty implant and graft; Z86.59 Personal history of other mental and behavioral disorders; Z86.711 Personal history of pulmonary embolism; Z82.3 Family history of stroke; Z82.49 Family history of ischemic heart disease and other diseases of the circulatory system
CPT/HCPCS: 93458; 99285; 96376; 96374; 96375; 36415; 93005; 93306; 85379; 80061; 80053; 80048; 82150; 83690; 83735; 84484; 85025 ×2; 85610 ×2; 85730; 87635; 71045; G0378 ×2; C1894; J2250; J2060; J2270; J2405; J2001; J3010; J1644; J1170; Q9967

== ENCOUNTER → 2021-03-17 | Outpatient (CLI) | payer OTHER ==
[2021-03-17 11:28] LABS: Appearance,Urine Clear (Clear); Bilirubin,Urine Negative (Negative); Blood,Urine Negative (Negative); Color,Urine Yellow; Glucose,Urine (UA) Negative (Negative); Ketones,Urine Negative (Negative); Leukocyte Esterase,Urine Negative (Negative); Nitrite,Urine Negative (Negative); Protein,Urine Trace (Negative); Specific Gravity,Urine 1.017 (1.001-1.035); Urobilinogen,Urine <2.0 mg/dL (<2.0)
[2021-03-17 15:23] LABS: Basophils # (A) 0.04 X 10*3/uL (0.00-0.10); Basophils % (A) 0.4 %; Eosinophils # (A) 0.68 X 10*3/uL (0.04-0.35); Eosinophils % (A) 6.8 %; HCT 42.7 % (39.6-50.0); HGB 13.5 g/dL (13.0-17.0); Lymphocytes # (A) 1.15 X 10*3/uL (0.90-5.00); Lymphocytes % (A) 11.5 %; MCH 28.4 pg (27.0-32.0); MCHC 31.6 g/dL (32.0-37.0); MCV 89.7 fL (80.0-97.0); Mean Platelet Volume 10.6 fL (9.5-12.2); Monocytes # (A) 0.48 X 10*3/uL (0.20-1.00); Monocytes % (A) 4.8 %; Neutrophils % (A) 76.2 %; Platelet Count 233 X 10*3/uL (140-440); RBC 4.76 X 10*6/uL (4.40-5.60); RDW 16.1 % (11.5-14.5); WBC 9.98 X 10*3/uL (4.50-10.00)
[2021-03-17 17:13] LABS: African American GFR (CKD) 78.5 (60.0-200.0); Anion Gap 11.2 mmol/L (4.00-12.00); BUN/Creat Ratio 7.77 Ratio (12.00-20.00); Blood Urea Nitrogen 10.1 mg/dL (9.0-27.0); Calcium 9.1 mg/dL (8.7-10.3); Carbon Dioxide 26.8 mmol/L (21.6-31.8); Non-African American GFR(CKD) 67.8 (60.0-200.0); Potassium 4.7 mmol/L (3.5-5.5)
[2021-03-18 10:08] LABS: Magnesium 2.1 mg/dL (1.5-2.4); Phosphorus 2.3 mg/dL (2.4-5.1)
== END | disposition home or self-care (01) ==
LOC: LABWHC1 10:51
PROVIDERS: ATTEND Internal Medicine Nephrology
DX: N17.9 Acute kidney failure, unspecified (principal); D64.9 Anemia, unspecified; N39.0 Urinary tract infection, site not specified
CPT/HCPCS: 36415; 80048; 81001; 81003; 83735; 84100; 85025

== ENCOUNTER 2021-05-10 16:46 | Emergency (ER) | payer OTHER ==
[2021-05-10] MEDS ORDERED: HYDROmorphone 0.5 MG/0.5 ML SYRINGE IVP STA ×2 (18:27→20:08)
[2021-05-10] MEDS ORDERED: SODIUM CHLORIDE 0.9% 1,000 ML IV STA (18:27)
[2021-05-10] MEDS ORDERED: cloNIDine HCL 0.2 MG TAB PO STA (18:31)
--- NOTE | 2021-05-10 18:34 | ED ---
General Adult HPI - General Chief complaint: Abdominal Pain Stated complaint: lt sided abd pain Time Seen by Provider: 05/10/21 18:25 Source: patient, RN notes reviewed, old records reviewed Mode of arrival: wheelchair Limitations: no limitations - History of Present Illness Initial comments: 40-year-old male, alert and oriented 4, presents to the emergency room with complaints of left-sided abdominal pain radiating into his back. Patient states that he has had this pain for 3 months. He states that he felt a pop and the pain has been significant ever since. States he went to [facility] and they told him he had a blood clot in his lung. He states he is currently taking eliquis. He does not believe that this is a blood clot. He states that the pain is severe and with slight movement or jarring of his body causes increased pain. He has pain to light touch to the left flank. He denies any nausea vomiting diarrhea or fevers. He does have a history of coronary artery disease, COPD, hypertension, ID, asthma and bipolar. He states he takes blood pressure medicine but does not know the name. -: month(s) (3) Location: back (left flank), abdomen, left (upper) Severity scale (1-10): 9 Quality: sharp, constant Consistency: constant Improves with: none Worsens with: movement Associated Symptoms: denies other symptoms Treatments Prior to Arrival: none - Related Data Home Medications Medication Instructions Recorded Confirmed Aspirin 81 mg PO W/SUPPER 03/10/21 05/10/21 Atorvastatin [Lipitor] 40 mg PO HS 03/10/21 05/10/21 Carvedilol [Coreg] 25 mg PO BID 03/10/21 05/10/21 Famotidine [Pepcid] 20 mg PO BID 03/10/21 05/10/21 amLODIPine [Norvasc] 10 mg PO DAILY@0700 03/10/21 05/10/21 cloNIDine HCL 0.1 mg PO DAILY 05/10/21 05/10/21 Previous Rx's Medication Instructions Recorded Apixaban [Eliquis] 5 mg PO BID 30 Days #60 tab 03/11/21 Nitroglycerin Sl Tabs [Nitrostat] 0.4 mg SUBLINGUAL Q5M PRN #30 tab 03/11/21 HYDROcodone/APAP 5-325MG [[place] 5] 1 each PO Q4HR PRN 3 Days #18 tab 05/10/21 Ibuprofen [Motrin] 600 mg PO Q8HR PRN #30 tab 05/10/21 Lidocaine [Lidoderm 5% Patch] 1 patch TRANSDERM DAILY 14 Days 05/10/21 #14 patch Allergies Allergy/AdvReac Type Severity Reaction Status Date / Time No Known Allergies Allergy Verified 05/10/21 17:24 Review of Systems ROS Statement: Those systems with pertinent positive or pertinent negative responses have been documented in the HPI. ROS Other: All systems not noted in ROS Statement are negative. Past Medical History Past Medical History: Coronary Artery Disease (CAD), COPD, Hyperlipidemia, Hypertension, Myocardial Infarction (ID) Additional Past Medical History / Comment(s): ID in 2008, asthma, stress test Last Myocardial Infarction Date:: 2008 History of Any Multi-Drug Resistant Organisms: None Reported Past Surgical History: Heart Catheterization With Stent Past Anesthesia/Blood Transfusion Reactions: No Reported Reaction Date of Last Stent Placement:: 2008 Past Psychological History: Bipolar, Schizophrenia Smoking Status: Former smoker Past Alcohol Use History: None Reported Past Drug Use History: Marijuana - Past Family History Father Family Medical History: CVA/TIA, Myocardial Infarction (ID) Additional Family Medical History / Comment(s): Father had a ID at age 29yrs. at age 38 after open heart Mother Family Medical History: No Reported History Additional Family Medical History / Comment(s): Mother is healthy General Exam Limitations: no limitations General appearance: alert, in no apparent distress Head exam: Present: atraumatic, normocephalic, normal inspection Eye exam: Present: normal appearance, EOMI. Absent: scleral icterus, conjunctival injection, periorbital swelling, periorbital tenderness ENT exam: Present: normal exam, normal oropharynx, mucous membranes moist Neck exam: Present: normal inspection, full ROM. Absent: tenderness, meningismus, lymphadenopathy, thyromegaly Respiratory exam: Present: normal lung sounds bilaterally. Absent: respiratory distress, wheezes, rales, rhonchi, chest wall tenderness, accessory muscle use Cardiovascular Exam: Present: regular rate, normal rhythm, normal heart sounds. Absent: systolic murmur, diastolic murmur, rubs, gallop, clicks, JVD GI/Abdominal exam: Present: soft, distended, tenderness (Tenderness to light touch diffusely). Absent: guarding, rigid Extremities exam: Present: normal inspection, normal capillary refill. Absent: joint swelling, calf tenderness Back exam: Present: normal inspection, tenderness, CVA tenderness (L) Neurological exam: Present: alert, oriented X3 Psychiatric exam: Present: anxious Skin exam: Present: warm, dry, intact, normal color. Absent: rash, cyanosis, diaphoretic, erythema, petechiae, pallor, mottled Course Vital Signs 05/10/21 05/10/21 05/10/21 17:20 21:15 22:15 Temperature 98.8 F 98.2 F Pulse Rate 91 78 76 Respiratory 18 16 16 Rate Blood Pressure 192/126 183/106 183/106 O2 Sat by Pulse 96 98 Oximetry EKG Findings - EKG Results: EKG: sinus rhythm (Ventricular rate of 82, UT interval 0.178, QRS 0.108, QTc 0.518) Medical Decision Making - Medical Decision Making 40-year-old male presents to the emergency room with complaints of severe left- sided abdominal pain radiating into his back. Patient was diagnosed at [facility] with a PE and he is currently taking eliquis. CT of the abdomen and pelvis shows an acute left rib #8 fracture without displacement. This is consistent with patient's complaints of left-sided rib pain and comlaints of feeling a pop in that area. There are chronic-appearing fractures of the right ribs 8 through 10. Lungs sounds are clear to auscultation. Oxygen saturation is 96% on room air. His blood pressure was elevated at this visit however he states he takes Catapres for his blood pressure he has not been taking it. He was given Catapres and hydralazine in the emergency room. Patient was given an incentive spirometer, Lidoderm patches, directed to take Motrin for pain and inflammation was also given a prescription for Norflex. Instructed to follow-up with his primary care doctor or return to the emergency room with any new or worsening symptoms. - Lab Data Result diagrams: 05/10/21 18:40 05/10/21 18:40 Lab Results 05/10/21 05/10/21 05/10/21 Range/Units 18:40 18:40 18:40 WBC 16.4 H (3.8-10.6) k/uL RBC 5.06 (4.30-5.90) m/uL Hgb 14.5 (13.0-17.5) gm/dL Hct 44.6 (39.0-53.0) % MCV 88.1 (80.0-100.0) fL MCH 28.8 (25.0-35.0) pg MCHC 32.6 (31.0-37.0) g/dL RDW 14.9 (11.5-15.5) % Plt Count 352 (150-450) k/uL MPV 7.4 Neutrophils % 76 % Lymphocytes % 11 % Monocytes % 6 % Eosinophils % 5 % Basophils % 1 % Neutrophils # 12.5 H (1.3-7.7) k/uL Lymphocytes # 1.8 (1.0-4.8) k/uL Monocytes # 0.9 (0-1.0) k/uL Eosinophils # 0.8 H (0-0.7) k/uL Basophils # 0.1 (0-0.2) k/uL PT 9.9 (9.0-12.0) sec INR 0.9 (<1.2) APTT 24.3 (22.0-30.0) sec Sodium 136 L (137-145) mmol/L Potassium 4.2 (3.5-5.1) mmol/L Chloride 99 (98-107) mmol/L Carbon Dioxide 27 (22-30) mmol/L Anion Gap 10 mmol/L BUN 20 (9-20) mg/dL Creatinine 1.47 H (0.66-1.25) mg/dL Est GFR (CKD-EPI)AfAm 68 (>60 ml/min/1.73 sqM) Est GFR (CKD-EPI)NonAf 59 (>60 ml/min/1.73 sqM) Glucose 100 H (74-99) mg/dL Plasma Lactic Acid Bryan (0.7-2.0) mmol/L Calcium 9.0 (8.4-10.2) mg/dL Total Bilirubin 0.3 (0.2-1.3) mg/dL AST 37 (17-59) U/L ALT 32 (4-49) U/L Alkaline Phosphatase 91 (38-126) U/L Troponin I (0.000-0.034) ng/mL Total Protein 7.4 (6.3-8.2) g/dL Albumin 4.1 (3.5-5.0) g/dL Amylase 66 (30-110) U/L Lipase 157 (23-300) U/L 05/10/21 05/10/21 Range/Units 18:40 18:40 WBC (3.8-10.6) k/uL RBC (4.30-5.90) m/uL Hgb (13.0-17.5) gm/dL Hct (39.0-53.0) % MCV (80.0-100.0) fL MCH (25.0-35.0) pg MCHC (31.0-37.0) g/dL RDW (11.5-15.5) % Plt Count (150-450) k/uL MPV Neutrophils % % Lymphocytes % % Monocytes % % Eosinophils % % Basophils % % Neutrophils # (1.3-7.7) k/uL Lymphocytes # (1.0-4.8) k/uL Monocytes # (0-1.0) k/uL Eosinophils # (0-0.7) k/uL Basophils # (0-0.2) k/uL PT (9.0-12.0) sec INR (<1.2) APTT (22.0-30.0) sec Sodium (137-145) mmol/L Potassium (3.5-5.1) mmol/L Chloride (98-107) mmol/L Carbon Dioxide (22-30) mmol/L Anion Gap mmol/L BUN (9-20) mg/dL Creatinine (0.66-1.25) mg/dL Est GFR (CKD-EPI)AfAm (>60 ml/min/1.73 sqM) Est GFR (CKD-EPI)NonAf (>60 ml/min/1.73 sqM) Glucose (74-99) mg/dL Plasma Lactic Acid Bryan 1.3 (0.7-2.0) mmol/L Calcium (8.4-10.2) mg/dL Total Bilirubin (0.2-1.3) mg/dL AST (17-59) U/L ALT (4-49) U/L Alkaline Phosphatase (38-126) U/L Troponin I 0.027 (0.000-0.034) ng/mL Total Protein (6.3-8.2) g/dL Albumin (3.5-5.0) g/dL Amylase (30-110) U/L Lipase (23-300) U/L Disposition Clinical Impression: Rib fracture, Hypertension Disposition: HOME SELF-CARE Condition: Good Instructions (If sedation given, give patient instructions): Rib Fracture (ED), Hypertension (ED) Additional Instructions: Use incentive spirometer once an hour. Take medication as prescribed. Continue to take blood pressure medication as prescribed. Follow-up with the primary care doctor this week. Return to the emergency room with any new or worsening symptoms. Prescriptions: Lidocaine [Lidoderm 5% Patch] 1 patch TRANSDERM DAILY 14 Days #14 patch Ibuprofen [Motrin] 600 mg PO Q8HR PRN #30 tab PRN Reason: Pain HYDROcodone/APAP 5-325MG [[place] 5] 1 each PO Q4HR PRN 3 Days #18 tab PRN Reason: Pain Is patient prescribed a controlled substance at d/c from ED?: Yes Referrals: Mohini Uribe MD [Primary Care Provider] - 1-2 days
[2021-05-10 18:59] LABS: Basophils # (A) 0.1 k/uL (0-0.2); Basophils % (A) 1 %; Eosinophils # (A) 0.8 k/uL (0-0.7); Eosinophils % (A) 5 %; HCT 44.6 % (39.0-53.0); HGB 14.5 gm/dL (13.0-17.5); Lymphocytes # (A) 1.8 k/uL (1.0-4.8); Lymphocytes % (A) 11 %; MCH 28.8 pg (25.0-35.0); MCHC 32.6 g/dL (31.0-37.0); MCV 88.1 fL (80.0-100.0); Mean Platelet Volume 7.4; Monocytes # (A) 0.9 k/uL (0-1.0); Monocytes % (A) 6 %; Neutrophils # (A) 12.5 k/uL (1.3-7.7); Neutrophils % (A) 76 %; Platelet Count 352 k/uL (150-450); RBC 5.06 m/uL (4.30-5.90); RDW 14.9 % (11.5-15.5); WBC 16.4 k/uL (3.8-10.6)
[2021-05-10 19:13] LABS: INR 0.9 (<1.2); Partial Thromboplastin Time 24.3 sec (22.0-30.0); Prothrombin Time 9.9 sec (9.0-12.0)
[2021-05-10 19:30] LABS: Albumin 4.1 g/dL (3.5-5.0); Potassium 4.2 mmol/L (3.5-5.1); Total Bilirubin 0.3 mg/dL (0.2-1.3); Total Protein 7.4 g/dL (6.3-8.2)
[2021-05-10] MEDS ORDERED: hydrALAZINE HCL 20 MG/ML 1 ML VIAL IVP STA (20:08)
[2021-05-10] MEDS ORDERED: diphenhydrAMINE 50 MG/ML 1 ML VIAL IVP STA (20:10)
--- NOTE | 2021-05-10 21:04 | XR ---
EXAMINATION TYPE: XR chest 1V DATE OF EXAM: 05/10/2021 8:54 PM COMPARISON: Chest x-ray 03/02/2021 CLINICAL INDICATION:Male, 40 years old with history of pain, TECHNIQUE: Frontal view of the chest. FINDINGS: Lungs/Pleura: There is no evidence of pleural effusion, focal consolidation, or pneumothorax. Pulmonary vascularity: Unremarkable. Heart/mediastinum: Cardiomediastinal silhouette is unremarkable given technique. Musculoskeletal: No acute osseous pathology. IMPRESSION: No acute cardiopulmonary disease/process.
[2021-05-10 21:16] VITALS: BP 183/106; RESP 16
--- NOTE | 2021-05-10 21:20 | CT ---
EXAMINATION TYPE: CT abdomen pelvis w con CT DLP: 3303 mGycm, Automated exposure control for dose reduction was used. DATE OF EXAM: 05/10/2021 8:48 PM COMPARISON: Chest radiograph same day CLINICAL INDICATION:Male, 40 years old with history of abdominal pain, LT side abdominal pain TECHNIQUE: Standard CT of the abdomen and pelvis without IV or oral contrast. Lack of IV or oral co ntrast limits evaluation of solid and hollow organ viscera. Coronal and sagittal reformats were perfo rmed. FINDINGS: LOWER CHEST: Unremarkable ABDOMEN LIVER: Diffusely hypoattenuating parenchyma. GALLBLADDER AND BILE DUCTS: Unremarkable. PANCREAS: Unremarkable. SPLEEN: Unremarkable. ADRENAL GLANDS: Unremarkable. KIDNEYS AND URETERS: No evidence of hydronephrosis or renal calculus. The ureters are unremarkable. PELVIS BLADDER: Unremarkable REPRODUCTIVE: Unremarkable. ABDOMEN & PELVIS STOMACH AND BOWEL: No evidence of bowel obstruction. The appendix Is within normal limits. PERITONEUM: No evidence of pneumoperitoneum or free fluid. VASCULATURE: No evidence of aortic aneurysm. 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 On the left there is an acute #8 fracture w ithout displacement. Additional left healed fracture of rib 9 also appreciated. LYMPH NODES: No gross evidence for lymphadenopathy. SOFT TISSUE/ABDOMINAL WALL: Unremarkable IMPRESSION: 1. Acute fracture left rib #8 without displacement. 2. 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 3. Hepatic steatosis
[2021-05-10] MEDS ORDERED: HYDROmorphone 1 MG/ML 1 ML SYRINGE IVP STA (21:37)
[2021-05-10] MEDS ORDERED: LIDOCAINE 5% PATCH TOPICAL SCH (22:00)
[2021-05-10 22:16] VITALS: PULSE 76; TEMP 98.2
== END 2021-05-10 22:15 | disposition home or self-care (01) ==
LOC: EC 16:46
DX: S22.32XA Fracture of one rib, left side, initial encounter for closed fracture (principal); I10 Essential (primary) hypertension; J44.9 Chronic obstructive pulmonary disease, unspecified; I25.10 Atherosclerotic heart disease of native coronary artery without angina pectoris; E78.5 Hyperlipidemia, unspecified; I25.2 Old myocardial infarction; F31.9 Bipolar disorder, unspecified; F20.9 Schizophrenia, unspecified; F12.90 Cannabis use, unspecified, uncomplicated; Z87.891 Personal history of nicotine dependence; Z79.82 Long term (current) use of aspirin; Z79.01 Long term (current) use of anticoagulants; Z79.1 Long term (current) use of non-steroidal anti-inflammatories (NSAID); Z79.899 Other long term (current) drug therapy; X50.1XXA Overexertion from prolonged static or awkward postures, initial encounter
CPT/HCPCS: 36415; 93005; 80053; 82150; 83605; 83690; 84484; 85025; 85610; 85730; 71045; 74177; 99284; 96374; 96375 ×2; 96376 ×2; 96361 ×3; J0360; J1200; J1170 ×2; Q9967

== ENCOUNTER → 2021-05-18 | Outpatient (CLI) | payer OTHER | END | disposition home or self-care (01) | LOC: RADUSWWP 09:08 | PROVIDERS: ATTEND Internal Medicine Nephrology | DX: Z53.9 Procedure and treatment not carried out, unspecified reason (principal) ==

== ENCOUNTER 2021-06-22 03:06 | Inpatient (IN) | payer MEDICAID, OTHER ==
[2021-06-22] MEDS ORDERED: cloNIDine HCL 0.2 MG TAB PO STA (04:12)
[2021-06-22] MEDS ORDERED: LORazepam 1 MG TAB PO STA ×2 (04:12→10:10)
[2021-06-22] MEDS ORDERED: HYDROcodone/APAP 5-325MG 1 EACH TAB PO STA ×2 (04:13→06:27)
[2021-06-22] MEDS ORDERED: amLODIPine 10 MG TAB PO STA (05:38)
[2021-06-22] MEDS ORDERED: OLANZapine ODT 10 MG TAB PO STA (06:46)
--- NOTE | 2021-06-22 07:03 | ED ---
Psych HPI - General Source: patient Mode of arrival: ambulatory - History of Present Illness MD Complaint: other -: days(s) Associated Psychiatric Symptoms: racing thoughts, delusions Quality: getting worse Improves With: none Worsens With: none Context: not taking psychiatric medications Associated Symptoms: denies other symptoms <Darek Denson - Last Filed: 06/22/21 07:00> <Elliot Stone - Last Filed: 06/22/21 11:04> - General Chief Complaint: Psychiatric Symptoms Stated Complaint: Mental Health Time Seen by Provider: 06/22/21 03:18 - History of Present Illness Initial Comments: This patient is a 40-year-old man brought to have psychiatric evaluation. Patient's mother gives most the history. The patient states that he is not wanted to talk to me. Patient's mother related that he is having increasingly strange and erratic behavior. He is been going outside with only underwear on. He has been having about bizarre conversations. Again the patient would not provide any history to me. (Darek Denson) - Related Data Home Medications Medication Instructions Recorded Confirmed Aspirin 81 mg PO W/SUPPER 03/10/21 06/22/21 Atorvastatin [Lipitor] 40 mg PO HS 03/10/21 06/22/21 Carvedilol [Coreg] 25 mg PO BID 03/10/21 06/22/21 Famotidine [Pepcid] 20 mg PO BID 03/10/21 06/22/21 amLODIPine [Norvasc] 10 mg PO DAILY 03/10/21 06/22/21 cloNIDine HCL 0.1 mg PO DAILY 05/10/21 06/22/21 Previous Rx's Medication Instructions Recorded Apixaban [Eliquis] 5 mg PO BID 30 Days #60 tab 03/11/21 Nitroglycerin Sl Tabs [Nitrostat] 0.4 mg SUBLINGUAL Q5M PRN #30 tab 03/11/21 Allergies Allergy/AdvReac Type Severity Reaction Status Date / Time No Known Allergies Allergy Verified 06/22/21 09:41 Review of Systems ROS Other: All systems not noted in ROS Statement are negative. Constitutional: Denies: fever Respiratory: Denies: cough, dyspnea Cardiovascular: Denies: chest pain Gastrointestinal: Denies: abdominal pain, vomiting Neurological: Denies: headache <Darek Denson - Last Filed: 06/22/21 07:00> ROS Other: All systems not noted in ROS Statement are negative. <Elliot Stone - Last Filed: 06/22/21 11:04> ROS Statement: Those systems with pertinent positive or pertinent negative responses have been documented in the HPI. Past Medical History Past Medical History: Coronary Artery Disease (CAD), COPD, Hyperlipidemia, Hypertension, Myocardial Infarction (CO) Additional Past Medical History / Comment(s): CO in 2008, asthma, stress test Last Myocardial Infarction Date:: 2008 History of Any Multi-Drug Resistant Organisms: None Reported Past Surgical History: Heart Catheterization With Stent Past Anesthesia/Blood Transfusion Reactions: No Reported Reaction Date of Last Stent Placement:: 2008 Past Psychological History: Bipolar, Schizophrenia Smoking Status: Former smoker Past Alcohol Use History: None Reported Past Drug Use History: Marijuana - Past Family History Father Family Medical History: CVA/TIA, Myocardial Infarction (CO) Additional Family Medical History / Comment(s): Father had a CO at age 29yrs. at age 38 after open heart Mother Family Medical History: No Reported History Additional Family Medical History / Comment(s): Mother is healthy <Darek Denson - Last Filed: 06/22/21 07:00> General Exam General appearance: alert, in no apparent distress Head exam: Present: atraumatic, normocephalic Eye exam: Present: normal appearance, PERRL, EOMI. Absent: scleral icterus, conjunctival injection Neck exam: Present: full ROM Respiratory exam: Present: normal lung sounds bilaterally. Absent: respiratory distress, wheezes, rales, rhonchi, stridor Cardiovascular Exam: Present: normal rhythm, tachycardia, normal heart sounds. Absent: systolic murmur, diastolic murmur, rubs, gallop GI/Abdominal exam: Present: soft. Absent: distended, tenderness, guarding, rebound, rigid, mass Extremities exam: Present: normal inspection, normal capillary refill Back exam: Present: normal inspection Neurological exam: Present: alert, CN II-XII intact, normal gait. Absent: motor sensory deficit Psychiatric exam: Present: anxious, manic, other (Patient is not cooperative with the psychiatric exam however he is displaying disorganized thought processes being very tangential. He does appear to be having paranoid delusions and expresses bizarre thoughts.). Absent: flat affect, homicidal ideation Skin exam: Present: warm, dry, intact, normal color. Absent: rash <Darek Denson - Last Filed: 06/22/21 07:00> Course <Elliot Stone - Last Filed: 06/22/21 11:04> Vital Signs 06/22/21 06/22/21 06/22/21 03:14 04:15 05:45 Pulse Rate 127 H 92 80 Respiratory 22 20 18 Rate Blood Pressure 217/127 205/115 O2 Sat by Pulse 95 95 97 Oximetry 06/22/21 08:22 Pulse Rate 107 H Respiratory 18 Rate Blood Pressure 191/129 O2 Sat by Pulse 97 Oximetry - Reevaluation(s) Reevaluation #1: 06/22/21 09:54 The patient was endorsed me at our shift change by Dr. Denson pending EPS evaluation patient's been demonstrating bizarre behavior ran with thought processes flight of ideas he's also been verbally confrontational with staff members as well as going in and out of patient rooms going through drawers in the treatment areas. He purely does have a history of hypertension as well as schizoaffective disorder. He also has a history of alcohol use disorder and cannabis use disorder. I did review the petition. Patient does demonstrate evidence of hypermania at this time. He was evaluated by [facility] and will be admitted for inpatient evaluation and treatment. He did require IM sedation. A clinical certification was filled by Dr. Chase joe. (Elliot Stone) Reevaluation #2: 06/22/21 11:03 The patient's COVID-19 test is negative (Elliot Stone) Medical Decision Making <Elliot Stone - Last Filed: 06/22/21 11:04> - Medical Decision Making The patient's evaluation was completed [facility] did see the patient in emergency department he will be admitted for inpatient evaluation and treatment. Covid 19 testing is negative. Clinical certification filled out by (Elliot Stone) - Lab Data Lab Results 06/22/21 Range/Units 10:08 Coronavirus (PCR) Not Detected (Not Detectd) Disposition <Darek Denson - Last Filed: 06/22/21 07:00> <Elliot Stone - Last Filed: 06/22/21 11:04> Clinical Impression: Schizoaffective disorder, Alcohol use disorder, Cannabis use disorder, mild, abuse, Manic behavior Disposition: TRANSFER TO PSYCH HOSP/UNIT Condition: Stable Referrals: Mohini Uribe MD [Primary Care Provider] - 1-2 days
[2021-06-22] MEDS ORDERED: diphenhydrAMINE 50 MG/ML 1 ML VIAL IM STA (09:42)
[2021-06-22] MEDS ORDERED: LORazepam 2 MG/ML INJ IM STA (09:42)
[2021-06-22] MEDS ORDERED: HALOPERIDOL LACTATE 5 MG/ML 1 ML VIAL IM STA (09:43)
[2021-06-22] MEDS ORDERED: diphenhydrAMINE 50 MG CAP PO STA (10:10)
[2021-06-22] MEDS ORDERED: haloperidoL 5 MG TAB PO STA (10:11)
[2021-06-22] MEDS ORDERED: LORazepam 1 MG TAB PO PRN (11:54)
[2021-06-22] MEDS ORDERED: MAG HYDROX/AL HYDROX/SIMETH 30 ML CUP PO PRN (11:54)
[2021-06-22] MEDS ORDERED: ACETAMINOPHEN TAB 325 MG TAB PO PRN (11:54)
[2021-06-22] MEDS ORDERED: MAGNESIUM HYDROXIDE 2,400 MG/10 ML CUP PO PRN (11:54)
[2021-06-22] MEDS ORDERED: HALOPERIDOL LACTATE 5 MG/ML 1 ML VIAL IM PRN (12:02)
[2021-06-22] MEDS ORDERED: LORazepam 2 MG/ML INJ IM PRN (12:03)
[2021-06-22] MEDS ORDERED: diphenhydrAMINE 50 MG/ML 1 ML VIAL IM PRN (12:04)
[2021-06-22] MEDS ORDERED: diphenhydrAMINE 25 MG CAP PO PRN (12:04)
[2021-06-23] MEDS: carvediloL 12.5 MG TAB PO SCH ×2 (08:48→16:02)
[2021-06-23] MEDS: cloNIDine HCL 0.1 MG TAB PO SCH (08:48)
[2021-06-23] MEDS: amLODIPine 10 MG TAB PO SCH (08:48)
[2021-06-23] MEDS ORDERED: NITROGLYCERIN SL TABS 0.4 MG TAB SUBLINGUAL PRN (08:57)
[2021-06-23] MEDS: FAMOTIDINE 20 MG TAB PO SCH (09:28)
[2021-06-23] MEDS: APIXABAN 5 MG TAB PO SCH (09:28)
[2021-06-23 10:35] LABS: Basophils % (A) 0 %; Eosinophils # (A) 0.6 k/uL (0-0.7); Eosinophils % (A) 5 %; HCT 44.9 % (39.0-53.0); HGB 14.6 gm/dL (13.0-17.5); Lymphocytes # (A) 1.5 k/uL (1.0-4.8); Lymphocytes % (A) 13 %; MCHC 32.5 g/dL (31.0-37.0); MCV 89.2 fL (80.0-100.0); Mean Platelet Volume 7.3; Monocytes # (A) 0.5 k/uL (0-1.0); Monocytes % (A) 5 %; Neutrophils # (A) 8.4 k/uL (1.3-7.7); Neutrophils % (A) 75 %; Platelet Count 291 k/uL (150-450); RBC 5.03 m/uL (4.30-5.90); WBC 11.1 k/uL (3.8-10.6)
[2021-06-23 10:52] LABS: ALT 44 U/L (4-49); AST 80 U/L (17-59); African American GFR (CKD) 56 (>60 ml/min/1.73 sqM); Alkaline Phosphatase 89 U/L (38-126); Anion Gap 9 mmol/L; Blood Urea Nitrogen 21 mg/dL (9-20); Calcium 9.4 mg/dL (8.4-10.2); Carbon Dioxide 30 mmol/L (22-30); Chloride 99 mmol/L (98-107); Glucose 130 mg/dL (74-99); Non-African American GFR(CKD) 48 (>60 ml/min/1.73 sqM); Potassium 3.8 mmol/L (3.5-5.1); Sodium 138 mmol/L (137-145); Total Bilirubin 0.8 mg/dL (0.2-1.3); Total Protein 7.5 g/dL (6.3-8.2)
[2021-06-23] MEDS ORDERED: traZODone HCL 100 MG TAB PO PRN (12:04)
--- NOTE | 2021-06-23 12:04 | P.HP ---
Psychiatric H&P - . H&P Date: 06/23/21 History & Physical: Allergies Allergy/AdvReac Type Severity Reaction Status Date / Time No Known Allergies Allergy Verified 06/22/21 09:41 Vital Signs Temp 98.1 F 06/23/21 08:03 Pulse 106 H 06/23/21 08:03 Resp 18 06/23/21 08:03 BP 191/118 06/23/21 08:03 Pulse Ox 96 06/23/21 08:03 Laboratory Last Values WBC 11.1 k/uL (3.8-10.6) H 06/23/21 09:57 RBC 5.03 m/uL (4.30-5.90) 06/23/21 09:57 Hgb 14.6 gm/dL (13.0-17.5) 06/23/21 09:57 Hct 44.9 % (39.0-53.0) 06/23/21 09:57 MCV 89.2 fL (80.0-100.0) 06/23/21 09:57 MCH 29.0 pg (25.0-35.0) 06/23/21 09:57 MCHC 32.5 g/dL (31.0-37.0) 06/23/21 09:57 RDW 15.0 % (11.5-15.5) 06/23/21 09:57 Plt Count 291 k/uL (150-450) 06/23/21 09:57 MPV 7.3 06/23/21 09:57 Neutrophils % 75 % 06/23/21 09:57 Lymphocytes % 13 % 06/23/21 09:57 Monocytes % 5 % 06/23/21 09:57 Eosinophils % 5 % 06/23/21 09:57 Basophils % 0 % 06/23/21 09:57 Neutrophils # 8.4 k/uL (1.3-7.7) H 06/23/21 09:57 Lymphocytes # 1.5 k/uL (1.0-4.8) 06/23/21 09:57 Monocytes # 0.5 k/uL (0-1.0) 06/23/21 09:57 Eosinophils # 0.6 k/uL (0-0.7) 06/23/21 09:57 Basophils # 0.0 k/uL (0-0.2) 06/23/21 09:57 Sodium 138 mmol/L (137-145) 06/23/21 09:57 Potassium 3.8 mmol/L (3.5-5.1) 06/23/21 09:57 Chloride 99 mmol/L (98-107) 06/23/21 09:57 Carbon Dioxide 30 mmol/L (22-30) 06/23/21 09:57 Anion Gap 9 mmol/L 06/23/21 09:57 BUN 21 mg/dL (9-20) H 06/23/21 09:57 Creatinine 1.72 mg/dL (0.66-1.25) H 06/23/21 09:57 Est GFR (CKD-EPI)AfAm 56 (>60 ml/min/1.73 sqM) 06/23/21 09:57 Est GFR (CKD-EPI)NonAf 48 (>60 ml/min/1.73 sqM) 06/23/21 09:57 Glucose 130 mg/dL (74-99) H 06/23/21 09:57 Calcium 9.4 mg/dL (8.4-10.2) 06/23/21 09:57 Total Bilirubin 0.8 mg/dL (0.2-1.3) 06/23/21 09:57 AST 80 U/L (17-59) H 06/23/21 09:57 ALT 44 U/L (4-49) 06/23/21 09:57 Alkaline Phosphatase 89 U/L (38-126) 06/23/21 09:57 Total Protein 7.5 g/dL (6.3-8.2) 06/23/21 09:57 Albumin 4.0 g/dL (3.5-5.0) 06/23/21 09:57 TSH 0.388 mIU/L (0.465-4.680) L 06/23/21 09:57 Coronavirus (PCR) Not Detected (Not Detectd) 06/22/21 10:08 06/23/21 11:57 IDENTIFYING DATA: Patient is a 40-year-old male who currently lives with his mother has a chronic history of schizoaffective disorder and cannabis use. HPI: Patient presented to the hospital yesterday on petition claiming the patient was acting bizarre and erratic and aggressive. Patient has a history of schizoaffective disorder and was previously on long-acting injection and being treated at [facility]. Patient's case has been closed through [facility] and patient has been apparently noncompliant with his psychiatric medications. His last Hospitalization was in December 2019. Patient was admitted involuntarily to the mental health unit and was seen laying down in the bed this morning. Patient received several prn meds yesterday due to his agitation and aggression in the ER. Patient was agreeable to be seen by job specification writer in the office today. He appeared to be very paranoid and argumentative with job specification writer. He said several bizarre statements to job specification writer including "why would I take medications are not [place]". He claims that he does not go to [facility] any longer and denies having any mental illness. He claims that he feels "great" and is denying any depression today. He denies any anxiety. He appears to have very poor insight and judgment. He has poor hygiene and grooming. He had low frustration tolerance and was impulsive. He claims he does not know why he is not hospital and states that "the ambulance brought me here". He is fairly concrete. He states that he is sleeping fairly. He claims that he is hearing voices specifically from [employer] and claims that "he is the grain elevator operator between me and everyone else". Patient denies any suicidal or homicidal ideations intent or plan. At this time patient denies any visual hallucinations. Patient admits to using marijuana daily and smoking cigarettes. PAST PSYCHIATRIC HISTORY: Patient states that he has a history of schizoaffective disorder. Patient was previously on several different antipsychotics in the past including Risperdal and also Abilify. He also has a history of being on long-acting injections however has been off his medications for several months now. Patient's last psychiatric hospitalization was in December 2019. He claims that he used to follow up with [facility] however no longer does so. Patient denies any history of suicide attempts in the past. PMH: Coronary artery disease, COPD, hyperlipidemia, hypertension ALLERGIES: as per EMR CHEMICAL DEPENDENCY HISTORY: as per HPI FAMILY PSYCHIATRIC/SUBSTANCE USE HISTORY: Unable to gather this information SOCIAL HISTORY: Patient was born and raised in [facility]. He currently lives with his mother in a house. He was not able to give further social history due to his paranoia and disorganization. MENTAL STATUS EXAM: General Appearance: Patient appears to be obese, poor hygiene and grooming, stated age is alert, argumentative and uncooperative. Behavior: Patient is seated without any agitated behavior. Uncooperative. Hostile towards job specification writer. Paranoid. Speech: Patient's speech is fluent and nonpressured. [place] Mood/Affect: Patient reports their mood is "great", affect is congruent and constricted. Suicidality/Homicidality: Patient denies having any homicidal ideation intent or plan. Denies any suicidal ideations intent or plan Perceptions: Patient denies any visual hallucinations and admits to hearing Chriss's voice Though content/process: [place], demanding, bizarre statements. Delusional. Memory and concentration: AOX3, grossly intact for the purposes of this session. Can spell "WORLD" backwards Judgment and insight: Very poor, chronically STRENGTHS/WEAKNESSES: strength is that patient is resilient. Weakness is that patient has poor judgment and is impulsive INTELLECT: average IMPRESSIONS: Schizoaffective disorder, bipolar type Cannabis use disorder Nicotine dependence PLAN: -Patient is admitted under involuntary status to MHU for stabilization of psychiatric symptoms and safety. Patient has not signed adult voluntary form and medication consent and is placed in patient's chart. A second certification was completed and along with petition will be filed for court. -Medications : Will start patient on paliperidone 3 mg bid for psychosis/mood stabilization. Trazodone 50 mg daily at bedtime when necessary for insomnia. -Ativan and Haldol PRN for agitation/aggression -Patient was informed of the risks, benefits and side effects of the medication however patient does not consent to taking meds. -Internal Medicine consult to perform medical evaluation and physical. -NRT - nicotine patch -SW on board for discharge planning. Encourage patient to participate in groups to work on coping skills. Will await deferral and court date.
[2021-06-23] MEDS: PALIPERIDONE 3 MG TAB.ER.24 PO SCH (13:09)
[2021-06-23] MEDS ORDERED: amLODIPine 10 MG TAB PO STA (15:59)
[2021-06-23] MEDS ORDERED: cloNIDine HCL 0.1 MG TAB PO STA (16:00)
[2021-06-23] MEDS: ASPIRIN 81 MG PO SCH (16:02)
--- NOTE | 2021-06-23 22:31 | P.CONS ---
History of Present Illness - Reason for Consult Consult date: 06/22/21 Requesting physician: Bharat Harris - History of Present Illness This is a pleasant 40-year-old male presents to the with racing thoughts and delusional and erratic behavior. Patient follows with Dr. Uribe, in the outpatient setting, also [facility] and states he was seen in there office recently. Was also admitted to the hospital recently for cardiac cath which was clear and states he had an ultrasound of his heart completed at that time. Also per medical record patient was recently treated for PE and started on eliquis which patient denies and states they have no evidence of any blood clots and they were just guessing. Per medical record this admission, pat bryn's mother was present and gave most of the history as patient was not wanting to speak with provider in the . Per reports, patient was going outside with just his underwear on and has been having bizarre conversations. Past medical history significant for COPD, asthma, former smoker quit several months ago, history of marijuana use, daily alcohol use, coronary artery disease status post AR in 2008 with cardiac catheterization and stent placement, lipidemia, hypertension, bipolar, schizophrenia. Most recent echo in Feb shows an EF of 55 to 60% with severe concentric left ventricular hypertrophy. Patient has a family history of early onset coronary artery disease, father had an AR at age 2929 years old and at age 38 after open heart surgery. Patient lives with his mother has 3 siblings that he gets along well with, one sister lives out of state. Patient also states he has 2 children, 1 dtr who is 20 or 21, with a grandchild, and also a son who is 18. Patient states he enjoys golf, he says he works all the time, but it is also nice to not have a job because then hes free to see his children when he wants too. 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 He states the spirits tell him to do things and he carries out their acts as part of his job. Patient did state that he does not want to take any "psychotropic medications" as they tell him too. When asked if patient follows with a doctor or therapist outside the hospital he became hostile and paranoid stating, "what did I say that made you think that about me, that I need to see a therapist." Reinforced it was part of my assessment to ask about his outside providers. Patient then relaxed and was appropriate. He denies a need for any medications and states that they don't help him and it doesn't matter because he isn't having any symptoms. Labs on admission show white count of 11.1, sodium 138, potassium 3.8, BUN 21, creatinine 1.72, glucose 130, AST 80, ALT 44, TSH 0.388, T4 1.66. Patient does appear to have a history of chronic kidney disease, baseline creatinine around 1.3. Glucose elevated to 130, A1C 6.4, consistent with prediabetes. Discussed this with patient who did not want to further discuss and states he is fine. vital signs: patient is afebrile, heart rate is tachycardic, 106, respirations 18, blood pressure 191/118, 96% room air. Home medications included clonidine, Pepcid, carvedilol, Lipitor, eliquis, Norvasc, aspirin. Patient had refused his blood pressure medications earlier in the day. After discussion with patient and importance of blood pressure control to prevent stroke and heart disease, patient was agreeable to taking his blood pressure medication and greeting card writer witnessed patient taking them. Patient seems agreeable now to taking them as prescribed. Vitals have normalized with medications. REVIEW OF SYSTEMS: CONSTITUTIONAL: No fever, no malaise, no fatigue. HEENT: No recent visual problems or hearing problems. Denied any sore throat. CARDIOVASCULAR: No chest pain, orthopnea, PND, no palpitations, no syncope. PULMONARY: No shortness of breath, no cough, no hemoptysis. GASTROINTESTINAL: No diarrhea, no nausea, no vomiting, no abdominal pain. NEUROLOGICAL: No headaches, no weakness, no numbness. HEMATOLOGICAL: Denies any bleeding or petechiae. GENITOURINARY: Denies any burning micturition, frequency, or urgency. MUSCULOSKELETAL/RHEUMATOLOGICAL: Denies any joint pain, swelling, or any muscle pain. ENDOCRINE: Denies any polyuria or polydipsia. The rest of the 14-point review of systems is negative. PHYSICAL EXAMINATION: GENERAL: The patient is alert and oriented x3, not in any acute distress. Well developed, well nourished. Obese. HEENT: Pupils are round and equally reacting to light. EOMI. No scleral icterus. No conjunctival pallor. Normocephalic, atraumatic. No pharyngeal erythema. No thyromegaly. CARDIOVASCULAR: S1 and S2 present. No murmurs, rubs, or gallops. PULMONARY: Chest is clear to auscultation, no wheezing or crackles. ABDOMEN: Soft, nontender, nondistended, normoactive bowel sounds. No palpable organomegaly. MUSCULOSKELETAL: No joint swelling or deformity. EXTREMITIES: No cyanosis, clubbing, or pedal edema. NEUROLOGICAL: Gross neurological examination did not reveal any focal deficits. SKIN: No rashes. Assessment and Plan Assessment History of coronary artery disease with cardiac catheterization status post AR with stenting to the LAD in 2008 Acute kidney injury probable due to poor oral intake, poor self care Hypertension noncomplaint with medications Hyperlipidemia COPD/Asthma, not in acute exacerbation History of pulmonary embolism on eliquis Prediabetic with significant risk factors, A1C 6.4, with elevated blood glucose Remote history of nicotine dependence Strong familial history of coronary artery disease with father having heart attack at 29 and expiring at the age of 30 after open heart surgery Chronic Kidney Disease THC use Morbid obesity with a BMI of 45.6 History of bipolar/schizophrenia DVT prophylaxis on eliquis GI prophylaxis on Pepcid Full Code Plan Continue current home medications Monitor blood sugars, patient may benefit from medication Repeat BMP in the morning Monitor blood pressure Recommend repeat TSH in 1 month Repeat A1C in 3 months, patient high risk for diabetes, borderline Follow up with PCP and Cardiology on discharge Thank you for this consultation we will follow along with patient on an as needed basis. Past Medical History Past Medical History: Coronary Artery Disease (CAD), COPD, Hyperlipidemia, Hypertension, Myocardial Infarction (AR) Additional Past Medical History / Comment(s): AR in 2008, asthma, stress test Last Myocardial Infarction Date:: 2008 History of Any Multi-Drug Resistant Organisms: None Reported Past Surgical History: Heart Catheterization With Stent Past Anesthesia/Blood Transfusion Reactions: No Reported Reaction Date of Last Stent Placement:: 2008 Past Psychological History: Bipolar, Schizophrenia Smoking Status: Former smoker Past Alcohol Use History: None Reported Past Drug Use History: Marijuana - Past Family History Father Family Medical History: CVA/TIA, Myocardial Infarction (AR) Additional Family Medical History / Comment(s): Father had a AR at age 29yrs. at age 38 after open heart Mother Family Medical History: No Reported History Additional Family Medical History / Comment(s): Mother is healthy Medications and Allergies Home Medications Medication Instructions Recorded Confirmed Type Aspirin 81 mg PO W/SUPPER 03/10/21 06/22/21 History Atorvastatin [Lipitor] 40 mg PO HS 03/10/21 06/22/21 History Carvedilol [Coreg] 25 mg PO BID 03/10/21 06/22/21 History Famotidine [Pepcid] 20 mg PO BID 03/10/21 06/22/21 History amLODIPine [Norvasc] 10 mg PO DAILY 03/10/21 06/22/21 History Apixaban [Eliquis] 5 mg PO BID 30 Days #60 tab 03/11/21 06/22/21 Rx Nitroglycerin Sl Tabs [Nitrostat] 0.4 mg SUBLINGUAL Q5M PRN #30 tab 03/11/21 06/22/21 Rx cloNIDine HCL 0.1 mg PO DAILY 05/10/21 06/22/21 History Allergies Allergy/AdvReac Type Severity Reaction Status Date / Time No Known Allergies Allergy Verified 06/22/21 09:41 Physical Exam Vitals: Vital Signs Temp Pulse Resp BP Pulse Ox 06/23/21 08:03 98.1 F 106 H 18 191/118 96 Results CBC & Chem 7: 06/23/21 09:57 06/23/21 09:57 Labs: Abnormal Lab Results - Last 24 Hours (Table) 06/23/21 06/23/21 Range/Units 09:57 09:57 WBC 11.1 H (3.8-10.6) k/uL Neutrophils # 8.4 H (1.3-7.7) k/uL BUN 21 H (9-20) mg/dL Creatinine 1.72 H (0.66-1.25) mg/dL Glucose 130 H (74-99) mg/dL AST 80 H (17-59) U/L TSH 0.388 L (0.465-4.680) mIU/L Assessment and Plan Time with Patient: Greater than 30
[2021-06-24 03:39] LABS: Chol/HDL Ratio 5.67 Ratio; LDL Cholesterol,Calculated 171.3 mg/dL (0.0-131.0)
[2021-06-24] MEDS: APIXABAN 5 MG TAB PO SCH ×3 (05:34→20:31)
[2021-06-24] MEDS: PALIPERIDONE 3 MG TAB.ER.24 PO SCH ×3 (05:34→21:08)
[2021-06-24] MEDS: FAMOTIDINE 20 MG TAB PO SCH ×3 (05:34→20:30)
[2021-06-24] MEDS: ATORVASTATIN 40 MG TAB PO SCH ×2 (05:34→20:30)
[2021-06-24] MEDS: carvediloL 12.5 MG TAB PO SCH ×2 (06:35→17:33)
[2021-06-24] MEDS: cloNIDine HCL 0.1 MG TAB PO SCH (06:35)
[2021-06-24] MEDS: amLODIPine 10 MG TAB PO SCH (06:35)
[2021-06-24 07:39] LABS: Calcium 9.3 mg/dL (8.4-10.2); Potassium 4.1 mmol/L (3.5-5.1)
--- NOTE | 2021-06-24 12:14 | P.PN ---
Progress Note - Text Progress Note Date: 06/24/21 Interval History: Patient was seen wandering the hallways and was directable and agreeable to sp eak with va underwriter in the office. She appeared to be speaking to another patient near the nurse's desk. He appeared to be more directable today during conversation. Mild improvement in his paranoia however was still suspicious of va underwriter. He rolled his eyes several times when speaking with va underwriter and appeared to be disinterested and questioning why va underwriter was asking questions. He started taking his paliperidone this morning and refused medications last night. She claims that he signed the deferral with his sports attorney and wants to avoid court. He is agreeable to continue with treatment. He made bizarre comments at times and continues to state that he is "following the word of God". He states that he slept fairly last night. At this time patient denies any suicidal or homical ideations, intent or plan. Patient denies any auditory, visual hallucinations and denies any paranoia or delusions. Patient denies any side effects from the medications and has been compliant with meds. Mental Status Exam: General Appearance: Patient appears to be obese, poor hygiene and grooming, stated age is alert, uncooperative. Behavior: Patient is seated without any agitated behavior. Mildly more field operations coordinator perative today. Hostile towards va underwriter. Suspicious Speech: Patient's speech is fluent and nonpressured. [place] Mood/Affect: Patient reports their mood is "fine", affect is congruent and constricted. Suicidality/Homicidality: Patient denies having any homicidal ideation intent or plan. Denies any suicidal ideations intent or plan Perceptions: Patient denies any visual hallucinations, he denies any auditory hallucinations. Though content/process: [place], demanding, bizarre statements, proving mildly. Spoke about the "word of God". Memory and concentration: AOX3, grossly intact for the purposes of this session. Can spell "WORLD" backwards Judgment and insight: Very poor, chronically IMPRESSIONS: Schizoaffective disorder, bipolar type Cannabis use disorder Nicotine dependence Plan: -Patient continues to meet criteria for inpatient psychiatric admission for symptom stabilization and safety. Patient has signed adult voluntary form and medication consent and was placed in patient's chart. -Medications: Continue with paliperidone by mouth 3 mg twice a day for psychosis/mood stabilization. We'll need to transition patient onto long-acting injection prior to discharge. Continue trazodone 50 mg daily at bedtime when necessary for insomnia. -When necessary Ativan and Haldol for agitation/aggression. -NRT - nicotine patch -SW on board for discharge planning. Encouraged the patient to participate in milieu. Patient met with sports attorney today and deferred and is agreeable to continue with treatment.
[2021-06-24] MEDS: ASPIRIN 81 MG PO SCH (17:33)
[2021-06-24] MEDS ORDERED: hydrALAZINE HCL 25 MG TAB PO STA (20:23)
[2021-06-24] MEDS: hydrALAZINE HCL 25 MG TAB PO SCH (20:32)
[2021-06-25] MEDS: amLODIPine 10 MG TAB PO SCH (06:45)
[2021-06-25] MEDS: carvediloL 12.5 MG TAB PO SCH ×2 (06:45→17:28)
[2021-06-25] MEDS: PALIPERIDONE 3 MG TAB.ER.24 PO SCH ×2 (09:24→21:34)
[2021-06-25] MEDS: hydrALAZINE HCL 25 MG TAB PO SCH ×2 (09:24→21:34)
[2021-06-25] MEDS: FAMOTIDINE 20 MG TAB PO SCH ×2 (09:24→21:34)
[2021-06-25] MEDS: cloNIDine HCL 0.1 MG TAB PO SCH (09:25)
[2021-06-25] MEDS: APIXABAN 5 MG TAB PO SCH ×2 (09:25→21:34)
--- NOTE | 2021-06-25 12:32 | P.PN ---
Subjective Progress Note Date: 06/25/21 Principal diagnosis: Diagnostic impression: Schizoaffective disorder bipolar type II cannabis use disorder unspecified Nicotine use disorder unspecified Subjective data: I'm only here because my mother always tries to be some help She is old and does not seem to understand She is got me in this mess several times and now I have a label behind my name with mental illness I have no medical problems but she thinks that I may have something was not right I have plans to make a [facility] project where it will be a video game where people can actually construct homes Than the actual treatment team and the construction team can come over 'and build a house' Objective data: Reveals a middle-aged somewhat obese male who currently appears in no acute physical distress Patient's hygiene remains poor Patient's affect at this time remains that of mild irritability to euphoria Patient continues to rationalize and intellectualize and remains in denial Insight into his problem is poor Thinking is delusional with euphoria Formal and operational judgment are poor Problem-solving abilities impaired Plan: The patient continues to meet the criteria for inpatient psychiatric hospitalization and treatment Patient has been started on paliperidone 3 mg twice a day although his compl iance has been poor Patient also has Ativan and Haldol for agitation and aggression when necessary The patient appears to have already talked to the corporate associate attorney and has agreed to continue in treatment Onofre Friend M.D. 06/25/21 Objective - Vital Signs Vital signs: Vital Signs Temp 97.9 F 06/25/21 07:17 Pulse 82 06/25/21 07:17 Resp 14 06/24/21 14:40 BP 195/117 06/25/21 07:17 Pulse Ox 96 06/25/21 07:17 Intake & Output 06/24/21 06/25/21 06/25/21 18:59 06:59 18:59 Weight 136.078 kg - Labs CBC & Chem 7: 06/23/21 09:57 06/24/21 06:47
[2021-06-25] MEDS: ASPIRIN 81 MG PO SCH (17:28)
[2021-06-25] MEDS ORDERED: hydrALAZINE HCL 10 MG TAB PO SCH (19:00)
[2021-06-25] MEDS ORDERED: cloNIDine HCL 0.1 MG TAB PO ONE (19:02)
[2021-06-25] MEDS: ATORVASTATIN 40 MG TAB PO SCH (21:34)
[2021-06-26] MEDS: APIXABAN 5 MG TAB PO SCH ×2 (06:53→21:06)
[2021-06-26] MEDS: hydrALAZINE HCL 25 MG TAB PO SCH ×2 (06:53→21:06)
[2021-06-26] MEDS: PALIPERIDONE 3 MG TAB.ER.24 PO SCH ×2 (06:54→21:06)
[2021-06-26] MEDS: amLODIPine 10 MG TAB PO SCH (06:54)
[2021-06-26] MEDS: carvediloL 12.5 MG TAB PO SCH ×2 (06:54→17:58)
[2021-06-26] MEDS: cloNIDine HCL 0.2 MG TAB PO SCH (06:54)
[2021-06-26] MEDS: FAMOTIDINE 20 MG TAB PO SCH ×2 (06:54→21:06)
--- NOTE | 2021-06-26 11:31 | P.PN ---
Subjective Progress Note Date: 06/26/21 Principal diagnosis: Diagnostic impression: Schizoaffective disorder bipolar type II cannabis use disorder unspecified Nicotine use disorder unspecified Subjective data: "I'm doing okay, maybe you have some problem Objective data: Reveals a middle-aged somewhat obese male who currently appears in no acute physical distress Patient's hygiene remains poor Patient continues to be projective and comes across as somewhat rude and projective Patient continues to rationalize and intellectualize and remains in denial Insight into his problem is poor Thinking is delusional with euphoria Formal and operational judgment are poor Problem-solving abilities impaired Plan: The patient continues to meet the criteria for inpatient psychiatric hospitalization and treatment Patient has been started on paliperidone 3 mg twice a day although his compliance has been poor Patient also has Ativan and Haldol for agitation and aggression when necessary The patient appears to have already talked to the machine ii trimmer and has agreed to continue in treatment Onofre Phuc Swift 06/26/21 Objective - Vital Signs Vital signs: Vital Signs Temp 97.7 F 06/26/21 11:28 Pulse 84 06/26/21 11:28 Resp 18 06/26/21 11:28 BP 164/91 06/26/21 11:28 Pulse Ox 96 06/25/21 07:17 Intake & Output 06/25/21 06/26/21 06/26/21 18:59 06:59 18:59 Weight 149.9 kg - Labs CBC & Chem 7: 06/23/21 09:57 06/24/21 06:47
--- NOTE | 2021-06-26 14:05 | XR ---
EXAMINATION TYPE: XR chest 1V DATE OF EXAM: 06/26/2021 COMPARISON: 05/10/2021 INDICATION: Short of breath TECHNIQUE: Single frontal view of the chest is obtained. FINDINGS: The heart size is normal. The pulmonary vasculature is normal. The lungs are clear. IMPRESSION: 1. No acute pulmonary process.
[2021-06-26] MEDS: ALBUTEROL HFA INHALER INHALATION PRN (15:30)
[2021-06-26] MEDS ORDERED: bisacodyL 5 MG TABLET.DR PO ONE (15:39)
[2021-06-26] MEDS: ASPIRIN 81 MG PO SCH (17:58)
[2021-06-26] MEDS: ATORVASTATIN 40 MG TAB PO SCH (21:06)
[2021-06-26] MEDS ORDERED: NIFEdipine 10 MG CAP PO SCH (22:30)
[2021-06-27] MEDS: ALBUTEROL HFA INHALER INHALATION PRN (06:21)
[2021-06-27 08:05] LABS: Basophils # (A) 0.1 k/uL (0-0.2); Basophils % (A) 1 %; Eosinophils # (A) 0.7 k/uL (0-0.7); Eosinophils % (A) 6 %; HCT 45.6 % (39.0-53.0); HGB 14.6 gm/dL (13.0-17.5); Lymphocytes # (A) 2.2 k/uL (1.0-4.8); Lymphocytes % (A) 20 %; MCH 28.6 pg (25.0-35.0); MCV 89.6 fL (80.0-100.0); Mean Platelet Volume 7.8; Monocytes # (A) 0.6 k/uL (0-1.0); Monocytes % (A) 5 %; Neutrophils # (A) 7.6 k/uL (1.3-7.7); Neutrophils % (A) 67 %; Platelet Count 359 k/uL (150-450); RBC 5.09 m/uL (4.30-5.90); RDW 14.9 % (11.5-15.5); WBC 11.4 k/uL (3.8-10.6)
[2021-06-27 08:33] LABS: Calcium 8.8 mg/dL (8.4-10.2); Potassium 4.4 mmol/L (3.5-5.1); Total Bilirubin 0.4 mg/dL (0.2-1.3); Total Protein 7.2 g/dL (6.3-8.2)
[2021-06-27] MEDS: PALIPERIDONE 3 MG TAB.ER.24 PO SCH ×2 (09:12→21:48)
[2021-06-27] MEDS: carvediloL 12.5 MG TAB PO SCH ×2 (09:12→17:12)
[2021-06-27] MEDS: hydrALAZINE HCL 25 MG TAB PO SCH ×2 (09:12→21:47)
[2021-06-27] MEDS: FAMOTIDINE 20 MG TAB PO SCH ×2 (09:12→21:47)
[2021-06-27] MEDS: APIXABAN 5 MG TAB PO SCH ×2 (09:12→21:47)
[2021-06-27] MEDS: cloNIDine HCL 0.2 MG TAB PO SCH (09:12)
--- NOTE | 2021-06-27 12:05 | P.PN ---
Progress Note - Text Progress Note Date: 06/27/21 Interval History: Patient was seen wandering the hallways and was directable and agreeable to sp virgen with writer technical publications in the office. Patient appeared to be more directable today during conversation. He continues to have very poor insight and judgment which appears to be chronic. He claims that the medications of in helping him to "think clearer" and she is describing less irritability and no mood swings. He states that he does not have any depression or anxiety. He claims that he has been taking his medications at home and would rather be on the pills. He states that he is "good for discharge" today and was asking writer technical publications why he can't be discharged. He was refusing the long-acting injection today and asked writer technical publications about what the court process was. He became very defensive about taking the injection and compared it to another medication that he was on previously that did not help him. He asked writer technical publications to speak with his mother over the phone. He appears to have improving paranoia however was uncooperative. He made bizarre comments at times and continues to state that he is "following the word of God" and also spoke significantly about "the spirit". He states that he slept fairly last night and claims to have poor energy during the day. At this time patient denies any suicidal or homical ideations, intent or plan. Patient denies any auditory, visual hallucinations and denies any paranoia or delusions. Patient denies any side effects from the medications and has been compliant with meds. writer technical publications spoke with patients mother over the phone, Cheryl at [phone]. She claims that patient has been acting very bizarre at home and has not been taking his medications for about 8 months now. She states that he has very poor insight into his condition and does not believe that he needs medications. She agreed that patient is high risk for noncompliance with by mouth meds. She asked questions about his medications which were answered. She did express that patient was on a long-acting injection the past and may have been at too high of a dose as patient was very lethargic at that time. She states that she is agreeable to have patient put back on a long-acting injection. Mental Status Exam: General Appearance: Patient appears to be obese, poor hygiene and grooming, stated age is alert, uncooperative. Argumentative Behavior: Patient is seated without any agitated behavior. Mildly more cooperative today. Speech: Patient's speech is fluent and nonpressured. [place] Mood/Affect: Patient reports their mood is "fine", affect is congruent and constricted. Suicidality/Homicidality: Patient denies having any homicidal ideation intent or plan. Denies any suicidal ideations intent or plan Perceptions: Patient denies any visual hallucinations, he denies any auditory hallucinations. Though content/process: [place], demanding, bizarre statements, improving mildly. Memory and concentration: AOX3, grossly intact for the purposes of this session Judgment and insight: Very poor, chronically, mild improvement IMPRESSIONS: Schizoaffective disorder, bipolar type Cannabis use disorder Nicotine dependence Plan: -Patient continues to meet criteria for inpatient psychiatric admission for symptom stabilization and safety. Patient has not signed adult voluntary form and medication consent and was placed in patient's chart. -Medications: increase paliperidone by mouth 9 mg qhs for psychosis/mood stabilization. We'll need to transition patient onto long-acting injection prior to discharge but at this time patient is refusing. Continue trazodone 50 mg daily at bedtime when necessary for insomnia. -continue with BP mgt. -When necessary Ativan and Haldol for agitation/aggression. -NRT - nicotine patch -SW on board for discharge planning. Encouraged the patient to participate in milieu. Patient signed deferral with deputy attorney general however is now refusing WOOD. will attempt to speak with mother today for further collateral before filing a demand for hearing as patient is very high risk for med non compliance.
[2021-06-27] MEDS: ASPIRIN 81 MG PO SCH (17:12)
[2021-06-27] MEDS ORDERED: PALIPERIDONE 6 MG TAB.ER.24 PO SCH (21:00)
[2021-06-27] MEDS: ATORVASTATIN 40 MG TAB PO SCH (21:47)
[2021-06-28] MEDS: carvediloL 12.5 MG TAB PO SCH ×2 (08:52→17:32)
[2021-06-28] MEDS: cloNIDine HCL 0.2 MG TAB PO SCH (08:53)
[2021-06-28] MEDS: FAMOTIDINE 20 MG TAB PO SCH ×2 (08:53→21:30)
[2021-06-28] MEDS: APIXABAN 5 MG TAB PO SCH ×2 (08:53→21:30)
[2021-06-28] MEDS: hydrALAZINE HCL 25 MG TAB PO SCH ×2 (08:53→21:30)
[2021-06-28] MEDS ORDERED: PALIPERIDONE IM 234 MG/1.5 ML SYG IM STA (09:21)
--- NOTE | 2021-06-28 09:26 | P.PN ---
Progress Note - Text Progress Note Date: 06/28/21 Interval History: Patient was seen wandering the hallways and was directable and agreeable to sp virgen with writer editor in the office. Patient was initially fairly cooperative with writer editor and denied any overnight complaints. He states that he slept better last night with the medications. He claims that he is taking his meds as prescribed. He continues to be argumentative with the writer editor at times about his medications and his treatment. He asked writer editor why he filed again with the courts and stat es that "I don't ever want to be in front of the skid [employer] worker again". He asked writer editor who his boss was several times. He was denying any changes in his mood. He was difficult to redirect today. Claims that his appetite is fair. He appears to have improving paranoia however was still uncooperative and remains chronic. He claims that fair energy during the day. At this time patient denies any suicidal or homical ideations, intent or plan. Patient denies any auditory, visual hallucinations and denies any paranoia or delusions. Patient denies any side effects from the medications and has been compliant with meds. Mental Status Exam: General Appearance: Patient appears to be obese, improving hygiene and grooming, stated age is alert, uncooperative. Argumentative Behavior: Patient is seated without any agitated behavior. Mildly more cooperative today. Speech: Patient's speech is fluent and nonpressured. [place] Mood/Affect: Patient reports their mood is "ok", affect is congruent and cons tricted. Suicidality/Homicidality: Patient denies having any homicidal ideation intent or plan. Denies any suicidal ideations intent or plan Perceptions: Patient denies any visual hallucinations, he denies any auditory hallucinations. Though content/process: [place], demanding, bizarre statements, improving mildly. Memory and concentration: AOX3, grossly intact for the purposes of this session Judgment and insight: Very poor, chronically, mild improvement IMPRESSIONS: Schizoaffective disorder, bipolar type Cannabis use disorder Nicotine dependence Plan: -Patient continues to meet criteria for inpatient psychiatric admission for symptom stabilization and safety. Patient has not signed adult voluntary form and medication consent and was placed in patient's chart. -Medications: Continue paliperidone by mouth 9 mg qhs for psychosis/mood stabilization. Ordered Invega Sustenna 234 mg IM dose today. Continue trazodone 50 mg daily at bedtime when necessary for insomnia. -continue with BP mgt. -When necessary Ativan and Haldol for agitation/aggression. -NRT - nicotine patch -SW on board for discharge planning. Encouraged the patient to participate in milieu. Patient signed deferral with insurance attorney initially however was refusing to take WOOD initially, filed demand for hearing yesterday.
[2021-06-28] MEDS: ASPIRIN 81 MG PO SCH (17:32)
[2021-06-28] MEDS: PALIPERIDONE 3 MG TAB.ER.24 PO SCH (21:30)
[2021-06-28] MEDS: ATORVASTATIN 40 MG TAB PO SCH (21:30)
[2021-06-29] MEDS: hydrALAZINE HCL 25 MG TAB PO SCH (08:40)
[2021-06-29] MEDS: FAMOTIDINE 20 MG TAB PO SCH (08:40)
[2021-06-29] MEDS: carvediloL 12.5 MG TAB PO SCH ×2 (08:41→16:04)
[2021-06-29] MEDS: APIXABAN 5 MG TAB PO SCH (08:41)
[2021-06-29] MEDS: cloNIDine HCL 0.2 MG TAB PO SCH (08:41)
[2021-06-29 08:52] VITALS: RESP 16
--- NOTE | 2021-06-29 11:44 | P.PN ---
Progress Note - Text Progress Note Date: 06/29/21 Interval History: Patient was seen sitting at the side of his bed today and was directable and a greeable to speak with technical document writer. Patient was more cooperative today with technical document writer and denied any overnight complaints. He states that he is sleeping much better now. He asked questions about his medications and states that he took Invega Sustenna yesterday and tolerated well. He asked more questions about the dosing schedule. He claims that he is not feeling depressed or anxious today. He continues to state that he wants to sign the wave and stip with his divorce attorney and is agreeable to continuing on with treatment. He claims that he has been going to some groups. He states his appetite is fair. He feels like he has fair energy. He is more cooperative today. At this time patient denies any suicidal or homical ideations, intent or plan. Patient denies any auditory, visual hallucinations and denies any paranoia or delusions. Patient denies any side effects from the medications and has been compliant with meds. Mental Status Exam: General Appearance: Patient appears to be obese, improving hygiene and grooming, stated age is alert, more cooperative today. Behavior: Patient is seated without any agitated behavior. Mildly more cooperative today. Speech: Patient's speech is fluent and nonpressured. [place] Mood/Affect: Patient reports their mood is "fine", affect is congruent and constricted. Suicidality/Homicidality: Patient denies having any homicidal ideation intent or plan. Denies any suicidal ideations intent or plan Perceptions: Patient denies any visual hallucinations, he denies any auditory hallucinations. Though content/process: [place], improving mildly. More logical today. Memory and concentration: AOX3, grossly intact for the purposes of this session Judgment and insight: chronically poor, mild improvement IMPRESSIONS: Schizoaffective disorder, bipolar type Cannabis use disorder Nicotine dependence Plan: -Patient continues to meet criteria for inpatient psychiatric admission for symptom stabilization and safety. Patient has not signed adult voluntary form and medication consent and was placed in patient's chart. -Medications: decrease paliperidone by mouth 6 mg qhs for psychosis/mood stabilization. received Invega Sustenna 234 mg IM dose on 06/28 and will be due for 156 mg IM dose on 07/05 and monthly maintenance dose of 156 mg IM on 07/26. Continue trazodone 50 mg daily at bedtime when necessary for insomnia. -continue with BP mgt. -When necessary Ativan and Haldol for agitation/aggression. -NRT - nicotine patch -SW on board for discharge planning. Encouraged the patient to participate in milieu. demand hearing set for 07/06. will ask if divorce attorney can have patient waive and stip and likely d/c tomorrow after he consents to treatment order.
[2021-06-29] MEDS: ASPIRIN 81 MG PO SCH (16:04)
[2021-06-29] MEDS ORDERED: PALIPERIDONE 6 MG TAB.ER.24 PO SCH (21:00)
[2021-06-30] MEDS: ATORVASTATIN 40 MG TAB PO SCH (01:07)
[2021-06-30] MEDS: APIXABAN 5 MG TAB PO SCH ×2 (01:07→07:58)
[2021-06-30] MEDS: FAMOTIDINE 20 MG TAB PO SCH ×2 (01:07→07:59)
[2021-06-30 01:11] VITALS: BP 148/86; PULSE 80; TEMP 96.9
[2021-06-30] MEDS: hydrALAZINE HCL 25 MG TAB PO SCH ×2 (07:24→07:59)
[2021-06-30] MEDS: carvediloL 12.5 MG TAB PO SCH (07:58)
[2021-06-30] MEDS: cloNIDine HCL 0.2 MG TAB PO SCH (07:58)
--- NOTE | 2021-06-30 13:26 | P.DS ---
Providers Date of admission: 06/22/21 11:50 Discharge summary He was followed by Dr Lance Harris for the past week and apeaered to be stabilized on the new Rx regiment. The discharge diagnosis was Schizoaffective disorder, bipolar type. Cannabis use disorder Nicotine dependence HE no longer endorsed any delusional or threatening behavior. HE continued to maintain his progress. He was reviewed at the team meeting and was improved upon discharge HE was pleasant and cooperative talking freely about his medication experiences. HE would continue to receive 1. piliperidone 6 mg o od 2, Invega Sustenna 224 mg im last dosage 15 Jun Trazodone 50 mg po qhs Follow up [facility] the [facility]. He no longer met the criteria for inpatient admission and has benefited from inpatient stabilization Attending physician: Bharat Harris MD Consults: 06/22/21 11:54 Consult Physician Routine Consulting Provider: Daniel Walter Consult Reason/Comments: H and P Do you want consulting provider notified?: Yes Primary care physician: Mohini Uribe Patient Condition at Discharge: Stable Plan - Discharge Summary Discharge Rx Participant: No New Discharge Prescriptions: New hydrALAZINE HCL [Apresoline] 25 mg PO BID #30 tab Paliperidone [Invega] 6 mg PO HS #30 tablet NIFEdipine XL [Procardia XL] 60 mg PO DAILY #30 tablet Continue Famotidine [Pepcid] 20 mg PO BID Carvedilol [Coreg] 25 mg PO BID Aspirin 81 mg PO W/SUPPER Atorvastatin [Lipitor] 40 mg PO HS Apixaban [Eliquis] 5 mg PO BID 30 Days #60 tab Nitroglycerin Sl Tabs [Nitrostat] 0.4 mg SUBLINGUAL Q5M PRN #30 tab PRN Reason: Chest Pain cloNIDine HCL 0.1 mg PO DAILY amLODIPine [Norvasc] 10 mg PO DAILY Discharge Medication List Aspirin 81 mg PO W/SUPPER 03/10/21 [History] Atorvastatin [Lipitor] 40 mg PO HS 03/10/21 [History] Carvedilol [Coreg] 25 mg PO BID 03/10/21 [History] Famotidine [Pepcid] 20 mg PO BID 03/10/21 [History] amLODIPine [Norvasc] 10 mg PO DAILY 03/10/21 [History] Apixaban [Eliquis] 5 mg PO BID 30 Days #60 tab 03/11/21 [Rx] Nitroglycerin Sl Tabs [Nitrostat] 0.4 mg SUBLINGUAL Q5M PRN #30 tab 03/11/21 [Rx] cloNIDine HCL 0.1 mg PO DAILY 05/10/21 [History] NIFEdipine XL [Procardia XL] 60 mg PO DAILY #30 tablet 06/30/21 [Rx] Paliperidone [Invega] 6 mg PO HS #30 tablet 06/30/21 [Rx] hydrALAZINE HCL [Apresoline] 25 mg PO BID #30 tab 06/30/21 [Rx] Follow up Appointment(s)/Referral(s): [facility] [Outside] - 07/06/21 12:00 pm (Intake with Cait) Mohini Uribe MD [Primary Care Provider] - 1-2 days Activity/Diet/Wound Care/Special Instructions: Activity and diet as tolerated. Avoid the use of street drugs and alcohol. Take all medications as prescribed. When you are in need of refills on your medications please contact your medical provider and/or outpatient psychiatrist to have this done. Please go to scheduled outpatient appointment for aftercare treatment. If symptoms return or become worse, call the crisis line at and/or go to the nearest emergency room for evaluation Discharge Disposition: HOME SELF-CARE
== END 2021-06-30 15:10 | disposition home or self-care (01) | DRG 885 ==
LOC: EC 03:06 → 3MHU 11:50
PROVIDERS: ADMIT Psychiatry & Neurology Psychiatry; ATTEND Psychiatry & Neurology Psychiatry
DX: F25.0 Schizoaffective disorder, bipolar type (principal); N17.9 Acute kidney failure, unspecified; Z68.42 Body mass index [BMI] 45.0-49.9, adult; E66.01 Morbid (severe) obesity due to excess calories; E78.5 Hyperlipidemia, unspecified; F10.10 Alcohol abuse, uncomplicated; F12.10 Cannabis abuse, uncomplicated; I12.9 Hypertensive chronic kidney disease with stage 1 through stage 4 chronic kidney disease, or unspecified chronic kidney disease; F17.210 Nicotine dependence, cigarettes, uncomplicated; I25.10 Atherosclerotic heart disease of native coronary artery without angina pectoris; I25.2 Old myocardial infarction; J44.9 Chronic obstructive pulmonary disease, unspecified; N18.9 Chronic kidney disease, unspecified; R73.03 Prediabetes; Z20.822 Contact with and (suspected) exposure to COVID-19; Z79.01 Long term (current) use of anticoagulants; Z79.899 Other long term (current) drug therapy; Z82.3 Family history of stroke; Z82.49 Family history of ischemic heart disease and other diseases of the circulatory system; Z86.711 Personal history of pulmonary embolism; Z91.14 Patient's other noncompliance with medication regimen; Z95.5 Presence of coronary angioplasty implant and graft; Z71.6 Tobacco abuse counseling
CPT/HCPCS: 71045; 80048; 80053; 80061; 82075; 83036; 84439; 84443; 85025; 87635; 96372; 99285

== ENCOUNTER 2021-08-03 00:12 | Emergency (ER) | payer OTHER ==
[2021-08-03 00:19] VITALS: BP 215/131; PULSE 94; RESP 18; TEMP 98.1
--- NOTE | 2021-08-03 00:53 | XR ---
EXAMINATION TYPE: XR ribs LT DATE OF EXAM: 08/03/2021 COMPARISON: NONE HISTORY: Left rib pain TECHNIQUE: 4 views FINDINGS: There is no pleural effusion or pneumothorax. There is some callus formation at appears to be a healing fracture of the lateral left eighth rib. No other fractures seen. IMPRESSION: Healing left eighth rib fracture.
[2021-08-03] MEDS ORDERED: IBUPROFEN 600 MG TAB PO STA (02:18)
[2021-08-03] MEDS ORDERED: ACET/COD 300 MG/30 MG STARTER PACK 6 TAB BTL PO STA (03:49)
--- NOTE | 2021-08-03 03:49 | ED ---
General Adult HPI - General Source: patient, RN notes reviewed Mode of arrival: ambulatory Limitations: no limitations <Laura To - Last Filed: 08/03/21 05:37> <Darek Denson - Last Filed: 08/03/21 06:20> - General Chief complaint: Recheck/Abnormal Lab/Rx Stated complaint: Lt rib pain Time Seen by Provider: 08/03/21 01:22 - History of Present Illness Initial comments: 40-year-old male presents to the emergency Department with complaints of left lower margie-lateral rib pain. States he had a rib fracture back in February and is concerned that he probably re-injured the affected rib while repositioning in his car today. States he felt a pop and experienced intense pain. States pain worsens with of his torso and extremities. States he is unable to get to the bathroom due to discomfort. Reports he thinks he needs a caregiver to provide him with greater assistance. Denies fever, chills, shortness of breath, difficulty breathing, abdominal pain, nausea, vomiting, diarrhea, or dysuria. (Laura To) - Related Data Home Medications Medication Instructions Recorded Confirmed Aspirin 81 mg PO W/SUPPER 03/10/21 06/24/21 Atorvastatin [Lipitor] 40 mg PO HS 03/10/21 06/24/21 Carvedilol [Coreg] 25 mg PO BID 03/10/21 06/24/21 Famotidine [Pepcid] 20 mg PO BID 03/10/21 06/24/21 amLODIPine [Norvasc] 10 mg PO DAILY 03/10/21 06/24/21 cloNIDine HCL 0.1 mg PO DAILY 05/10/21 06/24/21 Previous Rx's Medication Instructions Recorded Apixaban [Eliquis] 5 mg PO BID 30 Days #60 tab 03/11/21 Nitroglycerin Sl Tabs [Nitrostat] 0.4 mg SUBLINGUAL Q5M PRN #30 tab 03/11/21 NIFEdipine XL [Procardia XL] 60 mg PO DAILY #30 tablet 06/30/21 Paliperidone [Invega] 6 mg PO HS #30 tablet 06/30/21 hydrALAZINE HCL [Apresoline] 25 mg PO BID #30 tab 06/30/21 Ibuprofen [Motrin] 600 mg PO Q8HR PRN #20 tab 08/03/21 Lidocaine 5% Patch [Lidoderm 5% 1 patch TOPICAL DAILY #10 patch 08/03/21 Patch] Allergies Allergy/AdvReac Type Severity Reaction Status Date / Time No Known Allergies Allergy Verified 08/03/21 00:18 Review of Systems ROS Other: All systems not noted in ROS Statement are negative. <Laura To - Last Filed: 08/03/21 05:37> ROS Other: All systems not noted in ROS Statement are negative. <Darek Denson - Last Filed: 08/03/21 06:20> ROS Statement: Those systems with pertinent positive or pertinent negative responses have been documented in the HPI. Past Medical History Past Medical History: Coronary Artery Disease (CAD), COPD, Hyperlipidemia, Hypertension, Myocardial Infarction (MT) Additional Past Medical History / Comment(s): MT in 2008, asthma, stress test Last Myocardial Infarction Date:: 2008 History of Any Multi-Drug Resistant Organisms: None Reported Past Surgical History: Heart Catheterization With Stent Past Anesthesia/Blood Transfusion Reactions: No Reported Reaction Date of Last Stent Placement:: 2008 Past Psychological History: Bipolar, Schizophrenia Smoking Status: Current every day smoker Past Alcohol Use History: None Reported Past Drug Use History: Marijuana - Past Family History Father Family Medical History: CVA/TIA, Myocardial Infarction (MT) Additional Family Medical History / Comment(s): Father had a MT at age 29yrs. at age 38 after open heart Mother Family Medical History: No Reported History Additional Family Medical History / Comment(s): Mother is healthy <Laura To - Last Filed: 08/03/21 05:37> General Exam Limitations: no limitations General appearance: alert, other (Well-developed, well-nourished male who appears in no acute distress, though this is extremely uncomfortable. Initial temperature 98.1, pulse 94, respirations 18, blood pressure initially 215/131, recheck 170/92, pulse ox 96% on room air.) Neck exam: Present: normal inspection, full ROM. Absent: tenderness, meningismus, lymphadenopathy Respiratory exam: Present: normal lung sounds bilaterally, chest wall tenderness (left lower margie-lateral rib pain that worsens with palpation and movement. No crepitus or step off palpable.). Absent: respiratory distress, wheezes, rales, rhonchi, stridor Cardiovascular Exam: Present: regular rate, normal rhythm, normal heart sounds. Absent: systolic murmur, diastolic murmur, rubs, gallop, clicks GI/Abdominal exam: Present: soft, normal bowel sounds. Absent: distended, tenderness, guarding, rebound, rigid Neurological exam: Present: alert, oriented X3, CN II-XII intact Psychiatric exam: Present: anxious Skin exam: Present: warm, dry <Laura To - Last Filed: 08/03/21 05:37> Course <Laura To - Last Filed: 08/03/21 05:37> Vital Signs 08/03/21 00:15 Temperature 98.1 F Pulse Rate 94 Respiratory 18 Rate Blood Pressure 215/131 O2 Sat by Pulse 96 Oximetry - Reevaluation(s) Reevaluation #1: 08/03/21 02:00 Extensive amount of time spent at bedside discussing patient's preferred course of treatment. Reviewed findings from x-ray showing that rib fracture is improving. Patient insists that he is in need of something stronger for pain. Discussed alternative options including anti-inflammatory and lidocaine patch. Patient states his insurance will not cover lidocaine patch. States he had Clarkson after back surgery and this took care of his pain at that time. Explained that Clarkson is a narcotic pain medication more appropriate for post-op or acute injury, but not for chronic pain. Patient is aware that narcotic pain medications are often prescribed by pain management providers. Patient is potentially demonstrating drug-seeking behavior. 08/03/21 03:40 Lengthy amount of time spent at bedside discussing course of treatment and medication options. Patient is frustrated that he is not being given access to stronger pain the medication. I explained that since this discomfort has been intermittent since February, it was not appropriate for me to prescribe narcotic pain medication for what appears to be a chronic issue. Also talked about the diagnosis of costochondritis being an inflammatory condition that will more likely respond to NSAIDs. Patient has not achieved relief of pain with Lidocaine patch and Motrin. Patient drove himself to the hospital and is unable/unwilling to obtain a ride. Explained that I would be willing to give him a single dose of Tylenol #3 via starter pack, but that he could not take it until he gets home. States his pain is too severe to drive home. Unable to come to an agreeable resolution at this time. I did discuss this patient's care with my attending, Dr. Denson. (Laura To) Medical Decision Making - Radiology Data Radiology results: report reviewed, image reviewed <Laura To - Last Filed: 08/03/21 05:37> - Medical Decision Making 40-year-old male with a past medical history of hypertension and schizophrenia presents to the emergency department for evaluation of left lower anterolateral rib pain. Upon exam, patient is resting in a wheelchair stating he is unable to achieve a position of comfort. He has diffuse lower lumbar tenderness upon palpation and is made worsened by movement of the upper extremities movement of the torso. He does not have chest pain that I would associate with ACS or a GI process. Patient was initially very hypertensive, upon recheck she remains elevated, but within acceptable range for him. Discussed course of treatment for pain management at length. Difficulty coming to in agreement with patient as he insists on narcotic pain medication for symptoms. Lidocaine patch was applied and Motrin was given. I did concede to give him 1 Tylenol with Codeine as a starter Pack as patient is driving himself home. Encouraged follow-up with PCP for a recheck. Instructed to return to the emergency department as needed. Attending: Jarett. (Luara To) - Radiology Data X-ray of the left ribs was obtained. Report was reviewed in its entirety. Impression per Dr. Escobar is healing left eighth rib fracture. (Laura To) Disposition Is patient prescribed a controlled substance at d/c from ED?: No <Laura To - Last Filed: 08/03/21 05:37> <Darek Denson - Last Filed: 08/03/21 06:20> Clinical Impression: Costochondritis, Fracture of rib with routine healing Disposition: HOME SELF-CARE Condition: Stable Instructions (If sedation given, give patient instructions): Costochondritis (ED) Additional Instructions: Take Motrin as directed for rib discomfort. Gentle range of motion exercises. Supportive deep breathing using a pillow to support rib (hug a pillow). Follow up with your PCP for a recheck if discomfort persists. Return to the emergency department with any new, worsening, or concerning symptoms. Prescriptions: Lidocaine 5% Patch [Lidoderm 5% Patch] 1 patch TOPICAL DAILY #10 patch Ibuprofen [Motrin] 600 mg PO Q8HR PRN #20 tab PRN Reason: Pain Referrals: Mohini Uribe MD [Primary Care Provider] - 1-2 days
[2021-08-03] MEDS ORDERED: LIDOCAINE 5% PATCH TOPICAL SCH (09:00)
== END 2021-08-03 06:32 | disposition home or self-care (01) ==
LOC: EC 00:12
DX: S22.32XA Fracture of one rib, left side, initial encounter for closed fracture (principal); M94.0 Chondrocostal junction syndrome [Tietze]; I10 Essential (primary) hypertension; I25.2 Old myocardial infarction; I25.10 Atherosclerotic heart disease of native coronary artery without angina pectoris; F17.200 Nicotine dependence, unspecified, uncomplicated; Z79.899 Other long term (current) drug therapy; W19.XXXA Unspecified fall, initial encounter
CPT/HCPCS: 99284

== ENCOUNTER 2021-08-06 02:20 | Emergency (ER) | payer OTHER ==
--- NOTE | 2021-08-06 02:53 | ED ---
Psych HPI - General Chief Complaint: Psychiatric Symptoms Stated Complaint: Mental Health Time Seen by Provider: 08/06/21 02:23 Source: patient, RN notes reviewed, old records reviewed Mode of arrival: ambulatory - History of Present Illness Initial Comments: This is a 40-year-old male who presents today for evaluation of acute psychosis. Patient is not Homicidal or suicidal. Multiple ER visits for similar the past. Patient denying any recent alcohol or Drug abuse. No other complaints. MD Complaint: altered mental status -: unknown Associated Psychiatric Symptoms: racing thoughts History of same: Yes Quality: intermittent Improves With: none Worsens With: none Associated Symptoms: denies other symptoms Treatments Prior to Arrival: placed on mental health hold If Self Harm: other (none) - Related Data Home Medications Medication Instructions Recorded Confirmed Aspirin 81 mg PO W/SUPPER 03/10/21 06/24/21 Atorvastatin [Lipitor] 40 mg PO HS 03/10/21 06/24/21 Carvedilol [Coreg] 25 mg PO BID 03/10/21 06/24/21 Famotidine [Pepcid] 20 mg PO BID 03/10/21 06/24/21 amLODIPine [Norvasc] 10 mg PO DAILY 03/10/21 06/24/21 cloNIDine HCL 0.1 mg PO DAILY 05/10/21 06/24/21 Previous Rx's Medication Instructions Recorded Apixaban [Eliquis] 5 mg PO BID 30 Days #60 tab 03/11/21 Nitroglycerin Sl Tabs [Nitrostat] 0.4 mg SUBLINGUAL Q5M PRN #30 tab 03/11/21 NIFEdipine XL [Procardia XL] 60 mg PO DAILY #30 tablet 06/30/21 Paliperidone [Invega] 6 mg PO HS #30 tablet 06/30/21 hydrALAZINE HCL [Apresoline] 25 mg PO BID #30 tab 06/30/21 Ibuprofen [Motrin] 600 mg PO Q8HR PRN #20 tab 08/03/21 Lidocaine 5% Patch [Lidoderm 5% 1 patch TOPICAL DAILY #10 patch 08/03/21 Patch] Allergies Allergy/AdvReac Type Severity Reaction Status Date / Time No Known Allergies Allergy Verified 08/06/21 02:35 Review of Systems ROS Statement: Those systems with pertinent positive or pertinent negative responses have been documented in the HPI. ROS Other: All systems not noted in ROS Statement are negative. Past Medical History Past Medical History: Coronary Artery Disease (CAD), COPD, Hyperlipidemia, Hyper tension, Myocardial Infarction ([place]) Additional Past Medical History / Comment(s): [place] in 2008, asthma, stress test Last Myocardial Infarction Date:: 2008 History of Any Multi-Drug Resistant Organisms: None Reported Past Surgical History: Heart Catheterization With Stent Past Anesthesia/Blood Transfusion Reactions: No Reported Reaction Date of Last Stent Placement:: 2008 Past Psychological History: Bipolar, Schizophrenia Smoking Status: Current every day smoker Past Alcohol Use History: None Reported Past Drug Use History: Marijuana - Past Family History Father Family Medical History: CVA/TIA, Myocardial Infarction ([place]) Additional Family Medical History / Comment(s): Father had a [place] at age 29yrs. at age 38 after open heart Mother Family Medical History: No Reported History Additional Family Medical History / Comment(s): Mother is healthy General Exam Limitations: no limitations General appearance: alert, in no apparent distress Head exam: Present: atraumatic, normocephalic, normal inspection Eye exam: Present: normal appearance, PERRL, EOMI. Absent: scleral icterus, conjunctival injection, periorbital swelling ENT exam: Present: normal exam, mucous membranes moist Neck exam: Present: normal inspection. Absent: tenderness, meningismus, lymphadenopathy Respiratory exam: Present: normal lung sounds bilaterally. Absent: respiratory distress, wheezes, rales, rhonchi, stridor Cardiovascular Exam: Present: regular rate, normal rhythm, normal heart sounds. Absent: systolic murmur, diastolic murmur, rubs, gallop, clicks GI/Abdominal exam: Present: soft, normal bowel sounds. Absent: distended, tenderness, guarding, rebound, rigid Extremities exam: Present: normal inspection, full ROM, normal capillary refill. Absent: tenderness, pedal edema, joint swelling, calf tenderness Back exam: Present: normal inspection Neurological exam: Present: alert, oriented X3, CN II-XII intact Psychiatric exam: Present: normal affect, normal mood Skin exam: Present: warm, dry, intact, normal color. Absent: rash Course Vital Signs 08/06/21 08/06/21 08/06/21 02:30 04:05 05:26 Temperature 98.5 F 98.7 F Pulse Rate 95 89 Respiratory 20 18 Rate Blood Pressure 235/140 154/106 138/90 O2 Sat by Pulse 97 98 Oximetry - Reevaluation(s) Reevaluation #1: 08/06/21 Medical record is reviewed Patient symptoms are improved here in the emergency department Patient informed results and questions answered Medical Decision Making - Medical Decision Making 40 male who presented today for psychiatric evaluation management. Patient is seen and evaluated here in the ER and can be discharged home Disposition Clinical Impression: Schizoaffective disorder, bipolar type, Acute psychosis Disposition: HOME SELF-CARE Condition: Fair Instructions (If sedation given, give patient instructions): Brief Psychotic Disorder (ED) Is patient prescribed a controlled substance at d/c from ED?: No Referrals: Mohini Uribe MD [Primary Care Provider] - 1-2 days
[2021-08-06] MEDS ORDERED: cloNIDine HCL 0.2 MG TAB PO STA (03:02)
[2021-08-06] MEDS ORDERED: LABETALOL 200 MG TAB PO STA (03:02)
[2021-08-06] MEDS ORDERED: cloNIDine 0.1 MG/24HR PATCH TRANSDERM SCH (03:15)
[2021-08-06] MEDS ORDERED: IPRATROPIUM-ALBUTEROL 3 ML NEB INHALATION STA (05:13)
[2021-08-06] MEDS ORDERED: HYDROmorphone 1 MG/ML 1 ML SYRINGE IM STA (05:13)
[2021-08-06] MEDS ORDERED: diphenhydrAMINE 50 MG CAP PO STA (05:13)
[2021-08-06 05:26] VITALS: BP 138/90; PULSE 89; RESP 18; TEMP 98.7
== END 2021-08-06 05:26 | disposition home or self-care (01) ==
LOC: EC 02:20
DX: F23 Brief psychotic disorder (principal); F25.9 Schizoaffective disorder, unspecified; F31.9 Bipolar disorder, unspecified; I25.10 Atherosclerotic heart disease of native coronary artery without angina pectoris; J44.9 Chronic obstructive pulmonary disease, unspecified; E78.5 Hyperlipidemia, unspecified; I25.2 Old myocardial infarction; F17.200 Nicotine dependence, unspecified, uncomplicated; F12.90 Cannabis use, unspecified, uncomplicated; Z79.82 Long term (current) use of aspirin; Z79.01 Long term (current) use of anticoagulants
CPT/HCPCS: 82075; 99284

== ENCOUNTER 2021-08-23 14:09 | Emergency (ER) | payer OTHER ==
[2021-08-23 14:28] VITALS: RESP 18; TEMP 98
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
[2021-08-23 15:09] VITALS: BP 134/82; PULSE 74
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
== END 2021-08-23 15:44 | disposition home or self-care (01) ==
LOC: EC 14:09
DX: S00.03XA Contusion of scalp, initial encounter (principal); J45.909 Unspecified asthma, uncomplicated; I10 Essential (primary) hypertension; I25.2 Old myocardial infarction; I25.10 Atherosclerotic heart disease of native coronary artery without angina pectoris; F31.9 Bipolar disorder, unspecified; F20.9 Schizophrenia, unspecified; F17.200 Nicotine dependence, unspecified, uncomplicated; F12.90 Cannabis use, unspecified, uncomplicated; Z79.01 Long term (current) use of anticoagulants; Z79.82 Long term (current) use of aspirin; Z79.899 Other long term (current) drug therapy; V89.2XXA Person injured in unspecified motor-vehicle accident, traffic, initial encounter; Y92.410 Unspecified street and highway as the place of occurrence of the external cause
CPT/HCPCS: 70450; 71046; 99285

== ENCOUNTER → 2021-09-05 | Outpatient (CLI) | payer OTHER ==
[2021-09-05 18:10] LABS: Creatinine,Urine Random 185.4 mg/dL; Protein/Creatinine Ratio,Urine 0.227
[2021-09-05 22:50] LABS: Appearance,Urine Clear (Clear); Bilirubin,Urine Negative (Negative); Blood,Urine Negative (Negative); Color,Urine Yellow (Yellow); Ketones,Urine Negative (Negative); Nitrite,Urine Negative (Negative); PH, Urine 7.5 (5.0-8.0); Specific Gravity,Urine 1.015 (1.001-1.030)
[2021-09-06 00:47] LABS: Basophils # (A) 0.06 X 10*3/uL (0.00-0.10); Basophils % (A) 0.5 %; Eosinophils # (A) 0.57 X 10*3/uL (0.04-0.35); Eosinophils % (A) 4.4 %; HCT 47.4 % (39.6-50.0); HGB 14.5 g/dL (13.0-17.0); Immature Grans, Automated 0.3 %; Lymphocytes # (A) 1.58 X 10*3/uL (0.90-5.00); Lymphocytes % (A) 12.2 %; MCH 26.6 pg (27.0-32.0); MCHC 30.6 g/dL (32.0-37.0); Mean Platelet Volume 9.9 fL (9.5-12.2); Monocytes % (A) 6.2 %; NRBC Per 100 WBC 0 /100 WBCS (0.0-0.0); Neutrophils % (A) 76.4 %; Platelet Count 343 X 10*3/uL (140-440); RBC 5.45 X 10*6/uL (4.40-5.60); RDW 16.1 % (11.5-14.5); WBC 12.95 X 10*3/uL (4.50-10.00)
[2021-09-06 04:23] LABS: African American GFR (CKD) 78.5 (60.0-200.0); Anion Gap 12.1 mmol/L (10.00-18.00); BUN/Creat Ratio 9.15 Ratio (12.00-20.00); Blood Urea Nitrogen 11.9 mg/dL (9.0-27.0); Calcium 9.6 mg/dL (8.7-10.3); Carbon Dioxide 23.9 mmol/L (20.0-27.5); Non-African American GFR(CKD) 67.8 (60.0-200.0); Phosphorus 3.1 mg/dL (2.4-5.1); Potassium 4.4 mmol/L (3.5-5.5)
== END | disposition home or self-care (01) ==
LOC: LABWHC1 08:33
PROVIDERS: ATTEND Nurse Practitioner Acute Care
DX: N17.9 Acute kidney failure, unspecified (principal); N18.2 Chronic kidney disease, stage 2 (mild); R80.9 Proteinuria, unspecified; D64.9 Anemia, unspecified; N39.0 Urinary tract infection, site not specified
CPT/HCPCS: 36415; 80048; 81001; 82570; 83735; 84100; 84156; 85025

== ENCOUNTER → 2022-05-15 | Outpatient (CLI) | payer OTHER ==
[2022-05-15 14:14] LABS: Basophils # (A) 0.05 X 10*3/uL (0.00-0.10); Basophils % (A) 0.4 %; Eosinophils # (A) 0.63 X 10*3/uL (0.04-0.35); Eosinophils % (A) 5.3 %; HCT 48.5 % (39.6-50.0); HGB 15.3 g/dL (13.0-17.0); Immature Grans, Automated 0.5 %; Lymphocytes # (A) 2.16 X 10*3/uL (0.90-5.00); Lymphocytes % (A) 18.2 %; MCH 27.3 pg (27.0-32.0); MCHC 31.5 g/dL (32.0-37.0); MCV 86.5 fL (80.0-97.0); Mean Platelet Volume 9.5 fL (9.5-12.2); Monocytes # (A) 0.79 X 10*3/uL (0.20-1.00); Monocytes % (A) 6.6 %; NRBC Per 100 WBC 0 /100 WBCS (0.0-0.0); Platelet Count 356 X 10*3/uL (140-440); RBC 5.61 X 10*6/uL (4.40-5.60); RDW 15.9 % (11.5-14.5); WBC 11.89 X 10*3/uL (4.50-10.00)
[2022-05-15 15:11] LABS: ALT 25 U/L (10-49); AST 30 U/L (14-35); African American GFR (CKD) 78.7 (60.0-200.0); Albumin 4.3 g/dL (3.8-4.9); Albumin/Globulin Ratio 1.14 (1.60-3.17); Alkaline Phosphatase 137 U/L (41-126); BUN/Creat Ratio 9.84 Ratio (12.00-20.00); Blood Urea Nitrogen 12.7 mg/dL (9.0-27.0); Calcium 9.3 mg/dL (8.7-10.3); Carbon Dioxide 29.9 mmol/L (20.0-27.5); Chloride 100 mmol/L (96-109); Chol/HDL Ratio 4.04 Ratio; Globulin 3.8 g/dL (1.6-3.3); Glucose 106 mg/dL (70-110); LDL Cholesterol,Calculated 116.4 mg/dL (0.0-131.0); Magnesium 2.3 mg/dL (1.5-2.4); Non-African American GFR(CKD) 67.9 (60.0-200.0); Potassium 3.6 mmol/L (3.5-5.5); Sodium 143 mmol/L (135-145); Total Protein 8.1 g/dL (6.2-8.2); VLDL Calculation 15.28 mg/dL (5.00-40.00)
== END | disposition home or self-care (01) ==
LOC: LABWHC1 09:38
PROVIDERS: ATTEND Family Medicine
DX: E78.2 Mixed hyperlipidemia (principal); E66.01 Morbid (severe) obesity due to excess calories; N17.9 Acute kidney failure, unspecified; N18.2 Chronic kidney disease, stage 2 (mild); D63.1 Anemia in chronic kidney disease; N39.0 Urinary tract infection, site not specified; Z68.41 Body mass index [BMI] 40.0-44.9, adult; R94.4 Abnormal results of kidney function studies; I12.9 Hypertensive chronic kidney disease with stage 1 through stage 4 chronic kidney disease, or unspecified chronic kidney disease
CPT/HCPCS: 36415; 80053; 80061; 82306; 82607; 82746; 83036; 83735; 84100; 84443; 85025

== ENCOUNTER → 2022-12-14 | Outpatient (CLI) | payer OTHER ==
--- NOTE | 2022-12-14 12:45 | FL ---
EXAMINATION TYPE: FL barium swallow DATE OF EXAM: 12/14/2022 CLINICAL INDICATION: 42-year-old male R09.89, choking episode, 2 episodes of food getting stuck in th e mid chest. COMPARISON: None Total Fluoroscopy Time: 1 minute 40 seconds. DOSE AREA PRODUCT (DAP) UGY*M,MGY*CM: 667.6 42 images obtained. FINDINGS: The swallowing mechanism is normal . There is mild CP muscle hypertrophy without any significant obst ruction to the passage of contrast. Thoracic portion has a normal course and caliber. There are blunted secondary stripping waves were sl ight prolonged pooling of contrast in the thoracic esophagus when the patient is prone/supine. The mucosa is normal and no persistent filling defect is encountered. There is a sliding hiatal hernia which distends out between small to moderate in size. Mild gastroeso phageal reflux is seen during the course of the exam IMPRESSION: 1. Sliding hiatal hernia which variably distends from small to moderate in size. Mild gastroesophagea l reflux seen. 2. Mild esophageal dysmotility. 3. Mild CP muscle hypertrophy but without any significant narrowing. 4. Otherwise, no stricture is seen.
--- NOTE | 2022-12-14 14:47 | US ---
EXAMINATION TYPE: US thyroid st tissue head/neck DATE OF EXAM: 12/14/2022 COMPARISON: NONE CLINICAL INDICATION: Male, 42 years old with history of R09.89 CHOKING EPISODE; dysphagia GLAND SIZE: Right Lobe: 4.9 x 1.3 x 2.0 cm Overall Parenchyma: homogenous Left Lobe: 4.9 x 1.9 x 1.6 cm Overall Parenchyma: homogeneous Isthmus Thickness: .5 cm NODULES RIGHT: # of nodules measured on right: 1 1. .9 X .5 x .8 cm, upper lateral, solid or almost completely solid, TR4 hypoechoic nodule, which i s wider than tall, with smooth margins, without echogenic foci. Prior size: no prior LEFT: # of nodules measured on left: 1 1. 2.3 X 1.8 x 1.9 cm, lower medial, solid or almost completely solid, isoechoic TR 3 nodule, which is wider than tall, with smooth margins, without echogenic foci. Prior size: no prior ISTHMUS: # of nodules measured in the isthmus: 0 Bilateral neck scanned, no evidence of lymphadenopathy. IMPRESSION: A small 9 mm solid TR4 nodule in the right and a larger solid 2.3 cm TR 3 nodule on the left. These c an continue to be followed. FNA for TR4 nodules at 1.5 cm and for TR3 nodules at 2.5 cm.
== END | disposition home or self-care (01) ==
LOC: RADUSWWP 10:54
PROVIDERS: ATTEND Family Medicine
DX: E04.2 Nontoxic multinodular goiter (principal); R09.89 Other specified symptoms and signs involving the circulatory and respiratory systems
CPT/HCPCS: 74220; 76536

== ENCOUNTER 2022-12-22 10:52 | Day surgery (SDC) | payer OTHER ==
[2022-12-21 12:24] VITALS: BMI 43.2
[~2022-12-22 10:52] MED LIST: LACTATED RINGERS 1,000 ML IV SCH
[2022-12-22 11:42] VITALS: TEMP 98.1
[2022-12-22] MEDS ORDERED: LIDOCAINE 2% INJ 20 MG/ML (2 ML VIAL) ONE (12:36)
[2022-12-22] MEDS ORDERED: PROPOFOL 10 MG/ML 20 ML VIAL IV ONE (12:36)
--- NOTE | 2022-12-22 13:02 | P.PCN ---
Date of Procedure: 12/22/22 Procedure(s) Performed: BRIEF HISTORY: Patient is a 42-year-old, pleasant, white female male scheduled for an upper endoscopy as a part of evaluation of intermittent dysphagia to solids for the last 1 month duration.. PROCEDURE PERFORMED: Esophagogastroduodenoscopy with biopsy. PREOPERATIVE DIAGNOSIS: Intermittent dysphagia to solids. IV sedation per anesthesia. PROCEDURE: After informed consent was obtained, the patient was brought into the endoscopy unit. IV sedation was administered by Anesthesia under continuous monitoring. Initially the Olympus GIF-140 video endoscope was inserted into the mouth. Esophagus intubated without any difficulty. It was gradually advanced into the stomach and duodenum and carefully examined. The bulb and the second part of the duodenum appeared normal. The scope at this time was withdrawn to the stomach, adequately insufflated with air, and upon careful examination, mucosa of the antrum, body, cardia and the fundus appeared normal. There was large amount of retained food in the stomach suggestive of gastroparesis. Small hiatal hernia noted. The scope was then withdrawn into the esophagus. The GE junction was located at 39 cm from the incisors. There was a long segment of Mata's esophagus extending from 25-39 cm from the incisors and multiple biopsies were done from the distal and proximal body the Mata's esophagus. The rest of the esophagus appeared normal. There were no erosions or ulcerations seen and the patient tolerated the procedure well. IMPRESSION: 1. Retained food in the stomach suggestive of gastroparesis. 2. 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 RECOMMENDATIONS: The findings of this examination were discussed with the patient as well as his family. He was advised to follow with the biopsy results. He will continue with omeprazole 20 mg daily and follow antireflux measures. If the biopsy does not show any evidence of dysplasia, he can have a repeat upper endoscopy every 3 years..
[2022-12-22 13:19] VITALS: BP 125/84; PULSE 67; RESP 16
== END 2022-12-22 14:07 | disposition home or self-care (01) ==
LOC: ORWHC2ENDO 10:52 → EEVIPCON 16:15
PROVIDERS: ATTEND Internal Medicine Gastroenterology
DX: K22.70 Barrett's esophagus without dysplasia (principal); K44.9 Diaphragmatic hernia without obstruction or gangrene; E78.5 Hyperlipidemia, unspecified; I25.2 Old myocardial infarction; I11.0 Hypertensive heart disease with heart failure; I50.9 Heart failure, unspecified; I25.10 Atherosclerotic heart disease of native coronary artery without angina pectoris; J44.9 Chronic obstructive pulmonary disease, unspecified; Z87.891 Personal history of nicotine dependence; Z79.899 Other long term (current) drug therapy
CPT/HCPCS: 88305; 43239; J2704; J2001

== ENCOUNTER → 2023-03-22 | Outpatient (CLI) | payer OTHER ==
--- NOTE | 2023-03-23 13:25 | CT ---
EXAMINATION TYPE: CT angio chest CT DLP: 954.5 mGycm, Automated exposure control for dose reduction was used. DATE OF EXAM: 03/22/2023 3:27 PM COMPARISON: CT 12/02/2015 CLINICAL INDICATION:Male, 42 years old with history of R06.02; SOB X years. R/O PE TECHNIQUE/CONTRAST: CTA scan of the thorax is performed with IV Contrast, patient injected with 100 cc mL of Isovue 370, MIP images are created and reviewed these are created on a separate workstation.. FINDINGS: Pulmonary Artery: There is no evidence for a filling defect within the pulmonary vasculature to sugge st acute pulmonary embolism. The pulmonary artery is of normal size. Lungs/Pleura: No evidence of focal consolidation, pleural effusion or pneumothorax. Airway: Large airways are patent. Heart: Heart is within normal limits for size. Vasculature: No evidence of aortic aneurysm. No filling defect to suggest pulmonary embolus. No evide nce for aortic dissection. No evidence for vascular occlusion. Mediastinum: No gross evidence of adenopathy. Musculoskeletal: No acute osseous abnormalities, remote appearing bilateral rib fractures multilevel degeneration changes throughout the spine. Soft Tissues: Unremarkable. Lower neck: No significant findings. Upper Abdomen: No significant findings. IMPRESSION: No evidence for acute process. No evidence for pulmonary embolus. No evidence for findings The patient's shortness of breath.
== END | disposition home or self-care (01) ==
LOC: RADCTMAIN 14:41
PROVIDERS: ATTEND Internal Medicine
DX: R06.02 Shortness of breath (principal); Z86.711 Personal history of pulmonary embolism
CPT/HCPCS: 71275; Q9967

== ENCOUNTER 2023-10-05 14:53 | Emergency (ER) | payer OTHER ==
--- NOTE | 2023-10-05 14:58 | ED ---
Abdominal Pain HPI - General Chief Complaint: Abdominal Pain Stated Complaint: Abd pain,Vomiting-Sent by PCP Time Seen by Provider: 10/05/23 14:56 Source: patient, RN notes reviewed Mode of arrival: ambulatory Limitations: no limitations - History of Present Illness Initial Comments: This is a 42-year-old male who presents to the emergency department for abdominal pain. States that for a couple of weeks he had been dealing with constipation and took a laxative. Over the last 3 days he has since had diarrhea. Reports pain in the left upper quadrant region with radiation into the back. He has also started to become nauseous over the last couple of days. His primary care provider advised he come in for further evaluation. MD Complaint: abdominal pain - Related Data Home Medications Medication Instructions Recorded Confirmed Omeprazole 20 mg PO DAILY 12/21/22 10/05/23 Aspirin EC [Ecotrin Low Dose] 81 mg PO DAILY 10/05/23 10/05/23 Cariprazine HCl [Vraylar] 9 mg PO HS 10/05/23 10/05/23 Nitroglycerin Sl Tabs [Nitrostat] 0.4 mg SL Q5M PRN 10/05/23 10/05/23 buPROPion XL [Wellbutrin XL] 150 mg PO DAILY 10/05/23 10/05/23 Previous Rx's Medication Instructions Recorded Apixaban [Eliquis] 5 mg PO BID 30 Days tab 08/15/21 Atorvastatin [Lipitor] 40 mg PO HS 30 Days tab 08/15/21 Famotidine [Pepcid] 20 mg PO BID 30 Days tab 08/15/21 NIFEdipine XL [Procardia XL] 60 mg PO DAILY 30 Days #30 tablet 08/15/21 amLODIPine [Norvasc] 10 mg PO DAILY 30 Days tab 08/15/21 carvediloL [Coreg] 25 mg PO BID 30 Days tab 08/15/21 cloNIDine HCL [Catapres] 0.1 mg PO TID 30 Days tab 08/15/21 hydrALAZINE HCL [Apresoline] 25 mg PO BID 30 Days tab 08/15/21 Ondansetron Odt [Zofran Odt] 4 mg PO Q8HR PRN #15 tab 10/05/23 methocarbamoL [Robaxin-750] 1,500 mg PO TID PRN #30 tab 10/05/23 Allergies Allergy/AdvReac Type Severity Reaction Status Date / Time No Known Allergies Allergy Verified 10/05/23 18:11 Review of Systems ROS Statement: Those systems with pertinent positive or pertinent negative responses have been documented in the HPI. ROS Other: All systems not noted in ROS Statement are negative. Past Medical History Past Medical History: Coronary Artery Disease (CAD), COPD, Hyperlipidemia, Hypertension, Myocardial Infarction (UT), Pulmonary Embolus (PE) Additional Past Medical History / Comment(s): UT in 2008, asthma, stress test Last Myocardial Infarction Date:: 2008 History of Any Multi-Drug Resistant Organisms: None Reported Past Surgical History: Heart Catheterization With Stent Past Anesthesia/Blood Transfusion Reactions: No Reported Reaction Additional Past Anesthesia/Blood Transfusion Reaction / Comment(s): No blood transfusion Date of Last Stent Placement:: 2008 Smoking Status: Current every day smoker, Vaper - Past Family History Father Family Medical History: CVA/TIA, Myocardial Infarction (UT) Additional Family Medical History / Comment(s): Father had a UT at age 29yrs. at age 38 after open heart Mother Family Medical History: No Reported History Additional Family Medical History / Comment(s): Mother is healthy General Exam Limitations: no limitations General appearance: alert, in no apparent distress Head exam: Present: atraumatic, normocephalic, normal inspection Respiratory exam: Present: normal lung sounds bilaterally. Absent: respiratory distress, wheezes, rales, rhonchi, stridor Cardiovascular Exam: Present: regular rate, normal rhythm, normal heart sounds. Absent: systolic murmur, diastolic murmur, rubs, gallop, clicks GI/Abdominal exam: Present: soft, tenderness (diffuse), normal bowel sounds. Absent: distended Back exam: Present: normal inspection, full ROM, tenderness (mid back) Neurological exam: Present: alert, oriented X3, CN II-XII intact Psychiatric exam: Present: normal affect, normal mood Skin exam: Present: warm, dry, intact, normal color. Absent: rash Course Vital Signs 10/05/23 10/05/23 15:27 19:36 Temperature 98.2 F Pulse Rate 71 86 Respiratory 20 18 Rate Blood Pressure 126/81 120/74 O2 Sat by Pulse 99 99 Oximetry Medical Decision Making - Medical Decision Making This is a 42 year old male who presents to the emergency department for abdominal pain, nausea, and vomiting. Was pt. sent in by a medical professional or institution? @ -No Did you speak to anyone other than the patient for history? @ -No Did you review nursing and triage notes? @ -Yes, and I agree, it is accurate with regards to the patient's symptoms. Were old charts reviewed? @ -No Differential Diagnosis? @ -Differential Abdominal Pain Men: Appendicitis, cholecystitis, diverticulosis, ischemic bowel, pancreatitis, hepatitis, UTI, gastroenteritis, AAA, incarcerated hernia, bowel obstruction, constipation, inflammatory bowel, hepatitis, peptic ulcer disease, splenic infarction, perforated viscus, testicular torsion, this is not meant to be an all-inclusive list EKG interpreted by me (3pts min.)? @ -Not obtained X-rays interpreted by me (1pt min.)? @ -Not obtained CT interpreted by me (1pt min.)? @ -CT scan of the abdomen and pelvis obtained. My interpretation identifies no evidence of bowel wall thickening or free air. U/S interpreted by me (1pt. min.)? @ -Gallbladder ultrasound obtained. My interpretation identifies no evidence of cholelithiasis. What testing was considered but not performed? (CT, X-rays, U/S, labs)? Why? @ -None What meds were considered but not given? Why? @ -None Did you discuss the management of the patient with other professionals? @ -No Did you reconcile home meds? @ -No Was smoking cessation discussed for >3mins.? @ -No Was critical care preformed (if so, how long)? @ -No Were there social determinants of health that impacted care today? How? (Home lessness, low income, unemployed, alcoholism, drug addiction, transportation, low edu. Level, literacy, decrease access to med. care, snf, rehab)? @ -No Was there de-escalation of care discussed even if they declined? (Discuss DNR or withdrawal of care, Hospice)? @ -No What co-morbidities impacted this encounter? (DM, HTN, Smoking, COPD, CAD, Ca ncer, CVA, Hep., AIDS, mental health diagnosis, sleep apnea, morbid obesity)? @ -None Was patient admitted / discharged? @ -Discharged. Lab work demonstrates mild leukocytosis and signs of dehydration. Urinalysis negative for signs of infection. CT scan of the abdomen pelvis demonstrates no acute process and no significant fecal retention. Gallbladder ultrasound obtained as well demonstrating hepatomegaly. He had tenderness and pain throughout the whole exam without any other evidence to suggest acute cholecystitis. Symptoms were controlled in the emergency department and he was tolerating oral intake. We discussed Benefiber or probiotics to regulate bowel movements. Also advised that the pain in his mid back could be musculoskeletal in nature. He did have improvement in pain with Norflex. Prescription for Zofran provided with dosing instructions reviewed. He was also given a prescription for Robaxin for any musculoskeletal component. Advised Tylenol as needed for pain relief and close follow-up with his primary care provider. Patient discharged home in stable condition. Undiagnosed new problem with uncertain prognosis? @ -None Drug Therapy requiring intensive monitoring for toxicity (Heparin, Nitro, Insulin, Cardizem)? @ -None Were any procedures done? @ -None Diagnosis/symptom? @ -Abdominal pain, N/V Acute, or Chronic, or Acute on Chronic? @ -Acute Uncomplicated (without systemic symptoms) or Complicated (systemic symptoms)? @ -Uncomplicated Side effects of treatment? @ -None Exacerbation, Progression, or Severe Exacerbation] @ -Not applicable Poses a threat to life or bodily function? @ -No Return precautions reviewed in depth, the patient is instructed to return to the emergency department with any new, worsening, or concerning symptoms. Patient verbalized understanding. This case was discussed in detail with the attending ED physician, Dr. Alegria. Presentation, findings, and treatment plan discussed in detail as well. - Lab Data Result diagrams: 10/05/23 16:24 10/05/23 16:24 Lab Results 10/05/23 10/05/23 10/05/23 Range/Units 16:24 16:24 16:24 WBC 11.9 H (3.8-10.6) k/uL RBC 5.59 (4.30-5.90) m/uL Hgb 15.5 (13.0-17.5) gm/dL Hct 47.6 (39.0-53.0) % MCV 85.1 (80.0-100.0) fL MCH 27.8 (25.0-35.0) pg MCHC 32.6 (31.0-37.0) g/dL RDW 15.4 (11.5-15.5) % Plt Count 391 (150-450) k/uL MPV 7.5 Neutrophils % 68 % Lymphocytes % 17 % Monocytes % 5 % Eosinophils % 7 % Basophils % 1 % Neutrophils # 8.1 H (1.3-7.7) k/uL Lymphocytes # 2.0 (1.0-4.8) k/uL Monocytes # 0.6 (0-1.0) k/uL Eosinophils # 0.8 H (0-0.7) k/uL Basophils # 0.1 (0-0.2) k/uL Sodium 138 (137-145) mmol/L Potassium 4.2 (3.5-5.1) mmol/L Chloride 103 (98-107) mmol/L Carbon Dioxide 27 (22-30) mmol/L Anion Gap 8 mmol/L BUN 16 (9-20) mg/dL Creatinine 1.91 H (0.66-1.25) mg/dL Est GFR (CKD-EPI)AfAm 49 (>60 ml/min/1.73 sqM) Est GFR (CKD-EPI)NonAf 42 (>60 ml/min/1.73 sqM) Glucose 95 (74-99) mg/dL Plasma Lactic Acid Bryan 1.1 (0.7-2.0) mmol/L Calcium 8.9 (8.4-10.2) mg/dL Total Bilirubin 0.5 (0.2-1.3) mg/dL AST 38 (17-59) U/L ALT 38 (4-49) U/L Alkaline Phosphatase 112 (38-126) U/L Troponin I (0.000-0.034) ng/mL Total Protein 7.4 (6.3-8.2) g/dL Albumin 4.1 (3.5-5.0) g/dL Amylase 93 (30-110) U/L Lipase 300 (23-300) U/L Urine Color Urine Appearance (Clear) Urine pH (5.0-8.0) Ur Specific Emerado (1.001-1.035) Urine Protein (Negative) Urine Glucose (UA) (Negative) Urine Ketones (Negative) Urine Blood (Negative) Urine Nitrite (Negative) Urine Bilirubin (Negative) Urine Urobilinogen (<2.0) mg/dL Ur Leukocyte Esterase (Negative) Urine RBC (0-5) /hpf Urine WBC (0-5) /hpf Ur Squamous Epith Cells (0-4) /hpf Hyaline Casts (0-2) /lpf Urine Mucus (None) /hpf 10/05/23 10/05/23 Range/Units 16:24 17:25 WBC (3.8-10.6) k/uL RBC (4.30-5.90) m/uL Hgb (13.0-17.5) gm/dL Hct (39.0-53.0) % MCV (80.0-100.0) fL MCH (25.0-35.0) pg MCHC (31.0-37.0) g/dL RDW (11.5-15.5) % Plt Count (150-450) k/uL MPV Neutrophils % % Lymphocytes % % Monocytes % % Eosinophils % % Basophils % % Neutrophils # (1.3-7.7) k/uL Lymphocytes # (1.0-4.8) k/uL Monocytes # (0-1.0) k/uL Eosinophils # (0-0.7) k/uL Basophils # (0-0.2) k/uL Sodium (137-145) mmol/L Potassium (3.5-5.1) mmol/L Chloride (98-107) mmol/L Carbon Dioxide (22-30) mmol/L Anion Gap mmol/L BUN (9-20) mg/dL Creatinine (0.66-1.25) mg/dL Est GFR (CKD-EPI)AfAm (>60 ml/min/1.73 sqM) Est GFR (CKD-EPI)NonAf (>60 ml/min/1.73 sqM) Glucose (74-99) mg/dL Plasma Lactic Acid Bryan (0.7-2.0) mmol/L Calcium (8.4-10.2) mg/dL Total Bilirubin (0.2-1.3) mg/dL AST (17-59) U/L ALT (4-49) U/L Alkaline Phosphatase (38-126) U/L Troponin I 0.012 (0.000-0.034) ng/mL Total Protein (6.3-8.2) g/dL Albumin (3.5-5.0) g/dL Amylase (30-110) U/L Lipase (23-300) U/L Urine Color Yellow Urine Appearance Clear (Clear) Urine pH 6.0 (5.0-8.0) Ur Specific [place] >1.050 H (1.001-1.035) Urine Protein 1+ H (Negative) Urine Glucose (UA) Negative (Negative) Urine Ketones Negative (Negative) Urine Blood Negative (Negative) Urine Nitrite Negative (Negative) Urine Bilirubin Negative (Negative) Urine Urobilinogen 2.0 (<2.0) mg/dL Ur Leukocyte Esterase Negative (Negative) Urine RBC 4 (0-5) /hpf Urine WBC 2 (0-5) /hpf Ur Squamous Epith Cells <1 (0-4) /hpf Hyaline Casts 1 (0-2) /lpf Urine Mucus Rare H (None) /hpf - Radiology Data Radiology results: report reviewed, image reviewed Disposition Clinical Impression: Abdominal pain, Nausea and vomiting Disposition: HOME SELF-CARE Condition: Good Instructions (If sedation given, give patient instructions): Abdominal Pain (ED) Additional Instructions: Return to the emergency department with any new, worsening, or concerning sympto ms. Take Tylenol as needed for pain relief. You can take the Robaxin as 1 to 2 tablets up to 3-4 times daily. Be aware that this may make you drowsy. You can take the Zofran up to every 8 hours as needed for nausea and vomiting. Try taking a probiotic or something like Benefiber to regulate your bowel movements. Slowly advance your diet as tolerated and remain well-hydrated. Follow up with your primary care provider in 1-2 days. Prescriptions: methocarbamoL [Robaxin-750] 1,500 mg PO TID PRN #30 tab PRN Reason: Pain Ondansetron Odt [Zofran Odt] 4 mg PO Q8HR PRN #15 tab PRN Reason: Nausea And Vomiting Is patient prescribed a controlled substance at d/c from ED?: No Referrals: Mohini Uribe MD [Primary Care Provider] - 1-2 days Time of Disposition: 19:32
[2023-10-05 15:53] VITALS: TEMP 98.2
[2023-10-05 16:28] LABS: Basophils # (A) 0.1 k/uL (0-0.2); Basophils % (A) 1 %; Eosinophils # (A) 0.8 k/uL (0-0.7); Eosinophils % (A) 7 %; HCT 47.6 % (39.0-53.0); HGB 15.5 gm/dL (13.0-17.5); Lymphocytes % (A) 17 %; MCH 27.8 pg (25.0-35.0); MCHC 32.6 g/dL (31.0-37.0); MCV 85.1 fL (80.0-100.0); Mean Platelet Volume 7.5; Monocytes # (A) 0.6 k/uL (0-1.0); Monocytes % (A) 5 %; Neutrophils # (A) 8.1 k/uL (1.3-7.7); Neutrophils % (A) 68 %; Platelet Count 391 k/uL (150-450); RBC 5.59 m/uL (4.30-5.90); RDW 15.4 % (11.5-15.5); WBC 11.9 k/uL (3.8-10.6)
[2023-10-05 16:39] LABS: ALT 38 U/L (4-49); AST 38 U/L (17-59); African American GFR (CKD) 49 (>60 ml/min/1.73 sqM); Albumin 4.1 g/dL (3.5-5.0); Alkaline Phosphatase 112 U/L (38-126); Amylase 93 U/L (30-110); Anion Gap 8 mmol/L; Blood Urea Nitrogen 16 mg/dL (9-20); Calcium 8.9 mg/dL (8.4-10.2); Carbon Dioxide 27 mmol/L (22-30); Chloride 103 mmol/L (98-107); Glucose 95 mg/dL (74-99); Lipase 300 U/L (23-300); Non-African American GFR(CKD) 42 (>60 ml/min/1.73 sqM); Potassium 4.2 mmol/L (3.5-5.1); Sodium 138 mmol/L (137-145); Total Bilirubin 0.5 mg/dL (0.2-1.3); Total Protein 7.4 g/dL (6.3-8.2)
--- NOTE | 2023-10-05 17:11 | CT ---
EXAMINATION TYPE: CT abdomen pelvis w con DATE OF EXAM: 10/05/2023 COMPARISON: 05/02/2021 INDICATION: Constipation x 2 weeks, states that his kidneys have hurt x 1 week. DLP: 2942.3 mGycm, Automated exposure control for dose reduction was used. CONTRAST: 100 ml mL of Isovue 300. Study performed without Oral Contrast TECHNIQUE: Axial images were obtained from above the diaphragm to the pubic rami in the axial plane a t 5 mm thick sections. Reconstructed images are reviewed on the computer in the coronal plane. FINDINGS: Limited CT sections are obtained the lung bases. The lung bases are clear. CT ABDOMEN: Liver: Normal Spleen: Normal Pancreas: Normal Adrenal glands: The adrenal glands are normal. Gallbladder: Normal Kidneys: No masses are evident. No hydronephrosis is present. No cysts are present. Delayed images were obtained through the kidneys, which remain unremarkable. Aorta: Vascular calcification is within the aorta. Inferior vena cava: Normal. CT PELVIS: Loops of bowel within the abdomen and pelvis are normal. Studies performed without oral contrast limiting pelvic evaluation. No significant fecal retention is evident. Appendix: Normal as visualized. Urinary bladder: Normal. Genitourinary structures: Prostate is normal. Osseous structures: No suspicious lytic or sclerotic lesions. IMPRESSION: 1. No acute CT abnormalities to account symptoms. 2. No fecal significant retention.
[2023-10-05] MEDS: KETOROLAC 15 MG/ML 1 ML VIAL IVP STA (17:37)
[2023-10-05] MEDS: ONDANSETRON 4 MG/2 ML VIAL IVP STA (17:37)
[2023-10-05] MEDS: SODIUM CHLORIDE 0.9% 1,000 ML IV STA (17:37)
[2023-10-05 17:40] LABS: Appearance,Urine Clear (Clear); Bilirubin,Urine Negative (Negative); Blood,Urine Negative (Negative); Color,Urine Yellow; Glucose,Urine (UA) Negative (Negative); Hyaline Casts,Urine 1 /lpf (0-2); Ketones,Urine Negative (Negative); Leukocyte Esterase,Urine Negative (Negative); Mucus,Urine Rare /hpf; Nitrite,Urine Negative (Negative); Protein,Urine 1+ (Negative); RBC,Urine 4 /hpf (0-5); Squamous Epithelial Cell,Urine <1 /hpf (0-4); WBC,Urine 2 /hpf (0-5)
[2023-10-05 17:41] LABS: Specific Gravity,Urine >1.050 (1.001-1.035)
--- NOTE | 2023-10-05 19:14 | US ---
EXAMINATION TYPE: US gallbladder DATE OF EXAM: 10/05/2023 COMPARISON: CT 10/05/2023 same day CLINICAL INDICATION: Male, 42 years old with history of Epigastric pain; Epigastric pain x 3 weeks. TECHNIQUE: Multiple sonographic images of the right upper quadrant are obtained. FINDINGS: EXAM MEASUREMENTS: Liver Length: 18.6 cm Gallbladder Wall: 0.25 cm CBD: Obscured Right Kidney: 10.3 x 6.3 x 5.3 cm [employer]ING [employer]INE [employer]ATOR INSULATION NOTES: Exam is very limited due to body habitus and gas. Pancreas: Not well seen Liver: *Appears enlarged/heterogeneous with increased echogenicity and attenuation. Limited. Hypoechoic area seen adjacent to the gallbladder: 6.3 x 3.0 x 2.9 cm. Gallbladder: Appears anechoic Evidence for sonographic Musa's sign: Patient in pain for entire exam CBD: Obscured Right Kidney: No hydronephrosis or masses seen IMPRESSION: 1. Hepatomegaly. 2. There may be some fatty sparing adjacent to the gallbladder fossa. 3. There appears to be a positive Musa sign. Additional findings to suggest acute cholecystitis not identified by ultrasound.
[2023-10-05] MEDS: ORPHENADRINE 30 MG/ML 2 ML VIAL IVP STA (19:31)
[2023-10-05] MEDS: LIDOCAINE 4% PATCH TOPICAL ONE (19:32)
[2023-10-05] MEDS: traMADol 50 MG STARTER PACK 3 TAB BTL PO STA (19:42)
[2023-10-05] MEDS: ONDANSETRON 4 MG ODT STARTER PACK 2 TAB BTL PO STA (19:42)
[2023-10-05 19:56] VITALS: BP 120/74; PULSE 86; RESP 18
== END 2023-10-05 19:43 | disposition home or self-care (01) ==
LOC: EC 14:53
DX: R10.9 Unspecified abdominal pain (principal); R11.2 Nausea with vomiting, unspecified; F17.290 Nicotine dependence, other tobacco product, uncomplicated
CPT/HCPCS: 36415; 93005; 80053; 82150; 83605; 83690; 84484; 85025; 81001; 76705; 74177; 99284; 96374; 96375 ×2; 96361; J2360; J2405; J1885; S0119; Q9967

== ENCOUNTER 2024-01-17 10:57 | Inpatient (IN) | payer MEDICAID, OTHER ==
--- NOTE | 2024-01-17 11:37 | ED ---
Recheck HPI - General Source: patient, family (Mother), RN notes reviewed Mode of arrival: ambulatory Limitations: no limitations <Kat Peters - Last Filed: 01/17/24 15:07> <Birgit Peacock - Last Filed: 01/17/24 17:11> - General Chief Complaint: Recheck/Abnormal Lab/Rx Stated Complaint: Hypertension-sent by PCP Time Seen by Provider: 01/17/24 11:36 - History of Present Illness Initial Comments: 43-year-old male presented to the ER accompanied by his mother for evaluation of hypertension. Patient sent by Dr. Rajan. Patient states for the past couple of months he has not been taking his antihypertensive and antipsychotic medications as he "does not want to take them". Patient denies any dizziness, lighth eadedness, chest pain, shortness of breath, abdominal pain, urinary complaints or peripheral edema. Patient denies any SI or HI. Denies any hallucinations. (Kat Peters) - Related Data Home Medications Medication Instructions Recorded Confirmed Omeprazole 20 mg PO DAILY 12/21/22 01/17/24 Aspirin EC [Ecotrin Low Dose] 81 mg PO DAILY 10/05/23 01/17/24 Cariprazine HCl [Vraylar] 9 mg PO HS 10/05/23 01/17/24 Nitroglycerin Sl Tabs [Nitrostat] 0.4 mg SL Q5M PRN 10/05/23 01/17/24 buPROPion XL [Wellbutrin XL] 150 mg PO DAILY 10/05/23 01/17/24 Ferrous Sulfate [Feosol] 325 mg PO BID 01/17/24 01/17/24 Previous Rx's Medication Instructions Recorded Apixaban [Eliquis] 5 mg PO BID 30 Days tab 08/15/21 Atorvastatin [Lipitor] 40 mg PO HS 30 Days tab 08/15/21 Famotidine [Pepcid] 20 mg PO BID 30 Days tab 08/15/21 NIFEdipine XL [Procardia XL] 60 mg PO DAILY 30 Days #30 tablet 08/15/21 amLODIPine [Norvasc] 10 mg PO DAILY 30 Days tab 08/15/21 carvediloL [Coreg] 25 mg PO BID 30 Days tab 08/15/21 cloNIDine HCL [Catapres] 0.1 mg PO TID 30 Days tab 08/15/21 hydrALAZINE HCL [Apresoline] 25 mg PO BID 30 Days tab 08/15/21 Allergies Allergy/AdvReac Type Severity Reaction Status Date / Time No Known Allergies Allergy Verified 01/17/24 13:00 Review of Systems ROS Other: All systems not noted in ROS Statement are negative. <Kat Peters - Last Filed: 01/17/24 15:07> ROS Other: All systems not noted in ROS Statement are negative. <Birgit Peacock - Last Filed: 01/17/24 17:11> ROS Statement: Those systems with pertinent positive or pertinent negative responses have been documented in the HPI. Past Medical History Past Medical History: Coronary Artery Disease (CAD), COPD, Hyperlipidemia, Hypertension, Myocardial Infarction (NM), Pulmonary Embolus (PE) Additional Past Medical History / Comment(s): NM in 2008, asthma, stress test Last Myocardial Infarction Date:: 2008 History of Any Multi-Drug Resistant Organisms: None Reported Past Surgical History: Heart Catheterization With Stent Past Anesthesia/Blood Transfusion Reactions: No Reported Reaction Additional Past Anesthesia/Blood Transfusion Reaction / Comment(s): No blood transfusion Date of Last Stent Placement:: 2008 Past Psychological History: Bipolar, Schizophrenia Smoking Status: Current every day smoker, Vaper Past Alcohol Use History: Rare Past Drug Use History: Marijuana - Past Family History Father Family Medical History: CVA/TIA, Myocardial Infarction (NM) Additional Family Medical History / Comment(s): Father had a NM at age 29yrs. at age 38 after open heart Mother Family Medical History: No Reported History Additional Family Medical History / Comment(s): Mother is healthy <Kat Peters - Last Filed: 01/17/24 15:07> General Exam Limitations: no limitations General appearance: alert, in no apparent distress Respiratory exam: Present: normal lung sounds bilaterally. Absent: respiratory distress, wheezes, rales, rhonchi, stridor Cardiovascular Exam: Present: regular rate, normal rhythm, normal heart sounds. Absent: systolic murmur, diastolic murmur, rubs, gallop, clicks GI/Abdominal exam: Present: soft, normal bowel sounds. Absent: distended, tenderness, guarding, rebound, rigid Extremities exam: Present: normal inspection, full ROM, normal capillary refill. Absent: tenderness, pedal edema, joint swelling, calf tenderness Neurological exam: Present: alert, oriented X3, CN II-XII intact Psychiatric exam: Present: manic Skin exam: Present: warm, dry, intact, normal color. Absent: rash <Kat Peters - Last Filed: 01/17/24 15:07> Course Vital Signs 01/17/24 01/17/24 01/17/24 10:58 11:44 13:40 Temperature 98.2 F 99.1 F 98.5 F Pulse Rate 118 H 104 H 107 H Respiratory 18 20 20 Rate Blood Pressure 167/114 169/120 172/91 O2 Sat by Pulse 95 95 95 Oximetry 01/17/24 15:38 Temperature Pulse Rate 92 Respiratory 16 Rate Blood Pressure 144/115 O2 Sat by Pulse 98 Oximetry Medical Decision Making <Kat Peters - Last Filed: 01/17/24 15:07> <Birgit Peacock - Last Filed: 01/17/24 17:11> - Medical Decision Making Was pt. sent in by a medical professional or institution (, PA, LABORATORY ASSOCIATE, urgent care, hospital, or fci...) When possible be specific @ -Patient sent by for evaluation of HTN and psych evaluation. Did you speak to anyone other than the patient for history (EMS, parent, family, police, friend...)? What history was obtained from this source @ -Mother aiding in HPI and past medical history. Mother reports patient is court ordered to take medications as prescribed. Did you review nursing and triage notes (agree or disagree)? Why? @ -I reviewed and agree with nursing and triage notes Were old charts reviewed (outside hosp., previous admission, EMS record, old EKG, old radiological studies, urgent care reports/EKG's, fci records)? Report findings @ -No old charts were reviewed Differential Diagnosis (chest pain, altered mental status, abdominal pain women, abdominal pain men, vaginal bleeding, weakness, fever, dyspnea, syncope, headache, dizziness, GI bleed, back pain, seizure, CVA, palpatations, mental health, musculoskeletal)? @ -Differential Mental Health: Depression, anxiety, bipolar, psychosis, schizophrenia, borderline personality, situational depression, adjustment disorder, behavioral disorder, brain tumor, malingering, substance abuse, encephalopathy, medication reaction, dementia, hypothyroidism, degenerative neurologic disorder, lupus.... This is not meant to be all-inclusive list EKG interpreted by me (3pts min.). @ -None X-rays interpreted by me (1pt min.). @ -None done CT interpreted by me (1pt min.). @ -None done U/S interpreted by me (1pt. min.). @ -None done What testing was considered but not performed or refused? (CT, X-rays, U/S, labs)? Why? @ -None What meds were considered but not given or refused? Why? @ -None Did you discuss the management of the patient with other professionals (professionals i.e. Dr., PA, LABORATORY ASSOCIATE, lab, RT, psych nurse, social service technician, measurement psychologist, teacher, airconditioning drafting officer, complex case manager)? Give summary @ -No Was smoking cessation discussed for >3mins.? @ -No Was critical care preformed (if so, how long)? @ -No Were there social determinants of health that impacted care today? How? (Homelessness, low income, unemployed, alcoholism, drug addiction, transportation, low edu. Level, literacy, decrease access to med. care, [place] [facility], rehab)? @ -No Was there de-escalation of care discussed even if they declined (Discuss DNR or withdrawal of care, Hospice)? DNR status @ -No What co-morbidities impacted this encounter? (DM, HTN, Smoking, COPD, CAD, Cancer, CVA, ARF, Chemo, Hep., AIDS, mental health diagnosis, sleep apnea, morbid obesity)? @ -Hypertension, obesity, bipolar Was patient admitted / discharged? Hospital course, mention meds given and route, prescriptions, significant lab abnormalities, going to OR and other pertinent info. @ -43-year-old male accompanied by his mother presented to the ER for evaluation of hypertension. Patient sent by PCP as he has not been taking his medication for a couple of months as "doesn't want to". Upon arrival vital signs significant for temperature 98.2, heart rate 118, respiratory rate 18, blood pressure 167/114, oxygen saturation 95% on room air. Patient in no signs of acute distress with no acute complaints on exam. Patient is showing abnormal behavior on exam as he is frequently laughing and smiling. Mother, at bedside, reports patient is court mandated to take prescribed medications. Mother refuses to petition patient at this time. Bat 0.00, UDS positive for THC. Patient received p.o. clonidine for blood pressure control. Patient medically cleared for EPS evaluation. Patient signed out to Birgit Peacock PA-C pending EPS evaluation and disposition. (Kat Peters) Patient was signed out to me pending EPS evaluation. He was reported to me by mental health nurse that patient will be transferred to out side psychiatric facility for mental health evaluation. Patient does have a guardian, his moth er, at bedside and the mother is willing for the patient to be transferred. Patient is petition by mental health bottom cementer. (Birgit Peacock) - Lab Data Lab Results 01/17/24 01/17/24 Range/Units 11:51 16:29 Urine Color Yellow Urine Appearance Clear (Clear) Urine pH 6.5 (5.0-8.0) Ur Specific [place] 1.017 (1.001-1.035) Urine Protein 3+ H (Negative) Urine Glucose (UA) Trace H (Negative) Urine Ketones Negative (Negative) Urine Blood Trace H (Negative) Urine Nitrite Negative (Negative) Urine Bilirubin Negative (Negative) Urine Urobilinogen <2.0 (<2.0) mg/dL Ur Leukocyte Esterase Negative (Negative) Urine RBC 1 (0-5) /hpf Urine WBC 5 (0-5) /hpf Hyaline Casts 22 H (0-2) /lpf Urine Mucus Moderate H (None) /hpf Urine Opiates Screen Not Detected (NotDetected) Ur Oxycodone Screen Not Detected (NotDetected) Urine Methadone Screen Not Detected (NotDetected) Ur Barbiturates Screen Not Detected (NotDetected) U Tricyclic Antidepress Not Detected (NotDetected) Ur Phencyclidine Scrn Not Detected (NotDetected) Ur Amphetamines Screen Not Detected (NotDetected) U Methamphetamines Scrn Not Detected (NotDetected) U Benzodiazepines Scrn Not Detected (NotDetected) Urine Cocaine Screen Not Detected (NotDetected) U Marijuana (THC) Screen Detected H (NotDetected) Disposition <Kat Peters - Last Filed: 01/17/24 15:07> - Out of Hospital Transfer - Req. Specs Out of Hospital Transfer - Requested Specifics: Psychiatric Non-ICU <Birgit Peacock - Last Filed: 01/17/24 17:11> Clinical Impression: Aggressive behavior Disposition: TRANSFER TO PSYCH HOSP/UNIT Condition: Poor Referrals: Mohini Uribe MD [Primary Care Provider] - 1-2 days
[2024-01-17] MEDS: hydrALAZINE HCL 20 MG/ML 1 ML VIAL IVP STA (11:56)
[2024-01-17 12:47] LABS: Amphetamine Screen,Urine Not Detected (NotDetected); Barbiturate Screen,Urine Not Detected (NotDetected); Benzodiazepines Screen,Urine Not Detected (NotDetected); Cocaine Screen,Urine Not Detected (NotDetected); Methadone Screen, Urine Not Detected (NotDetected); Opiate Screen,Urine Not Detected (NotDetected); Oxycodone Screen, Urine Not Detected (NotDetected); Phencyclidine Screen,Urine Not Detected (NotDetected); Tricyclic Antidepressant,Urine Not Detected (NotDetected); Urn Cannabinoid Scrn Detected (NotDetected)
[2024-01-17] MEDS: cloNIDine HCL 0.1 MG TAB PO STA (13:42)
[2024-01-17] MEDS: cloNIDine HCL 0.1 MG TAB PO SCH (15:40)
[2024-01-17 16:40] LABS: Appearance,Urine Clear (Clear); Bilirubin,Urine Negative (Negative); Blood,Urine Trace (Negative); Color,Urine Yellow; Glucose,Urine (UA) Trace (Negative); Hyaline Casts,Urine 22 /lpf (0-2); Ketones,Urine Negative (Negative); Leukocyte Esterase,Urine Negative (Negative); Mucus,Urine Moderate /hpf; Nitrite,Urine Negative (Negative); PH, Urine 6.5 (5.0-8.0); Protein,Urine 3+ (Negative); RBC,Urine 1 /hpf (0-5); Specific Gravity,Urine 1.017 (1.001-1.035); Urobilinogen,Urine <2.0 mg/dL (<2.0); WBC,Urine 5 /hpf (0-5)
[2024-01-17] MEDS: carvediloL 12.5 MG TAB PO SCH (17:10)
[2024-01-17 17:12] LABS: Basophils # (A) 0.1 k/uL (0-0.2); Basophils % (A) 1 %; Eosinophils # (A) 0.6 k/uL (0-0.7); Eosinophils % (A) 6 %; HCT 43.4 % (39.0-53.0); HGB 14.2 gm/dL (13.0-17.5); Lymphocytes # (A) 1.9 k/uL (1.0-4.8); Lymphocytes % (A) 20 %; MCH 26.9 pg (25.0-35.0); MCHC 32.7 g/dL (31.0-37.0); MCV 82.5 fL (80.0-100.0); Mean Platelet Volume 7.3; Monocytes # (A) 0.6 k/uL (0-1.0); Monocytes % (A) 6 %; Neutrophils # (A) 6.1 k/uL (1.3-7.7); Neutrophils % (A) 65 %; Platelet Count 323 k/uL (150-450); RBC 5.27 m/uL (4.30-5.90); RDW 15.9 % (11.5-15.5); WBC 9.4 k/uL (3.8-10.6)
[2024-01-17 17:25] LABS: ALT 64 U/L (4-49); AST 53 U/L (17-59); African American GFR (CKD) 46 (>60 ml/min/1.73 sqM); Albumin 3.8 g/dL (3.5-5.0); Alkaline Phosphatase 88 U/L (38-126); Anion Gap 6 mmol/L; Blood Urea Nitrogen 16 mg/dL (9-20); Calcium 9.5 mg/dL (8.4-10.2); Carbon Dioxide 29 mmol/L (22-30); Chloride 101 mmol/L (98-107); Glucose 100 mg/dL (74-99); Non-African American GFR(CKD) 40 (>60 ml/min/1.73 sqM); Potassium 3.7 mmol/L (3.5-5.1); Sodium 136 mmol/L (137-145); Total Bilirubin 0.4 mg/dL (0.2-1.3); Total Protein 6.8 g/dL (6.3-8.2)
[2024-01-17] MEDS: hydrALAZINE HCL 25 MG TAB PO SCH (21:25)
[2024-01-18] MEDS: amLODIPine 10 MG TAB PO SCH (08:43)
[2024-01-18] MEDS ORDERED: ACETAMINOPHEN TAB 325 MG TAB PO PRN (22:21)
[2024-01-18] MEDS ORDERED: haloperidoL 5 MG TAB PO PRN (22:21)
[2024-01-18] MEDS ORDERED: HALOPERIDOL LACTATE 5 MG/ML 1 ML VIAL IM PRN (22:21)
[2024-01-18] MEDS ORDERED: MAG HYDROX/AL HYDROX/SIMETH 355 ML BOTTLE PO PRN (22:21)
[2024-01-18] MEDS ORDERED: LORazepam 1 MG TAB PO PRN (22:21)
[2024-01-18] MEDS ORDERED: hydrOXYzine HCL 25 MG TAB PO PRN (22:21)
[2024-01-18] MEDS ORDERED: MAGNESIUM HYDROXIDE 2,400 MG/30 ML CUP PO PRN (22:21)
[2024-01-18] MEDS ORDERED: traZODone HCL 50 MG TAB PO PRN (22:21)
[2024-01-18] MEDS ORDERED: hydrOXYzine HCL 50 MG/ML 1 ML VIAL IM PRN (22:21)
[2024-01-18] MEDS ORDERED: LORazepam 2 MG/ML INJ IM PRN (22:21)
[2024-01-19] MEDS: NICOTINE 14MG/24HR PATCH TRANSDERM SCH (09:27)
--- NOTE | 2024-01-19 09:50 | P.HP ---
Psychiatric H&P - . H&P Date: 01/19/24 History & Physical: Allergies Allergy/AdvReac Type Severity Reaction Status Date / Time No Known Allergies Allergy Verified 01/17/24 13:00 Vital Signs Temp 97.5 F L 01/19/24 07:20 Pulse 88 01/19/24 07:20 Resp 20 01/19/24 07:20 BP 132/94 01/19/24 09:00 Pulse Ox 94 L 01/19/24 07:20 FiO2 Intake & Output 01/18/24 01/19/24 01/19/24 18:59 06:59 18:59 Weight 148.053 kg Laboratory Last Values WBC 9.4 k/uL (3.8-10.6) 01/17/24 16:38 RBC 5.27 m/uL (4.30-5.90) 01/17/24 16:38 Hgb 14.2 gm/dL (13.0-17.5) 01/17/24 16:38 Hct 43.4 % (39.0-53.0) 01/17/24 16:38 MCV 82.5 fL (80.0-100.0) 01/17/24 16:38 MCH 26.9 pg (25.0-35.0) 01/17/24 16:38 MCHC 32.7 g/dL (31.0-37.0) 01/17/24 16:38 RDW 15.9 % (11.5-15.5) H 01/17/24 16:38 Plt Count 323 k/uL (150-450) 01/17/24 16:38 MPV 7.3 01/17/24 16:38 Neutrophils % 65 % 01/17/24 16:38 Lymphocytes % 20 % 01/17/24 16:38 Monocytes % 6 % 01/17/24 16:38 Eosinophils % 6 % 01/17/24 16:38 Basophils % 1 % 01/17/24 16:38 Neutrophils # 6.1 k/uL (1.3-7.7) 01/17/24 16:38 Lymphocytes # 1.9 k/uL (1.0-4.8) 01/17/24 16:38 Monocytes # 0.6 k/uL (0-1.0) 01/17/24 16:38 Eosinophils # 0.6 k/uL (0-0.7) 01/17/24 16:38 Basophils # 0.1 k/uL (0-0.2) 01/17/24 16:38 Sodium 136 mmol/L (137-145) L 01/17/24 16:38 Potassium 3.7 mmol/L (3.5-5.1) 01/17/24 16:38 Chloride 101 mmol/L (98-107) 01/17/24 16:38 Carbon Dioxide 29 mmol/L (22-30) 01/17/24 16:38 Anion Gap 6 mmol/L 01/17/24 16:38 BUN 16 mg/dL (9-20) 01/17/24 16:38 Creatinine 1.99 mg/dL (0.66-1.25) H 01/17/24 16:38 Est GFR (CKD-EPI)AfAm 46 (>60 ml/min/1.73 sqM) 01/17/24 16:38 Est GFR (CKD-EPI)NonAf 40 (>60 ml/min/1.73 sqM) 01/17/24 16:38 Glucose 100 mg/dL (74-99) H 01/17/24 16:38 Calcium 9.5 mg/dL (8.4-10.2) 01/17/24 16:38 Total Bilirubin 0.4 mg/dL (0.2-1.3) 01/17/24 16:38 AST 53 U/L (17-59) 01/17/24 16:38 ALT 64 U/L (4-49) H 01/17/24 16:38 Alkaline Phosphatase 88 U/L (38-126) 01/17/24 16:38 Total Protein 6.8 g/dL (6.3-8.2) 01/17/24 16:38 Albumin 3.8 g/dL (3.5-5.0) 01/17/24 16:38 Urine Color Yellow 01/17/24 16:29 Urine Appearance Clear (Clear) 01/17/24 16:29 Urine pH 6.5 (5.0-8.0) 01/17/24 16:29 Ur Specific [place] 1.017 (1.001-1.035) 01/17/24 16:29 Urine Protein 3+ (Negative) H 01/17/24 16:29 Urine Glucose (UA) Trace (Negative) H 01/17/24 16:29 Urine Ketones Negative (Negative) 01/17/24 16:29 Urine Blood Trace (Negative) H 01/17/24 16:29 Urine Nitrite Negative (Negative) 01/17/24 16:29 Urine Bilirubin Negative (Negative) 01/17/24 16:29 Urine Urobilinogen <2.0 mg/dL (<2.0) 01/17/24 16:29 Ur Leukocyte Esterase Negative (Negative) 01/17/24 16:29 Urine RBC 1 /hpf (0-5) 01/17/24 16:29 Urine WBC 5 /hpf (0-5) 01/17/24 16:29 Hyaline Casts 22 /lpf (0-2) H 01/17/24 16:29 Urine Mucus Moderate /hpf (None) H 01/17/24 16:29 Urine Opiates Screen Not Detected (NotDetected) 01/17/24 11:51 Ur Oxycodone Screen Not Detected (NotDetected) 01/17/24 11:51 Urine Methadone Screen Not Detected (NotDetected) 01/17/24 11:51 Ur Barbiturates Screen Not Detected (NotDetected) 01/17/24 11:51 U Tricyclic Antidepress Not Detected (NotDetected) 01/17/24 11:51 Ur Phencyclidine Scrn Not Detected (NotDetected) 01/17/24 11:51 Ur Amphetamines Screen Not Detected (NotDetected) 01/17/24 11:51 U Methamphetamines Scrn Not Detected (NotDetected) 01/17/24 11:51 U Benzodiazepines Scrn Not Detected (NotDetected) 01/17/24 11:51 Urine Cocaine Screen Not Detected (NotDetected) 01/17/24 11:51 U Marijuana (THC) Screen Detected (NotDetected) H 01/17/24 11:51 SARS-CoV-2 (PCR) Not Detected (Not Detectd) 01/17/24 16:38 01/19/24 09:35 subjective: The patient is very vague as to why he is here except that his blood pressure gone up because he wouldn't take the medications. He just doesn't like taking medicines and he says he is on a whole fist full. He lives with his mom and stepdad in their basement.he had difficulty saying when things happened. He remembers walking home from a friend's house where he had banged on the door and no one can say ripped down something hanging on his friend's porch then as he was walking home he took all his clothes off and left him in the street went home and went to bed. Soon the police arrived and he met them at the door Ten naked. He reports that one time he was told by God to take off on his clothes and standing naked in the rain. After while he went back into the bathroom and looked in the mirror and ask why he had been told to do that. He said that God replied by saying "I am not ashamed of you and I don't want you to be ashamed of you.". When I pointed out that God doesn't seem to like people running around naked so that probably was not God. he assured me that, " for sure it was God". Objective: The patient came to the emergency room because he was not taking either his antipsychotics or his high blood pressure medicine and his blood pressure was dangerously high with a diastolic being 114. Due to the cessation antipsychotics he was having auditory and visual hallucinations he was d elusional feeling that he could spread his knowledge to many other people which is going to help people in [place] avoid starvation. On mental status exam the patientin the hospital and is oriented to date. He seems to be quite intelligent and could name all of the jasper. any time that I ask him a question it's as if he has to pull his mind back from somewhere else to try to answer it and often he'll start laughing for no apparent reason.he could spell world backward slowly. In trying to answer subtract 7 from 93 he thought for a long long time and eventually got 85. When asked to abstract how cats and snakes were alike he said that they both hiss and have tails. For the grass looks greener on the side defense he thought for a long time and said "take a leap". Of course he denies hallucinations but seemed to be distracted by voices all the time. When asked him if he saw things other people couldn't see. He said they can only see them if they are meant to see them.it was impossible for me to assess as to whether he has any bipolar fluctuations. Social history: The patient says that he is supposed second of 3 children born to his parents. Has an older sister and a younger brother. He does not know how old he was when his parents or how old he was when mom remarried. He says his biological father young of a heart attack. He says that he does have a younger half sister from his father. His mother still to his stepdad and he lives with them in their basement. There is also a young man he calls Chago who stays with them and he says Chago is a good man and they are friends plus mom has cats. and early development,he reported as normal but he had a lot of trouble in school. He WOULD stand up for himself and others and when the teacher tried to belittle the student's he would belittle the teacher so he was thrown out. He did go back and get a GED. he says he was and has 2 children. He is not sure oldest daughter is an d when asked him he said, "she acts older than her age". (He seemed to have a lot of trouble recalling obvious facts that should simply be there like how many children his parents had or how old his children are.) He says his daughter has a daughter so he is a grand father No history Lives in the basement with his parents. Assessment patient is quite psychotic from not taking his medicines he is court ordered so soon as we established that we need to get him back on his medications so that he can function he is a danger to himself because he will not take his blood pressure medicine and it was dangerously high when he came into the emergency room. diagnosis: This is a little hard place but does look like schizophrenia undifferentiated. Plan: Restart medications that he was on before
--- NOTE | 2024-01-19 14:58 | P.MDCNMH ---
History of Present Illness H&P Date: 01/19/24 History of present illness; patient is a 43-year-old gentleman past medical history significant for hypertension brought the ER for psychiatric evaluation. Patient was sent in by PCP as patient has been refusing take his medications for 2 months. Patient was exhibiting odd behavior. Patient was laughing at times and states that he does not take any medications. Patient stopped taking his antihypertensives as well as antipsychotics. Patient was having auditory or visual hallucinations. Patient was out of the ER Initial lab work done in the ER showed WBC 9.4, hemoglobin 14.2, platelet count 323, sodium 133, potassium 3.7, BUN 16, creatinine 1.99 Urine drug screen positive for marijuana COVID-19 not detected Patient admitted to psychiatry REVIEW OF SYSTEMS: CONSTITUTIONAL: No fever, no malaise, no fatigue. HEENT: No recent visual problems or hearing problems. Denied any sore throat. CARDIOVASCULAR: No chest pain, orthopnea, PND, no palpitations, no syncope. PULMONARY: No shortness of breath, no cough, no hemoptysis. GASTROINTESTINAL: No diarrhea, no nausea, no vomiting, no abdominal pain. NEUROLOGICAL: No headaches, no weakness, no numbness. HEMATOLOGICAL: Denies any bleeding or petechiae. GENITOURINARY: Denies any burning micturition, frequency, or urgency. MUSCULOSKELETAL/RHEUMATOLOGICAL: Denies any joint pain, swelling, or any muscle pain. ENDOCRINE: Denies any polyuria or polydipsia. The rest of the 14-point review of systems is negative. PHYSICAL EXAMINATION: GENERAL: The patient is alert and oriented x3, not in any acute distress. Well developed, well nourished. HEENT: Pupils are round and equally reacting to light. EOMI. No scleral icterus. No conjunctival pallor. Normocephalic, atraumatic. No pharyngeal erythema. No thyromegaly. CARDIOVASCULAR: S1 and S2 present. No murmurs, rubs, or gallops. PULMONARY: Chest is clear to auscultation, no wheezing or crackles. ABDOMEN: Soft, nontender, nondistended, normoactive bowel sounds. No palpable organomegaly. MUSCULOSKELETAL: No joint swelling or deformity. EXTREMITIES: No cyanosis, clubbing, or pedal edema. NEUROLOGICAL: Gross neurological examination did not reveal any focal deficits. SKIN: No rashes. Assessment and plan Acute psychosis History of coronary artery disease with cardiac catheterization status post IN with stenting to the LAD in 2008 Hypertension Hyperlipidemia Asthma History of PE Monitor vital signs Monitor CBC Monitor CMP Resume Coreg, amlodipine, clonidine, Resume home meds Continue psych meds per psychiatry team Labs and medication were reviewed.. Continue same treatment. Continue with symptomatic treatment. Resume home medication. Monitor labs and vitals. DVT and GI prophylaxis. Further recommendations as per clinical course of the patient Dictation was produced using [employer] dictation software. please excuse any grammatical, word or spelling errors. Past Medical History Past Medical History: Coronary Artery Disease (CAD), COPD, Hyperlipidemia, Hypertension, Myocardial Infarction (IN), Pulmonary Embolus (PE) Additional Past Medical History / Comment(s): IN in 2008, asthma, stress test Last Myocardial Infarction Date:: 2008 History of Any Multi-Drug Resistant Organisms: None Reported Past Surgical History: Heart Catheterization With Stent Past Anesthesia/Blood Transfusion Reactions: No Reported Reaction Additional Past Anesthesia/Blood Transfusion Reaction / Comment(s): No blood transfusion Date of Last Stent Placement:: 2008 Past Psychological History: Bipolar, Schizophrenia Additional Psychological History / Comment(s): AT TIME OF ADMIT ASKED IF HE HAD ANY HX OF psychological illnesses, HE STATED NO, IT WAS PREVIOUSLY CHARTED HE HAS BIPOLAR.. He lives in a home with his MOM He is independent. Smoking Status: Current every day smoker, Vaper Past Alcohol Use History: Rare Additional Past Alcohol Use History / Comment(s): Pt started smoking in 1995. Past Drug Use History: Marijuana Additional Drug Use History / Comment(s): occasional per mom historian - Past Family History Father Family Medical History: CVA/TIA, Myocardial Infarction (IN) Additional Family Medical History / Comment(s): Father had a IN at age 29yrs. at age 38 after open heart Mother Family Medical History: No Reported History Additional Family Medical History / Comment(s): Mother is healthy Medications and Allergies Home Medications Medication Instructions Recorded Confirmed Type Apixaban [Eliquis] 5 mg PO BID 30 Days tab 08/15/21 01/17/24 Rx Atorvastatin [Lipitor] 40 mg PO HS 30 Days tab 08/15/21 01/17/24 Rx Famotidine [Pepcid] 20 mg PO BID 30 Days tab 08/15/21 01/17/24 Rx NIFEdipine XL [Procardia XL] 60 mg PO DAILY 30 Days #30 tablet 08/15/21 01/17/24 Rx amLODIPine [Norvasc] 10 mg PO DAILY 30 Days tab 08/15/21 01/17/24 Rx carvediloL [Coreg] 25 mg PO BID 30 Days tab 08/15/21 01/17/24 Rx cloNIDine HCL [Catapres] 0.1 mg PO TID 30 Days tab 08/15/21 01/17/24 Rx hydrALAZINE HCL [Apresoline] 25 mg PO BID 30 Days tab 08/15/21 01/17/24 Rx Omeprazole 20 mg PO DAILY 12/21/22 01/17/24 History Aspirin EC [Ecotrin Low Dose] 81 mg PO DAILY 10/05/23 01/17/24 History Cariprazine HCl [Vraylar] 9 mg PO HS 10/05/23 01/17/24 History Nitroglycerin Sl Tabs [Nitrostat] 0.4 mg SL Q5M PRN 10/05/23 01/17/24 History buPROPion XL [Wellbutrin XL] 150 mg PO DAILY 10/05/23 01/17/24 History Ferrous Sulfate [Feosol] 325 mg PO BID 01/17/24 01/17/24 History Allergies Allergy/AdvReac Type Severity Reaction Status Date / Time No Known Allergies Allergy Verified 01/17/24 13:00 Physical Exam Vitals: Vital Signs Temp Pulse Pulse Resp BP BP Pulse Ox 01/19/24 09:00 132/94 01/19/24 07:20 97.5 F L 88 20 128/73 94 L 01/18/24 22:35 77 18 160/104 95 01/18/24 21:05 69 16 135/83 96 01/18/24 17:38 89 20 172/106 98 Intake and Output 01/18/24 01/19/24 01/19/24 22:59 06:59 14:59 Other: Weight 148.053 kg Cranial Nerve Examination - Cranial Nerves Cranial Nerve II- Optic: Intact (Cranial nerves II to XII intact) Cranial Nerve III- Oculomotor: Intact Cranial Nerve IV- Trochlear: Intact Cranial Nerve V- Trigeminal: Intact Cranial Nerve - Abducens: Intact Cranial Nerve VII- Facial: Intact Cranial Nerve VIII- Auditory: Intact Cranial Nerve IX- Glossopharyngeal: Intact Cranial Nerve X- Vagus: Intact Cranial Nerve XI- Accessory: Intact Cranial Nerve XII- Hypoglossal: Intact Results CBC & Chem 7: 01/17/24 16:38 01/17/24 16:38
[2024-01-19] MEDS: APIXABAN 5 MG TAB PO SCH (22:47)
[2024-01-19] MEDS: FAMOTIDINE 20 MG TAB PO SCH (22:47)
[2024-01-19] MEDS: FERROUS SULFATE 325 MG TAB PO SCH (22:47)
--- NOTE | 2024-01-20 08:10 | P.PN ---
Subjective Progress Note Date: 01/20/24 Principal diagnosis: schizophrenia undifferentiated rule out schizoaffective subjective: The patient is very vague as to why he is here. He says I am doing superbly. Says he slept well has good appetite everything's fine Objective: he was alert good eye contact did not want to come to the office so we talked in his bedroom. He is always laughing when there is nothing parti cular to laugh about. He is hard to assess her do any planning due to vagueness and lack of insight. Assessment /mental status:patient is quite psychotic from not taking his medicines he is court ordered so as soon as we established that court order, we need to get him back on his medications so that he can function he is a danger to himself because he will not take his blood pressure medicine and it was dangerously high when he came into the emergency room, was disrobing in public could produce dangerous situations. diagnosis: This is a little hard place but does look like schizophrenia un differentiated, possibly schizoaffective. Plan: Restart medications that he was on before, as soon as we get the documentation which will not be until the courts open up" Objective - Vital Signs Vital signs: Vital Signs Temp 97.5 F L 01/19/24 07:20 Pulse 88 01/19/24 16:30 Resp 20 01/19/24 07:20 BP 144/105 01/19/24 16:30 Pulse Ox 94 L 01/19/24 07:20 FiO2 - Labs CBC & Chem 7: 01/17/24 16:38 01/17/24 16:38
[2024-01-20] MEDS: ASPIRIN 81 MG PO SCH (09:02)
[2024-01-21] MEDS ORDERED: HALOPERIDOL LACTATE 5 MG/ML 1 ML VIAL IM PRN (11:05)
--- NOTE | 2024-01-21 11:11 | P.PN ---
Progress Note - Text Progress Note Date: 01/21/24 Interval History: Patient was seen wandering the hallways near the nurses desk, he was agreeable to speak to lyric writer in the office today. Patient appears to be mildly disheveled today. Had very poor insight and poor judgment. He does not understand why he is here in the hospital. Claims that his primary care doctor believed that he was not taking his medications. When asked more about [facility] and his psychiatric medications patient acted like he has never been to [facility] and does not need medica tions. He admitted to noncompliance. Attempted to speak with patient about different options for psychiatric treatment however he was not able to participate much in that discussion. He was gazing around the room questioning lyric writer several times. Denies any problems with his mood or anxiety, denies any issues with sleep. He states that "God made me perfect just the way he wanted to".. At this time patient denies any suicidal or homical ideations, intent or plan. Patient denies any auditory, visual hallucinations. Mental Status Exam: General Appearance: Patient appears to be overweight, balding, has a peña stated age is alert, uncooperative. Behavior: Patient is calmly seated without any agitated behavior. Evasive, vague Speech: Patient's speech is fluent and nonpressured. [place] Mood/Affect: Mood is "fine", affect is incongruent and constricted. Suicidality/Homicidality: Patient denies having any suicidal or homicidal ideation intent or plan. Perceptions: Patient denies any visual hallucinations and denies any auditory hallucinations Though content/process: Thought process is concrete, thought blocking, hesitant. Does not believe he needs medications or has a mental illness Memory and concentration: AOX3, grossly intact for the purposes of this session Judgment and insight: Chronically poor Assessment Schizoaffective disorder, bipolar type Cannabis use disorder mild Noncompliance with medication regimen Nicotine dependence Plan: -Patient continues to meet criteria for inpatient psychiatric admission for symptom stabilization and safety. Patient has not signed medication consent and was placed in patient's chart. Is currently on a active treatment order until March 20, 2024. -Medications: Start Invega p.o. 3 mg twice daily for psychosis/mood stabil ization. If patient refuses p.o. Invega then he is to receive haloperidol IM. plan will be to transition patient onto long-acting injection to help ensure compliance. Trazodone 50 mg nightly as needed for insomnia -When necessary Ativan and Haldol for agitation/aggression. -NRT -nicotine patch -SW on board for discharge planning. Encouraged the patient to participate in milieu. He is currently on a active court order for mental health treatment.
[2024-01-21] MEDS: PALIPERIDONE 3 MG TAB.ER.24 PO SCH (17:43)
[2024-01-22] MEDS ORDERED: HALOPERIDOL LACTATE 5 MG/ML 1 ML VIAL IM PRN (11:25)
[2024-01-22] MEDS: ARIPiprazole 5 MG TAB PO SCH (11:27)
--- NOTE | 2024-01-22 12:04 | P.PN ---
Progress Note - Text Progress Note Date: 01/22/24 Interval History: Patient was seen wandering the hallways and he was agreeable to speak to proposal manager writer in the office today. Patient states that he is doing a bit better today. His grooming and hygiene is mildly improving. He is more cooperative today. Denies any problems with his mood or anxiety, denies any issues with sleep. Army Helicopter Pilot spoke to patient about his medications, and spoke about switching him onto Abilify vs Invega. The patients mother told proposal manager writer that she believes the Invega makes the patient too sedated. Patient agreeable to switch. Patient states his appetite is good. Patient appears to be internally preoccupied. At this time patient denies any suicidal or homicidal ideations, intent or plan. Patient denies any auditory, visual hallucinations. Mental Status Exam: General Appearance: Patient appears to be overweight, balding, has a peña stated age is alert, more cooperative. Behavior: Patient is calmly seated without any agitated behavior. Evasive, vague Speech: Patient's speech is fluent and nonpressured. [place] Mood/Affect: Mood is "pretty good", affect is incongruent and constricted. Suicidality/Homicidality: Patient denies having any suicidal or homicidal ideation intent or plan. Perceptions: Patient denies any visual hallucinations and denies any auditory hallucinations Though content/process: Thought process is concrete, thought blocking, hesitant. Does not believe he needs medications or has a mental illness, improving mildly. hesitant Memory and concentration: AOX3, grossly intact for the purposes of this session Judgment and insight: Chronically poor Assessment Schizoaffective disorder, bipolar type Cannabis use disorder mild Noncompliance with medication regimen Nicotine dependence Plan: -Patient continues to meet criteria for inpatient psychiatric admission for symptom stabilization and safety. Patient has not signed medication consent and was placed in patient's chart. Is currently on a active treatment order until March 20, 2024. -Medications: d/c Invega due to concern from mother about oversedation from this medication historically. add Abilify 5mg po daily for psychosis/mood stabilization. If patient refuses p.o. Abilify then he is to receive haloperidol IM. plan will be to transition patient onto long-acting injection to help ensure compliance. Trazodone 50 mg nightly as needed for insomnia -When necessary Ativan and Haldol for agitation/aggression. -NRT -nicotine patch -SW on board for discharge planning. Encouraged the patient to participate in milieu. He is currently on a active court order for mental health treatment.
[2024-01-22] MEDS: hydrALAZINE HCL 50 MG TAB PO SCH (12:46)
--- NOTE | 2024-01-23 10:23 | P.PN ---
Progress Note - Text Progress Note Date: 01/23/24 Interval History: Patient was seen wandering the hallways and he was agreeable to speak to writer technical publications in the office today. Patient states that he is doing really well today. Patient is attending groups. He states that the groups help him, and he really enjoys them. continues to be vague, defensive and persistent on discharge and minimizing his mental illness and need for medications. Patient states his appetite is good. He states that he is sleeping well at night. Mandarin Tutor spoke with patient about titrating his medication. The patient states that it does not seem right. He states that there is a bunch of things he is missing out on, because he is in here. He states he wants to go home. The patient states that he is "perfectly ok" and wants to leave. He is mildly religiously preoccupied. He states that there is nothing wrong with him mentally, and he is perfectly capable of making right decisions. At this time patient denies any suicidal or homicidal ideations, intent or plan. Patient denies any auditory, visual hallucinations. Mental Status Exam: General Appearance: Patient appears to be overweight, balding, has a peña stated age is alert, more cooperative. Behavior: Patient is calmly seated without any agitated behavior. Evasive, vague Speech: Patient's speech is fluent and nonpressured. [place] Mood/Affect: Mood is "pretty good", affect is incongruent and constricted. Suicidality/Homicidality: Patient denies having any suicidal or homicidal ideation intent or plan. Perceptions: Patient denies any visual hallucinations and denies any auditory hallucinations Though content/process: Thought process is concrete, thought blocking, hesitant. Does not believe he needs medications or has a mental illness, improving mildly. hesitant Memory and concentration: AOX3, grossly intact for the purposes of this session Judgment and insight: Chronically poor Assessment Schizoaffective disorder, bipolar type Cannabis use disorder mild Noncompliance with medication regimen Nicotine dependence Plan: -Patient continues to meet criteria for inpatient psychiatric admission for symptom stabilization and safety. Patient has not signed medication consent and was placed in patient's chart. Is currently on a active treatment order until March 20, 2024. -Medications: increase Abilify 10mg po daily for psychosis/mood stabilization, continue titrating up as needed/tolerated. If patient refuses p.o. Abilify then he is to receive haloperidol IM. plan will be to transition patient onto long- acting injection to help ensure compliance. Trazodone 50 mg nightly as needed for insomnia -When necessary Ativan and Haldol for agitation/aggression. -NRT -nicotine patch -SW on board for discharge planning. Encouraged the patient to participate in milieu. He is currently on a active court order for mental health treatment. will need to transition onto WOOD to ensure compliance and hopeful for discharge either sunday vs sunday back home.
[2024-01-23] MEDS: cloNIDine HCL 0.2 MG TAB PO SCH (16:54)
[2024-01-24] MEDS: ARIPiprazole 10 MG TAB PO SCH (08:42)
[2024-01-24] MEDS ORDERED: ARIPiprazole 5 MG TAB PO SCH (09:00)
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
[2024-01-24 16:15] LABS: ALT 54 U/L (4-49); AST 43 U/L (17-59); African American GFR (CKD) 68 (>60 ml/min/1.73 sqM); Albumin 3.6 g/dL (3.5-5.0); Alkaline Phosphatase 89 U/L (38-126); Anion Gap 9 mmol/L; Blood Urea Nitrogen 23 mg/dL (9-20); Calcium 9.2 mg/dL (8.4-10.2); Carbon Dioxide 24 mmol/L (22-30); Chloride 105 mmol/L (98-107); Glucose 147 mg/dL (74-99); Non-African American GFR(CKD) 59 (>60 ml/min/1.73 sqM); Potassium 4.4 mmol/L (3.5-5.1); Sodium 138 mmol/L (137-145); Total Bilirubin 0.3 mg/dL (0.2-1.3); Total Protein 6.4 g/dL (6.3-8.2)
[2024-01-25] MEDS: ARIPiprazole 10 MG TAB PO SCH (08:00)
--- NOTE | 2024-01-25 10:47 | P.NPCON ---
History of Present Illness - Reason for Consult acute renal failure, chronic renal failure - History of Present Illness Reason for consultation: Acute kidney injury on chronic kidney disease History of present illness: Patient is a 43-year-old male seen in renal consultation for acute kidney injury on chronic kidney disease. Patient has chronic kidney disease stage II with baseline creatinine near 1.3 from August 2021 in May 2022. Creatinine this admission was up to 1.99 and was improved to 1.44 as of yesterday. Patient was seen in the inpatient psychiatry unit. Denies history of diabetes. Patient states he has had hypertension for several years but unsure exactly as to when he was diagnosed. He denies chest pain or shortness of breath. No vomiting or diarrhea. Oral intake is good. He does have history of coronary artery disease with a cardiac stent. UA from this admission shows 3+ protein and 1 RBC. Patient states he stopped taking his antihypertensives for several months but is now taking them while in the psychiatry unit. Blood pressure is fairly stable. Was 137/80 last night and 145/94 this morning. He does have edema in the lower extremities. Denies history of autoimmune disease. Vital signs are stable. General: No acute distress. HEENT: Head exam is unremarkable. LUNGS: No audible rhonchi or wheezes. HEART: Rate and Rhythm are regular. ABDOMEN: Nontender, obese. EXTREMITITES: 1+ edema. Past Medical History Past Medical History: Coronary Artery Disease (CAD), COPD, Hyperlipidemia, Hypertension, Myocardial Infarction (AL), Pulmonary Embolus (PE) Additional Past Medical History / Comment(s): AL in 2008, asthma, stress test Last Myocardial Infarction Date:: 2008 History of Any Multi-Drug Resistant Organisms: None Reported Past Surgical History: Heart Catheterization With Stent Past Anesthesia/Blood Transfusion Reactions: No Reported Reaction Additional Past Anesthesia/Blood Transfusion Reaction / Comment(s): No blood transfusion Date of Last Stent Placement:: 2008 Smoking Status: Current every day smoker - Past Family History Father Family Medical History: CVA/TIA, Myocardial Infarction (AL) Additional Family Medical History / Comment(s): Father had a AL at age 29yrs. at age 38 after open heart Mother Family Medical History: No Reported History Additional Family Medical History / Comment(s): Mother is healthy Medications and Allergies Home Medications Medication Instructions Recorded Confirmed Type Apixaban [Eliquis] 5 mg PO BID 30 Days tab 08/15/21 01/17/24 Rx Atorvastatin [Lipitor] 40 mg PO HS 30 Days tab 08/15/21 01/17/24 Rx Famotidine [Pepcid] 20 mg PO BID 30 Days tab 08/15/21 01/17/24 Rx NIFEdipine XL [Procardia XL] 60 mg PO DAILY 30 Days #30 tablet 08/15/21 01/17/24 Rx amLODIPine [Norvasc] 10 mg PO DAILY 30 Days tab 08/15/21 01/17/24 Rx carvediloL [Coreg] 25 mg PO BID 30 Days tab 08/15/21 01/17/24 Rx cloNIDine HCL [Catapres] 0.1 mg PO TID 30 Days tab 08/15/21 01/17/24 Rx hydrALAZINE HCL [Apresoline] 25 mg PO BID 30 Days tab 08/15/21 01/17/24 Rx Omeprazole 20 mg PO DAILY 12/21/22 01/17/24 History Aspirin EC [Ecotrin Low Dose] 81 mg PO DAILY 10/05/23 01/17/24 History Cariprazine HCl [Vraylar] 9 mg PO HS 10/05/23 01/17/24 History Nitroglycerin Sl Tabs [Nitrostat] 0.4 mg SL Q5M PRN 10/05/23 01/17/24 History buPROPion XL [Wellbutrin XL] 150 mg PO DAILY 10/05/23 01/17/24 History Ferrous Sulfate [Feosol] 325 mg PO BID 01/17/24 01/17/24 History Allergies Allergy/AdvReac Type Severity Reaction Status Date / Time No Known Allergies Allergy Verified 01/17/24 13:00 Physical Exam Vitals: Vital Signs Temp Pulse Resp BP BP Pulse Ox 01/25/24 08:15 80 16 145/94 96 01/24/24 21:14 97.9 F 69 16 137/80 96 01/24/24 17:46 78 148/90 01/24/24 16:59 82 151/98 Results - Lab Results Most recent lab results Calcium 9.2 mg/dL (8.4-10.2) 01/24/24 15:36 Magnesium 2.0 mg/dL (1.6-2.3) 01/24/24 15:36 01/17/24 16:38 01/24/24 15:36 Assessment and Plan Plan: Assessment: 1. Acute kidney injury secondary to hemodynamic ATN. Improved. Creatinine 1.44 today. 2. Proteinuria. 3+ proteinuria noted on UA. Albumin 3.6. No history of diabetes. Rule out GN. 3. Chronic kidney disease stage II with baseline creatinine 1.3 likely from nephrosclerosis. 4. Bipolar disorder. Psychiatry managing. 5. Volume overload. 6. Coronary disease with cardiac stent. Plan: Add chlorthalidone 25 mg once daily. Add 2 L fluid restriction per day. Low-salt diet. Check secondary workup for hypertension. Check serologies. Continue to monitor renal function and urine output. Thank you for the consultation. I will continue to follow the patient with you during his hospital stay.
--- NOTE | 2024-01-25 13:19 | P.PN ---
Progress Note - Text Progress Note Date: 01/25/24 Interval History: Patient was seen at the nurse's station this morning where he was at the window talking to staff for some time. On assessment, his affect appears odd and with a brief latency in his responses. Thoughts are mostly organized; thought process is concrete. He says his mood is "excellent", insight is poor since he appears to minimize his symptoms. He is compliant with his medications. His Abilify dose was increased to 15 mg daily starting this morning. He denies medication side effects. I discussed with him the plan to transition him to the Abilify WOOD and he claims his mother (guardian) does not want him on the injection. At this time patient denies any suicidal or homicidal ideation, intent or plan. Patient denies any auditory, visual hallucinations, but there is concern he may be still attending to internal stimuli due to his latency of responses. Mental Status Exam: General Appearance: Patient appears obese, balding, peña, fair hygiene/grooming, +tattoos on arms Behavior: Patient is standing at window of nursing station talking to staff, wit hout any agitated behavior. Speech: A bit slowed, but otherwise fluent. Mood/Affect: Mood is "excellent", affect is odd/blunted Suicidality/Homicidality: Patient denies having any suicidal or homicidal ideation intent or plan. Perceptions: Patient denies any visual hallucinations and denies any auditory hallucinations, but there is concern he is attending to internal stimuli due to thought blocking.. Though content/process: Thought process is concrete with some thought blocking and latency in responses. Memory and concentration: AOX3, grossly intact for the purposes of this session. Judgment and insight: Chronically poor, hence guardianship Assessment Schizoaffective disorder, bipolar type Cannabis use disorder, mild Noncompliance with medication regimen Nicotine dependence Plan: -Patient continues to meet criteria for inpatient psychiatric admission for symptom stabilization and safety. Patient is currently on a active treatment order until March 20, 2024. -Medications: -Abilify was increased to 15 mg daily for psychosis/mood stabilization starting this morning. Continue to monitor at this dose and titrate up as needed/tolerated over the weekend. If patient refuses p.o. Abilify then he is to receive haloperidol IM as backup. The plan is to transition patient onto long-acting injection to help ensure compliance, however today patient is claiming his mother (guardian) does not want him on the WOOD. Ordering physician will need to discuss WOOD with mother (guardian) for consent. -Continue Trazodone 50 mg nightly as needed for insomnia -He was seen by nephrology this morning and was started on Chlorthalidone 25 mg daily, 2L fluid restriction and low-salt diet; nephrology plans to follow. He will need to follow-up with PCP and nephrology on outpatient basis. -When necessary Ativan and Haldol for agitation/aggression. -NRT -nicotine patch -SW on board for discharge planning. Encouraged the patient to participate in milieu. He is currently on a active court order for mental health treatment. Will need to transition onto WOOD if mother (guardian) agrees to ensure compliance. Consider discharge back home on Sunday or Sunday if he continues to stabilize.
[2024-01-25 15:38] LABS: Appearance,Urine Clear (Clear); Bilirubin,Urine Negative (Negative); Blood,Urine Negative (Negative); Color,Urine Yellow; Glucose,Urine (UA) Negative (Negative); Ketones,Urine Negative (Negative); Leukocyte Esterase,Urine Negative (Negative); Mucus,Urine Few /hpf; Nitrite,Urine Negative (Negative); PH, Urine 5.5 (5.0-8.0); Protein,Urine 1+ (Negative); Specific Gravity,Urine 1.023 (1.001-1.035); Squamous Epithelial Cell,Urine <1 /hpf (0-4); Urobilinogen,Urine <2.0 mg/dL (<2.0); WBC,Urine 1 /hpf (0-5)
[2024-01-25 15:44] LABS: Hepatitis A Antibody IgM Nonreactive (Nonreactive); Hepatitis B Core IgM Nonreactive (Nonreactive); Hepatitis B Surface Antigen Nonreactive (Nonreactive); Hepatitis C IgG Antibody Nonreactive (Nonreactive)
[2024-01-25] MEDS: CHLORTHALIDONE 25 MG TAB PO SCH (15:54)
[2024-01-25 19:10] LABS: Anti-DNA, DS unit <1.0 IU/mL; DNA Double-Stranded Negative (Negative)
--- NOTE | 2024-01-26 08:44 | US ---
EXAMINATION TYPE: US renal artery duplex complet DATE OF EXAM: 01/26/2024 COMPARISON: 04/07/2015 CLINICAL INDICATION: Male, 43 years old with history of htn, nora; MEASUREMENTS: RENAL SIZE: Right Kidney: 10.8 x 6.6 x 5.1 cm Left Kidney: 11.7 x 6.2 x 5.6 Right Kidney: wnl Left Kidney: wnl Abd Aorta: Limited visualization, WNL as visualized RESISTANCE INDEX Right: 0.68 Left: 0.66 RA/AO RATIO (< 3.5 ) Right: 0.6 Left: 1.3 RENAL ARTERY VELOCITY ( < 180 cm/s) Right: 49 Left: 110 Income Tax Adjuster Notes: Difficult exam due to patient body habitus IMPRESSION: No evidence for renal artery stenosis. [facility] Redd Acuna 01/26/2024 8:13 AM
--- NOTE | 2024-01-26 10:11 | P.PN ---
Subjective Patient is seen in follow-up for acute kidney injury on chronic kidney disease. Blood pressure elevated this morning. Edema improved. Denies chest pain or shortness of breath. Oral intake is good. Vital signs are stable. General: No acute distress. HEENT: Head exam is unremarkable. LUNGS: No audible rhonchi or wheezes. HEART: Rate and Rhythm are regular. ABDOMEN: Obese, nontender. EXTREMITITES: Trace edema. Objective - Vital Signs Vital signs: Vital Signs Temp 97.8 F 01/26/24 05:23 Pulse 74 01/26/24 05:23 Resp 18 01/26/24 05:23 BP 172/112 01/26/24 05:23 Pulse Ox 99 01/26/24 05:23 FiO2 - Labs CBC & Chem 7: 01/17/24 16:38 01/24/24 15:36 Labs: Abnormal Lab Results - Last 24 Hours (Table) 01/25/24 Range/Units 15:13 Urine Protein 1+ H (Negative) Urine Mucus Few H (None) /hpf Assessment and Plan Plan: Assessment: 1. Acute kidney injury secondary to hemodynamic ATN. Improved. Creatinine 1.4 4 yesterday. 2. Proteinuria. 3+ proteinuria noted on UA. Repeat UA with 1+ protein and no blood. Albumin 3.6. No history of diabetes. Rule out GN. 3. Chronic kidney disease stage II with baseline creatinine 1.3 likely from nephrosclerosis. 4. Bipolar disorder. Psychiatry managing. 5. Volume overload. Improved. 6. Coronary disease with cardiac stent. Plan: Maintain current antihypertensives. Maintain 2 L fluid restriction per day. Low-salt diet. Follow-up secondary workup for hypertension. Follow-up serologies. Negative so far. Continue to monitor renal function and urine output. Discussed proper technique of checking blood pressure with RN. Will increase dose of hydralazine if blood pressure is staying consistently above 130/80.
--- NOTE | 2024-01-26 12:30 | P.PN ---
Progress Note - Text Progress Note Date: 01/26/24 Interval History: Patient was seen on the unit and was cooperative and directable to speak with this commercial loan underwriter in the interview room. There continues to be a brief latency in his responses. He is able to formulate his thoughts more clearly without disorganization today. He asks about diagnosis and does not believe that he needs to be on medication. Patient continues to have poor insight. He discusses latter day beliefs and is noted to be religiously preoccupied today. He believes that he met with Chriss and would like help with formulating an juana that he would like to create that brings communities together. He is compliant with his medications. He visited with his aunt this morning and said that the visit went well. He reports having spoken with his mother last night. He is unable to discuss the contents further and is noted to have concrete thinking. He denies having racing thoughts or flight of ideas. He denies trouble with sleep and has good appetite. At this time patient denies any suicidal or homicidal ideation, intent or plan. Patient denies any auditory, visual hallucinations, but there is concern he may be still attending to internal stimuli due to his latency of responses. Mental Status Exam: General Appearance: Patient appears obese, balding, peña, fair hygiene/grooming, +tattoos on arms Behavior: No agitated behavior. Speech: A bit slowed, but otherwise fluent. Mood/Affect: Mood is "good", affect is blunted Suicidality/Homicidality: Patient denies having any suicidal or homicidal ideation intent or plan. Perceptions: Patient denies any visual hallucinations and denies any auditory hallucinations, but there is concern he is attending to internal stimuli due to thought blocking.. Though content/process: Thought process is concrete with some thought blocking and latency in responses. Memory and concentration: AOX3, grossly intact for the purposes of this session. Judgment and insight: Chronically poor, hence guardianship Assessment Schizoaffective disorder, bipolar type Cannabis use disorder, mild Noncompliance with medication regimen Nicotine dependence Plan: -Patient continues to meet criteria for inpatient psychiatric admission for symptom stabilization and safety. Patient is currently on a active treatment order until March 20, 2024. -Medications: -Increase Abilify to 20 mg daily tomorrow for psychosis/mood stabilization. Continue to monitor at this dose and titrate up as needed/tolerated If patient refuses p.o. Abilify then he is to receive haloperidol IM as backup. The plan is to transition patient onto long-acting injection to help ensure compliance, however today patient is claiming his mother (guardian) does not want him on the WOOD. Ordering physician will need to discuss WOOD with mother (guardian) for consent. -Continue Trazodone 50 mg nightly as needed for insomnia -Nephrology on board and continuing 2L fluid restriction and low-salt diet. He will need to follow-up with PCP and nephrology on outpatient basis. -When necessary Ativan and Haldol for agitation/aggression. -NRT -nicotine patch -SW on board for discharge planning. Encouraged the patient to participate in milieu. He is currently on a active court order for mental health treatment. Will need to transition onto WOOD if mother (guardian) agrees to ensure compliance. Consider discharge back home on Sunday or Sunday if he continues to stabilize.
[2024-01-27] MEDS ORDERED: ARIPiprazole 10 MG TAB PO SCH (09:00)
[2024-01-27 11:31] LABS: African American GFR (CKD) 58 (>60 ml/min/1.73 sqM); Anion Gap 8 mmol/L; Blood Urea Nitrogen 24 mg/dL (9-20); Calcium 9.3 mg/dL (8.4-10.2); Carbon Dioxide 27 mmol/L (22-30); Chloride 100 mmol/L (98-107); Glucose 103 mg/dL (74-99); Magnesium 2.1 mg/dL (1.6-2.3); Non-African American GFR(CKD) 50 (>60 ml/min/1.73 sqM); Potassium 4.4 mmol/L (3.5-5.1); Sodium 135 mmol/L (137-145)
--- NOTE | 2024-01-27 12:02 | P.PN ---
Progress Note - Text Progress Note Date: 01/27/24 Interval History: Patient was seen on the unit and was cooperative and directable to speak with this instructional writer bedside. There continues to be a brief latency in his responses. Patient continues to have poor insight. He continues to be religiously preoccupied today but is less tangential while discussing this. He says his mood is "excellent". He endorses having spoke with his mother recently. Discussed with him that he will need Abilify WOOD prior to discharge and patient expressed agreement with this however he would like for Dr. Harris to speak with his mother regarding this because he says his mother does not want him on WOOD because it might "make him a zombie". He is compliant with his medications. He denies trouble with sleep and has good appetite. At this time patient denies any suicidal or homicidal ideation, intent or plan. Patient denies any auditory, visual hallucinations, but there is concern he may be still attending to internal stimuli due to his latency of responses. Vital Signs Temp 97.8 F 01/27/24 07:02 Pulse 72 01/27/24 07:44 Resp 18 01/27/24 07:02 BP 137/94 01/27/24 07:44 Pulse Ox 95 01/27/24 07:02 FiO2 Intake & Output 01/26/24 01/27/24 01/27/24 18:59 06:59 18:59 Intake Total 414 Balance 414 Intake: Oral 414 Mental Status Exam: General Appearance: Patient appears obese, balding, peña, fair hygiene/grooming, +tattoos on arms Behavior: No agitated behavior. Speech: A bit slowed, but otherwise fluent. Mood/Affect: Mood is "excellent", affect is congruent and smiling brightly when discussing sikhism Suicidality/Homicidality: Patient denies having any suicidal or homicidal ideation intent or plan. Perceptions: Patient denies any visual hallucinations and denies any auditory hallucinations, but there is concern he is attending to internal stimuli due to thought blocking. Though content/process: Thought process is concrete with some thought blocking and latency in responses. Religiously preoccupied Memory and concentration: AOX3, grossly intact for the purposes of this session. Judgment and insight: Chronically poor, hence guardianship Assessment Schizoaffective disorder, bipolar type Cannabis use disorder, mild Noncompliance with medication regimen Nicotine dependence Plan: -Patient continues to meet criteria for inpatient psychiatric admission for symptom stabilization and safety. Patient is currently on a active treatment order until March 20, 2024. -Medications: -Continue Abilify 20 mg daily for psychosis/mood stabilization. Continue to monitor at this dose and titrate up as needed/tolerated If patient refuses p.o. Abilify then he is to receive haloperidol IM as backup. The plan is to transition patient onto long-acting injection to help ensure compliance, however today patient is claiming his mother (guardian) does not want him on the WOOD. Ordering physician will need to discuss WOOD with mother (guardian) for consent. -Continue Trazodone 50 mg nightly as needed for insomnia -Nephrology on board and continuing 2L fluid restriction and low-salt diet. He will need to follow-up with PCP and nephrology on outpatient basis. -When necessary Ativan and Haldol for agitation/aggression. -NRT -nicotine patch -SW on board for discharge planning. Encouraged the patient to participate in milieu. He is currently on a active court order for mental health treatment. Will need to transition onto WOOD if mother (guardian) agrees to ensure compliance. Consider discharge back home on Sunday or Sunday if he continues to stabilize.
[2024-01-27 16:10] VITALS: RESP 16
--- NOTE | 2024-01-28 10:28 | P.PN ---
Progress Note - Text Progress Note Date: 01/28/24 Interval History: Patient was seen in group today, and agreeable to speak with staff writer in the off ice. He states he is doing better today, and he states that his thoughts are more clear. [employer] Consultant spoke with patient about transitioning onto a WOOD, and the patient was agreeable. [employer] Consultant spoke with the patients mother/guardian to discuss the WOOD, and discharge plan. He is compliant with his medications. He denies trouble with sleep and has good appetite. At this time patient denies any suicidal or homicidal ideation, intent or plan. Patient denies any auditory or visual hallucinations. Mental Status Exam: General Appearance: Patient appears obese, balding, peña, fair hygiene/grooming, tattoos on arms Behavior: No agitated behavior. Speech: A bit slowed, but otherwise fluent. Mood/Affect: Mood is "good", affect is congruent, improving Suicidality/Homicidality: Patient denies having any suicidal or homicidal ideation intent or plan. Perceptions: Patient denies any visual hallucinations and denies any auditory hallucinations. Though content/process: Thought process is concrete with some thought blocking and latency in responses. Improving Memory and concentration: AOX3, grossly intact for the purposes of this session. Judgment and insight: Chronically poor, hence guardianship Assessment Schizoaffective disorder, bipolar type Cannabis use disorder, mild Noncompliance with medication regimen Nicotine dependence Plan: -Patient continues to meet criteria for inpatient psychiatric admission for symptom stabilization and safety. Patient is currently on a active treatment order until March 20, 2024. -Medications: Abilify 20 mg daily for psychosis/mood stabilization. Continue for 14 days, last dose 02/10. Add Abilify Maintenna IM 400mg, today, 01/27, next dose due 02/24. Trazodone 50 mg nightly as needed for insomnia. -Nephrology on board and continuing 2L fluid restriction and low-salt diet. He will need to follow-up with PCP and nephrology on outpatient basis. -When necessary Ativan and Haldol for agitation/aggression. -NRT -nicotine patch -SW on board for discharge planning. Encouraged the patient to participate in milieu. He is currently on a active court order for mental health treatment. Will need to transition onto WOOD if mother (guardian) agrees to ensure compliance. Consider discharge back home on Sunday if he continues to stabilize. [employer] Consultant spoke with patients mother (guardian) over the phone, and went over information on the WOOD and discharge plan. Mother agreeable.
[2024-01-28] MEDS: ARIPiprazole IM SYRINGE 400 MG (NO CHARGE) PHARMACY STOCK IM SCH (11:30)
[2024-01-28 14:34] LABS: C-ANCA <1:20 Titer (<1:20)
[2024-01-28 21:06] VITALS: PULSE 61
[2024-01-29 06:52] VITALS: TEMP 98
[2024-01-29 08:46] VITALS: BP 139/87
--- NOTE | 2024-01-29 10:52 | P.DS ---
Providers Date of admission: 01/18/24 21:58 Expected date of discharge: 01/29/24 Attending physician: Bharat Harris MD Consults: 01/18/24 22:21 Consult Physician Routine Consulting Provider: Daniel Walter Consult Reason/Comments: Medical managment Do you want consulting provider notified?: Yes 01/24/24 17:39 Consult Physician Routine Consulting Provider: Sammy Ervin Consult Reason/Comments: HTN, Low GFR Do you want consulting provider notified?: Yes Primary care physician: Mohini Uribe - Discharge Diagnosis(es) (1) Schizoaffective disorder, bipolar type Current Visit: No Status: Acute Priority: High (2) Non compliance w medication regimen Current Visit: No Status: Acute Priority: High (3) Cannabis use disorder, mild, abuse Current Visit: No Status: Acute Priority: Medium (4) Nicotine dependence Current Visit: No Status: Acute Priority: Low Hospital Course: Admission HPI: Admission note was completed by Dr Dinero "The patient is very vague as to why he is here except that his blood pressure gone up because he wouldn't take the medications. He just doesn't like taking medicines and he says he is on a whole fist full. He lives with his mom and stepdad in their basement.he had difficulty saying when things happened. He remembers walking home from a friend's house where he had banged on the door and no one can say ripped down something hanging on his friend's porch then as he was walking home he took all his clothes off and left him in the street went home and went to bed. Soon the police arrived and he met them at the door [place] naked. He reports that one time he was told by God to take off on his clothes and standing naked in the rain. After while he went back into the bathroom and looked in the mirror and ask why he had been told to do that. He said that God replied by saying "I am not ashamed of you and I don't want you to be ashamed of you.". When I pointed out that God doesn't seem to like people running around naked so that probably was not God. he assured me that, " for sure it was God" Hospital course: Upon admission to the unit patient was [admitted involuntarily on an active court order which expires on March 20, 2024. Patient was initially bizarre psychotic, with time and treatment he eventually got along well with other patients on the unit and followed unit protocol. Patient was compliant with the medications and denied any side effects throughout hospital course. Patient was started on Abilify p.o. and increased to dose of 20 mg daily for mood stabilization/psychosis. Patient was given Abilify Maintenna IM 400 mg on 01/27, next dose will be due q. monthly on 02/24. Trazodone 50 mg nightly as needed for insomnia. Due to patient's elevated blood pressure, medicine was involved and adjusted his blood pressure medications. patient was also seen by nephrology for consultation. Patient spoke of his stressors and engaged in therapy both group and individual. Patient was also seen by medical team for history and physical exam. Throughout the course of the hospitalization patient gradually improved with regards to mood, anxiety, psychosis, sleep and returned back to their baseline level of functioning. On the day of discharge patient denied any suicidal or homicidal ideations intent or plan denied any auditory or visual hallucinations. Patient endorsed wanting to live for his health and family. The patient denied any access to guns or weapons. Patient denied any paranoia and did not endorse any delusions. Patient does have a significant history of substance abuse and was counseled on abstaining from all substances including alcohol and marijuana. Patient elected to do outpatient substance use treatment program through [facility]. Patient was also counseled on the medications and need for regular compliance and was encouraged to follow-up with their outpatient appointment for mental health and also for primary care. Prior to discharge a family meeting will be arranged by social services counselor to answer any questions and ensure safety upon discharge. [employer]ist spoke with patient's mother over the phone, addressed concerns, answered questions and discussed discharge planning. Mental status exam: General Appearance: Patient appears to be overweight, balding, stated age is alert, pleasant, and cooperative. Patient is in no acute distress and has improved hygiene and grooming Behavior: Patient is calmly seated without any agitated behavior. Speech: Patient's speech is fluent and nonpressured. Mood/Affect: Patient reports their mood is "good", affect is congruent and euthymic. Suicidality/Homicidality: Patient denies having any suicidal or homicidal ideation intent or plan. Perceptions: Patient denies any auditory or visual hallucinations. Though content/process: There is no evidence of any delusional thought content and thought process is linear and goal-directed. Memory and concentration: AOX3, grossly intact for the purposes of this session. Can spell "WORLD" backwards correctly. Judgment and insight: Chronically poor, however has improved with guarded prognosis Impression: Schizoaffective disorder, bipolar type Cannabis use disorder, mild Noncompliance with medication regimen Nicotine dependence Plan: -Continue with discharge today as patient has improved and stabilized psychiatrically and is not currently an imminent threat to himself and/or others. Patient will remain at chronically elevated risk for harm to self and/or others due to his impulsivity and chronic mental illness. -Continue medications: Continue with Abilify p.o. 20 mg daily for 12 more days then discontinue. Patient was given Abilify Maintena 400 mg IM on 01/27, next dose will be due q. monthly on 02/24 at [facility]. Trazodone 50 mg nightly for insomnia/mood. -Patient was counseled on the need for medication compliance and appropriate follow-up at mental health and also primary care for medical issues. Patient verbalized understanding and agreed. -Social work to arrange for and conduct family meeting to ensure safety upon discharge and answer any questions/concerns. Social work also to arrange for patients follow up appointments with [facility] for psychiatric care along with follow up with primary care provider. -Patient counseled on abstaining from recreational drugs and marijuana and alcohol. Was informed/educated on the adverse effects on their physical and mental health. Patient verbally agreed and understood. -Patient was instructed to return to the hospital or seek immediate medical care if their psychiatric or medical symptoms do worsen or reoccur. Allergies Allergy/AdvReac Type Severity Reaction Status Date / Time No Known Allergies Allergy Verified 01/17/24 13:00 Laboratory Results WBC 9.4 k/uL (3.8-10.6) 01/17/24 16:38 RBC 5.27 m/uL (4.30-5.90) 01/17/24 16:38 Hgb 14.2 gm/dL (13.0-17.5) 01/17/24 16:38 Hct 43.4 % (39.0-53.0) 01/17/24 16:38 MCV 82.5 fL (80.0-100.0) 01/17/24 16:38 MCH 26.9 pg (25.0-35.0) 01/17/24 16:38 MCHC 32.7 g/dL (31.0-37.0) 01/17/24 16:38 RDW 15.9 % (11.5-15.5) H 01/17/24 16:38 Plt Count 323 k/uL (150-450) 01/17/24 16:38 MPV 7.3 01/17/24 16:38 Neutrophils % 65 % 01/17/24 16:38 Lymphocytes % 20 % 01/17/24 16:38 Monocytes % 6 % 01/17/24 16:38 Eosinophils % 6 % 01/17/24 16:38 Basophils % 1 % 01/17/24 16:38 Neutrophils # 6.1 k/uL (1.3-7.7) 01/17/24 16:38 Lymphocytes # 1.9 k/uL (1.0-4.8) 01/17/24 16:38 Monocytes # 0.6 k/uL (0-1.0) 01/17/24 16:38 Eosinophils # 0.6 k/uL (0-0.7) 01/17/24 16:38 Basophils # 0.1 k/uL (0-0.2) 01/17/24 16:38 Sodium 135 mmol/L (137-145) L 01/27/24 10:37 Potassium 4.4 mmol/L (3.5-5.1) 01/27/24 10:37 Chloride 100 mmol/L (98-107) 01/27/24 10:37 Carbon Dioxide 27 mmol/L (22-30) 01/27/24 10:37 Anion Gap 8 mmol/L 01/27/24 10:37 BUN 24 mg/dL (9-20) H 01/27/24 10:37 Creatinine 1.65 mg/dL (0.66-1.25) H 01/27/24 10:37 Est GFR (CKD-EPI)AfAm 58 (>60 ml/min/1.73 sqM) 01/27/24 10:37 Est GFR (CKD-EPI)NonAf 50 (>60 ml/min/1.73 sqM) 01/27/24 10:37 Glucose 103 mg/dL (74-99) H 01/27/24 10:37 Calcium 9.3 mg/dL (8.4-10.2) 01/27/24 10:37 Magnesium 2.1 mg/dL (1.6-2.3) 01/27/24 10:37 Total Bilirubin 0.3 mg/dL (0.2-1.3) 01/24/24 15:36 AST 43 U/L (17-59) 01/24/24 15:36 ALT 54 U/L (4-49) H 01/24/24 15:36 Alkaline Phosphatase 89 U/L (38-126) 01/24/24 15:36 Total Protein 6.4 g/dL (6.3-8.2) 01/24/24 15:36 Albumin 3.6 g/dL (3.5-5.0) 01/24/24 15:36 Renin Direct 9.4 pg/mL (3.1 - 57.1) 01/25/24 12:02 Aldosterone 48.0 ng/dL 01/25/24 12:02 Cortisol 4.1 UG/DL (3.1-22.4) 01/25/24 12:02 Urine Color Yellow 01/25/24 15:13 Urine Appearance Clear (Clear) 01/25/24 15:13 Urine pH 5.5 (5.0-8.0) 01/25/24 15:13 Ur Specific [place] 1.023 (1.001-1.035) 01/25/24 15:13 Urine Protein 1+ (Negative) H 01/25/24 15:13 Urine Glucose (UA) Negative (Negative) 01/25/24 15:13 Urine Ketones Negative (Negative) 01/25/24 15:13 Urine Blood Negative (Negative) 01/25/24 15:13 Urine Nitrite Negative (Negative) 01/25/24 15:13 Urine Bilirubin Negative (Negative) 01/25/24 15:13 Urine Urobilinogen <2.0 mg/dL (<2.0) 01/25/24 15:13 Ur Leukocyte Esterase Negative (Negative) 01/25/24 15:13 Urine RBC 1 /hpf (0-5) 01/17/24 16:29 Urine WBC 1 /hpf (0-5) 01/25/24 15:13 Ur Squamous Epith Cells <1 /hpf (0-4) 01/25/24 15:13 Hyaline Casts 22 /lpf (0-2) H 01/17/24 16:29 Urine Mucus Few /hpf (None) H 01/25/24 15:13 Ur Random Creatinine 87.6 mg/dL 01/28/24 22:35 U Random Total Protein 10 mg/dL (<12) 01/28/24 22:35 Urine Opiates Screen Not Detected (NotDetected) 01/17/24 11:51 Ur Oxycodone Screen Not Detected (NotDetected) 01/17/24 11:51 Urine Methadone Screen Not Detected (NotDetected) 01/17/24 11:51 Ur Barbiturates Screen Not Detected (NotDetected) 01/17/24 11:51 U Tricyclic Antidepress Not Detected (NotDetected) 01/17/24 11:51 Ur Phencyclidine Scrn Not Detected (NotDetected) 01/17/24 11:51 Ur Amphetamines Screen Not Detected (NotDetected) 01/17/24 11:51 U Methamphetamines Scrn Not Detected (NotDetected) 01/17/24 11:51 U Benzodiazepines Scrn Not Detected (NotDetected) 01/17/24 11:51 Urine Cocaine Screen Not Detected (NotDetected) 01/17/24 11:51 U Marijuana (THC) Screen Detected (NotDetected) H 01/17/24 11:51 HARJIT Screen Negative (Negative) 01/25/24 12:02 c-ANCA <1:20 Titer (<1:20) 01/25/24 12:02 p-ANCA <1:20 Titer (<1:20) 01/25/24 12:02 Double Strand DNA Ab Negative (Negative) 01/25/24 12:02 Anti-DNA Ab Interp <1.0 IU/mL 01/25/24 12:02 Complement C3 143.0 mg/dL (80.0-207.0) 01/25/24 12:02 Complement C4 26.9 mg/dL (10.0-53.0) 01/25/24 12:02 Tot Complement (CH50) 85 U/mL (42 - 95) 01/25/24 12:02 Hepatitis A IgM Ab Nonreactive (Nonreactive) 01/25/24 12:02 Hep Bs Antigen Nonreactive (Nonreactive) 01/25/24 12:02 Hep B Core IgM Ab Nonreactive (Nonreactive) 01/25/24 12:02 Hep C IgG Ab Nonreactive (Nonreactive) 01/25/24 12:02 SARS-CoV-2 (PCR) Not Detected (Not Detectd) 01/17/24 16:38 Vital Signs Temp 98 F 01/29/24 06:51 Pulse 61 01/29/24 06:51 Resp 16 01/29/24 06:51 BP 139/87 01/29/24 08:46 Pulse Ox 97 01/29/24 06:51 FiO2 Intake & Output 01/28/24 01/29/24 01/29/24 18:59 06:59 18:59 Intake Total 800 Balance 800 Intake: Oral 800 Patient Condition at Discharge: Stable Plan - Discharge Summary New Discharge Prescriptions: New ARIPiprazole [Abilify] 20 mg PO DAILY 12 Days #12 tab ARIPiprazole IM SYRINGE [Abilify Maintena Syringe] 400 mg IM QMONTHLY #1 each carvediloL [Coreg*] 25 mg PO BID-W/MEALS 30 Days #120 tab traZODone HCL [Desyrel] 50 mg PO HS 30 Days #30 tab amLODIPine [Norvasc] 10 mg PO DAILY 30 Days #30 tab hydrALAZINE HCL [Apresoline] 50 mg PO TID 30 Days #90 tab cloNIDine HCL [Catapres] 0.2 mg PO TID 30 Days #90 tab Continue Omeprazole 20 mg PO DAILY Aspirin EC [Ecotrin Low Dose] 81 mg PO DAILY 30 Days #30 tab Apixaban [Eliquis] 5 mg PO BID 30 Days #30 tab Famotidine [Pepcid] 20 mg PO BID 30 Days #60 tab Atorvastatin [Lipitor] 40 mg PO HS 30 Days tab Nitroglycerin Sl Tabs [Nitrostat] 0.4 mg SL Q5M PRN PRN Reason: Chest Pain Discontinued amLODIPine [Norvasc] 10 mg PO DAILY 30 Days tab Cariprazine HCl [Vraylar] 9 mg PO HS cloNIDine HCL [Catapres] 0.1 mg PO TID 30 Days tab hydrALAZINE HCL [Apresoline] 25 mg PO BID 30 Days tab carvediloL [Coreg] 25 mg PO BID 30 Days tab NIFEdipine XL [Procardia XL] 60 mg PO DAILY 30 Days #30 tablet buPROPion XL [Wellbutrin XL] 150 mg PO DAILY Ferrous Sulfate [Feosol] 325 mg PO BID Discharge Medication List Atorvastatin [Lipitor] 40 mg PO HS 30 Days tab 08/15/21 [Rx] Omeprazole 20 mg PO DAILY 12/21/22 [History] Nitroglycerin Sl Tabs [Nitrostat] 0.4 mg SL Q5M PRN 10/05/23 [History] ARIPiprazole IM SYRINGE [Abilify Maintena Syringe] 400 mg IM QMONTHLY #1 each 01/29/24 [Rx] ARIPiprazole [Abilify] 20 mg PO DAILY 12 Days #12 tab 01/29/24 [Rx] Apixaban [Eliquis] 5 mg PO BID 30 Days #30 tab 01/29/24 [Rx] Aspirin EC [Ecotrin Low Dose] 81 mg PO DAILY 30 Days #30 tab 01/29/24 [Rx] Famotidine [Pepcid] 20 mg PO BID 30 Days #60 tab 01/29/24 [Rx] amLODIPine [Norvasc] 10 mg PO DAILY 30 Days #30 tab 01/29/24 [Rx] carvediloL [Coreg*] 25 mg PO BID-W/MEALS 30 Days #120 tab 01/29/24 [Rx] cloNIDine HCL [Catapres] 0.2 mg PO TID 30 Days #90 tab 01/29/24 [Rx] hydrALAZINE HCL [Apresoline] 50 mg PO TID 30 Days #90 tab 01/29/24 [Rx] traZODone HCL [Desyrel] 50 mg PO HS 30 Days #30 tab 01/29/24 [Rx] Follow up Appointment(s)/Referral(s): [facility] [Outside] - 02/08/24 8:30 am (02-08-24 at 8:[address] Sigala ) Mohini Uribe MD [Primary Care Provider] - 1-2 days Patient Instructions/Handouts: How to Stop Smoking (DC), Schizoaffective Disorder (DC), Cannabis Abuse (DC) Activity/Diet/Wound Care/Special Instructions: [facility] Discharge Info Avoid the use of street drugs and alcohol. Take all medications as prescribed. When you are in need of refills on your medications, please contact your outpatient medical provider and/or outpatient psychiatrist. Please go to your scheduled outpatient appointments for aftercare treatment. If symptoms return or become worse, call the crisis line at or and/or visit the nearest emergency room for assistance. [place] Suicide and Crisis Lifeline - call or text 988. Discharge Disposition: HOME SELF-CARE
[2024-01-29 12:51] LABS: Protein, Total 6.7 g/dL (6.2-8.2)
--- NOTE | 2024-01-29 17:40 | P.PN ---
Subjective Patient is seen for follow-up for chronic kidney disease. Renal function has been fairly stable. Acute kidney injury has improved. Serum creatinine improved to 1.6 from 1.9 at peak. Blood pressure is better controlled. No significant complaints today. Objective - Vital Signs Vital signs: Vital Signs Temp 98 F 01/29/24 06:51 Pulse 61 01/29/24 06:51 Resp 16 01/29/24 06:51 BP 139/87 01/29/24 08:46 Pulse Ox 97 01/29/24 06:51 FiO2 Intake & Output 01/28/24 01/29/24 01/29/24 18:59 06:59 18:59 Intake Total 800 Balance 800 Intake: Oral 800 - Exam Patient is awake, alert oriented x 3 Examination of the heart S1 and S2 Examination of the lungs bilateral breath sounds are heard Abdomen is soft nontender 1+ edema noted in the lower extremities - Labs CBC & Chem 7: 01/17/24 16:38 01/27/24 10:37 Assessment and Plan Assessment: 1. Acute kidney injury secondary to hemodynamic ATN. Improved. Creatinine 1.6 from peak of 1.9 2. Proteinuria. 3+ proteinuria noted on UA. Repeat UA with 1+ protein and no blood. Albumin 3.6. No history of diabetes. Rule out GN. 3. Chronic kidney disease stage II with baseline creatinine 1.3 likely from nephrosclerosis. 4. Bipolar disorder. Psychiatry managing. 5. Volume overload. Improved. 6. Coronary disease with cardiac stent. Plan: Continue current antihypertensive medications. Follow-up as outpatient for CKD. May need further adjustment of disease as outpatient.
[2024-01-31 22:43] LABS: Metanephrine, Free <25 pg/mL (< OR = 57); Normetanephrine, Free 92 pg/mL (< OR = 148); Total, Free (MN + NMN) 92 pg/mL (< OR = 205)
[2024-02-02 07:47] LABS: Albumin 3.67 g/dL (3.80-4.90); Gamma Globulin 1.09 g/dL (0.70-1.50)
== END 2024-01-29 12:41 | disposition home or self-care (01) | DRG 750 ==
LOC: EC 10:57 → 3MHU 01-18 21:58
PROVIDERS: ADMIT Psychiatry & Neurology Psychiatry; ATTEND Psychiatry & Neurology Psychiatry
DX: F25.0 Schizoaffective disorder, bipolar type (principal); E78.5 Hyperlipidemia, unspecified; E87.70 Fluid overload, unspecified; F12.10 Cannabis abuse, uncomplicated; F17.290 Nicotine dependence, other tobacco product, uncomplicated; F41.9 Anxiety disorder, unspecified; G47.00 Insomnia, unspecified; I10 Essential (primary) hypertension; I25.2 Old myocardial infarction; I25.10 Atherosclerotic heart disease of native coronary artery without angina pectoris; J44.89 Other specified chronic obstructive pulmonary disease; N17.0 Acute kidney failure with tubular necrosis; N18.2 Chronic kidney disease, stage 2 (mild); Z79.01 Long term (current) use of anticoagulants; Z79.82 Long term (current) use of aspirin; Z79.899 Other long term (current) drug therapy; Z86.711 Personal history of pulmonary embolism; Z91.199 Patient's noncompliance with other medical treatment and regimen due to unspecified reason; Z95.5 Presence of coronary angioplasty implant and graft; Z11.52 Encounter for screening for COVID-19; Z28.21 Immunization not carried out because of patient refusal; Z71.51 Drug abuse counseling and surveillance of drug abuser
CPT/HCPCS: 36415; 80048; 80053; 80074; 80306; 81001; 82075; 82088; 82533; 82570; 83735; 83835; 84156; 84165; 84244; 85025; 86038; 86160; 86162; 86225; 86255; 86334; 87635; 93975; 99285

== ENCOUNTER → 2024-02-28 | Outpatient (CLI) | payer OTHER ==
--- NOTE | 2024-02-28 14:56 | XR ---
EXAMINATION TYPE: XR chest 2V DATE OF EXAM: 02/28/2024 1:40 PM CLINICAL INDICATION: Male, 43 years old with history of R07.9 Chest pain; [facility] COMPARISON: Chest radiographs from 08/23/2021 TECHNIQUE: XR chest 2V Frontal view of the chest. FINDINGS: Lungs/Pleura: There is no evidence of pleural effusion, focal consolidation, or pneumothorax. Pulmonary vascularity: Unremarkable. Heart/mediastinum: Cardiomediastinal silhouette is unremarkable. Musculoskeletal: No acute osseous pathology. IMPRESSION: No acute cardiopulmonary disease/process. [facility], , 02/28/2024 2:01 PM
--- NOTE | 2024-02-28 15:20 | NM ---
EXAMINATION TYPE: NM pul vent and perfuse DATE OF EXAM: 02/28/2024 CLINICAL INDICATION: Male, 43 years old with history of R07.9 Chest pain; COMPARISON: Same day chest radiograph TECHNIQUE: Utilizing inhalation of 32 mCi Tc 99m DTPA aerosol and intravenous injection of 5 mCi of Tc 99m MAA, ventilation and perfusion images are acquired post injection in multiple projections. FINDINGS: Normal radiotracer distribution is noted in the lungs. There is no evidence of mismatched defects. IMPRESSION: No evidence for pulmonary embolus [facility], , 02/28/2024 3:18 PM
== END | disposition home or self-care (01) ==
LOC: RADNMMAIN 13:19
PROVIDERS: ATTEND Internal Medicine
DX: R07.9 Chest pain, unspecified (principal)
CPT/HCPCS: 71046; 78582

== ENCOUNTER → 2024-06-04 | Outpatient (CLI) | payer OTHER ==
--- NOTE | 2024-06-04 14:22 | CT ---
EXAMINATION TYPE: CT sinus wo con DATE OF EXAM: 06/04/2024 2:09 PM COMPARISON: 08/23/2021 CLINICAL INDICATION: Male, 43 years old with history of J32.9 CHRONIC SINUSITIS, UNSPECIFIED; polyp s, sinusitis TECHNIQUE: Multiple thin axial images were obtained through the paranasal sinuses without the use of IV contrast. Additional coronal and sagittal reformatted images were submitted for evaluation. Contrast used: none Oral contrast used: none CT DLP: 555 mGycm, Automated exposure control for dose reduction was used. FINDINGS: Frontal sinuses: Normally developed with mucosal thickening and/or retention cyst present.. Frontal R ecess: Obstructed right are suspected left. Maxillary Sinuses: Bilateral mucosal thickening with retention cysts on the left measuring up to 19 m m. Superior left maxillary sinus higher density lesion measuring 17 mm 81 Hounsfield units. Maxillary Infundibula([facility]): Obstructed bilaterally due to mucosal thickening, No Pako cells identif ied. Ethmoid sinuses: Normally developed with scattered opacification from mucosal thickening/secretions. Ethmoidal notch: Protected and abutting the lateral lamina. Sphenoid sinuses: Normally developed and aerated. There is sellar sphenoid sinus pneumatization witho ut evidence of dehiscence. No dehiscence of carotid canal. No evidence of optic nerve dehiscence wit hin the sphenoid sinus. No evidence of Onodi cells. Sphenoethmoidal recesses: Opacified bilaterally. Nasal septum: Deviated rightward more posteriorly. Relatively straight anteriorly. Nasal Turbinates: Mucosal thickening of the turbinates which obstructs the airway/nasal cavity. Mastoid air cells & middle ears: The air cells are clear. The middle ears are grossly unremarkable. Modified Soft tissues & Brain: Partially seen without gross abnormality. Globes are intact. Other: Cribriform plate demonstrates symmetric Keros classification type 2 cribriform plate. No evidence of bony dehiscence of skull base. Lamina papyracea is intact without evidence of remote orbital fracture or orbital prolapse into the e thmoid sinus. IMPRESSION: 1. Left maxillary sinus higher density retention cyst versus polyp measuring up to 17 mm. 2. Left maxillary sinus retention cysts measuring up to 19 mm. Additional retention cyst in the righ t frontal lobe also present. 3. The ostiomeatal units, frontonasal and sphenoethmoidal recesses are opacified bilaterally. [facility], , 06/04/2024 2:19 PM
== END | disposition home or self-care (01) ==
LOC: RADCTMAIN 13:38
PROVIDERS: ATTEND Otolaryngology
DX: J32.9 Chronic sinusitis, unspecified (principal); J34.1 Cyst and mucocele of nose and nasal sinus
CPT/HCPCS: 70486